=== PATIENT | male | born 1965 | race Hispanic/Latino ===

== ENCOUNTER 2018-03-25 13:28 | Inpatient (IN) | payer OTHER ==
--- NOTE | 2018-03-25 13:49 | ED PDOC ---
Arrival/HPI - General Chief Complaint: Lower Extremity Problem/Injury Time Seen by Provider: 03/25/18 13:32 Historian: Patient - History of Present Illness Narrative History of Present Illness (Text): 03/25/18 13:48 This 52 yo male with pmh diabetes, presents to this Emergency department complaining of left 5th toe injury x 4-5 days. Patient stated he accidentally twisted left ankle, causing to avulse his left 5th toenail. Last tetanus was UKN. Patient has been cleaning toe injury with peroxide. Patient denies other somatic complains. Patient was found to be febrile. He said he is claustrophobic. He stated PCN medication does not work for him. 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 Time/Duration: Other (see hpi) Context: Home Past Medical History - Provider Review Nursing Documentation Reviewed: Yes - Cardiac Hx Cardiac Disorders: No - Pulmonary Hx Respiratory Disorders: No - Neurological Hx Neurological Disorder: No - HEENT Hx HEENT Disorder: No - Renal Hx Renal Disorder: No - Endocrine/Metabolic Hx Diabetes Mellitus Type 2: Yes - Hematological/Oncological Hx Blood Disorders: No - Integumentary Hx Dermatological Disorder: No - Musculoskeletal/Rheumatological Hx Musculoskeletal Disorders: No - Gastrointestinal Hx Gastrointestinal Disorders: No - Genitourinary/Gynecological Hx Genitourinary Disorders: No - Psychiatric Hx Psychophysiologic Disorder: No Hx Substance Use: No Family/Social History - Physician Review Nursing Documentation Reviewed: Yes Family/Social History: Other (noncontributory) Smoking Status: Never Smoked Hx Alcohol Use: No Hx Substance Use: No Allergies/Home Meds Allergies/Adverse Reactions: Allergies Penicillins Allergy (Mild, Verified 03/25/18 14:26) PAIN Pt does not want to take it, claims it does not work for him. Home Medications: Home Meds Medication Instructions Recorded Confirmed metFORMIN [glucOPHAGE] 500 mg PO BID 03/25/18 03/25/18 Review of Systems - Review of Systems Constitutional: Fevers. absent: Weight Change, Night Sweats Eyes: Normal ENT: Normal. absent: Sore Throat, Rhinorrhea Respiratory: Normal. absent: SOB, Cough, Sputum, Wheezing Cardiovascular: Normal. absent: Palpitations, Syncope Gastrointestinal: Normal. absent: Abdominal Pain, Nausea, Vomiting Genitourinary Male: Normal. absent: Dysuria, Frequency, Hematuria Musculoskeletal: Other (see hpi) Skin: Abscess, Ulcer, Cellulitis, Other (see hpi) Neurological: Normal. absent: Headache, Dizziness, Focal Weakness, Gait Changes , Speech Changes, Facial Droop, Disequilibrium, Seizure Endocrine: Normal Hemo/Lymphatic: Normal Psychiatric: Normal Physical Exam Vital Signs Temp Pulse Resp BP Pulse Ox 03/25/18 15:43 99.1 F 100 H 20 98 03/25/18 15:20 178/81 H 03/25/18 13:37 100.1 F H 98 H 18 209/91 H 98 Temperature: Febrile Blood Pressure: Hypertensive Pulse: Regular Respiratory Rate: Normal Appearance: Positive for: Well-Appearing, Non-Toxic, Comfortable Pain Distress: None Mental Status: Positive for: Alert and Oriented X 3 - Systems Exam Head: Present: Atraumatic, Normocephalic Pupils: Present: PERRL Extroacular Muscles: Present: EOMI Conjunctiva: Present: Normal Mouth: Present: Moist Mucous Membranes Pharnyx: Present: Normal. No: ERYTHEMA, EXUDATE, TONSILS ENLARGED Neck: Present: Normal Range of Motion, Trachea Midline. No: Meningeal Signs, MIDLINE TENDERNESS, Paraspinal Tenderness, Lymphadenopathy Respiratory/Chest: Present: Clear to Auscultation, Good Air Exchange. No: Respiratory Distress, Accessory Muscle Use, Wheezes, Retracting, Rhonchi Cardiovascular: Present: Regular Rate and Rhythm, Normal S1, S2. No: Murmurs Abdomen: No: Tenderness, Distention, Peritoneal Signs, Rebound, Guarding Back: Present: Normal Inspection. No: CVA Tenderness, Midline Tenderness, Paraspinal Tenderness, Pain with Leg Raise Upper Extremity: Present: Normal Inspection, Normal ROM, NORMAL PULSES, Neurovascularly Intact, Capillary Refill < 2s. No: Cyanosis, Edema Lower Extremity: Present: NORMAL PULSES, Normal ROM, Erythema (left foot and ankle erythema), Temperature Abnormalties, Neurovascularly Intact, Capillary Refill < 2 s, Other ((+) left 5th toe is unrecognizable with severe infection, swelling erythema. Possibility of osteomyelitis is present). No: Edema, CALF TENDERNESS Neurological: Present: GCS=15, CN II-XII Intact, Speech Normal, Motor Func Grossly Intact, Normal Sensory Function, Normal Cerebellar Funct, Gait Normal Skin: Present: Warm, Dry, Normal Color. No: Rashes Psychiatric: Present: Alert, Oriented x 3, Normal Insight, Normal Concentration Medical Decision Making ED Course and Treatment: 03/25/18 15:49 Patient is requesting to have Dr. Morenita Sood to be called for his medical car. 03/25/18 16:[address] Morenita Sood regarding lab result, x-rays, febrile. I told him Podiatry Resident came to examine patient. He recommended ESCOBAR Coe for consult. He agreed with plan for admission. Patient agreed with plan for admission. Re-evaluation Time: 16:58 Reassessment Condition: Re-examined, Improving,but remains with symptoms - Lab Interpretations Lab Results: 03/25/18 15:10 03/25/18 15:10 Lab Results 03/25/18 16:45: Urine Color Yellow, Urine Appearance Clear, Urine pH 6.0, Ur Specific [place] 1.015, Urine Protein 100 H, Urine Glucose (UA) >=1000, Urine Ketones Negative, Urine Blood Moderate H, Urine Nitrate Negative, Urine Bilirubin Negative, Urine Urobilinogen 0.2, Ur Leukocyte Esterase Negative, Urine RBC Pending, Urine WBC Pending 03/25/18 15:10: Sodium 137, Chloride 104, Potassium 4.7, Carbon Dioxide 21, Anion Gap 17, BUN 34 H, Creatinine 1.8 H, Est GFR ( Amer) 48, Est GFR ( Non-Af Amer) 40, Random Glucose 411 H*, Calcium 8.9, Phosphorus 2.7, Magnesium 1.6 L, Total Bilirubin 0.4, AST 20, ALT 28, Alkaline Phosphatase 102, Total Protein 7.1, Albumin 3.5, Globulin 3.6, Albumin/Globulin Ratio 1.0 L 03/25/18 15:10: pO2 20 L, VBG pH 7.28 L, VBG pCO2 47.0, VBG HCO3 22.1, VBG Total CO2 23.5, VBG O2 Sat (Calc) 43.7, VBG Base Excess -4.8 L, VBG Potassium 4.4, Sodium 134.0, Chloride 105.0, Glucose 431 H*, Lactate 1.0, FiO2 21.0, Venous Blood Potassium 4.4 03/25/18 15:10: PT 13.1 H, INR 1.15 H, APTT 28.8 03/25/18 15:10: WBC 18.7 H, RBC 3.80, Hgb 10.5 L, Hct 30.1 L, MCV 79.2 L, MCH 27.6, MCHC 34.9, RDW 12.4, Plt Count 285, MPV 10.8, Gran % 87.7 H, Lymph % (Auto ) 5.7 L, [place] % (Auto) 6.4 H, Eos % (Auto) 0.1 L, Baso % (Auto) 0.1, Gran # 16.36 H, Lymph # (Auto) 1.1 L, [place] # (Auto) 1.2 H, Eos # (Auto) 0.0, Baso # ( Auto) 0.02, ESR Pending I have reviewed the lab results: Yes Interpretation: Abnormal lab values - RAD Interpretation Narrative RAD Interpretations (Text): 03/25/18 15:31 PROCEDURE: Left Foot Radiographs. HISTORY: attn. 5th toe infection COMPARISON: None. FINDINGS: BONES: Normal. No fracture. No evidence of osteomyelitis JOINTS: Normal. SOFT TISSUES: Normal. OTHER FINDINGS: None. IMPRESSION: Soft tissue ulcers are seen in the 5th digit. No evidence of bony destruction 03/25/18 15:49 Chest X-ray: NAD Radiology Orders: 03/25/18 14:10 CHEST ONE VIEW [RAD] Stat 03/25/18 14:16 FOOT LEFT 3 VIEWS ROUTINE [RAD] Stat 03/25/18 17:01 DUPLEX LOWER EXTRM ARTR BILAT [US] Routine - EKG Interpretation Interpreted by ED Physician: Yes (NSR @ [address] changes) Type: 12 lead EKG Comparison: No previous EKG avail. - Medication Orders Current Medication Orders: Acetaminophen (Tylenol 325mg Tab) 975 mg PO ONCE PRN PRN Reason: Fever >100.4 F Last Admin: 03/25/18 15:20 Dose: 975 mg Insulin Human Regular (Humulin R) 10 units IVP STAT STA Stop: 03/25/18 17:10 Discontinued Medications Clonidine HCl (Catapres) 0.2 mg PO STAT STA Stop: 03/25/18 14:18 Last Admin: 03/25/18 15:20 Dose: 0.2 mg MAR Pulse and Blood Pressure Document 03/25/18 15:20 HI (Rec: 03/25/18 15:20 [place] [id number]) Blood Pressure Blood Pressure (100/60-150/90) 178/81 Meropenem (Merrem Iv 1 Gm Premix) 100 mls @ 100 mls/hr IVPB STAT STA PRN Reason: Protocol Stop: 03/25/18 15:09 Last Admin: 03/25/18 15:20 Dose: 100 mls/hr eMAR Start Stop Document 03/25/18 15:20 HI (Rec: 03/25/18 15:20 [place] [id number]) Intravenous Solution Start Date 03/25/18 Start Time 15:20 Vancomycin HCl (Vancomycin 1gm) 1 gm in 250 mls @ 167 mls/hr IVPB STAT STA PRN Reason: Protocol Stop: 03/25/18 15:39 Last Admin: 03/25/18 16:43 Dose: 167 mls/hr eMAR Start Stop Document 03/25/18 16:43 HI (Rec: 03/25/18 16:44 [place] [id number]) Intravenous Solution Start Date 03/25/18 Start Time 16:43 Sodium Chloride (Sodium Chloride 0.9%) 1,000 mls @ 999 mls/hr IV .Q1H1M STA Stop: 03/25/18 15:15 Last Admin: 03/25/18 15:19 Dose: 999 mls/hr eMAR Start Stop Document 03/25/18 15:19 HI (Rec: 03/25/18 15:19 [id number] Intravenous Solution Start Date 03/25/18 Start Time 15:19 Tetanus/Reduced Diphtheria/Acell Pertussis (Boostrix Vaccine Inj) 0.5 ml IM .ONCE ONE Stop: 03/25/18 14:25 Last Admin: 03/25/18 15:19 Dose: 0.5 ml Immunization Registry Document 03/25/18 15:19 HI (Rec: 03/25/18 15:19 [id number] Immunization Registry Consent Date 03/25/18 Disposition/Present on Arrival - Present on Arrival Any Indicators Present on Arrival: No History of DVT/PE: No History of Uncontrolled Diabetes: Yes Urinary Catheter: No History of Decub. Ulcer: No History Surgical Site Infection Following: None - Disposition Have Diagnosis and Disposition been Completed?: Yes Diagnosis: Diabetic ulcer of toe, Cellulitis in diabetic foot, Uncontrolled diabetes mellitus Disposition: HOSPITALIZED Disposition Time: 16:58 Patient Plan: Admission Patient Problems: Current Active Problems Problem Status Onset Diabetic ulcer of toe Acute Cellulitis in diabetic foot Acute Condition: STABLE Discharge Instructions (ExitCare): Cellulitis (ED) Referrals: PCP,NO [Primary Care Provider] - Follow up with primary Forms: [employer] (Ukrainian)
[2018-03-25] MEDS ORDERED: Vancomycin 1gm in NS 250ml 1 GM/250 ML BAG IVPB STA (14:10)
[2018-03-25] MEDS ORDERED: Meropenem IV 1 gm in NS 100 ML IVPB STA (14:10)
[2018-03-25] MEDS ORDERED: Sodium Chloride 0.9% 1,000 ML IV STA (14:15)
[2018-03-25] MEDS ORDERED: TDAP Vaccine 0.5 mL Syr IM ONE (14:24)
--- NOTE | 2018-03-25 14:55 | RAD ---
PROCEDURE: CHEST RADIOGRAPH, 1 VIEW HISTORY: Sepsis Patient COMPARISON: None available. FINDINGS: LUNGS: Clear. PLEURA: No pneumothorax or pleural fluid seen. CARDIOVASCULAR: Normal. OSSEOUS STRUCTURES: No significant abnormalities. VISUALIZED UPPER ABDOMEN: Normal. OTHER FINDINGS: None. IMPRESSION: No active disease.
--- NOTE | 2018-03-25 14:59 | RAD ---
PROCEDURE: Left Foot Radiographs. HISTORY: attn. 5th toe infection COMPARISON: None. FINDINGS: BONES: Normal. No fracture. No evidence of osteomyelitis JOINTS: Normal. SOFT TISSUES: Normal. OTHER FINDINGS: None. IMPRESSION: Soft tissue ulcers are seen in the 5th digit. No evidence of bony destruction
[2018-03-25 15:29] LABS: BASO # 0.02 K/mm3 (0.0-2.0); BASO % 0.1 % (0.0-3.0); EOS % 0.1 % (1.5-5.0); GRAN # 16.36 (1.4-6.5); GRAN % 87.7 % (50.0-68.0); HEMOGLOBIN 10.5 g/dL (14.0-18.0); LYMPH # 1.1 (1.2-3.4); LYMPH % 5.7 % (22.0-35.0); MEAN CELL VOLUME 79.2 fl (80.0-105.0); MEAN CORPUSCULAR HEMOGLOBIN 27.6 pg (25.0-35.0); MEAN CORPUSCULAR HGB CONC 34.9 g/dl (31.0-37.0); MEAN PLATELET VOLUME 10.8 fl (7.0-11.0); MONO # 1.2 (0.1-0.6); MONO % 6.4 % (1.0-6.0); RBC 3.8 10^6/uL (3.5-6.1); RED CELL DISTRIBUTION WIDTH 12.4 % (11.5-14.5); WHITE BLOOD COUNT 18.7 10^3/ul (4.5-11.0)
[2018-03-25 15:32] LABS: VENOUS BLOOD GAS BASE EXCESS -4.8 mmol/L (0.0-2.0); VENOUS BLOOD GAS PO2 20 mm/Hg (30-55); VENOUS BLOOD PH 7.28 (7.32-7.43)
[2018-03-25 16:00] LABS: INR 1.15 (0.93-1.08); PARTIAL THROMBOPLASTIN TIME 28.8 Seconds (25.1-36.5); PROTHROMBIN TIME 13.1 SECONDS (9.4-12.5)
[2018-03-25 16:27] LABS: ALBUMIN 3.5 g/dL (3.0-4.8); CALCIUM 8.9 mg/dL (8.4-10.5)
[2018-03-25 16:59] LABS: URINE BILIRUBIN NEGATIVE (NEGATIVE); URINE BLOOD MODERATE (NEGATIVE); URINE GLUCOSE (UA) >=1000 mg/dL (NEGATIVE); URINE LEUKOCYTE ESTERASE NEGATIVE Leu/uL (NEGATIVE); URINE PROTEIN 100 mg/dL (<30 mg/dL); URINE UROBILINOGEN 0.2 E.U./dL (<1 E.U./dL)
[2018-03-25 17:02] LABS: URINE APPEARANCE CLEAR (CLEAR); URINE COLOR YELLOW (YELLOW)
--- NOTE | 2018-03-25 17:08 | CP.PCM.CON ---
<Bart Toth - Last Filed: 03/25/18 17:04> History of Present Illness - History of Present Illness History of Present Illness: Podiatry Consult Note for Dr. Colon 52M with PMHx DM seen in ED complaining of a wound to he left fifth digit. Patient states that four days ago he was wearing flip flops and twisted his ankle causing him to scrape his fifth digit and traumatically avulse the nail. Patient states that since that time the toe has become increasingly swollen and hot and his foot has become more and more red. He denies seeking any treatment up to this point. He denies being in any pain but does say that the wound is uncomfortable. He is AAO x 3 and NAD during examination. Denies any other pedal complaints at this time. Denies any recent N/V/F/C/CP/SOB/D. Meds: See MAR All: Penicillins PSH: Denies FHx: Non-contributory SHx: Denies EtOH, tobacco use or illicit drug use Review of Systems - Review of Systems All systems: reviewed and no additional remarkable complaints except Review of Systems: as per HPI Past Patient History - Past Social History Smoking Status: Never Smoked - CARDIAC Hx Cardiac Disorders: No - PULMONARY Hx Respiratory Disorders: No - NEUROLOGICAL Hx Neurological Disorder: No - HEENT Hx HEENT Problems: No - RENAL Hx Chronic Kidney Disease: No - ENDOCRINE/METABOLIC Hx Diabetes Mellitus Type 2: Yes - HEMATOLOGICAL/ONCOLOGICAL Hx Blood Disorders: No - INTEGUMENTARY Hx Dermatological Problems: No - MUSCULOSKELETAL/RHEUMATOLOGICAL Hx Musculoskeletal Disorders: No - GASTROINTESTINAL Hx Gastrointestinal Disorders: No - GENITOURINARY/GYNECOLOGICAL Hx Genitourinary Disorders: No - PSYCHIATRIC Hx Psychophysiologic Disorder: No Hx Substance Use: No - SURGICAL HISTORY Hx Surgeries: No Meds Allergies/Adverse Reactions: Allergies Allergy/AdvReac Type Severity Reaction Status Date / Time Penicillins Allergy Mild PAIN Verified 03/25/18 14:26 - Medications Medications: Current Medications Acetaminophen (Tylenol 325mg Tab) 975 mg PO ONCE PRN PRN Reason: Fever >100.4 F Last Admin: 03/25/18 15:20 Dose: 975 mg Physical Exam - Constitutional Appears: Well, Non-toxic, No Acute Distress - Head Exam Head Exam: ATRAUMATIC, NORMOCEPHALIC - Extremities Exam Additional comments: LLE focused exam: Vasc: DP/PT pulses fully palpable 2/4 b/l. Skin temperature warm to warm from proximal to distal, increased distally. CFT < 3 seconds to all digits except fifth. Moderate edema to fifth digit extending to level of midfoot. Neuro: Epicritic and protective sensation grossly intact Derm: Fifth digit noted to be necrotic plantarly and fibrous dorsally with moderate amounts of serous drainage and noted malodor. Positive probe to bone, no tracking/tunneling/undermining. Grossly infected on clinical examination MSK: Minimal POP to ulceration site. Otherwise, no gross deformities noted. MMT 5/5 in all major muscle groups - Neurological Exam Neurological exam: Alert, Oriented x3 - Psychiatric Exam Psychiatric exam: Normal Affect, Normal Mood Results - Vital Signs Recent Vital Signs: Last Vital Signs Temp 99.1 F 03/25/18 15:43 Pulse 100 H 03/25/18 15:43 Resp 20 03/25/18 15:43 BP 178/81 H 03/25/18 15:20 Pulse Ox 98 03/25/18 15:43 - Labs Result Diagrams: 03/25/18 15:10 03/25/18 15:10 Labs: Laboratory Results - last 24 hr 03/25/18 03/25/18 03/25/18 15:10 15:10 15:10 WBC 18.7 H RBC 3.80 Hgb 10.5 L Hct 30.1 L MCV 79.2 L MCH 27.6 MCHC 34.9 RDW 12.4 Plt Count 285 MPV 10.8 Gran % 87.7 H Lymph % (Auto) 5.7 L [place] % (Auto) 6.4 H Eos % (Auto) 0.1 L Baso % (Auto) 0.1 Gran # 16.36 H Lymph # (Auto) 1.1 L [place] # (Auto) 1.2 H Eos # (Auto) 0.0 Baso # (Auto) 0.02 PT 13.1 H INR 1.15 H APTT 28.8 pO2 20 L VBG pH 7.28 L VBG pCO2 47.0 VBG HCO3 22.1 VBG Total CO2 23.5 VBG O2 Sat (Calc) 43.7 VBG Base Excess -4.8 L VBG Potassium 4.4 Sodium 134.0 Chloride 105.0 Glucose 431 H* Lactate 1.0 FiO2 21.0 Potassium Carbon Dioxide Anion Gap BUN Creatinine Est GFR ( Amer) Est GFR (Non-Af Amer) Random Glucose Calcium Phosphorus Magnesium Total Bilirubin AST ALT Alkaline Phosphatase Total Protein Albumin Globulin Albumin/Globulin Ratio Venous Blood Potassium 4.4 Urine Color Urine Appearance Urine pH Ur Specific [place] Urine Protein Urine Glucose (UA) Urine Ketones Urine Blood Urine Nitrate Urine Bilirubin Urine Urobilinogen Ur Leukocyte Esterase 03/25/18 03/25/18 15:10 16:45 WBC RBC Hgb Hct MCV MCH MCHC RDW Plt Count MPV Gran % Lymph % (Auto) [place] % (Auto) Eos % (Auto) Baso % (Auto) Gran # Lymph # (Auto) [place] # (Auto) Eos # (Auto) Baso # (Auto) PT INR APTT pO2 VBG pH VBG pCO2 VBG HCO3 VBG Total CO2 VBG O2 Sat (Calc) VBG Base Excess VBG Potassium Sodium 137 Chloride 104 Glucose Lactate FiO2 Potassium 4.7 Carbon Dioxide 21 Anion Gap 17 BUN 34 H Creatinine 1.8 H Est GFR ( Amer) 48 Est GFR (Non-Af Amer) 40 Random Glucose 411 H* Calcium 8.9 Phosphorus 2.7 Magnesium 1.6 L Total Bilirubin 0.4 AST 20 ALT 28 Alkaline Phosphatase 102 Total Protein 7.1 Albumin 3.5 Globulin 3.6 Albumin/Globulin Ratio 1.0 L Venous Blood Potassium Urine Color Yellow Urine Appearance Clear Urine pH 6.0 Ur Specific [place] 1.015 Urine Protein 100 H Urine Glucose (UA) >=1000 Urine Ketones Negative Urine Blood Moderate H Urine Nitrate Negative Urine Bilirubin Negative Urine Urobilinogen 0.2 Ur Leukocyte Esterase Negative Assessment & Plan - Assessment and Plan (Free Text) Assessment: 52M seen at bedside for acutely infected, fibronecrotic left fifth digit Plan: Patient seen and evaluated Plan discussed with attending Dr. Colon Febrile, WBC 18.7 ESR pending IV abx per ID, recs appreciated 03/25: No evidence of OM F/u wound cx results F/u b/l LE arterial duplex results Patient most likely will need amputation of fifth digit. Patient has been made aware. Will discuss more with patient and Dr. Villeda tomorrow AM. Wound dressed with JULISA Perera. Patient to be admitted to floors. Podiatry will continue to follow while patient in house - Date & Time Date: 06/11/18 Time: 17:16 <DarleneLoreto K - Last Filed: 03/31/18 19:01> Meds - Medications Medications: Current Medications Acetaminophen (Tylenol 325mg Tab) 650 mg PO Q4 PRN PRN Reason: Fever >100.4 F Last Admin: 03/27/18 06:53 Dose: 650 mg Amlodipine Besylate (Norvasc) 10 mg PO DAILY [facility] Last Admin: 03/31/18 10:18 Dose: 10 mg Aspirin (Ecotrin) 81 mg PO DAILY [facility] Last Admin: 03/31/18 10:19 Dose: 81 mg Sodium Chloride (Sodium Chloride 0.9%) 1,000 mls @ 60 mls/hr IV .[id number] [facility] Last Admin: 03/31/18 05:52 Dose: Not Given Insulin Human Regular (Humulin R Med) 0 units SC [facility] PRN Reason: Protocol Last Admin: 03/31/18 17:55 Dose: 3 units Linezolid (Zyvox) 600 mg PO BID [facility] PRN Reason: Protocol Last Admin: 03/31/18 17:56 Dose: 600 mg Losartan Potassium (Cozaar) 50 mg PO DAILY [facility] Last Admin: 03/31/18 10:19 Dose: 50 mg Magnesium Oxide (Mag-Ox) 400 mg PO BID [facility] Last Admin: 03/31/18 17:55 Dose: 400 mg Metoprolol Tartrate (Lopressor) 25 mg PO BRKDIN [facility] Last Admin: 03/31/18 17:56 Dose: 25 mg Ondansetron HCl (Zofran Inj) 4 mg IVP ONCE PRN PRN Reason: Nausea/Vomiting Oxycodone/Acetaminophen (Percocet 5/325 Mg Tab) 1 tab PO Q4H PRN PRN Reason: Pain, severe (8-10) Stop: 03/31/18 19:37 Last Admin: 03/31/18 17:59 Dose: 1 tab Pioglitazone HCl (Actos) 30 mg PO DAILY [facility] Last Admin: 03/31/18 10:19 Dose: 30 mg Tramadol HCl (Ultram) 50 mg PO Q6H PRN PRN Reason: Pain, severe (8-10) Last Admin: 03/30/18 04:58 Dose: 50 mg Results - Vital Signs Recent Vital Signs: Last Vital Signs Temp 97.8 F 03/31/18 18:00 Pulse 68 06/17/18 18:00 Resp 18 03/31/18 18:00 BP 164/84 H 03/31/18 18:00 Pulse Ox 96 03/31/18 18:00 - Labs Result Diagrams: 03/30/18 06:00 03/30/18 06:00 Labs: Laboratory Results - last 24 hr 03/30/18 03/31/18 03/31/18 22:09 07:27 11:27 POC Glucose (mg/dL) 177 H 194 H 220 H 03/31/18 16:31 POC Glucose (mg/dL) 323 H Attending/Attestation - Attestation I have personally seen and examined this patient.: Yes I have fully participated in the care of the patient.: Yes I have reviewed all pertinent clinical information: Yes
[2018-03-25] MEDS ORDERED: Insulin Regular 1 UNITS/0.01 ML ML IVP STA (17:09)
[2018-03-25 17:18] LABS: URINE BACTERIA MANY (NEG); URINE COARSE GRANULAR CAST TRACE /hpf (0-2); URINE RBC 15 - 20 /hpf (0-2); URINE WBC 0 - 2 /hpf (0-6)
[2018-03-25] MEDS: Sodium Chloride 0.9% 1,000 ML IV SCH (20:00)
[2018-03-25] MEDS: Insulin Reg-MEDIUM-Coverage SC SCH (21:21)
[2018-03-25 22:26] VITALS: BMI 32.5
--- NOTE | 2018-03-26 00:26 | CARD ---
APPROVED REPORT EKG Measurement Heart [id number] <Conclusion> Normal sinus rhythm Nonspecific T wave abnormality Abnormal ECG
--- NOTE | 2018-03-26 05:53 | HP ---
HISTORY OF PRESENT ILLNESS: The patient is a 52-year-old white male. The patient was seen in the Emergency Room and evaluated by the Emergency Room physician. He presented with pain in the left foot, he had jammed his left foot on a hard object. He had a laceration of his little toe on the left foot and infection around the nail bed. The patient has an offensive infection involving the left little toe. The patient is admitted to the hospital for further evaluation and treatment. PAST MEDICAL HISTORY: He has history of bladder infection. The patient also says that he has history of fracture in the left forearm, which was treated non-operatively nonsurgically. He has history of diabetes. FAMILY HISTORY: The patient has a family history of diabetes. MEDICATIONS: The patient is on metformin and diabetic diet. The patient is evaluated and the patient is found to have a high creatinine level and metformin has to be discontinued. We will have to place the patient on insulin coverage and Actos. PHYSICAL EXAMINATION: GENERAL: The patient is comfortable. He has dressing on his left foot. VITAL SIGNS: The patient's pulse is 82, blood pressure 145/72, respirations are 16. The patient had a temperature of 99, O2 sat 97% on room air. HEAD: His head is normocephalic. NECK: The thyroid is not enlarged. There is no lymphadenopathy. JVP is flat. LUNGS: Trachea central. Breath sounds are vesicular. No adventitious sounds. HEART: S1, S2 present. No murmurs. ABDOMEN: Soft. Liver, spleen not palpable. MATERIALS TECHNICIAN: The patient is conscious, rationale, oriented. The cranial nerves are intact. Motor sensory functions are within normal range. The patient's cerebellar function is normal. The patient is hobbling when he walks, but he is able to walk. ADMITTING DIAGNOSIS: Diabetes mellitus with infection of left foot. LABORATORY FINDINGS: The hemoglobin is 10.5, white count is 18,000. His differential shows 87.7% neutrophils. The patient's chemistry, the patient's blood sugar is 411 and his creatinine is 1.8, BUN is 34 and the patient's magnesium is 1.6, which is low. The patient's albumin is 3.5. The patient's chest x-ray is clear. EKG normal sinus rhythm. ASSESSMENT AND PLAN: The patient's admitting diagnosis is diabetes with sepsis associated with wound infection of left foot. The patient will be seen by stone sawyer. We will have Infectious Disease consult on the patient and the patient also might need an MRI of the foot to evaluate whether the patient has osteomyelitis of the toe. His current condition seems to be stable. His overall prognosis is guarded. Georges Sood MD MTDD
[2018-03-26] MEDS: Aztreonam 1 Gm in NS 100mL 100 ML IVPB SCH ×3 (05:55→21:11)
[2018-03-26 06:52] LABS: BASO # 0.02 K/mm3 (0.0-2.0); BASO % 0.1 % (0.0-3.0); EOS # 0.1 (0.0-0.7); EOS % 0.8 % (1.5-5.0); GRAN # 11.2 (1.4-6.5); GRAN % 79.3 % (50.0-68.0); HEMOGLOBIN 10.1 g/dL (14.0-18.0); LYMPH # 1.2 (1.2-3.4); LYMPH % 8.3 % (22.0-35.0); MEAN CELL VOLUME 79.5 fl (80.0-105.0); MEAN CORPUSCULAR HEMOGLOBIN 27.6 pg (25.0-35.0); MEAN CORPUSCULAR HGB CONC 34.7 g/dl (31.0-37.0); MEAN PLATELET VOLUME 10.8 fl (7.0-11.0); MONO # 1.6 (0.1-0.6); MONO % 11.5 % (1.0-6.0); RBC 3.66 10^6/uL (3.5-6.1); RED CELL DISTRIBUTION WIDTH 12.6 % (11.5-14.5); WHITE BLOOD COUNT 14.1 10^3/ul (4.5-11.0)
[2018-03-26 07:54] LABS: ALBUMIN 3.3 g/dL (3.0-4.8); CALCIUM 8.6 mg/dL (8.4-10.5)
[2018-03-26 07:55] LABS: ALB/GLOB RATIO 0.9 (1.1-1.8)
[2018-03-26] MEDS: Insulin Reg-MEDIUM-Coverage SC SCH ×4 (08:07→21:49)
[2018-03-26] MEDS: Sodium Chloride 0.9% 1,000 ML IV SCH ×2 (08:08→17:14)
--- NOTE | 2018-03-26 09:12 | PN ---
DATE: 03/26/2018 SUBJECTIVE: The patient is 52-year-old white male. He is seen this morning, admitted last night. The patient has gangrene of his little toe on the left foot and also, partial gangrene on the second toe of the right foot. The patient has history of diabetes and hypertension. The patient denies much pain in the foot. The patient also had fever yesterday and the patient was admitted to the Emergency Room. PHYSICAL EXAMINATION: VITAL SIGNS: This morning, the pulse is 86, blood pressure 130/74. The patient's temperature is 98.5. HEENT: The patient's head is normocephalic. NECK: The neck does not show any lymphadenopathy. The patient has carotid pulses present. LUNGS: Trachea central. Breath sounds vesicular. No adventitious sounds. HEART: Normal sinus rhythm. S1, S2 present. ABDOMEN: Soft. Liver and spleen not palpable. DRYING AND WINDING SUPERVISOR: The patient has no focal deficits excepting evidence of peripheral neuropathy because of the manifestation of infection in the toe without much pain. The patient is a diabetic, of course. The patient was seen by the director decision support, he is going to have arterial Doppler done today. MEDICATIONS: Consists of Actos 15 mg daily, Azactam 1 g every 8 hours. The patient is on local treatment for the foot. Aspirin 81 mg daily, insulin coverage, metoprolol 25 mg p.o. daily. The patient is going to be on amlodipine 5 mg daily and enalapril 5 mg daily. The patient's sugar will be covered by insulin coverage 4 times a day. We will continue current management. We will investigate the patient's clinical condition and the patient is covered by antibiotics at this time. The patient also gets Zyvox 600 mg daily every 12 hours, lisinopril 5 mg. The patient seems to be relatively comfortable. We will continue current medications. Georges Sood MD MTDDai
[2018-03-26] MEDS: Linezolid 600 mg in D5W 300 ml 600 MG/300 ML BAG IVPB SCH ×2 (09:17→21:29)
[2018-03-26] MEDS: Magnesium Oxide 400 mg Tab UD PO SCH ×2 (09:17→17:01)
[2018-03-26] MEDS: Mupirocin 2% Ointment 15 GM TUBE TOP SCH ×2 (09:20→17:05)
[2018-03-26 11:31] LABS: IRON 16 ug/dL (45-180)
[2018-03-26 11:45] LABS: % IRON SATURATION 7 % (20-55); TOTAL IRON BINDING CAPACITY 228 ug/dL (261-462)
--- NOTE | 2018-03-26 13:02 | CP.PCM.PN ---
<Navneet,Mark - Last Filed: 03/26/18 12:59> Subjective - Date & Time of Evaluation Date of Evaluation: 03/26/18 Time of Evaluation: 12:59 - Subjective Subjective: Podiatry Progress Note for Attending Dr. Villeda 52M seen and evaluated at bedside with attending Dr. Villeda for infected, gangrenous left fifth digit and necrotic distal right second digit. Patient states that he was unaware of the necrotic changes to his right second digit until a nurse pointed it out to him this morning. Denies any pain in the area. Patient is AAO x 3 and NAD at time of visit. Denies any acute overnight events. Denies any new pedal complaints. Denies any recent N/V/F/C/CP/SOB/D/posterior calf pain when squeezed. Objective - Vital Signs/Intake and Output Vital Signs (last 24 hours): Temp Pulse Resp BP Pulse Ox 98.2 F 82 20 150/78 96 03/26/18 08:22 03/26/18 09:17 03/26/18 08:22 03/26/18 09:17 03/26/18 08:22 Intake and Output: 03/26/18 03/26/18 06:59 18:59 Intake Total 1520 Output Total 1200 Balance 320 - Medications Medications: Current Medications Acetaminophen (Tylenol 325mg Tab) 650 mg PO Q4 PRN PRN Reason: Fever >100.4 F Amlodipine Besylate (Norvasc) 5 mg PO DAILY [facility] Last Admin: 03/26/18 09:17 Dose: 5 mg Aspirin (Ecotrin) 81 mg PO DAILY [facility] Last Admin: 03/26/18 09:17 Dose: 81 mg Sodium Chloride (Sodium Chloride 0.9%) 1,000 mls @ 100 mls/hr IV .Q10H [facility] Last Admin: 03/26/18 08:08 Dose: 100 mls/hr Linezolid (Zyvox 600mg/300ml D5w) 600 mg in 300 mls @ 200 mls/hr IVPB Q12 [facility] PRN Reason: Protocol Stop: 04/02/18 10:01 Last Admin: 03/26/18 09:17 Dose: 200 mls/hr Aztreonam (Azactam 1 Gm) 100 mls @ 100 mls/hr IVPB Q8 [facility] PRN Reason: Protocol Stop: 04/02/18 06:01 Last Admin: 03/26/18 05:55 Dose: 100 mls/hr Insulin Human Regular (Humulin R Med) 0 units SC ACHS [facility] PRN Reason: Protocol Last Admin: 03/26/18 08:07 Dose: 7 units Lisinopril (Zestril) 5 mg PO DAILY [facility] Last Admin: 03/26/18 09:17 Dose: 5 mg Magnesium Oxide (Mag-Ox) 400 mg PO BID [facility] Last Admin: 03/26/18 09:17 Dose: 400 mg Metoprolol Tartrate (Lopressor) 25 mg PO BRKDIN [facility] Last Admin: 03/26/18 08:07 Dose: 25 mg Mupirocin (Bactroban Ointment) 0 gm TOP BID [facility] Last Admin: 03/26/18 09:20 Dose: 1 applic Pioglitazone HCl (Actos) 15 mg PO DAILY [facility] Last Admin: 03/26/18 09:20 Dose: 15 mg - Labs Labs: 03/26/18 06:15 03/26/18 06:15 PT 13.1 SECONDS (9.4-12.5) H 03/25/18 15:10 INR 1.15 (0.93-1.08) H 03/25/18 15:10 APTT 28.8 Seconds (25.1-36.5) 03/25/18 15:10 - Constitutional Appears: Well, Non-toxic, No Acute Distress - Head Exam Head Exam: ATRAUMATIC, NORMOCEPHALIC - Extremities Exam Additional comments: B/l LE focused exam Vasc: DP/PT pulses fully palpable 2/4 b/l. Skin temperature warm to warm from proximal to distal, increased distally. CFT < 3 seconds to all digits except left fifth and right second. Moderate edema to fifth digit extending to level of midfoot. No edema noted to right second digit Neuro: Epicritic and protective sensation grossly intact but diminished b/l Derm: Fifth digit noted to be necrotic plantarly and fibrous dorsally with moderate amounts of serous drainage and noted malodor. Positive probe to bone, no tracking/tunneling/undermining. Grossly infected on clinical examination. Right second digit noted to be black and necrotic with no noted drainage, malodor, probe to bone, tracking, tunneling or undermining. MSK: Minimal POP to ulceration site of left foot. No POP to second digit of right foot. Otherwise, no gross deformities noted. MMT 5/5 in all major muscle groups - Neurological Exam Neurological Exam: Alert, Awake, Oriented x3 - Psychiatric Exam Psychiatric exam: Normal Affect, Normal Mood Assessment and Plan - Assessment and Plan (Free Text) Assessment: 52M seen and evaluated at bedside with attending Dr. Villeda for infected, gangrenous left fifth digit and necrotic distal right second digit. Plan: Patient seen and evaluated with attending Dr. Villeda Afebrile, WBC 14.1 from 18.7 ESR 129 HgA1c 10.7 Continue IV abx per ID Wound cx left fifth digit pending 03/25 L foot xray: Soft tissue ulcers seen in the fifth digit. No evidence of bony destruction 03/25 Arterial duplex results pending 03/26 R foot XR ordered to r/o OM Left fifth digit and right second digit dressed with adaptic, DSD Patient most likely will need amputation of left digit pending vascular study results Vascular surgery consulted - recs appreciated Podiatry will continue to follow while patient in house <Rashaun Villeda - Last Filed: 03/26/18 16:16> Objective - Vital Signs/Intake and Output Vital Signs (last 24 hours): Temp Pulse Resp BP Pulse Ox 98.2 F 82 20 150/78 96 03/26/18 08:22 03/26/18 09:17 03/26/18 08:22 03/26/18 09:17 03/26/18 08:22 Intake and Output: 03/26/18 03/26/18 06:59 18:59 Intake Total 1520 Output Total 1200 Balance 320 - Medications Medications: Current Medications Acetaminophen (Tylenol 325mg Tab) 650 mg PO Q4 PRN PRN Reason: Fever >100.4 F Last Admin: 03/26/18 15:28 Dose: 650 mg Amlodipine Besylate (Norvasc) 5 mg PO DAILY [facility] Last Admin: 03/26/18 09:17 Dose: 5 mg Aspirin (Ecotrin) 81 mg PO DAILY [facility] Last Admin: 03/26/18 09:17 Dose: 81 mg Sodium Chloride (Sodium Chloride 0.9%) 1,000 mls @ 100 mls/hr IV .Q10H [facility] Last Admin: 03/26/18 08:08 Dose: 100 mls/hr Linezolid (Zyvox 600mg/300ml D5w) 600 mg in 300 mls @ 200 mls/hr IVPB Q12 [facility] PRN Reason: Protocol Stop: 04/02/18 10:01 Last Admin: 03/26/18 09:17 Dose: 200 mls/hr Aztreonam (Azactam 1 Gm) 100 mls @ 100 mls/hr IVPB Q8 [facility] PRN Reason: Protocol Stop: 04/02/18 06:01 Last Admin: 03/26/18 14:32 Dose: 100 mls/hr Insulin Human Regular (Humulin R Med) 0 units SC ACHS [facility] PRN Reason: Protocol Last Admin: 03/26/18 13:30 Dose: 8 units Lisinopril (Zestril) 5 mg PO DAILY [facility] Last Admin: 03/26/18 09:17 Dose: 5 mg Magnesium Oxide (Mag-Ox) 400 mg PO BID [facility] Last Admin: 03/26/18 09:17 Dose: 400 mg Metoprolol Tartrate (Lopressor) 25 mg PO BRKDIN [facility] Last Admin: 03/26/18 08:07 Dose: 25 mg Mupirocin (Bactroban Ointment) 0 gm TOP BID [facility] Last Admin: 03/26/18 09:20 Dose: 1 applic Pioglitazone HCl (Actos) 15 mg PO DAILY [facility] Last Admin: 03/26/18 09:20 Dose: 15 mg Tramadol HCl (Ultram) 50 mg PO Q6H PRN PRN Reason: Pain, severe (8-10) - Labs Labs: 03/26/18 06:15 03/26/18 06:15 PT 13.1 SECONDS (9.4-12.5) H 03/25/18 15:10 INR 1.15 (0.93-1.08) H 03/25/18 15:10 APTT 28.8 Seconds (25.1-36.5) 03/25/18 15:10 Attending/Attestation - Attestation I have personally seen and examined this patient.: Yes I have fully participated in the care of the patient.: Yes I have reviewed all pertinent clinical information, including history, physical exam and plan: Yes
--- NOTE | 2018-03-26 13:38 | RAD ---
PROCEDURE: Right Foot Radiographs. HISTORY: necrotic ulcer second digit, r/o OM COMPARISON: None. FINDINGS: BONES: There is bony destruction of the tip of the 2nd toe consistent with osteomyelitis. There is also soft tissue swelling JOINTS: Normal. SOFT TISSUES: Normal. OTHER FINDINGS: None. IMPRESSION: There is bony destruction of the tip of the 2nd toe consistent with osteomyelitis. There is also soft tissue swelling
--- NOTE | 2018-03-26 17:42 | CP.PCM.CON ---
History of Present Illness - History of Present Illness History of Present Illness: 52 year old male with PMH of DM, obesity with BMI 32 came in to [facility] complaining of wounds on his left foot 5th digit after he injured it 4-5 days ago when he twisted his left ankle and had his digit scrape on concrete. His toe and foot became swollen and has progressively gotten more painful. He denies animal contacts, no soaking of feet in water. He also denies fever or chills, no nausea or vomiting, no chest pain, no SOB, no headache or dizziness, no abdominal pain, no diarrhea, no dysuria. The patient also had low grade fevers. Infectious Diseases consult is requested to further evaluate and manage. Review of Systems - Review of Systems All systems: reviewed and no additional remarkable complaints except (as per HPI ) Past Patient History - Past Social History Smoking Status: Never Smoked - CARDIAC Hx Cardiac Disorders: No - PULMONARY Hx Respiratory Disorders: No - NEUROLOGICAL Hx Neurological Disorder: No - HEENT Hx HEENT Problems: No - RENAL Hx Chronic Kidney Disease: No - ENDOCRINE/METABOLIC Hx Endocrine Disorders: Yes Hx Diabetes Mellitus Type 2: Yes - HEMATOLOGICAL/ONCOLOGICAL Hx Blood Disorders: No - INTEGUMENTARY Hx Dermatological Problems: No - MUSCULOSKELETAL/RHEUMATOLOGICAL Hx Musculoskeletal Disorders: No Hx Falls: No - GASTROINTESTINAL Hx Gastrointestinal Disorders: No - GENITOURINARY/GYNECOLOGICAL Hx Genitourinary Disorders: No - PSYCHIATRIC Hx Psychophysiologic Disorder: No Hx Substance Use: No - SURGICAL HISTORY Hx Surgeries: No Meds Allergies/Adverse Reactions: Allergies Allergy/AdvReac Type Severity Reaction Status Date / Time Penicillins Allergy Mild PAIN Verified 03/25/18 14:26 - Medications Medications: Current Medications Acetaminophen (Tylenol 325mg Tab) 975 mg PO ONCE PRN PRN Reason: Fever >100.4 F Last Admin: 03/25/18 15:20 Dose: 975 mg Acetaminophen (Tylenol 325mg Tab) 650 mg PO Q4 PRN PRN Reason: Fever >100.4 F Aspirin (Ecotrin) 81 mg PO DAILY [facility] Sodium Chloride (Sodium Chloride 0.9%) 1,000 mls @ 100 mls/hr IV .Q10H [facility] Insulin Human Regular (Humulin R Med) 0 units SC ACHS [facility] PRN Reason: Protocol Last Admin: 03/25/18 21:21 Dose: Not Given Magnesium Oxide (Mag-Ox) 400 mg PO BID [facility] Metoprolol Tartrate (Lopressor) 25 mg PO BRKDIN [facility] Pioglitazone HCl (Actos) 15 mg PO DAILY [facility] Physical Exam - Constitutional Appears: Chronically Ill - Head Exam Head Exam: NORMAL INSPECTION - ENT Exam ENT Exam: Mucous Membranes Moist - Neck Exam Neck exam: Negative for: Meningismus - Respiratory Exam Respiratory Exam: Decreased Breath Sounds - Cardiovascular Exam Cardiovascular Exam: +S1, +S2 - GI/Abdominal Exam GI & Abdominal Exam: Soft. absent: Tenderness - Extremities Exam Additional comments: left foot with dressings in place Results - Vital Signs Recent Vital Signs: Last Vital Signs Temp 98.5 F 03/25/18 22:03 Pulse 86 03/25/18 22:03 Resp 20 03/25/18 22:03 BP 138/74 03/25/18 22:03 Pulse Ox 97 03/25/18 19:00 - Labs Result Diagrams: 03/26/18 06:15 03/26/18 06:15 Labs: Laboratory Results - last 24 hr 03/25/18 21:18 POC Glucose (mg/dL) 262 H Assessment & Plan - Assessment and Plan (Free Text) Plan: Assessment Systemic inflammatory response syndrome, Sepsis due to left 5th digit skin and skin structure infection, R/O osteomyelitis DM obesity with BMI 32 Plan Started the patient on Zyvox and Azactam pending blood and wound cx; may need further imaging such as MRI to rule out osteomyelitis follow up further plans of Podiatry will monitor clinically
[2018-03-26] MEDS ORDERED: Apap-Butalbital-Caffeine 325-50-40mg Tab PO ONE (20:56)
--- NOTE | 2018-03-26 22:18 | US ---
PROCEDURE: Lower extremity ROSS exam HISTORY: Peripheral vascular disease with pain and claudication. Diabetes PHYSICIAN(S): Elroy You MD. FINDINGS: The resting ROSS's are normal: right, 1.29and left, 1.11. The brachial systolic pressures are symmetric. The high thigh pressures and waveforms are relatively normal. The calf PVR waveforms augment normally. No significant gradients are noted across the thighs. The ankle and metatarsal waveforms are relatively normal and symmetric. No significant pressure gradients are noted across the lower legs. IMPRESSION: 1. Normal ROSS and PVR examination at rest.
[2018-03-27] MEDS: Aztreonam 1 Gm in NS 100mL 100 ML IVPB SCH ×3 (05:32→22:28)
[2018-03-27 07:25] LABS: CALCIUM 8.3 mg/dL (8.4-10.5)
[2018-03-27] MEDS: Insulin Reg-MEDIUM-Coverage SC SCH ×3 (08:30→18:33)
[2018-03-27] MEDS: Linezolid 600 mg in D5W 300 ml 600 MG/300 ML BAG IVPB SCH ×2 (09:27→22:28)
[2018-03-27] MEDS: Magnesium Oxide 400 mg Tab UD PO SCH ×2 (09:28→18:34)
[2018-03-27] MEDS: Mupirocin 2% Ointment 15 GM TUBE TOP SCH ×2 (09:29→17:18)
--- NOTE | 2018-03-27 09:31 | PN ---
DATE: 03/27/2018 LOCATION: The patient is in [facility], room 375, bed 2. SUBJECTIVE: The patient was admitted with infection of his foot. He has gangrenous infection of the little toe of the left foot and also the second toe of the right foot. The patient is seen this morning. He complains of pain, which is about 4/10. PHYSICAL EXAMINATION: VITAL SIGNS: His pulse is 96, blood pressure 188/92, his temperature 100.3. HEENT: His head is normocephalic. NECK: The thyroid is not enlarged. LUNGS: Trachea central. Breath sounds are vesicular. No adventitious sounds. HEART: Normal sinus rhythm. S1, S2 present. No murmurs. ABDOMEN: Soft. Liver and spleen not palpable. [employer]: The patient has no focal deficit. ALLERGIES: THE PATIENT IS ALLERGIC TO PENICILLIN. LABORATORY FINDINGS: The white count was 18,000, now it is 14,000. The patient has a differential, which shows a shift to the left. The chemistry finding: The patient's creatinine is 1.6 today and BUN is 26. The patient's blood sugar was 233. The patient's blood sugar at the time of admission was over 400. The patient's iron level is low. His total iron is 16. The patient has chronic anemia, iron deficiency. The patient's diet is 2 g sodium diabetic diet. MEDICATIONS: His medication list consists of Actos 15 mg daily. The patient is on Azactam 1 g every 8 hours. The patient is on aspirin, insulin coverage, metoprolol 25 mg b.i.d. magnesium oxide 400 mg b.i.d. The patient is on amlodipine 5 mg daily. The patient is also getting Tramadol for pain and the patient is on Zyvox 600 mg IV every 12 hours, lisinopril 5 mg daily. ASSESSMENT AND PLAN: The patient's condition is still acute. The patient is getting antibiotic treatment parenterally and medication to control blood pressure and the patient will probably be placed on medication to increase blood flow to the leg. Arterial Doppler done does not show any vascular occlusions or vascular impairment on either leg. We will continue current management and follow up. Georges Sood MD MTDDai
--- NOTE | 2018-03-27 11:16 | CP.PCM.PN ---
<Bart Toth - Last Filed: 03/27/18 10:58> Subjective - Date & Time of Evaluation Date of Evaluation: 03/27/18 Time of Evaluation: 10:58 - Subjective Subjective: Podiatry Progress Note for Dr. Colon 52M seen and evaluated at bedside with attending Dr. Colon for infected, gangrenous left fifth digit and necrotic distal right second digit ulceration. Patient is AAO x 3 and NAD at time of visit. States that pain is well controlled. Denies any acute overnight events. Denies any new pedal complaints. Denies any recent N/V/F/C/CP/SOB/D/posterior calf pain when squeezed. Patient is aware that he will be going to OR tomorrow for left partial fifth ray amputation and debridement of distal right second digit ulceration vs. partial amputation of right second digit. Objective - Vital Signs/Intake and Output Vital Signs (last 24 hours): Temp Pulse Resp BP Pulse Ox 100.3 F H 90 22 188/92 H 97 03/27/18 06:53 03/27/18 06:00 03/27/18 06:00 03/27/18 06:00 03/27/18 06:00 Intake and Output: 03/27/18 03/27/18 06:59 18:59 Intake Total 1140 Output Total 1750 Balance -610 - Medications Medications: Current Medications Acetaminophen (Tylenol 325mg Tab) 650 mg PO Q4 PRN PRN Reason: Fever >100.4 F Last Admin: 03/27/18 06:53 Dose: 650 mg Amlodipine Besylate (Norvasc) 5 mg PO DAILY [facility] Last Admin: 03/27/18 09:28 Dose: 5 mg Aspirin (Ecotrin) 81 mg PO DAILY [facility] Last Admin: 03/27/18 09:28 Dose: 81 mg Sodium Chloride (Sodium Chloride 0.9%) 1,000 mls @ 100 mls/hr IV .Q10H [facility] Last Admin: 03/26/18 17:14 Dose: Not Given Linezolid (Zyvox 600mg/300ml D5w) 600 mg in 300 mls @ 200 mls/hr IVPB Q12 [facility] PRN Reason: Protocol Stop: 04/02/18 10:01 Last Admin: 03/27/18 09:27 Dose: 200 mls/hr Aztreonam (Azactam 1 Gm) 100 mls @ 100 mls/hr IVPB Q8 [facility] PRN Reason: Protocol Stop: 04/02/18 06:01 Last Admin: 03/27/18 05:32 Dose: 100 mls/hr Insulin Human Regular (Humulin R Med) 0 units SC ACHS [facility] PRN Reason: Protocol Last Admin: 03/27/18 08:30 Dose: 3 units Lisinopril (Zestril) 5 mg PO DAILY [facility] Last Admin: 03/27/18 09:28 Dose: 5 mg Magnesium Oxide (Mag-Ox) 400 mg PO BID [facility] Last Admin: 03/27/18 09:28 Dose: 400 mg Metoprolol Tartrate (Lopressor) 25 mg PO BRKDIN [facility] Last Admin: 03/27/18 05:45 Dose: 25 mg Mupirocin (Bactroban Ointment) 0 gm TOP BID [facility] Last Admin: 03/27/18 09:29 Dose: Not Given Pioglitazone HCl (Actos) 15 mg PO DAILY [facility] Last Admin: 03/27/18 09:28 Dose: 15 mg Tramadol HCl (Ultram) 50 mg PO Q6H PRN PRN Reason: Pain, severe (8-10) Last Admin: 03/26/18 17:08 Dose: 50 mg - Labs Labs: 03/26/18 06:15 03/27/18 06:30 PT 13.1 SECONDS (9.4-12.5) H 03/25/18 15:10 INR 1.15 (0.93-1.08) H 03/25/18 15:10 APTT 28.8 Seconds (25.1-36.5) 03/25/18 15:10 - Constitutional Appears: Well, Non-toxic, No Acute Distress - Head Exam Head Exam: ATRAUMATIC, NORMOCEPHALIC - Extremities Exam Additional comments: B/l LE focused exam Vasc: DP/PT pulses fully palpable 2/4 b/l. Skin temperature warm to warm from proximal to distal, increased distally. CFT < 3 seconds to all digits except left fifth and right second digit. Moderate edema to fifth digit extending to level of midfoot. Mild edema noted to right second digit Neuro: Epicritic and protective sensation grossly intact but diminished b/l Derm: Fifth digit noted to be necrotic plantarly and fibrous dorsally with moderate amounts of serous drainage and noted malodor with maceration dorsally. Positive probe to bone, no tracking/tunneling/undermining. Grossly infected on clinical examination. Right second digit noted to be black and necrotic with no noted drainage, malodor, probe to bone, tracking, tunneling or undermining. MSK: Minimal POP to ulceration site of left foot. No POP to second digit of right foot. Otherwise, no gross deformities noted. MMT 5/5 in all major muscle groups - Neurological Exam Neurological Exam: Alert, Awake, Oriented x3 - Psychiatric Exam Psychiatric exam: Normal Affect, Normal Mood Assessment and Plan - Assessment and Plan (Free Text) Assessment: 52M seen and evaluated at bedside with attending Dr. Villeda for infected, gangrenous left fifth digit and necrotic distal right second digit. Plan: Patient seen and evaluated with attending Dr. Colon Temp 100.3, WBC 14.1 yesterday from 18.7 ESR 129 HgA1c 10.7 03/25 wound cx left fifth toe - results pending 03/25 L foot xray: Soft tissue ulcers seen in the fifth digit. No evidence of bony destruction 03/25 Arterial duplex - Normal ROSS and PVR examination at rest 03/26 R foot XRay - OM of distal phalanx of right second digit 03/27 b/l foot MRI - assess for level of OM in left fifth ray and right second digit Patient for partial left fifth ray resection and partial right second digit partial amputation tomorrow at 7:[address] Colon Patient to be NPO after midnight tonight Left foot fifth digit dressed with betadine, adaptic, DSD Right foot second digit dressed with betadine, adaptic, DSD Podiatry will continue to follow while patient in house postoperatively <Loreto Colon - Last Filed: 03/31/18 19:02> Objective - Vital Signs/Intake and Output Vital Signs (last 24 hours): Temp Pulse Resp BP Pulse Ox 97.8 F 68 18 164/84 H 96 03/31/18 18:00 03/31/18 18:00 03/31/18 18:00 03/31/18 18:00 03/31/18 18:00 Intake and Output: 03/31/18 04/01/18 18:59 06:59 Intake Total 1400 Balance 1400 - Medications Medications: Current Medications Acetaminophen (Tylenol 325mg Tab) 650 mg PO Q4 PRN PRN Reason: Fever >100.4 F Last Admin: 03/27/18 06:53 Dose: 650 mg Amlodipine Besylate (Norvasc) 10 mg PO DAILY [facility] Last Admin: 03/31/18 10:18 Dose: 10 mg Aspirin (Ecotrin) 81 mg PO DAILY [facility] Last Admin: 03/31/18 10:19 Dose: 81 mg Sodium Chloride (Sodium Chloride 0.9%) 1,000 mls @ 60 mls/hr IV .[id number] [facility] Last Admin: 03/31/18 05:52 Dose: Not Given Insulin Human Regular (Humulin R Med) 0 units SC ACHS [facility] PRN Reason: Protocol Last Admin: 03/31/18 17:55 Dose: 3 units Linezolid (Zyvox) 600 mg PO BID [facility] PRN Reason: Protocol Last Admin: 03/31/18 17:56 Dose: 600 mg Losartan Potassium (Cozaar) 50 mg PO DAILY [facility] Last Admin: 03/31/18 10:19 Dose: 50 mg Magnesium Oxide (Mag-Ox) 400 mg PO BID [facility] Last Admin: 03/31/18 17:55 Dose: 400 mg Metoprolol Tartrate (Lopressor) 25 mg PO BRKDIN [facility] Last Admin: 03/31/18 17:56 Dose: 25 mg Ondansetron HCl (Zofran Inj) 4 mg IVP ONCE PRN PRN Reason: Nausea/Vomiting Oxycodone/Acetaminophen (Percocet 5/325 Mg Tab) 1 tab PO Q4H PRN PRN Reason: Pain, severe (8-10) Stop: 03/31/18 19:37 Last Admin: 03/31/18 17:59 Dose: 1 tab Pioglitazone HCl (Actos) 30 mg PO DAILY [facility] Last Admin: 03/31/18 10:19 Dose: 30 mg Tramadol HCl (Ultram) 50 mg PO Q6H PRN PRN Reason: Pain, severe (8-10) Last Admin: 03/30/18 04:58 Dose: 50 mg - Labs Labs: 03/30/18 06:00 03/30/18 06:00 PT 13.1 SECONDS (9.4-12.5) H 03/25/18 15:10 INR 1.15 (0.93-1.08) H 03/25/18 15:10 APTT 28.8 Seconds (25.1-36.5) 03/25/18 15:10 Attending/Attestation - Attestation I have personally seen and examined this patient.: Yes I have fully participated in the care of the patient.: Yes I have reviewed all pertinent clinical information, including history, physical exam and plan: Yes
--- NOTE | 2018-03-27 16:30 | CP.PCM.PN ---
Subjective - Date & Time of Evaluation Date of Evaluation: 03/27/18 Time of Evaluation: 10:30 - Subjective Subjective: Had low grade fever but feels comfortable, not in distress. Objective - Vital Signs/Intake and Output Vital Signs (last 24 hours): Temp Pulse Resp BP Pulse Ox 100.3 F H 96 H 20 188/92 H 98 03/27/18 06:53 03/27/18 05:45 03/26/18 18:00 03/27/18 05:45 03/26/18 18:00 Intake and Output: 03/27/18 03/27/18 06:59 18:59 Intake Total 1140 Output Total 1750 Balance -610 - Medications Medications: Current Medications Acetaminophen (Tylenol 325mg Tab) 650 mg PO Q4 PRN PRN Reason: Fever >100.4 F Last Admin: 03/27/18 06:53 Dose: 650 mg Amlodipine Besylate (Norvasc) 5 mg PO DAILY [facility] Last Admin: 03/26/18 09:17 Dose: 5 mg Aspirin (Ecotrin) 81 mg PO DAILY [facility] Last Admin: 03/26/18 09:17 Dose: 81 mg Sodium Chloride (Sodium Chloride 0.9%) 1,000 mls @ 100 mls/hr IV .Q10H [facility] Last Admin: 03/26/18 17:14 Dose: Not Given Linezolid (Zyvox 600mg/300ml D5w) 600 mg in 300 mls @ 200 mls/hr IVPB Q12 SONIA PRN Reason: Protocol Stop: 04/02/18 10:01 Last Admin: 03/26/18 21:29 Dose: 200 mls/hr Aztreonam (Azactam 1 Gm) 100 mls @ 100 mls/hr IVPB Q8 SONIA PRN Reason: Protocol Stop: 04/02/18 06:01 Last Admin: 03/27/18 05:32 Dose: 100 mls/hr Insulin Human Regular (Humulin R Med) 0 units SC ACHS SONIA PRN Reason: Protocol Last Admin: 03/26/18 21:49 Dose: Not Given Lisinopril (Zestril) 5 mg PO DAILY [facility] Last Admin: 03/26/18 09:17 Dose: 5 mg Magnesium Oxide (Mag-Ox) 400 mg PO BID [facility] Last Admin: 03/26/18 17:01 Dose: 400 mg Metoprolol Tartrate (Lopressor) 25 mg PO BRKDIN [facility] Last Admin: 03/27/18 05:45 Dose: 25 mg Mupirocin (Bactroban Ointment) 0 gm TOP BID [facility] Last Admin: 03/26/18 17:05 Dose: 1 applic Pioglitazone HCl (Actos) 15 mg PO DAILY [facility] Last Admin: 03/26/18 09:20 Dose: 15 mg Tramadol HCl (Ultram) 50 mg PO Q6H PRN PRN Reason: Pain, severe (8-10) Last Admin: 03/26/18 17:08 Dose: 50 mg - Labs Labs: 03/26/18 06:15 03/27/18 06:30 PT 13.1 SECONDS (9.4-12.5) H 03/25/18 15:10 INR 1.15 (0.93-1.08) H 03/25/18 15:10 APTT 28.8 Seconds (25.1-36.5) 03/25/18 15:10 - Constitutional Appears: Chronically Ill - Head Exam Head Exam: NORMAL INSPECTION - ENT Exam ENT Exam: Mucous Membranes Moist - Neck Exam Neck Exam: absent: Meningismus - Respiratory Exam Respiratory Exam: Decreased Breath Sounds - Cardiovascular Exam Cardiovascular Exam: +S1, +S2 - GI/Abdominal Exam GI & Abdominal Exam: Soft. absent: Tenderness - Extremities Exam Additional comments: left foot with dressings in place Assessment and Plan - Assessment and Plan (Free Text) Plan: Assessment Systemic inflammatory response syndrome, Sepsis due to left 5th digit skin and skin structure infection, R/O osteomyelitis DM obesity with BMI 32 Plan continue Zyvox and Azactam day 2 pending blood and wound cx; may need further imaging such as MRI to rule out osteomyelitis follow up further plans of Podiatry - may need Vascular intervention first and may need amputation of the toe will continue to monitor clinically
[2018-03-27] MEDS: Sodium Chloride 0.9% 1,000 ML IV SCH (18:35)
--- NOTE | 2018-03-27 20:34 | MRI ---
EXAM: MR Right Lower Extremity Without Intravenous Contrast, Foot CLINICAL HISTORY: The patient age is 52 years old and is male; Signs and symptoms; Other: R/O om in both feet; Additional info: R/O om left fifth digit/met, R/O om r 3rd digit Facility exam id and description: Mri footwoconb foot w/o contrast bilateral TECHNIQUE: Multiplanar magnetic resonance images of the right foot without intravenous contrast. COMPARISON: DX - FOOT RIGHT 3 VIEWS ROUTINE 2018-03-26 13:00 FINDINGS: LIGAMENTS: The anterior talofibular ligament is poorly visualized, which may be out of the [id number] or to true ligamentous tear. Medial collateral: No visible acute tear. Lateral collateral: No visible acute tear. Lisfranc: No visualized acute tear. TENDONS: Flexor: No visualized acute tear. Extensor: No visualized acute tear. Peroneal: There is a partial split tear of the peroneus brevis tendon. Tendinosis or partial tear is identified of the peroneus longus tendon. Muscles: Muscle edema is identified, suggestive of muscle strain or myositis. Fluid: Small tibiotalar and subtalar joint effusions are visualized. Sinus tarsi: There is mild edema and fluid within the sinus tarsi. Plantar fascia: No visualized acute tear. Bones/joints: Edema is identified within the middle and distal second phalanges, concerning for osteomyelitis. There is mild edema within the proximal to mid second through fifth metatarsal bones, which may be secondary to arthropathy or due to osteomyelitis. Cystic and edematous changes are identified within the cuboid bone and medial cuneiform bone, suggestive of neuropathic changes/Charcot foot, although osteomyelitis is also within the differential. There is minimal edema within the lateral cuneiform bone. There is a bipartite lateral subhallux sesamoid bone versus fracture. Mild edema or contusion is visualized within this bone. Soft tissues: There soft tissue swelling of the foot, most significant dorsally. This is suggestive of cellulitis in the appropriate clinical setting. A few small calcaneal cysts are visualized. Other findings: The hindfoot extends out of the [id number] of this study. IMPRESSION: 1. There soft tissue swelling of the right foot, most significant dorsally. This is suggestive of cellulitis in the appropriate clinical setting. 2. Edema is identified within the middle and distal second phalanges, concerning for osteomyelitis. There is mild edema within the proximal to mid second through fifth metatarsal bones, which may be secondary to arthropathy or due to osteomyelitis. 3. Cystic and edematous changes are identified within the cuboid bone and medial cuneiform bone, suggestive of neuropathic changes/Charcot foot, although osteomyelitis is also within the differential. There is minimal edema within the lateral cuneiform bone. 4. Small tibiotalar and subtalar joint effusions are visualized. 5. There is a bipartite lateral subhallux sesamoid bone versus fracture. Mild edema or contusion is visualized within this bone. 6. There is a partial split tear of the peroneus brevis tendon. Tendinosis or partial tear is identified of the peroneus longus tendon. 7. Muscle edema is identified, suggestive of muscle strain or myositis. 8. Additional findings described above. EXAM: MR Left Lower Extremity Without Intravenous Contrast, Foot EXAM DATE/TIME: 03/27/2018 10:30 AM CLINICAL HISTORY: The patient age is 52 years old and is male; Signs and symptoms; Other: R/O om in both feet; Additional info: R/O om left fifth digit/met, R/O om r 3rd digit Facility exam id and description: Mri footwoconb foot w/o contrast bilateral TECHNIQUE: Multiplanar magnetic resonance images of the left foot without intravenous contrast. COMPARISON: DX - FOOT RIGHT 3 VIEWS ROUTINE 2018-03-26 13:00 FINDINGS: LIGAMENTS: Medial collateral: Evaluation of the collateral ligaments of the fifth digit are significantly limited by artifact and erosive changes. Lateral collateral: See above. Lisfranc: No visualized acute tear. TENDONS: Flexor: No visualized acute tear. Extensor: No visualized acute tear. Peroneal: There is a partial tear of the peroneus brevis tendon. Muscles: Muscle edema is identified, suggestive of muscle strain or myositis. Fluid: Small tibiotalar and minimal subtalar joint effusions are visualized. Sinus tarsi: Mild edema is seen within the sinus tarsi. Plantar fascia: No visualized acute tear. Bones/joints: Edema and erosive changes are identified of the fifth digit, consistent with osteomyelitis. There is a small amount of fluid or phlegmonous change surrounding the fifth digit, which is likely infectious. Abscess is within the differential. Edema is identified within the cuboid and lateral cuneiform bones. These findings are suggestive of neuropathic changes/Charcot foot, although osteomyelitis is also within the differential. Mild edema is visualized within the proximal fourth and fifth metatarsal bones. A cyst is visualized within the medial cuneiform bone. Small cysts are seen within the first metatarsal head. Soft tissues: There soft tissue swelling of the foot. This is suggestive of cellulitis in the appropriate clinical setting. There is a focus of magnetic susceptibility plantar to the fifth digit. A foreign body cannot be excluded. Edema is identified within the fourth metatarsal head and proximal fourth phalanx. This can be reactive to arthropathy, although osteomyelitis is also considered. There is a small effusion at this joint. Minimal edema is identified within the third metatarsal shaft. Other findings: The hindfoot extends out of the field of view of this study. IMPRESSION: 1. There soft tissue swelling of the left foot. This is suggestive of cellulitis in the appropriate clinical setting. 2. Edema and erosive changes are identified of the fifth digit, consistent with osteomyelitis. There is a small amount of fluid or phlegmonous change surrounding the fifth digit, which is likely infectious. Abscess is within the differential. 3. There is a focus of magnetic susceptibility plantar to the fifth digit. A foreign body cannot be excluded. 4. Edema is identified within the fourth metatarsal head and proximal fourth phalanx. This can be reactive to arthropathy, although osteomyelitis is also considered. There is a small effusion at this joint. Minimal edema is identified within the third metatarsal shaft. 5. Edema is identified within the cuboid and lateral cuneiform bones. These findings are suggestive of neuropathic changes/Charcot foot, although osteomyelitis is also within the differential. Mild edema is visualized within the proximal fourth and fifth metatarsal bones. 6. Small tibiotalar and minimal subtalar joint effusions are visualized. 7. There is a partial tear of the peroneus brevis tendon. 8. Muscle edema is identified, suggestive of muscle strain or myositis. 9. Additional findings described above.
[2018-03-28] MEDS: Insulin Reg-MEDIUM-Coverage SC SCH ×5 (01:35→22:04)
[2018-03-28] MEDS: Aztreonam 1 Gm in NS 100mL 100 ML IVPB SCH ×3 (05:18→21:59)
[2018-03-28] MEDS ORDERED: Lidocaine 2 GM/50 ML Vial (4%) IV ONE (07:25)
[2018-03-28] MEDS ORDERED: Propofol 10 mg/ml Inj (20 ML) ONE ×2 (07:45→07:46)
[2018-03-28] MEDS ORDERED: Midazolam 2 MG/2 ML VIAL ONE (07:45)
[2018-03-28] MEDS ORDERED: Lidocaine 2% Inj (20ml) IJ ONE (08:00)
[2018-03-28] MEDS ORDERED: Gentamicin 80 mg/2mL Inj. ONE (08:04)
[2018-03-28] MEDS ORDERED: HYDROmorphone 0.5 mg/0.5 ml ISec IVP PRN (09:41)
[2018-03-28] MEDS ORDERED: Lactated Ringer's 1,000 ML IV SCH (09:45)
--- NOTE | 2018-03-28 09:45 | PCM.SURG1 ---
Surgeon's Initial Post Op Note - Surgeon's Notes Surgeon: Dr. Loreto Colon, DPM Patient Support Assistant: Bart Toth, PGY1 Type of Anesthesia: IV Sedation, Local Anesthesia Administered By: Dr. Leija Pre-Operative Diagnosis: Osteomyelitis of left fifth digit. Osteomyelitis of right second digit distal and middle phalanx Operative Findings: See dictation report. M- 1/4 inch iodosorb packing, 3-0 vicryl, 3-0 nylon, 0 nylon. I - 10 cc 2% lidocaine plain to left fifth ray, 4 cc 2% lidocaine plain to right second digit Post-Operative Diagnosis: Same Operation Performed: Partial left fifth ray resection with removal of all nonviable tissue and bone. Partial right second digit amputation with removal of all nonviable tissue and bone Specimen/Specimens Removed: Left fifth digit and bone including left fifth metatarsal head. Right second digit and bone Estimated Blood Loss: EBL {In ML}: 5 Blood Products Given: N/A Drains Used: No Drains Post-Op Condition: Good Date of Surgery/Procedure: 03/28/18 Time of Surgery/Procedure: 09:46
--- NOTE | 2018-03-28 10:11 | PN ---
DATE: 03/28/2018 LOCATION: The patient is seen in room 375, bed 2 at [facility] in [place]. SUBJECTIVE: The patient was admitted with infection of the little toe on the left foot and second toe on the right foot. The patient is a diabetic. The patient has history of hypertension. Also, he has history of being claustrophobic. THE PATIENT IS ALLERGIC TO PENICILLIN. He is waiting in holding area for podiatric surgery today. PHYSICAL EXAMINATION: VITAL SIGNS: This morning, the patient's pulse is 79, blood pressure 180/84, respirations are 18, O2 sat is 95% on room air. The patient's temperature is 98.7. LUNGS: Clear. HEART: Normal sinus rhythm. ABDOMEN: Soft. Liver and spleen not palpable. ASSOCIATE PROFESSOR OF ART: No focal deficits. LABORATORY DATA: The patient's peripheral vascular studies does not show any arterial occlusions. The patient's blood count shows the elevation of white cells consistent with infection, sepsis associated with the foot infection. MEDICATIONS: The patient's medications have been held this morning. He is on Azactam and the patient is on Actos, aspirin, which is held this morning. The patient is also on metoprolol, magnesium oxide, amlodipine, tramadol for pain, lisinopril and Zyvox 600 mg every 12 hours. PLAN: The patient's condition is clinically stable. He is awaiting definitive treatment of the infected gangrenous left fifth toe. We will follow up postop. Continue current management and we will resume treatment with antibiotics and the medications for blood pressure and diabetes as we go. The patient is on insulin coverage for his diabetes at this time. Georges Sood MD [place]
[2018-03-28] MEDS: Mupirocin 2% Ointment 15 GM TUBE TOP SCH ×2 (10:42→17:52)
[2018-03-28] MEDS: Magnesium Oxide 400 mg Tab UD PO SCH ×2 (10:42→17:11)
--- NOTE | 2018-03-28 11:06 | RAD ---
PROCEDURE: Right Foot Radiographs. HISTORY: partial second digit amputation COMPARISON: 03/26/2018 FINDINGS: BONES: Amputation of the 2nd toe. JOINTS: Degenerative changes at the base of the 4th and 5th metatarsals and the cuboid SOFT TISSUES: Normal. OTHER FINDINGS: None. IMPRESSION: Amputation of the 2nd toe at the level of the distal aspect of the proximal phalanx
[2018-03-28] MEDS: Linezolid 600 mg in D5W 300 ml 600 MG/300 ML BAG IVPB SCH ×2 (11:07→22:00)
--- NOTE | 2018-03-28 11:07 | RAD ---
PROCEDURE: Left Foot Radiographs. HISTORY: s/p partial fifth ray resection COMPARISON: None. FINDINGS: BONES: Resection of the midportion of the left 5th metatarsal JOINTS: Normal. SOFT TISSUES: Normal. OTHER FINDINGS: None. IMPRESSION: Resection of the midportion of the left 5th metatarsal
[2018-03-28] MEDS: Sodium Chloride 0.9% 1,000 ML IV SCH ×2 (11:08→20:46)
[2018-03-28 11:15] LABS: BASO # 0.01 K/mm3 (0.0-2.0); BASO % 0.1 % (0.0-3.0); EOS # 0.2 (0.0-0.7); EOS % 1.8 % (1.5-5.0); GRAN # 10.68 (1.4-6.5); GRAN % 78.1 % (50.0-68.0); HEMOGLOBIN 10.3 g/dL (14.0-18.0); LYMPH # 1.7 (1.2-3.4); LYMPH % 12.2 % (22.0-35.0); MEAN CELL VOLUME 80.9 fl (80.0-105.0); MEAN CORPUSCULAR HEMOGLOBIN 27.8 pg (25.0-35.0); MEAN CORPUSCULAR HGB CONC 34.3 g/dl (31.0-37.0); MONO # 1.1 (0.1-0.6); MONO % 7.8 % (1.0-6.0); RBC 3.71 10^6/uL (3.5-6.1); RED CELL DISTRIBUTION WIDTH 12.5 % (11.5-14.5); WHITE BLOOD COUNT 13.7 10^3/ul (4.5-11.0)
[2018-03-28 11:23] LABS: CALCIUM 8.4 mg/dL (8.4-10.5)
[2018-03-28] MEDS: Oxycodone/Acetaminophen 5/325 mg Tab PO PRN (20:25)
[2018-03-29] MEDS: Oxycodone/Acetaminophen 5/325 mg Tab PO PRN ×4 (02:39→21:36)
[2018-03-29] MEDS: Aztreonam 1 Gm in NS 100mL 100 ML IVPB SCH (05:34)
[2018-03-29 07:10] LABS: BASO # 0.02 K/mm3 (0.0-2.0); BASO % 0.2 % (0.0-3.0); EOS # 0.3 (0.0-0.7); EOS % 2.5 % (1.5-5.0); GRAN # 9.47 (1.4-6.5); GRAN % 73.6 % (50.0-68.0); HEMOGLOBIN 9.1 g/dL (14.0-18.0); LYMPH # 1.9 (1.2-3.4); LYMPH % 14.4 % (22.0-35.0); MEAN CELL VOLUME 79.8 fl (80.0-105.0); MEAN CORPUSCULAR HEMOGLOBIN 27.5 pg (25.0-35.0); MEAN CORPUSCULAR HGB CONC 34.5 g/dl (31.0-37.0); MEAN PLATELET VOLUME 10.2 fl (7.0-11.0); MONO # 1.2 (0.1-0.6); MONO % 9.3 % (1.0-6.0); RBC 3.31 10^6/uL (3.5-6.1); RED CELL DISTRIBUTION WIDTH 12.3 % (11.5-14.5); WHITE BLOOD COUNT 12.9 10^3/ul (4.5-11.0)
[2018-03-29 07:27] LABS: CALCIUM 7.7 mg/dL (8.4-10.5)
[2018-03-29] MEDS: Insulin Reg-MEDIUM-Coverage SC SCH ×4 (08:33→22:05)
[2018-03-29] MEDS: Linezolid 600 mg in D5W 300 ml 600 MG/300 ML BAG IVPB SCH (10:14)
[2018-03-29] MEDS: Magnesium Oxide 400 mg Tab UD PO SCH ×2 (10:15→17:25)
[2018-03-29] MEDS: Mupirocin 2% Ointment 15 GM TUBE TOP SCH (10:18)
--- NOTE | 2018-03-29 12:18 | CP.PCM.PN ---
<Bart Toth - Last Filed: 03/29/18 12:11> Subjective - Date & Time of Evaluation Date of Evaluation: 03/29/18 Time of Evaluation: 12:11 - Subjective Subjective: Podiatry Progress Note for Dr. Villeda 52M seen at bedside one day s/p left partial fifth ray resection and right partial second digit amputation. Patient is AAO x 3 and NAD, resting comfortably in bed at time of visit. Denies any acute overnight events. States that pain in left foot was severe yesterday evening but has since greatly improved. Denies any further pedal complaints. Denies any recent N/V/F/C/CP/SOB/ D/posterior calf pain when squeezed. Objective - Vital Signs/Intake and Output Vital Signs (last 24 hours): Temp Pulse Resp BP Pulse Ox 97.5 F L 86 18 158/90 H 95 03/29/18 06:00 03/29/18 10:15 03/29/18 06:00 03/29/18 10:15 03/29/18 06:00 Intake and Output: 03/29/18 03/29/18 06:59 18:59 Intake Total 1580 Output Total 500 Balance 1080 - Medications Medications: Current Medications Acetaminophen (Tylenol 325mg Tab) 650 mg PO Q4 PRN PRN Reason: Fever >100.4 F Last Admin: 03/27/18 06:53 Dose: 650 mg Amlodipine Besylate (Norvasc) 10 mg PO DAILY [facility] Last Admin: 03/29/18 10:15 Dose: 10 mg Aspirin (Ecotrin) 81 mg PO DAILY [facility] Last Admin: 03/29/18 10:15 Dose: 81 mg Linezolid (Zyvox 600mg/300ml D5w) 600 mg in 300 mls @ 200 mls/hr IVPB Q12 SONIA PRN Reason: Protocol Stop: 04/02/18 10:01 Last Admin: 03/29/18 10:14 Dose: 200 mls/hr Sodium Chloride (Sodium Chloride 0.9%) 1,000 mls @ 60 mls/hr IV .[id number] [facility] Last Admin: 03/28/18 20:46 Dose: 60 mls/hr Insulin Human Regular (Humulin R Med) 0 units SC ACHS [facility]ONIA PRN Reason: Protocol Last Admin: 03/29/18 08:33 Dose: 3 units Losartan Potassium (Cozaar) 50 mg PO DAILY [facility] Last Admin: 03/29/18 10:15 Dose: 50 mg Magnesium Oxide (Mag-Ox) 400 mg PO BID [facility] Last Admin: 03/29/18 10:15 Dose: 400 mg Metoprolol Tartrate (Lopressor) 25 mg PO BRKDIN [facility] Last Admin: 03/29/18 08:33 Dose: 25 mg Mupirocin (Bactroban Ointment) 0 gm TOP BID [facility] Last Admin: 03/29/18 10:18 Dose: Not Given Ondansetron HCl (Zofran Inj) 4 mg IVP ONCE PRN PRN Reason: Nausea/Vomiting Oxycodone/Acetaminophen (Percocet 5/325 Mg Tab) 1 tab PO Q4H PRN PRN Reason: Pain, severe (8-10) Stop: 03/31/18 19:37 Last Admin: 03/29/18 08:34 Dose: 1 tab Pioglitazone HCl (Actos) 30 mg PO DAILY [facility] Last Admin: 03/29/18 10:16 Dose: 30 mg Tramadol HCl (Ultram) 50 mg PO Q6H PRN PRN Reason: Pain, severe (8-10) Last Admin: 03/28/18 17:12 Dose: 50 mg - Labs Labs: 03/29/18 06:45 03/29/18 06:45 PT 13.1 SECONDS (9.4-12.5) H 03/25/18 15:10 INR 1.15 (0.93-1.08) H 03/25/18 15:10 APTT 28.8 Seconds (25.1-36.5) 03/25/18 15:10 - Constitutional Appears: Well, Non-toxic, No Acute Distress - Head Exam Head Exam: ATRAUMATIC, NORMOCEPHALIC - Extremities Exam Additional comments: LE focused exam Vasc: DP/PT pulses fully palpable 2/4 b/l. Skin temperature warm to warm from proximal to distal WNL. CFT < 3 seconds to all digits. Mimimal edema noted surrounding surgical sites, appropriate for post operative status Neuro: Epicritic and protective sensation grossly intact but diminished b/l Derm: S/p left partial fifth ray amputation with proximal sutures noted to be intact with skin well coapted and no signs of dehiscence. Distal retention sutures noted to be intact. No clinical signs of infection appreciated at the surgical site. 1/4 inch iodosorb packing seen in surgical site. Sutures at amputation site of right second digit noted to be intact with no evidence of dehiscence and with skin edges well coapted. No clinical evidence of infection appreciated. MSK: Minimal POP noted to both surgical sites. Otherwise, no gross deformities noted. MMT 5/5 in all major muscle groups - Neurological Exam Neurological Exam: Alert, Awake, Oriented x3 - Psychiatric Exam Psychiatric exam: Normal Affect, Normal Mood Assessment and Plan - Assessment and Plan (Free Text) Assessment: 52M seen at bedside one day s/p left partial fifth ray resection and right partial second digit amputation Plan: Patient seen and evaluated with attending Dr. Villeda Afebrile, WBC 12.9 from 13.7 03/25 wound cx left fifth toe - Staph aureus and beta hemolytic group B strep Continue IV abx per ID F/u intra-operative pathology reports Continue PT - pt to remain NWB for time being Packing replaced in left foot surgical site Both surgical sites dressed with xeroform, DSD Wound vac ordered to be placed on left foot surgical site Podiatry will continue to follow while patient in house <Rashaun Villeda - Last Filed: 03/29/18 15:08> Objective - Vital Signs/Intake and Output Vital Signs (last 24 hours): Temp Pulse Resp BP Pulse Ox 97.5 F L 86 18 158/90 H 95 03/29/18 06:00 03/29/18 10:15 03/29/18 06:00 03/29/18 10:15 03/29/18 06:00 Intake and Output: 03/29/18 03/29/18 06:59 18:59 Intake Total 1580 1080 Output Total 500 Balance 1080 1080 - Medications Medications: Current Medications Acetaminophen (Tylenol 325mg Tab) 650 mg PO Q4 PRN PRN Reason: Fever >100.4 F Last Admin: 03/27/18 06:53 Dose: 650 mg Amlodipine Besylate (Norvasc) 10 mg PO DAILY [facility] Last Admin: 03/29/18 10:15 Dose: 10 mg Aspirin (Ecotrin) 81 mg PO DAILY [facility] Last Admin: 03/29/18 10:15 Dose: 81 mg Sodium Chloride (Sodium Chloride 0.9%) 1,000 mls @ 60 mls/hr IV .[id number] [facility] Last Admin: 03/28/18 20:46 Dose: 60 mls/hr Insulin Human Regular (Humulin R Med) 0 units SC ACHS [facility] PRN Reason: Protocol Last Admin: 03/29/18 12:41 Dose: 5 units Linezolid (Zyvox) 600 mg PO BID [facility] PRN Reason: Protocol Losartan Potassium (Cozaar) 50 mg PO DAILY [facility] Last Admin: 03/29/18 10:15 Dose: 50 mg Magnesium Oxide (Mag-Ox) 400 mg PO BID [facility] Last Admin: 03/29/18 10:15 Dose: 400 mg Metoprolol Tartrate (Lopressor) 25 mg PO BRKDIN [facility] Last Admin: 03/29/18 08:33 Dose: 25 mg Ondansetron HCl (Zofran Inj) 4 mg IVP ONCE PRN PRN Reason: Nausea/Vomiting Oxycodone/Acetaminophen (Percocet 5/325 Mg Tab) 1 tab PO Q4H PRN PRN Reason: Pain, severe (8-10) Stop: 03/31/18 19:37 Last Admin: 03/29/18 08:34 Dose: 1 tab Pioglitazone HCl (Actos) 30 mg PO DAILY [facility] Last Admin: 03/29/18 10:16 Dose: 30 mg Tramadol HCl (Ultram) 50 mg PO Q6H PRN PRN Reason: Pain, severe (8-10) Last Admin: 03/28/18 17:12 Dose: 50 mg - Labs Labs: 03/29/18 06:45 03/29/18 06:45 PT 13.1 SECONDS (9.4-12.5) H 03/25/18 15:10 INR 1.15 (0.93-1.08) H 03/25/18 15:10 APTT 28.8 Seconds (25.1-36.5) 03/25/18 15:10 Attending/Attestation - Attestation I have personally seen and examined this patient.: Yes I have fully participated in the care of the patient.: Yes I have reviewed all pertinent clinical information, including history, physical exam and plan: Yes
--- NOTE | 2018-03-29 12:34 | CP.PCM.PN ---
Subjective - Date & Time of Evaluation Date of Evaluation: 03/29/18 Time of Evaluation: 11:10 - Subjective Subjective: No fevers, no distress, right foot feels better, had surgery yesterday. Objective - Vital Signs/Intake and Output Vital Signs (last 24 hours): Temp Pulse Resp BP Pulse Ox 97.5 F L 70 18 160/90 H 95 03/29/18 06:00 03/29/18 08:33 03/29/18 06:00 03/29/18 08:33 03/29/18 06:00 Intake and Output: 03/29/18 03/29/18 06:59 18:59 Intake Total 1580 Output Total 500 Balance 1080 - Medications Medications: Current Medications Acetaminophen (Tylenol 325mg Tab) 650 mg PO Q4 PRN PRN Reason: Fever >100.4 F Last Admin: 03/27/18 06:53 Dose: 650 mg Amlodipine Besylate (Norvasc) 10 mg PO DAILY [facility] Aspirin (Ecotrin) 81 mg PO DAILY [facility] Last Admin: 03/28/18 10:42 Dose: Not Given Linezolid (Zyvox 600mg/300ml D5w) 600 mg in 300 mls @ 200 mls/hr IVPB Q12 [facility] PRN Reason: Protocol Stop: 04/02/18 10:01 Last Admin: 03/28/18 22:00 Dose: 200 mls/hr Aztreonam (Azactam 1 Gm) 100 mls @ 100 mls/hr IVPB Q8 [facility] PRN Reason: Protocol Stop: 04/02/18 06:01 Last Admin: 03/29/18 05:34 Dose: 100 mls/hr Sodium Chloride (Sodium Chloride 0.9%) 1,000 mls @ 60 mls/hr IV .[id number] [facility] Last Admin: 03/28/18 20:46 Dose: 60 mls/hr Insulin Human Regular (Humulin R Med) 0 units SC ACHS [facility] PRN Reason: Protocol Last Admin: 03/29/18 08:33 Dose: 3 units Losartan Potassium (Cozaar) 50 mg PO DAILY [facility] Magnesium Oxide (Mag-Ox) 400 mg PO BID [facility] Last Admin: 03/28/18 17:11 Dose: 400 mg Metoprolol Tartrate (Lopressor) 25 mg PO BRKDIN [facility] Last Admin: 03/29/18 08:33 Dose: 25 mg Mupirocin (Bactroban Ointment) 0 gm TOP BID [facility] Last Admin: 03/28/18 17:52 Dose: Not Given Ondansetron HCl (Zofran Inj) 4 mg IVP ONCE PRN PRN Reason: Nausea/Vomiting Oxycodone/Acetaminophen (Percocet 5/325 Mg Tab) 1 tab PO Q4H PRN PRN Reason: Pain, severe (8-10) Stop: 03/31/18 19:37 Last Admin: 03/29/18 08:34 Dose: 1 tab Pioglitazone HCl (Actos) 30 mg PO DAILY [facility] Tramadol HCl (Ultram) 50 mg PO Q6H PRN PRN Reason: Pain, severe (8-10) Last Admin: 03/28/18 17:12 Dose: 50 mg - Labs Labs: 03/29/18 06:45 03/29/18 06:45 PT 13.1 SECONDS (9.4-12.5) H 03/25/18 15:10 INR 1.15 (0.93-1.08) H 03/25/18 15:10 APTT 28.8 Seconds (25.1-36.5) 03/25/18 15:10 - Constitutional Appears: Chronically Ill - Head Exam Head Exam: NORMAL INSPECTION - Neck Exam Neck Exam: absent: Meningismus - Respiratory Exam Respiratory Exam: Decreased Breath Sounds - Cardiovascular Exam Cardiovascular Exam: +S1, +S2 - GI/Abdominal Exam GI & Abdominal Exam: Soft. absent: Tenderness - Extremities Exam Additional comments: right foot with dressings in place Assessment and Plan - Assessment and Plan (Free Text) Plan: Assessment Systemic inflammatory response syndrome, Sepsis due to left 5th digit skin and skin structure infection with osteomyelitis, as well as osteomyelitis of 2nd digit S/P amputation POD #1, growing MSSA and Group B Strep DM obesity with BMI 32 Plan continue Zyvox and will follow up OR cultures and pathology will monitor clinically
--- NOTE | 2018-03-29 13:43 | PN ---
DATE: 03/29/2018 LOCATION: Patient is seen in [facility], room 375, bed 2. SUBJECTIVE: Patient was admitted with infection of the foot, both legs. Patient has a gangrenous little toe, which was seen and treated by Dr. Colon yesterday surgically. Patient also had infection of the second toe of the right foot. Patient has a history of diabetes, history of hypertension and the patient has allergy to penicillin. PHYSICAL EXAMINATION: GENERAL: This morning, he is comfortable. He states that he has pain now, which he did not have before. VITAL SIGNS: Blood pressure 170/92, respirations are 20, pulse is 71, temperature 98.3, his O2 saturation is 94% on room air. LUNGS: Clear. HEART: Normal sinus rhythm. ABDOMEN: Soft. Liver and spleen not palpable. CENTRAL NERVOUS SYSTEM: There are no focal deficits. MEDICATIONS: Patient's medications consist of Azactam 1 g every 8 hours. Patient is on Actos 15 mg daily, aspirin. Patient is on insulin coverage, metoprolol 25 mg p.o. daily. Patient's amlodipine is increased to 10 mg daily and discontinued lisinopril and started the patient on losartan 50 mg daily. He is on 2 g sodium heart-healthy diet, diabetic. LABORATORY DATA: Patient's blood work, the hemoglobin dropped to 9.1, his white count is 12,900. We will have to check his serum iron and total iron binding capacity. Patient might need infusion of iron and anemia might be secondary to chronic iron deficiency. We will follow up on the case. Georges Sood MD [place]
[2018-03-30] MEDS: Oxycodone/Acetaminophen 5/325 mg Tab PO PRN ×4 (01:54→20:07)
[2018-03-30] MEDS: Sodium Chloride 0.9% 1,000 ML IV SCH ×2 (05:19→20:53)
[2018-03-30 06:55] LABS: BASO # 0.03 K/mm3 (0.0-2.0); BASO % 0.2 % (0.0-3.0); EOS # 0.5 (0.0-0.7); EOS % 3.1 % (1.5-5.0); GRAN # 10.27 (1.4-6.5); GRAN % 70.6 % (50.0-68.0); HEMOGLOBIN 10.5 g/dL (14.0-18.0); LYMPH # 2.3 (1.2-3.4); LYMPH % 15.7 % (22.0-35.0); MEAN CELL VOLUME 79.6 fl (80.0-105.0); MEAN CORPUSCULAR HEMOGLOBIN 27.9 pg (25.0-35.0); MEAN PLATELET VOLUME 9.8 fl (7.0-11.0); MONO # 1.5 (0.1-0.6); MONO % 10.4 % (1.0-6.0); RBC 3.77 10^6/uL (3.5-6.1); RED CELL DISTRIBUTION WIDTH 12.5 % (11.5-14.5); WHITE BLOOD COUNT 14.6 10^3/ul (4.5-11.0)
[2018-03-30 07:04] LABS: CALCIUM 8.3 mg/dL (8.4-10.5)
[2018-03-30] MEDS: Insulin Reg-MEDIUM-Coverage SC SCH ×4 (09:00→22:24)
--- NOTE | 2018-03-30 09:49 | CP.PCM.PN ---
<Marlin Magallon - Last Filed: 03/30/18 09:45> Subjective - Date & Time of Evaluation Date of Evaluation: 03/30/18 Time of Evaluation: 08:45 - Subjective Subjective: Podiatry Progress Note- Dr. Villeda 52M seen at bedside this AM with Dr. Villeda present 2 days s/p L partial fifth ray resection and R partial second digit amputation. Pt is seen resting in bed at time of visit. Denies f/n/v/c/sob/cp/weakness/dizziness at this time. Reports minimal pain to the b/l feet today. Denies any other pedal complaints. Objective - Vital Signs/Intake and Output Vital Signs (last 24 hours): Temp Pulse Resp BP Pulse Ox 97.9 F 63 18 165/87 H 96 03/30/18 08:47 03/30/18 08:47 03/30/18 08:47 03/30/18 08:47 03/30/18 08:47 Intake and Output: 03/30/18 03/30/18 06:59 18:59 Intake Total 1500 Output Total 1500 Balance 0 - Medications Medications: Current Medications Acetaminophen (Tylenol 325mg Tab) 650 mg PO Q4 PRN PRN Reason: Fever >100.4 F Last Admin: 03/27/18 06:53 Dose: 650 mg Amlodipine Besylate (Norvasc) 10 mg PO DAILY [facility] Last Admin: 03/29/18 10:15 Dose: 10 mg Aspirin (Ecotrin) 81 mg PO DAILY [facility] Last Admin: 03/29/18 10:15 Dose: 81 mg Sodium Chloride (Sodium Chloride 0.9%) 1,000 mls @ 60 mls/hr IV .[id number] [facility] Last Admin: 03/30/18 05:19 Dose: Not Given Insulin Human Regular (Humulin R Med) 0 units SC ACHS [facility] PRN Reason: Protocol Last Admin: 03/29/18 22:05 Dose: Not Given Linezolid (Zyvox) 600 mg PO BID [facility] PRN Reason: Protocol Last Admin: 03/29/18 17:25 Dose: 600 mg Losartan Potassium (Cozaar) 50 mg PO DAILY [facility] Last Admin: 03/29/18 10:15 Dose: 50 mg Magnesium Oxide (Mag-Ox) 400 mg PO BID [facility] Last Admin: 03/29/18 17:25 Dose: 400 mg Metoprolol Tartrate (Lopressor) 25 mg PO BRKDIN [facility] Last Admin: 03/29/18 17:25 Dose: 25 mg Ondansetron HCl (Zofran Inj) 4 mg IVP ONCE PRN PRN Reason: Nausea/Vomiting Oxycodone/Acetaminophen (Percocet 5/325 Mg Tab) 1 tab PO Q4H PRN PRN Reason: Pain, severe (8-10) Stop: 03/31/18 19:37 Last Admin: 03/30/18 01:54 Dose: 1 tab Pioglitazone HCl (Actos) 30 mg PO DAILY [facility] Last Admin: 03/29/18 10:16 Dose: 30 mg Tramadol HCl (Ultram) 50 mg PO Q6H PRN PRN Reason: Pain, severe (8-10) Last Admin: 03/30/18 04:58 Dose: 50 mg - Labs Labs: 03/30/18 06:00 03/30/18 06:00 PT 13.1 SECONDS (9.4-12.5) H 03/25/18 15:10 INR 1.15 (0.93-1.08) H 03/25/18 15:10 APTT 28.8 Seconds (25.1-36.5) 03/25/18 15:10 - Constitutional Appears: Non-toxic, No Acute Distress - Extremities Exam Extremities Exam: absent: Calf Tenderness Additional comments: b/l LE exam: Vasc: DP/PT pulses are fully palpable, skin temp runs warm to warm proximal to distal b/l, CFT < 3 seconds to all digits. Mimimal edema noted surrounding surgical sites, appropriate for post operative status Neuro: Epicritic and protective sensation grossly intact but diminished b/l Derm: s/p left partial fifth ray amputation with proximal sutures noted to be intact with skin well coapted and no signs of dehiscence. Distal retention sutures noted to be intact. No clinical signs of infection appreciated at the surgical site. 1/4 inch iodosorb packing seen in surgical site. Sutures at amputation site of right second digit noted to be intact with no evidence of dehiscence and with skin edges well coapted. No clinical evidence of infection appreciated. MSK: Minimal POP noted to both surgical sites. Otherwise, no gross deformities noted. MMT 5/5 in all major muscle groups - Neurological Exam Neurological Exam: Alert, Awake, Oriented x3 - Psychiatric Exam Psychiatric exam: Normal Affect, Normal Mood Assessment and Plan - Assessment and Plan (Free Text) Assessment: 52 yo male 2 days s/p left partial fifth ray resection and right partial second digit amputation Plan: Patient S/E w/ attending Dr. Villeda Afebrile, WBC is elevated 14.6 f/u intra-operative pathology reports Continue PT - pt may heel weight bear to the bathroom only but must remain NWB otherwise Sx sites flushed with saline, wound vac applied to L 5th amputation site, 125mmHg, continuous L foot dressed with DSD and EDMUNDO, R 2nd digit amp site dressed with betadine, adaptic, DSD Stable per podiatry, will follow <Rashaun Villeda - Last Filed: 04/02/18 11:18> Objective - Vital Signs/Intake and Output Vital Signs (last 24 hours): Temp Pulse Resp BP Pulse Ox 98.5 F 63 18 156/75 H 100 04/02/18 06:00 04/02/18 10:16 04/02/18 06:00 04/02/18 10:16 04/02/18 06:00 Intake and Output: 04/02/18 04/02/18 06:59 18:59 Intake Total 540 Output Total 300 Balance 240 - Medications Medications: Current Medications Acetaminophen (Tylenol 325mg Tab) 650 mg PO Q4 PRN PRN Reason: Fever >100.4 F Last Admin: 03/27/18 06:53 Dose: 650 mg Amlodipine Besylate (Norvasc) 10 mg PO DAILY [facility] Last Admin: 04/02/18 08:41 Dose: 10 mg Aspirin (Ecotrin) 81 mg PO DAILY [facility] Last Admin: 04/02/18 10:18 Dose: 81 mg Sodium Chloride (Sodium Chloride 0.9%) 1,000 mls @ 60 mls/hr IV .[id number] [facility] Last Admin: 03/31/18 22:56 Dose: Not Given Insulin Human Regular (Humulin R Med) 0 units SC ACHS [facility] PRN Reason: Protocol Last Admin: 04/02/18 08:36 Dose: 3 units Linezolid (Zyvox) 600 mg PO BID [facility] PRN Reason: Protocol Last Admin: 04/02/18 10:18 Dose: 600 mg Losartan Potassium (Cozaar) 50 mg PO DAILY [facility] Last Admin: 04/02/18 10:16 Dose: 50 mg Magnesium Oxide (Mag-Ox) 400 mg PO BID [facility] Last Admin: 04/02/18 10:19 Dose: 400 mg Metoprolol Tartrate (Lopressor) 25 mg PO BRKDIN [facility] Last Admin: 04/02/18 05:38 Dose: 25 mg Ondansetron HCl (Zofran Inj) 4 mg IVP ONCE PRN PRN Reason: Nausea/Vomiting Oxycodone/Acetaminophen (Percocet 5/325 Mg Tab) 1 tab PO Q4H PRN PRN Reason: Pain, moderate (4-7) Stop: 04/04/18 08:32 Last Admin: 04/02/18 06:02 Dose: 1 tab Pioglitazone HCl (Actos) 30 mg PO DAILY [facility] Last Admin: 04/02/18 10:16 Dose: 30 mg Tramadol HCl (Ultram) 50 mg PO Q6H PRN PRN Reason: Pain, severe (8-10) Last Admin: 03/30/18 04:58 Dose: 50 mg - Labs Labs: 03/30/18 06:00 03/30/18 06:00 PT 13.1 SECONDS (9.4-12.5) H 03/25/18 15:10 INR 1.15 (0.93-1.08) H 03/25/18 15:10 APTT 28.8 Seconds (25.1-36.5) 03/25/18 15:10 Attending/Attestation - Attestation I have personally seen and examined this patient.: Yes I have fully participated in the care of the patient.: Yes I have reviewed all pertinent clinical information, including history, physical exam and plan: Yes
[2018-03-30] MEDS: Magnesium Oxide 400 mg Tab UD PO SCH ×2 (10:11→18:23)
--- NOTE | 2018-03-30 12:59 | PN ---
DATE: 03/30/2018 LOCATION: The patient is seen in [facility], room 375, bed 2. SUBJECTIVE: The patient was admitted with an infection of his foot. He has history of diabetes, hypertension. The patient had surgery on the left foot and the patient is seen this morning. He seems to have some pain. PHYSICAL EXAMINATION: VITAL SIGNS: His pulse is 60, blood pressure 146/80, respirations are 18, O2 sat is 97% on room air. HEENT: His head is normocephalic. NECK: The thyroid is not enlarged. No lymph nodes in the neck palpable. LUNGS: Trachea central. Breath sounds are vesicular. No adventitious sounds. HEART: Normal sinus rhythm. S1 and S2 present. ABDOMEN: Soft. Liver and spleen not palpable. EXTREMITIES: There is wound on both legs. Left foot, the small toe has been cleaned out by the scale adjuster. The right foot, the patient has infection on the second toe. MEDICATIONS: Consist of Actos 15 mg daily, losartan, aspirin, insulin coverage for diabetes, metoprolol, amlodipine, and the patient is on Percocet 1 tablet every 4 hours p.r.n. for pain. LABORATORY DATA: The patient's blood work done in the hospital, recent blood work shows creatinine of 1.9 and BUN of 42. The patient's GFR is 37. ASSESSMENT AND PLAN: He has chronic renal insufficiency, stage 3. Blood sugar is 227. We will continue current management and antibiotic that the patient is on is Zyvox 600 mg b.i.d. His Azactam and IV antibiotics have been discontinued temporarily. We will provide with local care, antibiotic treatment, wound care, and followup. Georges Sood MD [place]
--- NOTE | 2018-03-30 13:51 | PN ---
DATE: 03/30/2018 SUBJECTIVE: The patient is in bed, in no acute distress. PHYSICAL EXAMINATION: VITAL SIGNS: Temperature is 98, blood pressure is 160/70, respiratory of 18, heart rate of 63. HEENT: Unremarkable. NECK: Supple. LUNGS: Have decreased breath sounds. HEART: Normal S1, S2. ABDOMEN: Soft, nontender. LABORATORY EXAMINATION: Reveals a white count of 14,600, hemoglobin of 10, platelets of 373. Coagulation is noted and chemistries reveals a BUN of 42, creatinine of 1.9. Urinalysis is noted and microbiology reveals the toe culture is staph aureus and group B strep, hemolytic strep. The staph aureus is sensitive to oxacillin with an JUVENTINO of 0.25. Review of orders reveals the patient to be on p.o. Zyvox. THE PATIENT IS ALLERGIC TO PENICILLIN. ASSESSMENT AND PLAN: This is a 52-year-old with sepsis with a left fifth digit skin and skin structure infection with osteomyelitis as well as osteomyelitis of second digit status post amputation, postprocedure day #2, growing methicillin-sensitive Staphylococcus aureus and group B streptococcus and a diabetic and obesity, on Zyvox. Awaiting for OR cultures and OR pathology to determine the duration of therapy. Artemio Tovar MD
[2018-03-31] MEDS: Oxycodone/Acetaminophen 5/325 mg Tab PO PRN ×4 (04:18→23:39)
[2018-03-31] MEDS: Sodium Chloride 0.9% 1,000 ML IV SCH ×2 (05:52→22:56)
[2018-03-31] MEDS: Insulin Reg-MEDIUM-Coverage SC SCH ×4 (08:42→22:33)
[2018-03-31] MEDS: Magnesium Oxide 400 mg Tab UD PO SCH ×2 (10:19→17:55)
--- NOTE | 2018-03-31 10:48 | PN ---
DATE: 03/31/2018 LOCATION: The patient is in [facility] in [place], room 375, bed 2. SUBJECTIVE: The patient is being admitted for wound in the left foot, gangrene of the little toe which was surgically treated. The patient also has wound on the second toe of the right foot. The patient has antibiotic treatment. The patient gets treatment for diabetes and hypertension. PHYSICAL EXAMINATION: VITAL SIGNS: This morning, the patient's pulse is 68, blood pressure 157/82, respirations are 20 per minute. GENERAL: The patient is comfortable, but he states he has intermittent shooting pain in his foot. HEENT: Head is normocephalic. NECK: JVP is flat. Carotid pulses are present. Thyroid is not enlarged clinically. HEART: Normal sinus rhythm. S1 and S2 present. LUNGS: Clear. ABDOMEN: Soft. Liver and spleen not palpable. TISSUE TECHNICIAN: No focal deficits. EXTREMITIES: The patient has very good circulation of both of his legs based on vascular studies. The patient has wound care provided for the wound in the leg. LABORATORY DATA: The patient's lab work shows that his hemoglobin is 10.5, white count is 14,000. His chemistry, the blood sugar is 177. His BUN was elevated, creatinine is elevated. ASSESSMENT AND PLAN: The patient is placed on medications right now. The patient is getting Actos 30 mg daily. The patient is getting losartan 50 mg daily, aspirin 81 mg daily, insulin coverage for diabetes, metoprolol 25 mg once a day, magnesium oxide, amlodipine 10 mg daily. The patient is on Percocet for pain. His diet is 2-g sodium diabetic diet. The patient is cooperative and we will continue current meds and follow up. Georges Sood MD [place]
--- NOTE | 2018-03-31 13:26 | CP.PCM.PN ---
Subjective - Date & Time of Evaluation Date of Evaluation: 03/31/18 Time of Evaluation: 12:45 - Subjective Subjective: Podiatry Progress Note- Dr. Colon 52 male seen at bedside today 2 days s/p L partial fifth ray resection and R partial second digit amputation. Pt is seen resting in bed at time of visit. He complains of minimal pain to both feet today, however he does say tylenol is helping. Says previous fevers and chills have resolved and appetite is improving. Offers no other complaints today. Is tolerating wound vac well. Objective - Vital Signs/Intake and Output Vital Signs (last 24 hours): Temp Pulse Resp BP Pulse Ox 98.5 F 79 20 157/82 H 98 03/31/18 08:32 03/31/18 10:19 03/31/18 08:32 03/31/18 10:19 03/31/18 08:32 Intake and Output: 03/31/18 03/31/18 06:59 18:59 Intake Total 1120 Output Total 100 Balance 1020 - Medications Medications: Current Medications Acetaminophen (Tylenol 325mg Tab) 650 mg PO Q4 PRN PRN Reason: Fever >100.4 F Last Admin: 03/27/18 06:53 Dose: 650 mg Amlodipine Besylate (Norvasc) 10 mg PO DAILY [facility] Last Admin: 03/31/18 10:18 Dose: 10 mg Aspirin (Ecotrin) 81 mg PO DAILY [facility] Last Admin: 03/31/18 10:19 Dose: 81 mg Sodium Chloride (Sodium Chloride 0.9%) 1,000 mls @ 60 mls/hr IV .[id number] [facility] Last Admin: 03/31/18 05:52 Dose: Not Given Insulin Human Regular (Humulin R Med) 0 units SC ACHS [facility] PRN Reason: Protocol Last Admin: 03/31/18 08:42 Dose: 1 units Linezolid (Zyvox) 600 mg PO BID [facility] PRN Reason: Protocol Last Admin: 03/31/18 10:19 Dose: 600 mg Losartan Potassium (Cozaar) 50 mg PO DAILY [facility] Last Admin: 03/31/18 10:19 Dose: 50 mg Magnesium Oxide (Mag-Ox) 400 mg PO BID [facility] Last Admin: 03/31/18 10:19 Dose: 400 mg Metoprolol Tartrate (Lopressor) 25 mg PO BRKDIN [facility] Last Admin: 03/31/18 06:32 Dose: 25 mg Ondansetron HCl (Zofran Inj) 4 mg IVP ONCE PRN PRN Reason: Nausea/Vomiting Oxycodone/Acetaminophen (Percocet 5/325 Mg Tab) 1 tab PO Q4H PRN PRN Reason: Pain, severe (8-10) Stop: 03/31/18 19:37 Last Admin: 03/31/18 08:42 Dose: 1 tab Pioglitazone HCl (Actos) 30 mg PO DAILY [facility] Last Admin: 03/31/18 10:19 Dose: 30 mg Tramadol HCl (Ultram) 50 mg PO Q6H PRN PRN Reason: Pain, severe (8-10) Last Admin: 03/30/18 04:58 Dose: 50 mg - Labs Labs: 03/30/18 06:00 03/30/18 06:00 PT 13.1 SECONDS (9.4-12.5) H 03/25/18 15:10 INR 1.15 (0.93-1.08) H 03/25/18 15:10 APTT 28.8 Seconds (25.1-36.5) 03/25/18 15:10 - Constitutional Appears: Non-toxic, No Acute Distress - Extremities Exam Extremities Exam: absent: Calf Tenderness Additional comments: b/l LE exam: Vasc: DP/PT pulses are fully palpable, skin temp runs warm to warm proximal to distal b/l, CFT < 3 seconds to all digits. Mimimal edema noted surrounding surgical sites, appropriate for post operative status Neuro: Epicritic and protective sensation grossly intact but diminished b/l Derm: wound vac is clean, dry and intact to the left foot, wound vac is functioning properly at 125mmHg continous pressure with good seal, minimal sanguinous drainage to cannister (5 cc), dressing to L foot is c/d/i. Sutures at amputation site of right second digit noted to be intact with no evidence of dehiscence and with skin edges well coapted, surgical site is erythematous and edematous MSK: Minimal POP noted to both surgical sites. Otherwise, no gross deformities noted. MMT 5/5 in all major muscle groups - Neurological Exam Neurological Exam: Alert, Awake, Oriented x3 - Psychiatric Exam Psychiatric exam: Normal Affect, Normal Mood Assessment and Plan - Assessment and Plan (Free Text) Assessment: 52 yo male 3 days s/p L partial fifth ray resection and R partial second digit amputation Plan: Patient S&E at bedside Plan discussed with Dr. Colon Afebrile, WBC is elevated 14.6 f/u intra-operative pathology reports/cultures Continue PT - pt may heel weight bear to the bathroom only but must remain NWB otherwise c/w abx as per ID pain meds per primary Sx site R foot cleansed with saline, dressed with betadine, adaptic, DSD. Dressing to L foot is to be left intact with wound vac today. stable per podiatry, will follow
--- NOTE | 2018-04-01 02:35 | CP.PCM.PN ---
Subjective - Date & Time of Evaluation Date of Evaluation: 03/31/18 Time of Evaluation: 23:45 (Seen earlier.) - Subjective Subjective: S:Patient was seen for feet pain. Has pain in both feet. As per nurse , Percocet has fallen off DEC. Medical record was reviewed. O: Last Vital Signs 3 Temp 97.8 F 03/31/18 18:00 Pulse 68 03/31/18 18:00 Resp 18 03/31/18 18:00 BP 164/84 H 03/31/18 18:00 Pulse Ox 96 03/31/18 18:00 Awake, alert, not in distress. LUNGS:Normal breathing pattern. EXT: Right foot dressing clean and dry.Left foot Mitch bandage dressing clean and dry. P:Both feet pain. A: Perocet as ordered. Objective - Vital Signs/Intake and Output Vital Signs (last 24 hours): Temp Pulse Resp BP Pulse Ox 97.8 F 68 18 164/84 H 96 03/31/18 18:00 03/31/18 18:00 03/31/18 18:00 03/31/18 18:00 03/31/18 18:00 Intake and Output: 03/31/18 04/01/18 18:59 06:59 Intake Total 1400 240 Output Total 700 Balance 1400 -460 - Medications Medications: Current Medications Acetaminophen (Tylenol 325mg Tab) 650 mg PO Q4 PRN PRN Reason: Fever >100.4 F Last Admin: 03/27/18 06:53 Dose: 650 mg Amlodipine Besylate (Norvasc) 10 mg PO DAILY [facility] Last Admin: 03/31/18 10:18 Dose: 10 mg Aspirin (Ecotrin) 81 mg PO DAILY [facility] Last Admin: 03/31/18 10:19 Dose: 81 mg Sodium Chloride (Sodium Chloride 0.9%) 1,000 mls @ 60 mls/hr IV .[id number] [facility] Last Admin: 03/31/18 22:56 Dose: Not Given Insulin Human Regular (Humulin R Med) 0 units SC ACHS [facility] PRN Reason: Protocol Last Admin: 03/31/18 22:33 Dose: Not Given Linezolid (Zyvox) 600 mg PO BID [facility] PRN Reason: Protocol Last Admin: 03/31/18 17:56 Dose: 600 mg Losartan Potassium (Cozaar) 50 mg PO DAILY [facility] Last Admin: 03/31/18 10:19 Dose: 50 mg Magnesium Oxide (Mag-Ox) 400 mg PO BID [facility] Last Admin: 03/31/18 17:55 Dose: 400 mg Metoprolol Tartrate (Lopressor) 25 mg PO BRKDIN [facility] Last Admin: 03/31/18 17:56 Dose: 25 mg Ondansetron HCl (Zofran Inj) 4 mg IVP ONCE PRN PRN Reason: Nausea/Vomiting Oxycodone/Acetaminophen (Percocet 5/325 Mg Tab) 1 tab PO Q4H PRN PRN Reason: Pain, severe (8-10) Stop: 04/03/18 23:30 Last Admin: 03/31/18 23:39 Dose: 1 tab Pioglitazone HCl (Actos) 30 mg PO DAILY [facility] Last Admin: 03/31/18 10:19 Dose: 30 mg Tramadol HCl (Ultram) 50 mg PO Q6H PRN PRN Reason: Pain, severe (8-10) Last Admin: 03/30/18 04:58 Dose: 50 mg - Labs Labs: 03/30/18 06:00 03/30/18 06:00 PT 13.1 SECONDS (9.4-12.5) H 03/25/18 15:10 INR 1.15 (0.93-1.08) H 03/25/18 15:10 APTT 28.8 Seconds (25.1-36.5) 03/25/18 15:10
[2018-04-01] MEDS: Oxycodone/Acetaminophen 5/325 mg Tab PO PRN ×4 (05:56→22:23)
[2018-04-01] MEDS: Insulin Reg-MEDIUM-Coverage SC SCH ×4 (08:46→21:48)
--- NOTE | 2018-04-01 08:47 | PN ---
DATE: 03/31/2018 SUBJECTIVE: The patient is in bed, in not acute any distress and seen earlier today in [facility], bed 2. PHYSICAL EXAMINATION: VITAL SIGNS: Temperature is 98, blood pressure is 150/60, respiratory rate of 16. HEENT: Examination of HEENT is unremarkable. NECK: Supple. LUNGS: Decreased breath sounds. HEART: Normal S1, S2. ABDOMEN: Soft, nontender. LABORATORY DATA: Laboratory examination reveals a white count of 14,600, hemoglobin of 10, platelets of 373 and the creatinine is 1.9. Microbiology noted the toe to have a Staph aureus and a group B Strep, beta hemolytic Strep. The Staph aureus is sensitive to oxacillin and less than 0.25 JUVENTNIO. Review of orders reveals the patient to be on linezolid. ASSESSMENT AND PLAN: A 52-year-old with sepsis with a left fifth digit skin and skin structure infection with osteomyelitis and osteomyelitis of the second digit, status post amputation, post procedure day #3 with sensitive Staphylococcus and group B Streptococcus, on Zyvox. Waiting for the OR cultures and pathology report. We will follow with you. Artemio Tovar MD
[2018-04-01] MEDS: Magnesium Oxide 400 mg Tab UD PO SCH ×2 (09:08→17:37)
--- NOTE | 2018-04-01 09:51 | PN ---
DATE: 04/01/2018 LOCATION: The patient is in [facility] in [place], room 375, bed 2. SUBJECTIVE: The patient was admitted with an infection of the little toe on the left foot and second toe on the right foot. The patient is a diabetic. He has hypertension. The patient is seen this morning. He had surgery on his foot and his progress is good. PHYSICAL EXAMINATION: VITAL SIGNS: Pulse is 67, blood pressure 184/88. The patient consistently seems to have elevated blood pressure in spite of increase in the medicine. EXTREMITIES: The color of the leg seems to be good. There is no cyanosis. There is good circulation accurately detected by the Doppler studies. LUNGS: Clear. HEART: Normal sinus rhythm. S1 and S2 present. ABDOMEN: Soft. Liver and spleen not palpable. SPORTS COORDINATOR: No focal deficits. MEDICATIONS: Consist of Actos, losartan, aspirin, insulin coverage, metoprolol, amlodipine and Zyvox p.o. The patient is being evaluated for rehab. His blood work shows elevation of white cell count up to 14,600. Differential shows 70% neutrophils, 10.2% toxic granulocytes. The patient is seen by Dr. Tovar, the Infectious Disease python consultant and Dr. Colon, the oncology patient navigator, is following up the case. We will continue current management. The patient's overall progress is guarded. Condition is improving and he is stable. Georges Sood MD MTDDai
--- NOTE | 2018-04-01 15:56 | CP.PCM.PN ---
<Carol Go - Last Filed: 04/01/18 15:52> Subjective - Date & Time of Evaluation Date of Evaluation: 04/01/18 Time of Evaluation: 15:52 - Subjective Subjective: Podiatry Progress Note- Dr. Colon 52 male seen at bedside today 4 days s/p L partial fifth ray resection and R partial second digit amputation. Patient is seen resting in bed at time of visit. Denies of having any pain today. Denies recent F/N/V/C/SOB/CP/headache. Offers no other complaints today. Wound vac is intact to the left LE. Objective - Vital Signs/Intake and Output Vital Signs (last 24 hours): Temp Pulse Resp BP Pulse Ox 98.1 F 67 19 167/78 H 97 04/01/18 06:00 04/01/18 06:43 04/01/18 06:00 04/01/18 09:08 04/01/18 06:00 Intake and Output: 04/01/18 04/01/18 06:59 18:59 Intake Total 240 120 Output Total 700 850 Balance -460 -730 - Medications Medications: Current Medications Acetaminophen (Tylenol 325mg Tab) 650 mg PO Q4 PRN PRN Reason: Fever >100.4 F Last Admin: 03/27/18 06:53 Dose: 650 mg Amlodipine Besylate (Norvasc) 10 mg PO DAILY [facility] Last Admin: 04/01/18 09:08 Dose: 10 mg Aspirin (Ecotrin) 81 mg PO DAILY [facility] Last Admin: 04/01/18 09:09 Dose: 81 mg Sodium Chloride (Sodium Chloride 0.9%) 1,000 mls @ 60 mls/hr IV .[id number] [facility] Last Admin: 03/31/18 22:56 Dose: Not Given Insulin Human Regular (Humulin R Med) 0 units SC ACHS [facility] PRN Reason: Protocol Last Admin: 04/01/18 08:46 Dose: 3 units Linezolid (Zyvox) 600 mg PO BID [facility] PRN Reason: Protocol Last Admin: 04/01/18 09:08 Dose: 600 mg Losartan Potassium (Cozaar) 50 mg PO DAILY [facility] Last Admin: 04/01/18 10:37 Dose: 50 mg Magnesium Oxide (Mag-Ox) 400 mg PO BID [facility] Last Admin: 04/01/18 09:08 Dose: 400 mg Metoprolol Tartrate (Lopressor) 25 mg PO BRKDIN [facility] Last Admin: 04/01/18 06:43 Dose: 25 mg Ondansetron HCl (Zofran Inj) 4 mg IVP ONCE PRN PRN Reason: Nausea/Vomiting Oxycodone/Acetaminophen (Percocet 5/325 Mg Tab) 1 tab PO Q4H PRN PRN Reason: Pain, moderate (4-7) Stop: 04/04/18 08:32 Last Admin: 04/01/18 10:35 Dose: 1 tab Pioglitazone HCl (Actos) 30 mg PO DAILY [facility] Last Admin: 04/01/18 09:08 Dose: 30 mg Tramadol HCl (Ultram) 50 mg PO Q6H PRN PRN Reason: Pain, severe (8-10) Last Admin: 03/30/18 04:58 Dose: 50 mg - Labs Labs: 03/30/18 06:00 03/30/18 06:00 PT 13.1 SECONDS (9.4-12.5) H 03/25/18 15:10 INR 1.15 (0.93-1.08) H 03/25/18 15:10 APTT 28.8 Seconds (25.1-36.5) 03/25/18 15:10 - Constitutional Appears: Well, Non-toxic, No Acute Distress - Extremities Exam Additional comments: b/l LE exam: Vasc: DP/PT pulses are fully palpable, skin temp runs warm to warm proximal to distal b/l, CFT < 3 seconds to all digits. Mimimal edema noted surrounding surgical sites, appropriate for post operative status Neuro: Epicritic and protective sensation grossly intact but diminished b/l Derm: Sutures at amputation site of right second digit noted to be intact with no evidence of dehiscence and with skin edges well coapted, surgical site is erythematous and edematous; Surgical sutures are intact on the left foot, koby- wound maceration noted, no active drainage, wound bed is grannular, no purulence , no malodor, no clinical suspicion of active infection at this time MSK: Minimal POP noted to both surgical sites. Otherwise, no gross deformities noted. MMT 5/5 in all major muscle groups - Neurological Exam Neurological Exam: Alert, Awake, Oriented x3 - Psychiatric Exam Psychiatric exam: Normal Affect, Normal Mood Assessment and Plan - Assessment and Plan (Free Text) Assessment: 52 yo male 4 days s/p L partial fifth ray resection and R partial second digit amputation Plan: Patient S&E at bedside with Dr. Colon Afebrile f/u intra-operative pathology reports/cultures - pending Continue PT - pt may heel weight bear to the bathroom only but must remain NWB otherwise c/w abx as per ID pain meds per primary Sx site R foot cleansed with saline, dressed with betadine, DSD bilaterally Wound vac discontinued stable per podiatry Will continue to follow <Loreto Colon - Last Filed: 04/03/18 07:53> Objective - Vital Signs/Intake and Output Vital Signs (last 24 hours): Temp Pulse Resp BP Pulse Ox 98.7 F 73 19 167/74 H 98 04/02/18 18:00 04/02/18 18:10 04/02/18 18:00 04/02/18 18:10 04/02/18 18:00 Intake and Output: 04/03/18 04/03/18 06:59 18:59 Intake Total 1160 Output Total 2100 Balance -940 - Medications Medications: Current Medications Acetaminophen (Tylenol 325mg Tab) 650 mg PO Q4 PRN PRN Reason: Fever >100.4 F Last Admin: 03/27/18 06:53 Dose: 650 mg Amlodipine Besylate (Norvasc) 10 mg PO DAILY [facility] Last Admin: 04/02/18 08:41 Dose: 10 mg Aspirin (Ecotrin) 81 mg PO DAILY [facility] Last Admin: 04/02/18 10:18 Dose: 81 mg Sodium Chloride (Sodium Chloride 0.9%) 1,000 mls @ 60 mls/hr IV .[id number] [facility] Last Admin: 04/03/18 06:05 Dose: Not Given Insulin Human Regular (Humulin R Med) 0 units SC ACHS [facility] PRN Reason: Protocol Last Admin: 04/02/18 21:55 Dose: Not Given Linezolid (Zyvox) 600 mg PO BID [facility] PRN Reason: Protocol Last Admin: 04/02/18 18:09 Dose: 600 mg Losartan Potassium (Cozaar) 50 mg PO DAILY [facility] Last Admin: 04/02/18 10:16 Dose: 50 mg Magnesium Oxide (Mag-Ox) 400 mg PO BID [facility] Last Admin: 04/02/18 18:10 Dose: 400 mg Metoprolol Tartrate (Lopressor) 25 mg PO BRKDIN [facility] Last Admin: 04/02/18 18:10 Dose: 25 mg Ondansetron HCl (Zofran Inj) 4 mg IVP ONCE PRN PRN Reason: Nausea/Vomiting Oxycodone/Acetaminophen (Percocet 5/325 Mg Tab) 1 tab PO Q4H PRN PRN Reason: Pain, moderate (4-7) Stop: 04/04/18 08:32 Last Admin: 04/03/18 02:01 Dose: 1 tab Pioglitazone HCl (Actos) 30 mg PO DAILY [facility] Last Admin: 04/02/18 10:16 Dose: 30 mg Tramadol HCl (Ultram) 50 mg PO Q6H PRN PRN Reason: Pain, severe (8-10) Last Admin: 03/30/18 04:58 Dose: 50 mg - Labs Labs: 04/02/18 13:25 04/02/18 13:25 PT 13.1 SECONDS (9.4-12.5) H 03/25/18 15:10 INR 1.15 (0.93-1.08) H 03/25/18 15:10 APTT 28.8 Seconds (25.1-36.5) 03/25/18 15:10 Attending/Attestation - Attestation I have personally seen and examined this patient.: Yes I have fully participated in the care of the patient.: Yes I have reviewed all pertinent clinical information, including history, physical exam and plan: Yes
--- NOTE | 2018-04-01 15:59 | CP.PCM.PN ---
Subjective - Date & Time of Evaluation Date of Evaluation: 04/01/18 Time of Evaluation: 11:50 - Subjective Subjective: No fevers, not in distress. Objective - Vital Signs/Intake and Output Vital Signs (last 24 hours): Temp Pulse Resp BP Pulse Ox 98.1 F 67 19 184/88 H 97 04/01/18 06:00 04/01/18 06:43 04/01/18 06:00 04/01/18 06:43 04/01/18 06:00 Intake and Output: 04/01/18 04/01/18 06:59 18:59 Intake Total 240 120 Output Total 700 850 Balance -460 -730 - Medications Medications: Current Medications Acetaminophen (Tylenol 325mg Tab) 650 mg PO Q4 PRN PRN Reason: Fever >100.4 F Last Admin: 03/27/18 06:53 Dose: 650 mg Amlodipine Besylate (Norvasc) 10 mg PO DAILY [facility] Last Admin: 03/31/18 10:18 Dose: 10 mg Aspirin (Ecotrin) 81 mg PO DAILY [facility] Last Admin: 03/31/18 10:19 Dose: 81 mg Sodium Chloride (Sodium Chloride 0.9%) 1,000 mls @ 60 mls/hr IV .[id number] [facility] Last Admin: 03/31/18 22:56 Dose: Not Given Insulin Human Regular (Humulin R Med) 0 units SC ACHS [facility] PRN Reason: Protocol Last Admin: 03/31/18 22:33 Dose: Not Given Linezolid (Zyvox) 600 mg PO BID [facility] PRN Reason: Protocol Last Admin: 03/31/18 17:56 Dose: 600 mg Losartan Potassium (Cozaar) 50 mg PO DAILY [facility] Last Admin: 03/31/18 10:19 Dose: 50 mg Magnesium Oxide (Mag-Ox) 400 mg PO BID [facility] Last Admin: 03/31/18 17:55 Dose: 400 mg Metoprolol Tartrate (Lopressor) 25 mg PO BRKDIN [facility] Last Admin: 04/01/18 06:43 Dose: 25 mg Ondansetron HCl (Zofran Inj) 4 mg IVP ONCE PRN PRN Reason: Nausea/Vomiting Oxycodone/Acetaminophen (Percocet 5/325 Mg Tab) 1 tab PO Q4H PRN PRN Reason: Pain, moderate (4-7) Stop: 04/04/18 08:32 Pioglitazone HCl (Actos) 30 mg PO DAILY [facility] Last Admin: 03/31/18 10:19 Dose: 30 mg Tramadol HCl (Ultram) 50 mg PO Q6H PRN PRN Reason: Pain, severe (8-10) Last Admin: 03/30/18 04:58 Dose: 50 mg - Labs Labs: 03/30/18 06:00 03/30/18 06:00 PT 13.1 SECONDS (9.4-12.5) H 03/25/18 15:10 INR 1.15 (0.93-1.08) H 03/25/18 15:10 APTT 28.8 Seconds (25.1-36.5) 03/25/18 15:10 - Constitutional Appears: Chronically Ill - Extremities Exam Additional comments: left foot with dressings in place Assessment and Plan - Assessment and Plan (Free Text) Plan: Assessment Systemic inflammatory response syndrome, Sepsis due to left 5th digit skin and skin structure infection with osteomyelitis, as well as osteomyelitis of 2nd digit S/P amputation POD #3, growing MSSA and Group B Strep DM obesity with BMI 32 Plan continue Zyvox and will follow up OR cultures and pathology to determine duration of antibiotics will continue to monitor clinically
[2018-04-02] MEDS: Oxycodone/Acetaminophen 5/325 mg Tab PO PRN ×3 (06:02→20:07)
[2018-04-02] MEDS: Insulin Reg-MEDIUM-Coverage SC SCH ×4 (08:36→21:55)
--- NOTE | 2018-04-02 09:14 | PN ---
DATE: 04/02/2018 LOCATION: The patient is in [facility] in room 375, bed 2. SUBJECTIVE: The patient was admitted with infection of his foot. He is a diabetic. He has hypertension. The patient has history of hypertension and hyperlipidemia. The patient also has renal insufficiency. He has seen this morning, seemed to be comfortable, but he has pain on and off. He is on Percocet for that. The patient is getting antibiotics orally at this time. Cultures are awaited to make a determination as to how long the patient might need antibiotic, but he has wounds that needs wound care and that is provided by the cosmetics machine operator, Dr. Colon and associates. PHYSICAL EXAMINATION: VITAL SIGNS: This morning, the pulse is 67, blood pressure 185/86, the patient's temperature is 98. LUNGS: Clear. HEART: Normal sinus rhythm. ABDOMEN: Soft. Liver and spleen not palpable. LASER CUTTER: No focal deficits are noted. MEDICATIONS: The patient's medications consist of Zyvox 600 mg b.i.d. The patient is on Actos, insulin coverage for diabetes, aspirin, losartan, metoprolol, amlodipine. The patient is on a heart-healthy diet, diabetic. LABORATORY DATA: His lab work, as mentioned, the last hemoglobin was 10.5. His white count is 14,600. The patient's chemistry: The blood sugar was 213. We will follow up. Georges Sood MD [place]
[2018-04-02] MEDS: Magnesium Oxide 400 mg Tab UD PO SCH ×2 (10:19→18:10)
[2018-04-02 13:33] LABS: BASO # 0.02 K/mm3 (0.0-2.0); BASO % 0.1 % (0.0-3.0); EOS # 0.2 (0.0-0.7); EOS % 1.6 % (1.5-5.0); GRAN # 11.95 (1.4-6.5); GRAN % 79.7 % (50.0-68.0); HEMOGLOBIN 10.3 g/dL (14.0-18.0); LYMPH # 1.7 (1.2-3.4); LYMPH % 11.3 % (22.0-35.0); MEAN CELL VOLUME 80.8 fl (80.0-105.0); MEAN CORPUSCULAR HEMOGLOBIN 27.9 pg (25.0-35.0); MEAN CORPUSCULAR HGB CONC 34.6 g/dl (31.0-37.0); MEAN PLATELET VOLUME 9.6 fl (7.0-11.0); MONO # 1.1 (0.1-0.6); MONO % 7.3 % (1.0-6.0); RBC 3.69 10^6/uL (3.5-6.1); RED CELL DISTRIBUTION WIDTH 12.4 % (11.5-14.5)
--- NOTE | 2018-04-02 13:36 | CP.PCM.PN ---
<Carol Go - Last Filed: 04/02/18 13:33> Subjective - Date & Time of Evaluation Date of Evaluation: 04/02/18 Time of Evaluation: 13:33 - Subjective Subjective: Podiatry Progress Note- Dr. Colon/Dr. Villeda 52 male seen at bedside today 5 days s/p L partial fifth ray resection and R partial second digit amputation. Patient is seen resting in bed at time of visit. Denies of having any pain today. Denies recent F/N/V/C/SOB/CP/headache. Offers no other complaints today. Wound vac is intact to the left LE. Objective - Vital Signs/Intake and Output Vital Signs (last 24 hours): Temp Pulse Resp BP Pulse Ox 98.5 F 63 18 156/75 H 100 04/02/18 06:00 04/02/18 10:16 04/02/18 06:00 04/02/18 10:16 04/02/18 06:00 Intake and Output: 04/02/18 04/02/18 06:59 18:59 Intake Total 540 Output Total 300 Balance 240 - Medications Medications: Current Medications Acetaminophen (Tylenol 325mg Tab) 650 mg PO Q4 PRN PRN Reason: Fever >100.4 F Last Admin: 03/27/18 06:53 Dose: 650 mg Amlodipine Besylate (Norvasc) 10 mg PO DAILY [facility] Last Admin: 04/02/18 08:41 Dose: 10 mg Aspirin (Ecotrin) 81 mg PO DAILY [facility] Last Admin: 04/02/18 10:18 Dose: 81 mg Sodium Chloride (Sodium Chloride 0.9%) 1,000 mls @ 60 mls/hr IV .[id number] [facility] Last Admin: 03/31/18 22:56 Dose: Not Given Insulin Human Regular (Humulin R Med) 0 units SC ACHS [facility] PRN Reason: Protocol Last Admin: 04/02/18 13:19 Dose: 5 units Linezolid (Zyvox) 600 mg PO BID [facility] PRN Reason: Protocol Last Admin: 04/02/18 10:18 Dose: 600 mg Losartan Potassium (Cozaar) 50 mg PO DAILY [facility] Last Admin: 04/02/18 10:16 Dose: 50 mg Magnesium Oxide (Mag-Ox) 400 mg PO BID [facility] Last Admin: 06/19/18 10:19 Dose: 400 mg Metoprolol Tartrate (Lopressor) 25 mg PO BRKDIN [facility] Last Admin: 04/02/18 05:38 Dose: 25 mg Ondansetron HCl (Zofran Inj) 4 mg IVP ONCE PRN PRN Reason: Nausea/Vomiting Oxycodone/Acetaminophen (Percocet 5/325 Mg Tab) 1 tab PO Q4H PRN PRN Reason: Pain, moderate (4-7) Stop: 04/04/18 08:32 Last Admin: 04/02/18 06:02 Dose: 1 tab Pioglitazone HCl (Actos) 30 mg PO DAILY [facility] Last Admin: 04/02/18 10:16 Dose: 30 mg Tramadol HCl (Ultram) 50 mg PO Q6H PRN PRN Reason: Pain, severe (8-10) Last Admin: 03/30/18 04:58 Dose: 50 mg - Labs Labs: 03/30/18 06:00 03/30/18 06:00 PT 13.1 SECONDS (9.4-12.5) H 03/25/18 15:10 INR 1.15 (0.93-1.08) H 03/25/18 15:10 APTT 28.8 Seconds (25.1-36.5) 03/25/18 15:10 - Constitutional Appears: Well, Non-toxic, No Acute Distress - Extremities Exam Additional comments: b/l LE exam: Vasc: DP/PT pulses are fully palpable, skin temp runs warm to warm proximal to distal b/l, CFT < 3 seconds to all digits. Mimimal edema noted surrounding surgical sites, appropriate for post operative status Neuro: Epicritic and protective sensation grossly intact but diminished b/l Derm: Sutures at amputation site of right second digit noted to be intact with no evidence of dehiscence and with skin edges well coapted, surgical site is erythematous and edematous; Surgical sutures are intact on the left foot, koby- wound maceration noted, no active drainage, wound bed is grannular, no purulence , no malodor, no clinical suspicion of active infection at this time MSK: Minimal POP noted to both surgical sites. Otherwise, no gross deformities noted. MMT 5/5 in all major muscle groups - Neurological Exam Neurological Exam: Alert, Awake, Oriented x3 - Psychiatric Exam Psychiatric exam: Normal Affect, Normal Mood Assessment and Plan - Assessment and Plan (Free Text) Assessment: 52 yo male 5 days s/p L partial fifth ray resection and R partial second digit amputation Plan: Patient S&E at bedside with Dr. Villeda Afebrile f/u intra-operative pathology reports/cultures - proximal margin demonstrates acute OM of the left side Continue PT - pt may heel weight bear to the bathroom only but must remain NWB otherwise c/w abx as per ID Patient will require usp IV abx pain meds per primary Sx site R foot cleansed with saline, dressed with betadine, DSD bilaterally stable per podiatry Will continue to follow <Rashaun Villeda - Last Filed: 04/03/18 07:34> Objective - Vital Signs/Intake and Output Vital Signs (last 24 hours): Temp Pulse Resp BP Pulse Ox 98.7 F 73 19 167/74 H 98 04/02/18 18:00 04/02/18 18:10 04/02/18 18:00 04/02/18 18:10 04/02/18 18:00 Intake and Output: 04/03/18 04/03/18 06:59 18:59 Intake Total 1160 Output Total 2100 Balance -940 - Medications Medications: Current Medications Acetaminophen (Tylenol 325mg Tab) 650 mg PO Q4 PRN PRN Reason: Fever >100.4 F Last Admin: 03/27/18 06:53 Dose: 650 mg Amlodipine Besylate (Norvasc) 10 mg PO DAILY [facility] Last Admin: 04/02/18 08:41 Dose: 10 mg Aspirin (Ecotrin) 81 mg PO DAILY [facility] Last Admin: 04/02/18 10:18 Dose: 81 mg Sodium Chloride (Sodium Chloride 0.9%) 1,000 mls @ 60 mls/hr IV .[id number] [facility] Last Admin: 04/03/18 06:05 Dose: Not Given Insulin Human Regular (Humulin R Med) 0 units SC ACHS [facility] PRN Reason: Protocol Last Admin: 04/02/18 21:55 Dose: Not Given Linezolid (Zyvox) 600 mg PO BID [facility] PRN Reason: Protocol Last Admin: 04/02/18 18:09 Dose: 600 mg Losartan Potassium (Cozaar) 50 mg PO DAILY [facility] Last Admin: 04/02/18 10:16 Dose: 50 mg Magnesium Oxide (Mag-Ox) 400 mg PO BID [facility] Last Admin: 04/02/18 18:10 Dose: 400 mg Metoprolol Tartrate (Lopressor) 25 mg PO BRKDIN [facility] Last Admin: 04/02/18 18:10 Dose: 25 mg Ondansetron HCl (Zofran Inj) 4 mg IVP ONCE PRN PRN Reason: Nausea/Vomiting Oxycodone/Acetaminophen (Percocet 5/325 Mg Tab) 1 tab PO Q4H PRN PRN Reason: Pain, moderate (4-7) Stop: 04/04/18 08:32 Last Admin: 04/03/18 02:01 Dose: 1 tab Pioglitazone HCl (Actos) 30 mg PO DAILY [facility] Last Admin: 04/02/18 10:16 Dose: 30 mg Tramadol HCl (Ultram) 50 mg PO Q6H PRN PRN Reason: Pain, severe (8-10) Last Admin: 03/30/18 04:58 Dose: 50 mg - Labs Labs: 04/02/18 13:25 04/02/18 13:25 PT 13.1 SECONDS (9.4-12.5) H 03/25/18 15:10 INR 1.15 (0.93-1.08) H 03/25/18 15:10 APTT 28.8 Seconds (25.1-36.5) 03/25/18 15:10 Attending/Attestation - Attestation I have personally seen and examined this patient.: Yes I have fully participated in the care of the patient.: Yes I have reviewed all pertinent clinical information, including history, physical exam and plan: Yes
[2018-04-02 13:38] LABS: CALCIUM 8.6 mg/dL (8.4-10.5)
[2018-04-03] MEDS: Oxycodone/Acetaminophen 5/325 mg Tab PO PRN ×4 (02:01→18:44)
--- NOTE | 2018-04-03 03:17 | PN ---
DATE: 04/02/2018 SUBJECTIVE: The patient is in bed, no acute distress, nontoxic. PHYSICAL EXAMINATION: VITAL SIGNS: Temperature is 98, blood pressure is 160/70, respiratory rate of 18, heart rate of 73. HEENT: Unremarkable. NECK: Supple. LUNGS: Have decreased breath sounds. HEART: Normal S1 and S2. ABDOMEN: Soft, nontender. LABORATORY DATA: Reveals a white count of 15,000. BUN of 34, creatinine of 1.8. Urinalysis is noted. Microbiology reveals the toe culture with Staphylococcus aureus and group B beta-hemolytic strep. The blood cultures have no growth. MEDICATIONS: Review of the medications revealed the patient to be on Zyvox p.o. ASSESSMENT AND PLAN: This is a 52-year-old male with systemic inflammatory response syndrome and sepsis due to a left fifth toe skin and skin structure infection with osteomyelitis, status post amputation, postprocedure growing methicillin-sensitive Staphylococcus aureus and group B Streptococcus. The pathology report reveals the patient to have right second toe amputation margins free of inflammation acute osteomyelitis. We will continue with p.o. Zyvox. Artemio Tovar MD
[2018-04-03] MEDS: Sodium Chloride 0.9% 1,000 ML IV SCH (06:05)
[2018-04-03] MEDS: Insulin Reg-MEDIUM-Coverage SC SCH ×3 (09:30→18:09)
[2018-04-03] MEDS: Magnesium Oxide 400 mg Tab UD PO SCH ×2 (09:30→18:07)
--- NOTE | 2018-04-03 13:14 | PN ---
DATE: 04/03/2018 LOCATION: The patient is in [facility] in [place], room 375, bed 2. SUBJECTIVE: The patient was admitted with infection of the little toe of the left foot and second toe of the right foot. The patient had diabetes, hypertension and the patient had surgery on the toes and he is continuing antibiotic treatment, and wound care in [facility]. PHYSICAL EXAMINATION: VITAL SIGNS: This morning, the pulse is 68, blood pressure 160/87, respirations are 16, O2 sat is 94% on room air. LUNGS: Clear. HEART: Normal sinus rhythm. ABDOMEN: Soft. Liver and spleen not palpable. CENTRAL NERVOUS SYSTEM: No focal deficit. The patient's legs appear to be normal in circulation. It is as expected within normal limits. The wound in the foot has been cared for by the warehouse team leader. The patient has been treated by the Infectious Disease residential solar consultant, Dr. Tovar. Condition is improving. The patient is awaiting culture report to finalize his treatment. He might need rehab in a subacute facility. Georges Sood MD [place]
--- NOTE | 2018-04-03 14:01 | PN ---
DATE: 04/03/2018 SUBJECTIVE: The patient is seen earlier this morning, in no acute distress, nontoxic. PHYSICAL EXAMINATION: VITAL SIGNS: Temperature is 98, blood pressure is 160/70, respiratory rate of 16. HEENT: Examination is unremarkable. NECK: Supple. LUNGS: Have decreased breath sounds. HEART: Normal S1, S2. ABDOMEN: Soft, nontender. LABORATORY DATA: Reveals the patient's white count of 15,000, hemoglobin of 10, platelets of 364. BUN of 34, creatinine of 1.8. Urinalysis is noted. Microbiology reveals Staph aureus and group B Strep. Sensitive Staph aureus, with oxacillin less than 0.25, it is sensitive to also Levaquin and group B Strep is also present from the culture. The pathology report is reviewed and the pathology shows the left foot with osteomyelitis involving the bone and soft tissue at the resection margin and the right second toe amputation, the resection margins are free of inflammation. ASSESSMENT AND PLAN: This is a 52-year-old male who is ALLERGIC TO PENICILLIN, who has sepsis with left fifth toe skin and skin structure infection with osteomyelitis and status post amputation with a sensitive Staphylococcus aureus and group B Strep in a patient who is ALLERGIC TO PENICILLIN and currently on p.o. Zyvox, with the osteomyelitis of the right foot osteomyelitis post surgery. At the left, the margins are free. May continue using p.o. Zyvox; if bone marrow side effects occur, the other option is Levaquin with patient's QTc at 444 allows us the use of Levaquin also in a patient who is PENICILLIN ALLERGIC; so, either Levaquin or Zyvox, currently on Zyvox, may be used for this patient, viability of both is good with a weekly CBC, SMA-18, sedimentation rate, C-reactive protein and close followup with Podiatry, Vascular and primary. Artemio Tovar MD
--- NOTE | 2018-04-03 14:03 | CP.PCM.PN ---
<Carol Go - Last Filed: 04/03/18 13:59> Subjective - Date & Time of Evaluation Date of Evaluation: 04/03/18 Time of Evaluation: 13:59 - Subjective Subjective: Podiatry Progress Note- Dr. Colon/Dr. Villeda 52 male seen at bedside today 6 days s/p L partial fifth ray resection and R partial second digit amputation. Patient is seen resting in bed at time of visit. Denies of having any pain today. Denies recent F/N/V/C/SOB/CP/headache. Offers no other complaints today. Objective - Vital Signs/Intake and Output Vital Signs (last 24 hours): Temp Pulse Resp BP Pulse Ox 97.9 F 68 16 161/87 H 94 L 04/03/18 08:59 04/03/18 09:30 04/03/18 08:59 04/03/18 09:30 04/03/18 08:59 Intake and Output: 04/03/18 04/03/18 06:59 18:59 Intake Total 1160 360 Output Total 2100 Balance -940 360 - Medications Medications: Current Medications Acetaminophen (Tylenol 325mg Tab) 650 mg PO Q4 PRN PRN Reason: Fever >100.4 F Last Admin: 03/27/18 06:53 Dose: 650 mg Amlodipine Besylate (Norvasc) 10 mg PO DAILY [facility] Last Admin: 04/03/18 09:29 Dose: 10 mg Aspirin (Ecotrin) 81 mg PO DAILY [facility] Last Admin: 04/03/18 09:30 Dose: 81 mg Sodium Chloride (Sodium Chloride 0.9%) 1,000 mls @ 60 mls/hr IV .[id number] [facility] Last Admin: 04/03/18 06:05 Dose: Not Given Insulin Human Regular (Humulin R Med) 0 units SC ACHS [facility] PRN Reason: Protocol Last Admin: 04/03/18 09:30 Dose: 3 units Linezolid (Zyvox) 600 mg PO BID [facility] PRN Reason: Protocol Last Admin: 04/03/18 09:28 Dose: 600 mg Losartan Potassium (Cozaar) 50 mg PO DAILY [facility] Last Admin: 04/03/18 09:30 Dose: 50 mg Magnesium Oxide (Mag-Ox) 400 mg PO BID [facility] Last Admin: 04/03/18 09:30 Dose: 400 mg Metoprolol Tartrate (Lopressor) 25 mg PO BRKDIN [facility] Last Admin: 04/02/18 18:10 Dose: 25 mg Ondansetron HCl (Zofran Inj) 4 mg IVP ONCE PRN PRN Reason: Nausea/Vomiting Oxycodone/Acetaminophen (Percocet 5/325 Mg Tab) 1 tab PO Q4H PRN PRN Reason: Pain, moderate (4-7) Stop: 04/04/18 08:32 Last Admin: 04/03/18 09:29 Dose: 1 tab Pioglitazone HCl (Actos) 30 mg PO DAILY [facility] Last Admin: 04/03/18 09:29 Dose: 30 mg Tramadol HCl (Ultram) 50 mg PO Q6H PRN PRN Reason: Pain, severe (8-10) Last Admin: 03/30/18 04:58 Dose: 50 mg - Labs Labs: 04/02/18 13:25 04/02/18 13:25 PT 13.1 SECONDS (9.4-12.5) H 03/25/18 15:10 INR 1.15 (0.93-1.08) H 03/25/18 15:10 APTT 28.8 Seconds (25.1-36.5) 03/25/18 15:10 - Constitutional Appears: Well, Non-toxic, No Acute Distress - Extremities Exam Additional comments: b/l LE exam: Vasc: DP/PT pulses are fully palpable, skin temp runs warm to warm proximal to distal b/l, CFT < 3 seconds to all digits. Mimimal edema noted surrounding surgical sites, appropriate for post operative status Neuro: Epicritic and protective sensation grossly intact but diminished b/l Derm: Sutures at amputation site of right second digit noted to be intact with no evidence of dehiscence and with skin edges well coapted, surgical site is erythematous and edematous; Surgical sutures are intact on the left foot, koby- wound maceration noted, no active drainage, wound bed is grannular, no purulence , no malodor, no clinical suspicion of active infection at this time MSK: Minimal POP noted to both surgical sites. Otherwise, no gross deformities noted. MMT 5/5 in all major muscle groups - Neurological Exam Neurological Exam: Alert, Awake, Oriented x3 - Psychiatric Exam Psychiatric exam: Normal Affect, Normal Mood Assessment and Plan - Assessment and Plan (Free Text) Assessment: 52 yo male 6 days s/p L partial fifth ray resection and R partial second digit amputation Plan: Patient S&E at bedside with Dr. Colon Afebrile f/u intra-operative pathology reports/cultures - proximal margin demonstrates acute OM of the left side Continue PT - pt may heel weight bear to the bathroom only but must remain NWB otherwise c/w abx as per ID Patient will require [facility] IV abx pain meds per primary Sx site R foot cleansed with saline, dressed with betadine, DSD bilaterally stable per podiatry Will continue to follow <Loreto Colon - Last Filed: 04/14/18 13:22> Objective - Vital Signs/Intake and Output Vital Signs (last 24 hours): Temp Pulse Resp BP Pulse Ox 98 F 76 18 176/100 H 95 04/03/18 18:00 04/03/18 18:07 04/03/18 18:00 04/03/18 18:07 04/03/18 18:00 - Labs Labs: 04/02/18 13:25 04/02/18 13:25 PT 13.1 SECONDS (9.4-12.5) H 03/25/18 15:10 INR 1.15 (0.93-1.08) H 03/25/18 15:10 APTT 28.8 Seconds (25.1-36.5) 03/25/18 15:10 Attending/Attestation - Attestation I have personally seen and examined this patient.: Yes I have fully participated in the care of the patient.: Yes I have reviewed all pertinent clinical information, including history, physical exam and plan: Yes
[2018-04-03 18:17] VITALS: BP 176/100; PULSE 76
[2018-04-03 19:11] VITALS: RESP 18; TEMP 98; O2SAT 95
--- NOTE | 2018-04-05 07:23 | DS ---
BRIEF HISTORY: This is a 52-year-old male with history of diabetes mellitus, who presented to the emergency room with pain in the left foot. Patient stated that he jammed his left foot on a hard object and had a laceration of his little toe on the left foot and infection around the nail bed. The patient's blood pressure was 145/72, pulse 82, respirations 16, temperature 99. White count 18,000, with a differential of 87.7% neutrophils. Blood sugar 411, creatinine 1.8, BUN 34, magnesium 1.6. HOSPITAL COURSE: The patient was admitted to the general medical floor for sepsis associated with wound infection of the left foot. Infectious Disease and Podiatry were consulted. X-rays of both feet were done, which showed bony destruction of the tip of the second toe consistent with osteomyelitis, soft tissue ulcers of the left fifth digit. An arterial Doppler was done which showed normal ROSS. MRI was also done which showed soft tissue swelling of the right foot consistent with cellulitis, partial tear of the peroneus brevis tendon and edema of the middle and distal second phalanges consistent with osteomyelitis. The patient was taken by Dr. Colon for amputation of the left fifth digit as well as partial amputation of the right second digit. Postop x-rays showed right foot degenerative changes of the base of the fourth and fifth metatarsals and cuboids as well as amputation of the toes. Wound culture grew Staph aureus and group B strep. Due to the patient's allergy to penicillin, he was given Zyvox and recommended for physical therapy. The patient was transferred to [facility] for rehab and completion of course of antibiotics. DISCHARGE DIAGNOSES: Sepsis, osteomyelitis of the right second toe, status post partial right second digit amputation, left fifth digit amputation, diabetes mellitus, obesity, partial tear of peroneus brevis tendon, cellulitis of the right foot, Staphylococcus aureus and group B streptococus wound infection. DISCHARGE MEDICATIONS: Actos 30 mg daily, Cozaar 50 mg daily, aspirin 81 mg daily, Lopressor 25 mg twice a day, magnesium oxide 400 mg twice a day, Norvasc 10 mg daily, Percocet 1 tab every 4 hours p.r.n. for pain, Ultram 50 mg every 6 hours as needed for pain, Zyvox 600 mg twice a day. FOLLOWUP: The patient will be followed up at [facility] for rehab. Tamra Sood MD [facility] # [id number] [place]
--- NOTE | 2018-04-10 16:12 | OP ---
PROCEDURE DATE: 03/28/2018 SURGEON: Loreto Colon DPM. SIDE PULLER: Bart Toth DPM, PGY1 ANESTHESIOLOGIST: Dr. Leija. ANESTHESIA: IV sedation with local. PREOPERATIVE DIAGNOSES: Osteomyelitis of left fifth digit and osteomyelitis of right second digit, distal and middle phalanx. POSTOPERATIVE DIAGNOSES: Osteomyelitis of left fifth digit and osteomyelitis of right second digit, distal and middle phalanx. NAME OF PROCEDURES: 1. Partial left fifth ray resection with removal of all nonviable tissue and bone. 2. Partial right second digit amputation with removal of all nonviable tissue and bone. INDICATIONS: The patient is a 52-year-old male with the above diagnoses. The patient has exhausted all conservative treatment at this time and now requires surgical intervention. The patient signed the consent after careful explanation of risks, benefits, complications, and alternatives of the surgical procedure. No guarantees were given nor implied. N.p.o. status was confirmed prior to taking the patient to the OR. PREPARATION: The patient was brought into the Operating Room and placed on the operating room table in a supine position. A time-out was performed for identification of the correct patient and procedure. After induction of IV sedation, the patient received a total of 10 mL of 2% lidocaine plain to the left fifth ray in a local block fashion and 4 mL of 2% lidocaine plain to the right second digit in a local block fashion. Both lower extremities were then prepped and draped in a normal sterile manner and the procedure began. No tourniquet was used during the procedure. DESCRIPTION OF PROCEDURE: Attention was then turned to the left foot where it was noted that the patient had a necrotic plantar ulceration and fibrous dorsal ulceration with moderate amounts of serous drainage noted and malodor and maceration noted to the dorsal ulcer with positive probe to bone and no tracking, no undermining. These ulcerations are too grossly infected on clinical examination. The right second digit was noted to have a dorsal ulceration measuring approximately 0.5 cm x 0.5 cm was noted to be black and necrotic with no noted drainage, malodor, probe to bone, tracking, tunneling, or undermining, but appeared erythematous and clinically infected. Using a fresh #15 blade, a circumferential incision was made down to the level of bone at the right second digit. The proximal interphalangeal joint was then identified and the digit was disarticulated using a pair of short towel clamps and collar and crown scissors. All remaining nonviable soft tissue was then sharply debrided using Iris scissors and a bone cutter was utilized to remove the head of the proximal phalanx of the second digit. The remaining bone was then rasped down until smooth surface was acquired using a hand rasp. A 3-0 Vicryl suture was then used to throw one suture deep and 3-0 Prolene suture was then used to suture the wound superficially. Before suturing, the wound was flushed with copious amounts of normal sterile saline. Attention was then turned to the left digit ulceration site, where a fresh #15 blade was utilized to make a racquet-type incision down to the level of bone at the metatarsophalangeal joint. The metatarsophalangeal joint was then identified and the toe was disarticulated at this joint using bone clamps and crown and collar scissors, all nonviable soft tissue was then excised and debrided using Iris scissors and using a pair of bone cutters. The fifth metatarsal was partially amputated about one third of the way down to the shaft of the bone. The surgical site was then copiously flushed with normal amounts of sterile saline. A deep suture was thrown using 3-0 Vicryl and 3-0 Prolene was used to close the wound superficially. All wounds were then dressed bilaterally with Xeroform, gauze, ABD pads, Kerlix, and and the procedure was concluded. All soft tissue and bone that was taken from the patient was sent to the Pathology and Microbiology for pathological and histological examination. POSTOPERATIVE CONDITION: The patient tolerated the anesthesia and procedure well and was escorted to the Recovery Room with vital signs stable and neurovascular status intact to bilateral lower extremities. The patient is to remain weightbearing as tolerated to both feet in a surgical shoe and is to keep the dressings clean, dry and intact at all times. The patient will follow up with Dr. Colon [facility] following discharge from the hospital. Bart Toth DPM Loreto Colon DPM
== END 2018-04-03 23:02 | DRG 854 ==
LOC: ED 13:28 → ERH 16:53 → 3RSO 19:09
PROVIDERS: ADMIT Internal Medicine; ATTEND Internal Medicine
PROC: 3E03328 Introduction of Oxazolidinones into Peripheral Vein, Percutaneous Approach (ICD-10-PCS; 2018-03-26)
PROC: 0Y6N0ZF Detachment at Left Foot, Partial 5th Ray, Open Approach (ICD-10-PCS; principal; 2018-03-28 07:30)
PROC: 0Y6R0Z1 Detachment at Right 2nd Toe, High, Open Approach (ICD-10-PCS; 2018-03-28 07:30)
DX: A40.1 Sepsis due to streptococcus, group B (principal); E11.52 Type 2 diabetes mellitus with diabetic peripheral angiopathy with gangrene; M86.172 Other acute osteomyelitis, left ankle and foot; M86.171 Other acute osteomyelitis, right ankle and foot; L03.115 Cellulitis of right lower limb; E11.621 Type 2 diabetes mellitus with foot ulcer; N18.3 Chronic kidney disease, stage 3 (moderate); E11.22 Type 2 diabetes mellitus with diabetic chronic kidney disease; I12.9 Hypertensive chronic kidney disease with stage 1 through stage 4 chronic kidney disease, or unspecified chronic kidney disease; E11.69 Type 2 diabetes mellitus with other specified complication; L97.519 Non-pressure chronic ulcer of other part of right foot with unspecified severity; L97.529 Non-pressure chronic ulcer of other part of left foot with unspecified severity; E78.5 Hyperlipidemia, unspecified; S91.115A Laceration without foreign body of left lesser toe(s) without damage to nail, initial encounter; W23.0XXA Caught, crushed, jammed, or pinched between moving objects, initial encounter; F40.240 Claustrophobia; E66.9 Obesity, unspecified; Z68.32 Body mass index [BMI] 32.0-32.9, adult; Z88.0 Allergy status to penicillin

== ENCOUNTER 2018-05-17 16:45 | Inpatient (IN) | payer OTHER ==
[2018-05-17 16:46] VITALS: BMI 36.1
--- NOTE | 2018-05-17 16:50 | ED PDOC ---
Arrival/HPI - General Historian: Patient - History of Present Illness Time/Duration: Other (see hpi) Context: Home - General Chief Complaint: Abnormal Labs Time Seen by Provider: 05/17/18 16:49 - History of Present Illness Narrative History of Present Illness (Text): 05/17/18 16:50 This 52 yo male with pmh diabetes, presents to this Emergency department for evaluation of anemia. Patient stated he had a phone call from his doctor and told him to come to ED due to his Hg was 7.8. Patient denies SOB, CP, cough, wheezing , fever, abdominal pain, dizziness, or other somatic complains. (Andrae Diamond) Past Medical History - Provider Review Nursing Documentation Reviewed: Yes - Infectious Disease Hx of Infectious Diseases: None - Cardiac Hx Hypertension: Yes - Pulmonary Hx Respiratory Disorders: No - Neurological Hx Neurological Disorder: No - HEENT Hx HEENT Disorder: No - Renal Hx Renal Disorder: No - Endocrine/Metabolic Hx Endocrine Disorders: Yes Hx Diabetes Mellitus Type 2: Yes - Hematological/Oncological Hx Blood Disorders: No - Integumentary Hx Dermatological Disorder: No - Musculoskeletal/Rheumatological Hx Musculoskeletal Disorders: Yes Hx Falls: No Other/Comment: amputation L&R toes - Gastrointestinal Hx Gastrointestinal Disorders: No - Genitourinary/Gynecological Hx Genitourinary Disorders: No - Psychiatric Hx Psychophysiologic Disorder: No Hx Substance Use: No - Surgical History Hx Orthopedic Surgery: Yes (toe amputation) - Anesthesia Hx Anesthesia: Yes Hx Anesthesia Reactions: No Hx Malignant Hyperthermia: No Family/Social History - Physician Review Nursing Documentation Reviewed: Yes Family/Social History: Other (noncontributory) Smoking Status: Never Smoked Hx Alcohol Use: No Hx Substance Use: No Allergies/Home Meds Allergies/Adverse Reactions: Allergies Penicillins Allergy (Mild, Verified 03/25/18 14:26) PAIN Pt does not want to take it, claims it does not work for him. Home Medications: Home Meds Medication Instructions Recorded Confirmed Ascorbic Acid [Vitamin C] 1 tab PO DAILY 05/17/18 05/17/18 Enoxaparin [Lovenox] 40 mg SC DAILY 05/17/18 05/17/18 Furosemide [Lasix] 1 tab PO DAILY 05/17/18 05/17/18 Multivitamin [Multivitamins] 1 tab PO DAILY 05/17/18 05/17/18 Pioglitazone [Actos] 15 mg PO DAILY 05/17/18 05/17/18 hydrALAZINE [Apresoline] 1 tab PO TID 05/17/18 05/17/18 Review of Systems - Review of Systems Constitutional: Normal. absent: Fatigue, Weight Change, Fevers Eyes: Normal ENT: Normal. absent: Sore Throat Respiratory: Normal. absent: SOB, Cough, Wheezing Cardiovascular: Normal. absent: Chest Pain Gastrointestinal: Normal. absent: Abdominal Pain, Nausea, Vomiting Genitourinary Male: Normal. absent: Dysuria Musculoskeletal: Other (healing wound on left foot). absent: Back Pain, Neck Pain Skin: Normal. absent: Rash Neurological: Normal. absent: Headache, Dizziness, Focal Weakness, Gait Changes , Speech Changes, Facial Droop, Disequilibrium, Seizure Endocrine: Normal Hemo/Lymphatic: Normal Psychiatric: Normal Physical Exam Temperature: Afebrile Blood Pressure: Hypertensive Pulse: Regular Respiratory Rate: Normal Appearance: Positive for: Well-Appearing, Non-Toxic, Comfortable Pain Distress: None Mental Status: Positive for: Alert and Oriented X 3 - Systems Exam Head: Present: Atraumatic, Normocephalic Pupils: Present: PERRL Extroacular Muscles: Present: EOMI Conjunctiva: Present: Normal Mouth: Present: Moist Mucous Membranes Pharnyx: Present: Normal. No: ERYTHEMA, EXUDATE, TONSILS ENLARGED Neck: Present: Normal Range of Motion, Trachea Midline. No: Meningeal Signs, MIDLINE TENDERNESS, Paraspinal Tenderness, Lymphadenopathy Respiratory/Chest: Present: Clear to Auscultation, Good Air Exchange. No: Respiratory Distress, Accessory Muscle Use, Wheezes, Decreased Breath Sounds, Rales, Retracting, Rhonchi Cardiovascular: Present: Regular Rate and Rhythm, Normal S1, S2. No: Murmurs Abdomen: No: Tenderness, Distention, Peritoneal Signs, Rebound, Guarding Back: Present: Normal Inspection. No: CVA Tenderness Upper Extremity: Present: Normal Inspection, Normal ROM, NORMAL PULSES. No: Cyanosis, Edema Lower Extremity: Present: NORMAL PULSES, Normal ROM, Neurovascularly Intact, Capillary Refill < 2 s, Other ((+) left foot with healing wound, no drainage or cellulitis). No: Edema, CALF TENDERNESS, Tenderness, Swelling, Erythema, Temperature Abnormalties Neurological: Present: GCS=15, CN II-XII Intact, Speech Normal, Motor Func Grossly Intact, Normal Sensory Function, Normal Cerebellar Funct, Gait Normal, Memory Normal Skin: Present: Warm, Dry, Normal Color. No: Rashes Psychiatric: Present: Alert, Oriented x 3, Normal Insight, Normal Concentration Vital Signs Temp Pulse Resp BP Pulse Ox 05/17/18 21:42 89 177/86 H 05/17/18 21:20 82 18 178/86 H 97 05/17/18 21:07 20 05/17/18 16:54 98.5 F 78 18 183/87 H 96 Medical Decision Making Re-evaluation Time: 20:19 Reassessment Condition: Re-examined, Improving,but remains with symptoms - Lab Interpretations I have reviewed the lab results: Yes Interpretation: Abnormal lab values - EKG Interpretation Interpreted by ED Physician: Yes (NSR @ [address] changes) Type: 12 lead EKG Comparison: Similar to previous EKG ED Course and Treatment: 05/17/18 20:[address] Sood regarding patient c/o Hg 7.8 early today. Patient came for further evaluation. I reviewed labs which shows Hg 7.9. She recommended [address] Bello for consult. She agreed with plan for admission. Patient is agreeable to be admitted for observation. 05/17/18 20:20 Patient came for anemia evaluation. Patient noted he was at a physical rehabilitation center. He stated he has been feeling well. Patient was scheduled to be discharged home tomorrow, however recent blood test today demonstrates a Hg 7.8, and he was sent to ED. During the ED visit, patient remained stable. He denies SOB, CP, wheezing, dizziness, fever, rectal bleeding, hematuria, or dizziness. Blood test demonstrates a Hg of 7.9, elevated Potassium, and CKD. Patient was treated with kayexalate. Dr. Whittaker had recommended 1U of blood transfusion, which patient understood benefits vs risk, including infection or allergic reaction. Dr. Whittaker recommended observation, and patient agreed with plan. Dr. Guy ED physician came to examine patient, and he agreed with plan. Zyvox, renal diet were ordered. EKG was NSR, and CXR shows mild pulm. edema. Patient continues denying SOB or CP. He noted occasional cough for several weeks. (Andrae Diamond) - Lab Interpretations Microbiology Results: Microbiology Results 05/17/18 18:15 Blood Blood Culture - Preliminary NO GROWTH AFTER 3 DAYS 05/17/18 17:45 Blood Blood Culture - Preliminary NO GROWTH AFTER 3 DAYS 05/17/18 18:58 Urine Urine Culture - Final No Growth (<1,000 CFU/ML) Lab Results: 05/17/18 19:00 05/17/18 18:15 Lab Results 05/17/18 19:00: WBC 5.4, RBC 2.91 L, Hgb 7.9 L, Hct 24.8 L, MCV 85.2, MCH 27.1, MCHC 31.9, RDW 18.7 H, Plt Count 167, MPV 11.0 05/17/18 18:15: Sodium 142, Chloride 110 H, Potassium 5.4 H, Carbon Dioxide 22, Anion Gap 16, BUN 47 H, Creatinine 2.0 H, Est GFR ( Amer) 43, Est GFR ( Non-Af Amer) 35, Random Glucose 175 H, Calcium 9.0, Phosphorus 3.9, Magnesium 2.4 H, Total Bilirubin 0.7, AST 24, ALT 30, Alkaline Phosphatase 78, Total Protein 7.1, Albumin 3.8, Globulin 3.3, Albumin/Globulin Ratio 1.2 05/17/18 18:15: pO2 34, VBG pH 7.27 L, VBG pCO2 50.0, VBG HCO3 23.0, VBG Total CO2 24.5, VBG O2 Sat (Calc) 64.2, VBG Base Excess -4.3 L, VBG Potassium 5.2, Sodium 140.0, Chloride 110.0 H, Glucose 189 H, Lactate 1.5, FiO2 21.0, Venous Blood Potassium 5.2 05/17/18 18:15: Urine Color Yellow, Urine Appearance Clear, Urine pH 6.0, Ur Specific Baird 1.020, Urine Protein 100 H, Urine Glucose (UA) 100 H, Urine Ketones Negative, Urine Blood Trace-intact H, Urine Nitrate Negative, Urine Bilirubin Negative, Urine Urobilinogen 0.2, Ur Leukocyte Esterase Negative, Urine RBC 1 - 3, Urine WBC 0 - 2, Ur Epithelial Cells None, Urine Bacteria Many 05/17/18 18:15: PT 12.3, INR 1.08, APTT 27.7 08/03/18 18:15: WBC 5.4 D, RBC 2.91 L, Hgb 8.0 L D, Hct 24.4 L, MCV 83.8 D, MCH 27.5, MCHC 32.8, RDW 18.7 H, Plt Count 158, MPV 10.6, Gran % 66.8, Lymph % ( Auto) 21.3 L, [place] % (Auto) 8.7 H, Eos % (Auto) 2.8, Baso % (Auto) 0.4, Gran # 3.62, Lymph # (Auto) 1.2, [place] # (Auto) 0.5, Eos # (Auto) 0.2, Baso # (Auto) 0.02 - RAD Interpretation Radiology Orders: 05/17/18 19:40 CHEST PORTABLE [RAD] Stat - Medication Orders Current Medication Orders: Albuterol Sulfate (Albuterol 0.083% Inhal Honey (2.5 Mg/3 Ml) Ud) 2.5 mg IH [id number] PRN PRN Reason: Wheezing Last Admin: 05/21/18 03:07 Dose: 2.5 mg Alprazolam (Xanax) 0.25 mg PO TID PRN; Protocol PRN Reason: Anxiety Stop: 05/25/18 10:01 Last Admin: 05/21/18 02:40 Dose: 0.25 mg Behavioural Document 05/21/18 02:40 LGA (Rec: 05/21/18 07:05 [id number] Maintenance Maintenance Dose Yes Nonmedicinal Nonmedicinal Interventions Redirect Behavior Behavior for Medication: Anxiety Amlodipine Besylate (Norvasc) 10 mg PO DAILY [facility] Last Admin: 05/20/18 12:32 Dose: 10 mg MAR Blood Pressure Document 05/20/18 12:32 (Rec: 05/20/18 12:32 [id number]) Blood Pressure Blood Pressure (100/60-150/90) 187/83 Aspirin (Ecotrin) 81 mg PO DAILY [facility] Last Admin: 05/20/18 12:33 Dose: 81 mg Cadexomer Iodine (Iodosorb) 0 gm TOP DAILY [facility] Cyanocobalamin (Vitamin B12 100 Mcg Tab) 100 mcg PO DAILY SONIA Last Admin: 05/20/18 12:33 Dose: 100 mcg Enoxaparin Sodium (Lovenox) 30 mg SC DAILY SONIA PRN Reason: Protocol Last Admin: 05/20/18 12:31 Dose: 30 mg Subcutaneous Administrations Document 05/20/18 12:31 VM (Rec: 05/20/18 12:32 [place] [id number]) Injection Site MAR Injection Site Right Abdomen Charges for Administration # of Subcutaneous Administrations 1 Famotidine (Pepcid) 20 mg PO HS [facility] Last Admin: 05/20/18 22:06 Dose: 20 mg Folic Acid (Folic Acid) 1 mg PO DAILY [facility] Last Admin: 05/20/18 12:33 Dose: 1 mg Furosemide (Lasix) 40 mg IVP DAILY [facility] Last Admin: 05/20/18 12:44 Dose: 40 mg MAR Blood Pressure Document 05/20/18 12:44 VM (Rec: 05/20/18 12:44 [place] [id number]) Blood Pressure Blood Pressure (100/60-150/90) 187/83 IVP Administration Document 05/20/18 12:44 VM (Rec: 05/20/18 12:44 [place] [id number]) Charges for Administration # of IVP Administrations 1 Hydralazine HCl (Apresoline) 50 mg PO TID [facility] Last Admin: 05/20/18 18:06 Dose: 50 mg MAR Pulse and Blood Pressure Document 05/20/18 18:06 VM (Rec: 05/20/18 18:06 [place] [id number]) Pulse Pulse Rate (60-90) 69 Blood Pressure Blood Pressure (100/60-150/90) 127/102 Insulin Human Regular (Humulin R Med) 0 units SC ACHS [facility] PRN Reason: Protocol Last Admin: 05/20/18 22:05 Dose: Not Given Non-Admin Reason: Blood Sugar Parameter MAR Blood Glucose Document 05/20/18 22:05 LGA (Rec: 05/20/18 22:05 LGA [place] [id number]) Blood Glucose Finger Stick Blood Glucose (70-120) 232 Labetalol HCl (Trandate) 50 mg PO Q6H PRN PRN Reason: hypertension Last Admin: 05/18/18 06:07 Dose: 50 mg Metoprolol Tartrate (Lopressor) 50 mg PO BRKDIN [facility] Last Admin: 05/20/18 18:07 Dose: 50 mg MAR Pulse and Blood Pressure Document 05/20/18 18:07 VM (Rec: 05/20/18 18:07 [place] [id number]) Pulse Pulse Rate (60-90) 69 Blood Pressure Blood Pressure (100/60-150/90) 127/102 Pioglitazone HCl (Actos) 30 mg PO DAILY [facility] Last Admin: 05/20/18 12:32 Dose: 30 mg Discontinued Medications Albuterol Sulfate (Albuterol 0.083% Inhal Honey (2.5 Mg/3 Ml) Ud) 2.5 mg IH [id number] PRN PRN Reason: Wheezing Alprazolam (Xanax) 0.25 mg PO STAT STA PRN Reason: Protocol Stop: 05/17/18 23:19 Last Admin: 05/17/18 23:33 Dose: 0.25 mg Re-Assess: Reassess Psych Meds Document 05/18/18 07:33 RDS (Rec: 05/18/18 10:55 RDS [id number]) Reassess Psych Med Effective Hydralazine HCl (Apresoline) 25 mg PO QID [facility] Last Admin: 05/20/18 12:32 Dose: 25 mg MAR Pulse and Blood Pressure Document 05/20/18 12:32 (Rec: 05/20/18 12:32 [id number] Pulse Pulse Rate (60-90) 86 Blood Pressure Blood Pressure (100/60-150/90) 187/83 Labetalol HCl (Trandate) 20 mg IV ONCE ONE Stop: 05/17/18 23:01 Last Admin: 05/17/18 23:27 Dose: 20 mg eMAR Start Stop Document 05/17/18 23:27 SSE (Rec: 05/17/18 23:27 [facility] [id number]) Intravenous Solution Start Date 05/17/18 Start Time 23:27 MAR Pulse and Blood Pressure Document 05/17/18 23:27 SSE (Rec: 05/17/18 23:27 SSE [id number]) Blood Pressure Blood Pressure (100/60-150/90) 180/83 Linezolid (Zyvox) 600 mg PO STAT STA PRN Reason: Protocol Stop: 05/17/18 20:15 Last Admin: 05/17/18 20:43 Dose: 600 mg Metoprolol Tartrate (Lopressor) 25 mg PO BRKDIN [facility] Last Admin: 05/20/18 12:33 Dose: 25 mg MAR Pulse and Blood Pressure Document 05/20/18 12:33 (Rec: 05/20/18 12:33 [id number]) Pulse Pulse Rate (60-90) 86 Blood Pressure Blood Pressure (100/60-150/90) 187/83 Metoprolol Tartrate (Lopressor) 50 mg PO BRKDIN SONIA Sodium Polystyrene Sulfonate (Kayexalate Susp) 30 gm PO STAT STA Stop: 05/17/18 19:47 Last Admin: 05/17/18 20:30 Dose: 30 gm Disposition/Present on Arrival - Present on Arrival Any Indicators Present on Arrival: No History of DVT/PE: No History of Uncontrolled Diabetes: Yes Urinary Catheter: No History of Decub. Ulcer: No History Surgical Site Infection Following: None - Disposition Have Diagnosis and Disposition been Completed?: Yes Disposition Time: 20:20 Patient Plan: Admission - Disposition Diagnosis: CKD (chronic kidney disease), Anemia, Hyperkalemia Disposition: HOSPITALIZED Patient Problems: Current Active Problems Problem Status Onset Anemia Acute CKD (chronic kidney disease) Acute Hyperkalemia Acute Condition: STABLE
[2018-05-17 18:40] LABS: VENOUS BLOOD GAS BASE EXCESS -4.3 mmol/L (0.0-2.0); VENOUS BLOOD GAS PO2 34 mm/Hg (30-55); VENOUS BLOOD PH 7.27 (7.32-7.43)
[2018-05-17 18:41] LABS: BASO # 0.02 K/mm3 (0.0-2.0); BASO % 0.4 % (0.0-3.0); EOS # 0.2 (0.0-0.7); EOS % 2.8 % (1.5-5.0); GRAN # 3.62 (1.4-6.5); GRAN % 66.8 % (50.0-68.0); LYMPH # 1.2 (1.2-3.4); LYMPH % 21.3 % (22.0-35.0); MEAN CELL VOLUME 83.8 fl (80.0-105.0); MEAN CORPUSCULAR HEMOGLOBIN 27.5 pg (25.0-35.0); MEAN CORPUSCULAR HGB CONC 32.8 g/dl (31.0-37.0); MEAN PLATELET VOLUME 10.6 fl (7.0-11.0); MONO # 0.5 (0.1-0.6); MONO % 8.7 % (1.0-6.0); RBC 2.91 10^6/uL (3.5-6.1); RED CELL DISTRIBUTION WIDTH 18.7 % (11.5-14.5); WHITE BLOOD COUNT 5.4 10^3/ul (4.5-11.0)
[2018-05-17 18:42] LABS: URINE BILIRUBIN NEGATIVE (NEGATIVE); URINE BLOOD TRACE-INTACT (NEGATIVE); URINE GLUCOSE (UA) 100 mg/dL (NEGATIVE); URINE LEUKOCYTE ESTERASE NEGATIVE Leu/uL (NEGATIVE); URINE PROTEIN 100 mg/dL (<30 mg/dL); URINE UROBILINOGEN 0.2 E.U./dL (<1 E.U./dL)
[2018-05-17 18:44] LABS: URINE APPEARANCE CLEAR (CLEAR); URINE COLOR YELLOW (YELLOW)
[2018-05-17 18:50] LABS: ALB/GLOB RATIO 1.2 (1.1-1.8); ALBUMIN 3.8 g/dL (3.0-4.8)
[2018-05-17 18:53] LABS: INR 1.08; PROTHROMBIN TIME 12.3 SECONDS (9.4-12.5)
[2018-05-17 18:55] LABS: PARTIAL THROMBOPLASTIN TIME 27.7 Seconds (25.1-36.5)
[2018-05-17 18:58] LABS: URINE WBC 0 - 2 /hpf (0-6)
[2018-05-17 19:03] LABS: URINE BACTERIA MANY (NEG)
[2018-05-17 19:19] LABS: HEMOGLOBIN 7.9 g/dL (14.0-18.0); MEAN CELL VOLUME 85.2 fl (80.0-105.0); MEAN CORPUSCULAR HEMOGLOBIN 27.1 pg (25.0-35.0); MEAN CORPUSCULAR HGB CONC 31.9 g/dl (31.0-37.0); RBC 2.91 10^6/uL (3.5-6.1); RED CELL DISTRIBUTION WIDTH 18.7 % (11.5-14.5); WHITE BLOOD COUNT 5.4 10^3/ul (4.5-11.0)
[2018-05-17] MEDS ORDERED: Sod Polystyrene Sulf 15 gm/60 ml Susp PO STA (19:46)
[2018-05-17] MEDS: Insulin Reg-MEDIUM-Coverage SC SCH (22:20)
[2018-05-17] MEDS ORDERED: Labetalol 5 mg/ml Inj 20ML IV ONE (23:00)
[2018-05-18 07:26] LABS: ALB/GLOB RATIO 1.1 (1.1-1.8); ALBUMIN 3.3 g/dL (3.0-4.8); CALCIUM 8.5 mg/dL (8.4-10.5)
[2018-05-18 07:30] LABS: IRON 126 ug/dL (45-180)
[2018-05-18 07:39] LABS: % IRON SATURATION 41 % (20-55); TOTAL IRON BINDING CAPACITY 309 ug/dL (261-462)
--- NOTE | 2018-05-18 08:04 | RAD ---
Date of service: 05/17/2018 HISTORY: admission COMPARISON: 03/25/2018 FINDINGS: LUNGS: Pulmonary edema PLEURA: No significant pleural effusion identified, no pneumothorax apparent. CARDIOVASCULAR: Moderate cardiomegaly and pulmonary edema OSSEOUS STRUCTURES: No significant abnormalities. VISUALIZED UPPER ABDOMEN: Normal. OTHER FINDINGS: None. IMPRESSION: Moderate cardiomegaly and pulmonary edema
[2018-05-18 08:20] LABS: BASO # 0.02 K/mm3 (0.0-2.0); BASO % 0.4 % (0.0-3.0); EOS # 0.1 (0.0-0.7); GRAN # 3.77 (1.4-6.5); GRAN % 69.2 % (50.0-68.0); HEMOGLOBIN 7.7 g/dL (14.0-18.0); LYMPH # 0.8 (1.2-3.4); LYMPH % 15.4 % (22.0-35.0); MEAN CELL VOLUME 83.9 fl (80.0-105.0); MEAN CORPUSCULAR HGB CONC 32.2 g/dl (31.0-37.0); MEAN PLATELET VOLUME 10.6 fl (7.0-11.0); MONO # 0.7 (0.1-0.6); RBC 2.85 10^6/uL (3.5-6.1); RED CELL DISTRIBUTION WIDTH 18.4 % (11.5-14.5); WHITE BLOOD COUNT 5.5 10^3/ul (4.5-11.0)
[2018-05-18] MEDS: Insulin Reg-MEDIUM-Coverage SC SCH ×4 (08:38→21:57)
--- NOTE | 2018-05-18 09:07 | CARD ---
APPROVED REPORT Date of service: 05/17/2018 EKG Measurement Heart [id number] <Conclusion> Normal sinus rhythm Normal ECG
--- NOTE | 2018-05-18 09:31 | HP ---
Copied To: Georges Sood MD Attending MD: Georges Sood MD HISTORY OF PRESENT ILLNESS: The patient is a 52-year white male. The patient was in [facility], getting treatment from Wound Care in both feet. He is a diabetic. The patient has history of hypertension and anemia. The patient was transferred to [facility] in [place] for further evaluation when his hemoglobin dropped yesterday to 7.9. The patient has got exacerbation of edema involving the lower extremities and also retention of water in the entire body. The patient's weight went up about 20 pounds in the last couple of weeks. The patient has been advised not to ambulate too much because of his leg, but apparently at this time, the patient is allowed to ambulate. PAST MEDICAL HISTORY: On past history, we found that the patient has diabetes mellitus. 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 He has history of hypertension. PHYSICAL EXAMINATION: VITAL SIGNS: The patient's pulse is 68, the patient's blood pressure is 164/82, respirations are 20, O2 sat is 97%, the patient's temperature 98.6. GENERAL: The patient is comfortable, lying in bed. He seemed to be calmed down. He was very excited, but yesterday the patient's anxiety caused his blood pressure to go over 200 systolic. HEENT: The patient's head is normocephalic. NECK: The thyroid is not enlarged. Carotid pulses are present. No lymphadenopathy. LUNGS: Trachea central. Breath sounds are vesicular. No adventitious sounds. HEART: Normal sinus rhythm. S1, S2 present. No murmurs. ABDOMEN: Soft. Liver and spleen not palpable. The patient has some distention of the abdomen. ALLERGY PHYSICIAN: He is conscious. He is rationale, oriented. No focal neurological deficit. EXTREMITIES: The patient has peripheral leg pain. LABORATORY DATA: The patient's blood work done in the emergency room showed the hemoglobin was 7.9. The patient's white count is within normal range. The patient's chemistry, the sugar was 189, his BUN was 40, creatinine is 1.9, potassium of 5.2. The patient was given Kayexalate and his hypokalemia is secondary to renal insufficiency. The patient's chest x-ray was clear. The patient's EKG has nonspecific ST-T wave changes. IMPRESSION: He is admitted to telemetry floor in the [facility]. He will be seen by plasma processor, graphic design specialist and Dr. Colon, the manager of community relations. The patient will also be seen by small battery plate assembler for evaluation of anemia. His overall prognosis is guarded, but condition is clinically stable at this time. His blood pressure is controlled with extra medication for control of blood pressure. Georges Sood MD MTDDai
[2018-05-18] MEDS: Enoxaparin 30 mg Syringe SC SCH (10:30)
--- NOTE | 2018-05-18 11:39 | US ---
Date of service: 05/18/2018 PROCEDURE: Ultrasound of the Kidneys HISTORY: acute on chronic kidney disease COMPARISON: None available. TECHNIQUE: Sonogram of the kidneys. FINDINGS: RIGHT KIDNEY: Measures: 13.01 x 6.47 x 5.53 cm. Normal in size, contour and echogenicity. No stone, solid mass lesion or hydronephrosis visualized. LEFT KIDNEY: Measures: 12.06 x 6.90 x 5.98 cm. Normal in size, contour and echogenicity. No stone, solid mass lesion or hydronephrosis visualized. OTHER FINDINGS: None. IMPRESSION: Unremarkable renal sonogram.
--- NOTE | 2018-05-18 12:32 | CP.PCM.CON ---
<Altaf Mccarthy - Last Filed: 05/18/18 12:34> History of Present Illness - History of Present Illness History of Present Illness: PGY6 GI Fellow Consult Note Patient is a 52yo male with PMHx significant for poorly controlled DM2 with recent right 2nd and left 5th toe amputations who presented to the hospital from outpatient rehab center for anemia. The patient has been in a rehabilitation center since his amputations in March and was noted to have HGB of 7.8 on routine testing. He was referred to [facility] for evaluation and treatment. Patient vehemently denies any overt blood loss such as hematemesis, hemoptysis, hematochezia, melena or bleeding from surgical wound sites. Admits to EGD/ Colonoscopy 2 years ago in [place] at [facility] which were both unremarkable per his account, though no records are available for review. Denies a history of anemia or transfusions. Patient currently on Lovenox as an outpatient for DVT ppx. Overall, he has poor insight in to his current and ongoing medical issues. 12 system ROS performed and negative except where stated PMHx: See HPI PSHx: Left 5th and right 2nd toe amputations FHx: Discussed with patient and he denies any significant family history Social: Denies tobacco, EtOH or illicit drug use Endo: EGD/Colon 2 years ago at [facility] Past Patient History - Infectious Disease Hx of Infectious Diseases: None - Past Social History Smoking Status: Never Smoked - CARDIAC Hx Hypertension: Yes - PULMONARY Hx Respiratory Disorders: No - NEUROLOGICAL Hx Neurological Disorder: No - HEENT Hx HEENT Problems: No - RENAL Hx Chronic Kidney Disease: No - ENDOCRINE/METABOLIC Hx Endocrine Disorders: Yes Hx Diabetes Mellitus Type 2: Yes - HEMATOLOGICAL/ONCOLOGICAL Hx Blood Disorders: No - INTEGUMENTARY Hx Dermatological Problems: No - MUSCULOSKELETAL/RHEUMATOLOGICAL Hx Musculoskeletal Disorders: Yes Hx Falls: No Other/Comment: amputation L&R toes - GASTROINTESTINAL Hx Gastrointestinal Disorders: No - GENITOURINARY/GYNECOLOGICAL Hx Genitourinary Disorders: No - PSYCHIATRIC Hx Psychophysiologic Disorder: No - SURGICAL HISTORY Hx Orthopedic Surgery: Yes (toe amputation) - ANESTHESIA Hx Anesthesia: Yes Hx Anesthesia Reactions: No Hx Malignant Hyperthermia: No Meds Allergies/Adverse Reactions: Allergies Allergy/AdvReac Type Severity Reaction Status Date / Time Penicillins Allergy Mild PAIN Verified 03/25/18 14:26 - Medications Medications: Current Medications Alprazolam (Xanax) 0.25 mg PO TID PRN; Protocol PRN Reason: Anxiety Stop: 05/25/18 10:01 Amlodipine Besylate (Norvasc) 10 mg PO DAILY [facility] Last Admin: 05/18/18 10:30 Dose: 10 mg Aspirin (Ecotrin) 81 mg PO DAILY [facility] Last Admin: 05/18/18 10:29 Dose: 81 mg Enoxaparin Sodium (Lovenox) 30 mg SC DAILY [facility] PRN Reason: Protocol Last Admin: 05/18/18 10:30 Dose: 30 mg Famotidine (Pepcid) 20 mg PO HS [facility] Furosemide (Lasix) 40 mg IVP DAILY [facility] Last Admin: 05/18/18 10:30 Dose: 40 mg Hydralazine HCl (Apresoline) 25 mg PO QID [facility] Last Admin: 05/18/18 10:29 Dose: 25 mg Insulin Human Regular (Humulin R Med) 0 units SC ACHS [facility] PRN Reason: Protocol Last Admin: 05/18/18 11:40 Dose: 3 units Labetalol HCl (Trandate) 50 mg PO Q6H PRN PRN Reason: hypertension Last Admin: 05/18/18 06:07 Dose: 50 mg Metoprolol Tartrate (Lopressor) 25 mg PO BRKDIN [facility] Last Admin: 05/18/18 08:38 Dose: 25 mg Pioglitazone HCl (Actos) 30 mg PO DAILY [facility] Last Admin: 05/18/18 10:29 Dose: 30 mg Physical Exam - Constitutional Appears: Non-toxic, No Acute Distress - Eye Exam Eye Exam: EOMI, PERRL - ENT Exam ENT Exam: Mucous Membranes Moist - Respiratory Exam Respiratory Exam: Clear to Auscultation Bilateral. absent: Rales, Rhonchi, Wheezes - Cardiovascular Exam Cardiovascular Exam: RRR, +S1, +S2 - GI/Abdominal Exam GI & Abdominal Exam: Normal Bowel Sounds, Soft. absent: Distended, Firm, Guarding, Organomegaly, Rigid, Tenderness - Extremities Exam Extremities exam: Positive for: normal inspection. Negative for: pedal edema Additional comments: left 5th and right 2nd toe amputations - Neurological Exam Neurological exam: Alert, Oriented x3 - Psychiatric Exam Psychiatric exam: Normal Affect, Normal Mood - Skin Skin Exam: Dry, Warm Results - Vital Signs Recent Vital Signs: Last Vital Signs Temp 98.6 F 05/18/18 06:00 Pulse 68 05/18/18 10:29 Resp 20 05/18/18 06:00 BP 141/72 05/18/18 10:30 Pulse Ox 97 05/18/18 06:00 - Labs Result Diagrams: 05/18/18 06:30 05/18/18 06:30 Labs: Laboratory Results - last 24 hr 05/17/18 05/17/18 05/17/18 20:00 20:30 22:30 WBC RBC Hgb Hct MCV MCH MCHC RDW Plt Count MPV Gran % Lymph % (Auto) [place] % (Auto) Eos % (Auto) Baso % (Auto) Gran # Lymph # (Auto) [place] # (Auto) Eos # (Auto) Baso # (Auto) Retic Count Sodium Potassium Chloride Carbon Dioxide Anion Gap BUN Creatinine Est GFR ( Amer) Est GFR (Non-Af Amer) POC Glucose (mg/dL) 189 H Random Glucose Calcium Phosphorus Magnesium Iron TIBC % Saturation Total Bilirubin AST ALT Alkaline Phosphatase Total Protein Albumin Globulin Albumin/Globulin Ratio Blood Type AB POSITIVE Blood Type Confirm AB POSITIVE Antibody Screen Negative Crossmatch See Detail BBK History Checked No verified bt 05/18/18 05/18/18 05/18/18 06:30 06:30 06:30 WBC 5.5 RBC 2.85 L Hgb 7.7 L Hct 23.9 L MCV 83.9 MCH 27.0 MCHC 32.2 RDW 18.4 H Plt Count 144 MPV 10.6 Gran % 69.2 H Lymph % (Auto) 15.4 L [place] % (Auto) 13.0 H Eos % (Auto) 2.0 Baso % (Auto) 0.4 Gran # 3.77 Lymph # (Auto) 0.8 L [place] # (Auto) 0.7 H Eos # (Auto) 0.1 Baso # (Auto) 0.02 Retic Count Sodium 139 Potassium 5.2 H Chloride 108 H Carbon Dioxide 21 Anion Gap 16 BUN 40 H Creatinine 1.9 H Est GFR ( Amer) 45 Est GFR (Non-Af Amer) 37 POC Glucose (mg/dL) Random Glucose 228 H Calcium 8.5 Phosphorus 3.9 Magnesium 2.2 Iron 126 TIBC 309 % Saturation 41 Total Bilirubin 0.7 AST 20 ALT 23 Alkaline Phosphatase 66 Total Protein 6.3 Albumin 3.3 Globulin 3.0 Albumin/Globulin Ratio 1.1 Blood Type Blood Type Confirm Antibody Screen Crossmatch BBK History Checked 05/18/18 05/18/18 05/18/18 06:30 07:17 11:13 WBC RBC Hgb Hct MCV MCH MCHC RDW Plt Count MPV Gran % Lymph % (Auto) [place] % (Auto) Eos % (Auto) Baso % (Auto) Gran # Lymph # (Auto) [place] # (Auto) Eos # (Auto) Baso # (Auto) Retic Count 1.32 Sodium Potassium Chloride Carbon Dioxide Anion Gap BUN Creatinine Est GFR ( Amer) Est GFR (Non-Af Amer) POC Glucose (mg/dL) 219 H 242 H Random Glucose Calcium Phosphorus Magnesium Iron TIBC % Saturation Total Bilirubin AST ALT Alkaline Phosphatase Total Protein Albumin Globulin Albumin/Globulin Ratio Blood Type Blood Type Confirm Antibody Screen Crossmatch BBK History Checked Assessment & Plan - Assessment and Plan (Free Text) Assessment: Patient is a 52yo male with PMHx significant for poorly controlled DM2 with recent right 2nd and left 5th toe amputations who presented to the hospital from outpatient rehab center for anemia -Normocytic anemia -Diabetes mellitus with complications -Diabetic nephropathy -Hyperkalemia Plan: -Supportive care with blood transfusion as indicated -Iron panel and retic count WNL -Given recent EGD/Colonoscopy and no overt signs of GI bleeding, remainder of work up can be managed outpatient upon follow up, once acute issues resolve -Given diabetic complications, nephropathy and peripheral vascular disease, recommend strict adherence to diabetic diet/lifestyle and strict glycemic control so as to avoid further complications such as gastroparesis - Date & Time Date: 05/18/18 Time: 07:50 <Amauri King V - Last Filed: 05/18/18 23:25> Meds - Medications Medications: Current Medications Alprazolam (Xanax) 0.25 mg PO TID PRN; Protocol PRN Reason: Anxiety Stop: 05/25/18 10:01 Amlodipine Besylate (Norvasc) 10 mg PO DAILY [facility] Last Admin: 05/18/18 10:30 Dose: 10 mg Aspirin (Ecotrin) 81 mg PO DAILY [facility] Last Admin: 05/18/18 10:29 Dose: 81 mg Cyanocobalamin (Vitamin B12 100 Mcg Tab) 100 mcg PO DAILY [facility] Last Admin: 05/18/18 14:10 Dose: 100 mcg Enoxaparin Sodium (Lovenox) 30 mg SC DAILY [facility] PRN Reason: Protocol Last Admin: 05/18/18 10:30 Dose: 30 mg Famotidine (Pepcid) 20 mg PO HS [facility] Last Admin: 05/18/18 21:50 Dose: 20 mg Folic Acid (Folic Acid) 1 mg PO DAILY [facility] Last Admin: 05/18/18 14:10 Dose: 1 mg Furosemide (Lasix) 40 mg IVP DAILY [facility] Last Admin: 05/18/18 10:30 Dose: 40 mg Hydralazine HCl (Apresoline) 25 mg PO QID [facility] Last Admin: 05/18/18 21:50 Dose: 25 mg Insulin Human Regular (Humulin R Med) 0 units SC ACHS [facility] PRN Reason: Protocol Last Admin: 05/18/18 21:57 Dose: Not Given Labetalol HCl (Trandate) 50 mg PO Q6H PRN PRN Reason: hypertension Last Admin: 05/18/18 06:07 Dose: 50 mg Metoprolol Tartrate (Lopressor) 25 mg PO BRKDIN [facility] Last Admin: 05/18/18 17:26 Dose: 25 mg Pioglitazone HCl (Actos) 30 mg PO DAILY [facility] Last Admin: 05/18/18 10:29 Dose: 30 mg Results - Vital Signs Recent Vital Signs: Last Vital Signs Temp 98.3 F 05/18/18 17:44 Pulse 68 05/18/18 22:00 Resp 18 05/18/18 17:44 BP 141/71 05/18/18 21:50 Pulse Ox 96 05/18/18 17:44 - Labs Result Diagrams: 05/18/18 06:30 05/18/18 06:30 Labs: Laboratory Results - last 24 hr 05/17/18 05/17/18 05/18/18 20:00 22:30 06:30 WBC RBC Hgb Hct MCV MCH MCHC RDW Plt Count MPV Gran % Lymph % (Auto) [place] % (Auto) Eos % (Auto) Baso % (Auto) Gran # Lymph # (Auto) [place] # (Auto) Eos # (Auto) Baso # (Auto) Retic Count Sodium Potassium Chloride Carbon Dioxide Anion Gap BUN Creatinine Est GFR ( Amer) Est GFR (Non-Af Amer) POC Glucose (mg/dL) 189 H Random Glucose Calcium Phosphorus Magnesium Iron TIBC % Saturation Total Bilirubin AST ALT Alkaline Phosphatase Total Protein Albumin Globulin Albumin/Globulin Ratio Procalcitonin 0.07 L Blood Type AB POSITIVE Antibody Screen Negative Crossmatch See Detail BBK History Checked No verified bt 05/18/18 05/18/18 05/18/18 06:30 06:30 06:30 WBC 5.5 RBC 2.85 L Hgb 7.7 L Hct 23.9 L MCV 83.9 MCH 27.0 MCHC 32.2 RDW 18.4 H Plt Count 144 MPV 10.6 Gran % 69.2 H Lymph % (Auto) 15.4 L [place] % (Auto) 13.0 H Eos % (Auto) 2.0 Baso % (Auto) 0.4 Gran # 3.77 Lymph # (Auto) 0.8 L [place] # (Auto) 0.7 H Eos # (Auto) 0.1 Baso # (Auto) 0.02 Retic Count Sodium 139 Potassium 5.2 H Chloride 108 H Carbon Dioxide 21 Anion Gap 16 BUN 40 H Creatinine 1.9 H Est GFR ( Amer) 45 Est GFR (Non-Af Amer) 37 POC Glucose (mg/dL) Random Glucose 228 H Calcium 8.5 Phosphorus 3.9 Magnesium 2.2 Iron 126 TIBC 309 % Saturation 41 Total Bilirubin 0.7 AST 20 ALT 23 Alkaline Phosphatase 66 Total Protein 6.3 Albumin 3.3 Globulin 3.0 Albumin/Globulin Ratio 1.1 Procalcitonin Blood Type Antibody Screen Crossmatch BBK History Checked 05/18/18 05/18/18 05/18/18 06:30 07:17 11:13 WBC RBC Hgb Hct MCV MCH MCHC RDW Plt Count MPV Gran % Lymph % (Auto) [place] % (Auto) Eos % (Auto) Baso % (Auto) Gran # Lymph # (Auto) [place] # (Auto) Eos # (Auto) Baso # (Auto) Retic Count 1.32 Sodium Potassium Chloride Carbon Dioxide Anion Gap BUN Creatinine Est GFR ( Amer) Est GFR (Non-Af Amer) POC Glucose (mg/dL) 219 H 242 H Random Glucose Calcium Phosphorus Magnesium Iron TIBC % Saturation Total Bilirubin AST ALT Alkaline Phosphatase Total Protein Albumin Globulin Albumin/Globulin Ratio Procalcitonin Blood Type Antibody Screen Crossmatch BBK History Checked 05/18/18 16:18 WBC RBC Hgb Hct MCV MCH MCHC RDW Plt Count MPV Gran % Lymph % (Auto) [place] % (Auto) Eos % (Auto) Baso % (Auto) Gran # Lymph # (Auto) [place] # (Auto) Eos # (Auto) Baso # (Auto) Retic Count Sodium Potassium Chloride Carbon Dioxide Anion Gap BUN Creatinine Est GFR ( Amer) Est GFR (Non-Af Amer) POC Glucose (mg/dL) 209 H Random Glucose Calcium Phosphorus Magnesium Iron TIBC % Saturation Total Bilirubin AST ALT Alkaline Phosphatase Total Protein Albumin Globulin Albumin/Globulin Ratio Procalcitonin Blood Type Antibody Screen Crossmatch BBK History Checked Attending/Attestation - Attestation I have personally seen and examined this patient.: Yes I have fully participated in the care of the patient.: Yes I have reviewed all pertinent clinical information: Yes Notes (Text): Associated This is an addendum to GI consult report dictated by the GI Fellow.The patient was seen and examined earlier. Medical records, lab studies , imagings were reviewed. Last 24 hours events reviewed. Agreed with the above treatment plan as outlined in GI Fellow 's notes with the addition of the following patient denies any bleeding per rectum or melena History of chronic anemia Slow drop in blood count Probably multifactorial Would recommend checking B12 and folate levels in addition Previous workup EGD/Colon were as per patient negative in view of significant anemia and drop in hemoglobin we would consider EGD as an initial evaluation Patient is reluctant to haveendoscopic evaluation stool for occult blood Will discuss with 05/18/18 23:11 05/18/18 23:23
--- NOTE | 2018-05-18 14:31 | CON ---
Copied To: Guero Martínez MD Attending MD: Guero Martínez MD DATE: 05/18/2018 CARDIOLOGY CONSULT Covering for Dr. Hudson. REASON FOR CONSULTATION: Lower extremity swelling and to rule out congestive heart failure. HISTORY OF PRESENT ILLNESS: The patient is a 52-year-old white male, who is a nonsmoker, nondrinker, has a history of longstanding diabetes mellitus. According to him, he sustained an accident in his job, which required him to have left fifth toe amputation and right second toe amputation and was transferred to [facility] and was readmitted back to [facility] because of anemia with a hemoglobin of 7.9. The patient denies any chest pain or shortness of breath and does not recall experiencing any melena. The patient is unaware of any prior cardiac history. SOCIAL HISTORY: The patient nonsmoker, nondrinker. 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 MEDICATIONS: Actos 3 mg once a day, hydralazine 25 mg four times a day, aspirin 81 mg once a day, Lasix 40 mg intravenously daily, Lopressor 25 mg twice a day, Lovenox 30 mg subcutaneously once a day, Norvasc 10 mg once a day, labetalol 50 mg every 6 hours p.r.n., Xanax 0.25 mg t.i.d. REVIEW OF SYSTEMS: The patient denies any fever or chills, hematemesis or melena. The patient denies any dizziness or syncope. PHYSICAL EXAMINATION: GENERAL: The patient is a middle-aged male, who does not appear to be in any acute distress. VITAL SIGNS: Blood pressure 164/82, heart rate 68, temperature 98.6, respirations 20. HEENT: Pale conjunctivae. CHEST: Clear. HEART: S1 and S2 regular. ABDOMEN: Soft. EXTREMITIES: 1+ pitting edema. Dressing is applied to left foot and the patient has right second toe amputation. LABORATORY DATA: Hemoglobin and hematocrit 7.7 and 23.9. White count and platelet count are within normal limits. SMA-7: Sodium 139, potassium 5.2, chloride 108, CO2 of 21, glucose 128, BUN 40, creatinine 1.9. PT, PTT and INR are within normal limits. Renal ultrasound, unremarkable renal sonogram. EKG revealed normal sinus rhythm at rate of 85. ASSESSMENT: 1. Status post recent left first toe amputation. 2. Anemia requiring packed RBC transfusion. 3. Uncontrolled diabetes mellitus. 4. Chronic renal insufficiency. 5. Rule out diastolic left ventricular dysfunction. 6. Hypertension. RECOMMENDATIONS: Continue Actos 30 mg once a day, hydralazine 25 mg four times a day, aspirin 81 mg once a day, Lasix 40 mg intravenously once a day, Lopressor 25 mg twice a day, Lovenox at 30 mg subcutaneously once a day, Norvasc at 10 mg once a day, labetalol 50 mg every 6 hours p.r.n. Start Pepcid at 20 mg orally once a day. Obtain an echocardiogram. Guero Martínez MD
--- NOTE | 2018-05-18 17:54 | CARD ---
APPROVED REPORT Date of service: 05/18/2018 EXAM: Two-dimensional and M-mode echocardiogram with Doppler and color Doppler. INDICATION 2D DIMENSIONS IVSd1.6 (0.7-1.1cm)LVDd5.0 (3.9-5.9cm) PWd1.5 (0.7-1.1cm)LVDs3.4 (2.5-4.0cm) FS (%) 32.4 %LVEF (%)60.3 (>50%) M-Mode DIMENSIONS Left Atrium (MM)5.10 (2.5-4.0cm)Aortic Root3.10 (2.2-3.7cm) Aortic Cusp Exc.2.20 (1.5-2.0cm) Aortic Valve AoV Peak Cfcrzhvg113.0cm/Lara Peak GR.9mmHg Mitral Valve MV E Vsmirufm864.0cm/sMV A Vxqeotek95.8cm/sE/A ratio2.2 TDI Lateral E' Peak V9.65cm/sMedial E' Peak V9.65cm/sE/Lateral E'13.0 E/Medial E'13.0 Tricuspid Valve TR Peak [id number]/sRAP [id number] Peak Gr.34mmHg [id number] LEFT VENTRICLE The left ventricle is normal size. There is moderate concentric left ventricular hypertrophy. The left ventricular function is normal. The left ventricular ejection fraction is within the normal range. There is normal LV segmental wall motion. The left ventricular diastolic function is normal. RIGHT VENTRICLE The right ventricle is normal size. There is normal right ventricular wall thickness. Systolic function is borderline reduced. ATRIA The left atrium is moderately dilated. The right atrium is mildly dilated. AORTIC VALVE The aortic valve is mildly thickened. No aortic regurgitation is present. There is no aortic valvular stenosis. MITRAL VALVE The mitral valve is mildly thickened. Mitral regurgitation is trace. There is no mitral valve stenosis. TRICUSPID VALVE The tricuspid valve is normal in structure. There is mild tricuspid regurgitation. There is mild pulmonary hypertension. GREAT VESSELS The aortic root is normal in size. The IVC is dilated. PERICARDIAL EFFUSION There is no pericardial effusion. <Conclusion> The left ventricle is normal size. There is moderate concentric left ventricular hypertrophy. The left ventricular function is normal. The left ventricular ejection fraction is within the normal range. There is normal LV segmental wall motion. There is mild tricuspid regurgitation. There is mild pulmonary hypertension.
--- NOTE | 2018-05-18 18:02 | CON ---
Copied To: Rashaun Villeda DPM Attending MD: Rashaun Villeda DPM DATE: 05/18/2018 HISTORY OF PRESENT ILLNESS: A 52-year-old diabetic male, well known to the [facility]ound [facility] team, seen at bedside for continued evaluation and management of a resolving diabetic ulceration on his left foot secondary to gangrene of the fifth digit. He had undergone a partial fifth ray amputation approximately 1 month ago and has been undergoing 4-6 weeks of antibiotics at [facility]. The patient's hemoglobin dropped to 7.9 yesterday and was brought to the emergency room. PAST MEDICAL HISTORY: The patient's medical history is significant for insulin-dependent diabetes with peripheral neuropathy, morbid obesity, essential hypertension and dyslipidemia. CURRENT MEDICATIONS: Include Lasix, insulin, Lopressor, Norvasc, labetalol and Xanax as well as Actos. ALLERGIES: THE PATIENT IS ALLERGIC TO PENICILLIN. VITAL SIGNS: Reveal a temperature of 98.6, pulse rate of 68, blood pressure of 164/82, respiratory rate of 20. LABORATORY DATA: There is no microbiology report noted. Laboratory findings reveal white count of 5.5, hemoglobin of 7.7, hematocrit 23.9, platelet count of 144. His BUN is 40 and his creatinine is noted to be 1.9. OBJECTIVE: Palpable pedal pulses noted bilaterally. Absent pedal hair growth noted bilaterally, +2 nonpitting lower extremity edema noted bilaterally. The patient is unable to detect 5.07 g monofilament wire testing bilaterally. Capillary filling time is slightly delayed x9. There is noted to be a full-thickness ulceration on the dorsal aspect of the left amputated fifth metatarsophalangeal joint area. Base of the ulcer is primarily granular with minimal serous drainage. There is no purulence noted. There is no malodor. No signs of underlying abscess formation. The wound does not probe to tendon or bone and measures approximately 1.2 cm x 1 cm x 0.2 cm. ASSESSMENT: Full-thickness diabetic ulceration on the left foot secondary to partial fifth ray resection done approximately 1 month ago. PLAN: The patient was evaluated. The wound was cleansed with normal sterile saline and application of sterile Adaptic, calcium alginate, dry sterile dressing and a light compressive dressing consisting of an Mitch wrap was applied. The patient was told to elevate both feet while in bed. The patient will be seen and followed daily while in-house. aRshaun Villeda DPM
--- NOTE | 2018-05-18 18:41 | CON ---
Copied To: Gume Sneed MD Attending MD: Gume Sneed MD DATE: 05/18/2018 The patient admitted for Dr. Sood. Referring MD is Dr. Sood. REASON FOR CONSULTATION: Evaluation of a patient unknown to me who presents with a mild elevation of BUN and creatinine and mild hyperkalemia in the setting of mild CHF, peripheral vascular disease, diabetes. HISTORY OF PRESENT ILLNESS: The patient is a pleasant 52-year-old white male with a 12-year history of NIDDM. History according to the patient of transient hypertension. History of chronic kidney disease stage 3 with a baseline BUN in the 30-40 range and the creatinine baseline in the 1.6-2 range. The patient has no known history of chronic kidney disease according to the patient. History of CHF, history of edema. History of peripheral vascular disease. He is status post two toe amputations for gangrenous changes, followed by Podiatry. The patient was brought into the hospital because of progressive anemia. His hemoglobin was down to 7.7. Baseline hemoglobins have been in the 9-10 range. We are asked to evaluate the patient for his chronic kidney disease and hyperkalemia. Potassium level was 5.4, it is currently 5.2. The patient had been on angiotensin receptor talia therapy and that medication was placed on hold. PAST MEDICAL HISTORY: Significant for NIDDM with intermittent use of insulin. Twelve years' duration. History of possible hypertension. The patient denies this, states he only has transient hypertension. History of chronic kidney disease stage 3 with proteinuria. History of edema and hypervolemia. History of peripheral vascular disease with infected toes and two toe amputations for gangrenous changes. MEDICATIONS AT HOME: Include that of Zyvox, Tylenol, Ultram, Percocet, Actos, MultiVites, Lopressor, mag oxide, losartan, sliding scale insulin, Apresoline, Lasix, Lovenox, Norvasc, Ecotrin and vitamin C. ALLERGIES: THE PATIENT IS ALLERGIC TO PENICILLIN. PRESENT MEDICATIONS IN THE HOSPITAL: Include that of Actos, Apresoline, Ecotrin, sliding scale insulin, IV Lasix, Lopressor, Lovenox, Norvasc, Trandate and Xanax. SOCIAL HISTORY: No history of cigarette smoking. No history of alcohol use. No history of substance abuse. FAMILY HISTORY: Father of complications of heart disease. According to the patient, mother is alive and well. REVIEW OF SYSTEMS: GENERAL: The patient states the appetite and weight have been stable. ENT: Denies any diabetic retinopathy. No hearing problems. PULMONARY: No history of COPD. No history of asthma or bronchitis. Positive history of CHF. CARDIAC: Positive CHF, history of cardiomegaly. No known history of coronary artery disease. GI: No nausea, no vomiting, no diarrhea, no constipation, no abdominal pain. : Likely history of chronic kidney disease stage III. No history of urinary tract infections. No history of prostate disease. ENDOCRINE: History of diabetes of 12 years' duration with complications. MUSCULOSKELETAL: No complaints. NEURO: No past history of CVA, TIA, seizures or syncope. HEME/ONC: History of significant anemia. PSYCHIATRIC: History is negative. PHYSICAL EXAMINATION: GENERAL: The patient is currently seen on 2R. He is lying supine in bed and comfortable. He is in no acute distress. VITAL SIGNS: Blood pressure presently is 141/72. Previous blood pressures of 174/78. Temperature 98.6, pulse of 68 with a respiratory rate of 20. HEENT: Shows him to be normocephalic, atraumatic. Conjunctivae are pale. Sclerae nonicteric. Pupils equal, round, reactive to light and recommendations. Extraocular muscles are intact. Posterior pharynx is normal. NECK: Supple. No neck vein distention. No thyromegaly. No lymphadenopathy. No bruits. Chest: Clear to auscultation and percussion with slight decreased breath sounds at the bases. No rales, rhonchi or wheezing. Cardiovascular: Shows a regular rate and rhythm without audible murmurs, rubs or gallops. ABDOMEN: Obese. Bowel sounds normal. No rebound, guarding or masses. EXTREMITIES: Show trace to 1+ edema of his lower extremity bilaterally. He has a dressing over his left foot. He is status post a recent left fifth digit toe amputation. He has an amputation of the distal part of the right second toe. He has diminished lower extremity pulses bilaterally. NEURO: Shows him to be alert, oriented x3 with no gross focal motor or sensory deficits noted. LABORATORY DATA AND IMAGING: Renal ultrasound done, results are pending. Admitting chest x-ray showed cardiomegaly with CHF. Admitting EKG showed a normal sinus rhythm. Labs, CBC: White blood cell count 5.5, hemoglobin is low at 7.7, the patient received 1 unit of packed red blood cells. Platelet count is 144,000. Coags are normal. Chemistries show a potassium level, which is 5.4, currently 5.2. Chloride 108. CO2 of 21. BUN is 40 with a creatinine of 1.9. This is down from 47 and 2. Baseline creatinine dating back to earlier this year shows a BUN in the 30-40 range with a baseline creatinine in the 1.6-2 range. Glucose is 228. Calcium, phosphorus, magnesium levels were normal. Iron saturation was 41%. Liver enzymes are normal. Urine showed 2+ protein. Positive glucose in the urine. Microscopic exam showed bacteria, but no white cells or red blood cells. Microbiology: No cultures available for comment. Blood bank: The patient received 1 unit of packed red blood cells for his hemoglobin of 7.7. ASSESSMENT: 1. Chronic kidney disease stage 3 with mild hyperkalemia. Agree with discontinuation of the angiotensin receptor talia. The patient will be placed on a renal diet, 2 g potassium diet. Renal ultrasound was done. I will obtain 24-year urine for creatinine clearance and protein to establish a baseline. In all likelihood, the patient has chronic kidney disease secondary to diabetes and perhaps hypertension. 2. Anemia. The patient is requesting that we check a B12, folate level. Iron saturations were okay. The patient had received 1 unit of packed red blood cells. He might require further transfusions. 3. history of congestive heart failure and edema. Agree with continuation of Lasix therapy. The patient has lower extremity edema. He also had congestive heart failure on his admitting chest x-ray. Perhaps cardiac evaluation. Perhaps echocardiograms if not done recently. 4. History of peripheral vascular disease with two toe amputations. The patient had gangrenous changes. He likely has underlying peripheral vascular disease. PLAN: 1. Discuss the patient's situation with him in detail. 2. Check results of kidney ultrasound. 3. Continue renal diet with low-potassium diet. 4. Check 24-hour urine for creatinine clearance and protein. 5. Follow accurate I's and O's, daily weights and daily labs. Thank you for letting me partake and share in the care of your patient. Gume Sneed MD [facility] # [id number]
[2018-05-19 07:33] LABS: BASO # 0.03 K/mm3 (0.0-2.0); BASO % 0.6 % (0.0-3.0); EOS # 0.2 (0.0-0.7); EOS % 4.3 % (1.5-5.0); GRAN # 3.01 (1.4-6.5); GRAN % 56.8 % (50.0-68.0); HEMOGLOBIN 7.8 g/dL (14.0-18.0); LYMPH # 1.2 (1.2-3.4); LYMPH % 22.8 % (22.0-35.0); MEAN CORPUSCULAR HGB CONC 32.5 g/dl (31.0-37.0); MEAN PLATELET VOLUME 9.8 fl (7.0-11.0); MONO # 0.8 (0.1-0.6); MONO % 15.5 % (1.0-6.0); RBC 2.89 10^6/uL (3.5-6.1); RED CELL DISTRIBUTION WIDTH 18.5 % (11.5-14.5); WHITE BLOOD COUNT 5.3 10^3/ul (4.5-11.0)
[2018-05-19 07:49] LABS: ALB/GLOB RATIO 1.2 (1.1-1.8); ALBUMIN 3.6 g/dL (3.0-4.8); CALCIUM 8.8 mg/dL (8.4-10.5)
[2018-05-19] MEDS: Insulin Reg-MEDIUM-Coverage SC SCH ×4 (07:54→21:33)
[2018-05-19] MEDS: Enoxaparin 30 mg Syringe SC SCH (09:32)
--- NOTE | 2018-05-19 10:45 | PN ---
Copied To: Georges Sood MD Attending MD: Georges Sood MD DATE: 05/19/2018 LOCATION: The patient is in [facility] in [place] room 263, bed 2. SUBJECTIVE: The patient was admitted with uncontrolled hypertension; anemia; renal insufficiency and weakness. The patient is seen this morning. PAST SURGICAL HISTORY: Amputation of 5th toe on the left foot and the second toe on the right foot. PHYSICAL EXAMINATION: VITAL SIGNS: Pulse is 87, blood pressure 142/95, respirations 20, O2 sat is 97%, the patient's temperature is 98.4. The patient is lying in bed. He is afebrile. GENERAL APPEARANCE: The patient has edema of his body involving the entire lower half of the body and also, the patient has evidence of retention of fluid in his upper body too. The patient was treated for infection at [facility] for prolonged period of time with Zyvox. The patient had wound care provided by Dr. Colon and associates, their loan interviewer mortgage. HEAD: Normocephalic. NECK: The thyroid is not enlarged. JVP is flat. LUNGS: Trachea central. Breath sounds are vesicular, diminished bilaterally. HEART: Normal sinus rhythm. No murmurs. S1 and S2 present. ABDOMEN: Soft. Mild obesity present. [employer] DIRECT[employer]: He is conscious, rational and oriented. LABORATORY DATA: The patient's lab work shows hemoglobin is 7.8. The patient's platelet count is 136,000. Chemistry: The patient's BUN is 37, creatinine 1.9. The patient's blood sugar is 170. The patient is covered by insulin for diabetes and the patient's blood sugar range is between 170 to 228. The patient's urinalysis done in the hospital shows evidence of small quantity of blood, trace. The patient's white cells are within normal range. Chest x-ray shows evidence of mild congestive heart failure. The patient's EKG shows normal sinus rhythm and ST-T wave changes. ASSESSMENT AND PLAN: The patient is having evaluation by Nephrology, Pulmonology, Cardiology, Infectious Disease, Podiatry and Renal Services. The patient's overall condition is clinically stable at this time, but the patient needs evaluation for ongoing complications of diabetes mellitus. The patient has multiorgan disorder. He will follow up with consultations and medical treatment. The patient is edematous and he is also on diuretics at this time to treat his congestive heart failure as well as the edema of the body, retention of fluids. He is on a diabetic diet, modified renal. Georges Sood MD MTDDai
--- NOTE | 2018-05-19 12:42 | CP.PCM.PN ---
<Yemi Page - Last Filed: 05/19/18 12:39> Subjective - Date & Time of Evaluation Date of Evaluation: 05/19/18 Time of Evaluation: 11:00 - Subjective Subjective: Podiatry Progress Note- Dr. Colon 52M seen and evaluated at bedside regarding left foot ulceration secondary to 5th partial ray resection. Patient reports that he is doing well. Denies acute overnight events. Appears to be in NAD and is AA0x3. Patient is seen resting comfortably out of bed, in a chair. Reports that the EDMUNDO that was placed on his left leg was too tight and he had to removed it. Reports the same shortness of breath. Denies nausea, fever, shortness of breath, chest pains or chills. Denies any other pedal complaints. Objective - Vital Signs/Intake and Output Vital Signs (last 24 hours): Temp Pulse Resp BP Pulse Ox 98.4 F 65 20 148/71 97 05/19/18 06:00 05/19/18 10:00 05/19/18 06:00 05/19/18 09:32 05/19/18 06:00 Intake and Output: 05/19/18 05/19/18 06:59 18:59 Intake Total 1560 Output Total 2000 Balance -440 - Medications Medications: Current Medications Alprazolam (Xanax) 0.25 mg PO TID PRN; Protocol PRN Reason: Anxiety Stop: 05/25/18 10:01 Amlodipine Besylate (Norvasc) 10 mg PO DAILY [facility] Last Admin: 05/19/18 09:32 Dose: 10 mg Aspirin (Ecotrin) 81 mg PO DAILY [facility] Last Admin: 05/19/18 09:32 Dose: 81 mg Cyanocobalamin (Vitamin B12 100 Mcg Tab) 100 mcg PO DAILY [facility] Last Admin: 05/19/18 09:33 Dose: 100 mcg Enoxaparin Sodium (Lovenox) 30 mg SC DAILY [facility] PRN Reason: Protocol Last Admin: 05/19/18 09:32 Dose: 30 mg Famotidine (Pepcid) 20 mg PO HS [facility] Last Admin: 05/18/18 21:50 Dose: 20 mg Folic Acid (Folic Acid) 1 mg PO DAILY [facility] Last Admin: 05/19/18 09:32 Dose: 1 mg Furosemide (Lasix) 40 mg IVP DAILY [facility] Last Admin: 05/19/18 09:32 Dose: 40 mg Hydralazine HCl (Apresoline) 25 mg PO QID [facility] Last Admin: 05/19/18 09:32 Dose: 25 mg Insulin Human Regular (Humulin R Med) 0 units SC ACHS [facility] PRN Reason: Protocol Last Admin: 05/19/18 12:22 Dose: 3 units Labetalol HCl (Trandate) 50 mg PO Q6H PRN PRN Reason: hypertension Last Admin: 05/18/18 06:07 Dose: 50 mg Metoprolol Tartrate (Lopressor) 25 mg PO BRKDIN [facility] Last Admin: 05/19/18 07:57 Dose: 25 mg Pioglitazone HCl (Actos) 30 mg PO DAILY [facility] Last Admin: 05/19/18 09:33 Dose: 30 mg - Labs Labs: 05/19/18 06:45 05/19/18 06:45 PT 12.3 SECONDS (9.4-12.5) 05/17/18 18:15 INR 1.08 05/17/18 18:15 APTT 27.7 Seconds (25.1-36.5) 05/17/18 18:15 - Constitutional Appears: Well, Non-toxic, No Acute Distress - Extremities Exam Extremities Exam: absent: Calf Tenderness Additional comments: VASC: DP and PT 2/4 bilaterally, CFT delayed x8 digits, temperature gradient warm to cool proximal knees to distal toes bilaterally, +2 pitting edema to the LE ORTHO: mild tenderness to palpation to left foot surrounding ulceration, completely healed partial amputated right 2nd digit, MM is 4/5 in all four compartments: dorsiflexion, plantarflexion, eversion, and inverion NEURO: gross sensation intact, protective sensation diminished to LE DERM: full thickness ulceration on dorsal aspect of left amputated 5th MPJ area. Wound base is mainly granular with minimal serous draiange. No purulence, no malodor, no tunneling, no tracking, no erythema, no streaking, no probe to bone or tendon. Wound base measures approximately 1.2 cm x 1cm x .2cm - Neurological Exam Neurological Exam: Alert, Awake, Oriented x3 - Psychiatric Exam Psychiatric exam: Normal Affect, Normal Mood Assessment and Plan - Assessment and Plan (Free Text) Assessment: 52M with full thickness diabetic ulceration left foot secondary to partial 5th ray resection Plan: Patient seen and evaluated Discussed plan with attending Dr. Colon Afebrile, absent leukocytosis (WBC=5.3 on 05/19/18) Cleansed ulceration was saline solution, applied adaptic, maxosorb, 4x4, ABD and kerlix Applied EDMUNDO compression Dispense surgical shoe b/l Patient may WBAT to the heels in surgical shoe PT- please evaluate and treat Will continue to follow while in house Upon discharge, patient to follow up with Dr. Colon in [place] [facility] <Loreto Colon - Last Filed: 05/22/18 12:32> Objective - Vital Signs/Intake and Output Vital Signs (last 24 hours): Temp Pulse Resp BP Pulse Ox 98.0 F 56 L 19 159/84 H 96 05/22/18 12:00 05/22/18 12:00 05/22/18 12:00 05/22/18 12:00 05/22/18 11:55 Intake and Output: 05/22/18 05/22/18 06:59 18:59 Intake Total 3760 0 Output Total 1600 Balance 2160 0 - Medications Medications: Current Medications Albuterol Sulfate (Albuterol 0.083% Inhal Honey (2.5 Mg/3 Ml) Ud) 2.5 mg IH [id number] PRN PRN Reason: Wheezing Last Admin: 05/21/18 03:07 Dose: 2.5 mg Alprazolam (Xanax) 0.25 mg PO TID PRN; Protocol PRN Reason: Anxiety Stop: 05/25/18 10:01 Last Admin: 05/21/18 22:54 Dose: 0.25 mg Amlodipine Besylate (Norvasc) 10 mg PO DAILY [facility] Last Admin: 05/22/18 09:59 Dose: 10 mg Aspirin (Ecotrin) 81 mg PO DAILY [facility] Last Admin: 05/22/18 09:59 Dose: 81 mg Cadexomer Iodine (Iodosorb) 0 gm TOP DAILY [facility] Last Admin: 05/22/18 10:36 Dose: 10 gm Cyanocobalamin (Vitamin B12 100 Mcg Tab) 100 mcg PO DAILY [facility] Last Admin: 05/22/18 10:06 Dose: 100 mcg Enoxaparin Sodium (Lovenox) 30 mg SC DAILY [facility] PRN Reason: Protocol Last Admin: 05/22/18 10:06 Dose: 30 mg Famotidine (Pepcid) 20 mg PO HS [facility] Last Admin: 05/21/18 21:47 Dose: 20 mg Folic Acid (Folic Acid) 1 mg PO DAILY [facility] Last Admin: 05/22/18 10:00 Dose: 1 mg Furosemide (Lasix) 40 mg IVP DAILY [facility] Last Admin: 05/22/18 10:36 Dose: Not Given Hydralazine HCl (Apresoline) 50 mg PO TID [facility] Last Admin: 05/22/18 09:57 Dose: 50 mg Insulin Human Regular (Humulin R Med) 0 units SC ACHS [facility] PRN Reason: Protocol Last Admin: 05/22/18 12:01 Dose: Not Given Labetalol HCl (Trandate) 50 mg PO Q6H PRN PRN Reason: hypertension Last Admin: 05/18/18 06:07 Dose: 50 mg Metoprolol Tartrate (Lopressor) 50 mg PO BRKDIN [facility] Last Admin: 05/22/18 08:23 Dose: 50 mg Pioglitazone HCl (Actos) 30 mg PO DAILY [facility] Last Admin: 05/22/18 09:57 Dose: 30 mg - Labs Labs: 05/22/18 07:30 05/22/18 07:30 PT 12.3 SECONDS (9.4-12.5) 05/17/18 18:15 INR 1.08 05/17/18 18:15 APTT 27.7 Seconds (25.1-36.5) 05/17/18 18:15 Attending/Attestation - Attestation I have personally seen and examined this patient.: Yes I have fully participated in the care of the patient.: Yes I have reviewed all pertinent clinical information, including history, physical exam and plan: Yes
[2018-05-19 13:15] LABS: FOLATE 9.7 ng/mL
[2018-05-19 16:22] LABS: URINE CREATININE 87.4 mg/dL
--- NOTE | 2018-05-19 17:36 | PN ---
Copied To: Guero Martínez MD Attending MD: Guero Martínez MD DATE: 05/19/2018 SUBJECTIVE: The patient denies any chest pain or shortness of breath. PHYSICAL EXAMINATION: VITAL SIGNS: Blood pressure 148/71, heart rate 64, temperature 98.4, respiration 20. HEENT: Normocephalic. CHEST: Clear. HEART: S1 and S2 regular. EXTREMITIES: 1+ pitting edema. Dressings applied to the left foot. LABORATORY DATA: Hemoglobin and hematocrit 7.8 and 24, white count 5.3, platelet count 136,000. SMA-7: Sodium 142, potassium 5, chloride 109, CO2 of 24, glucose 170, BUN 37, creatinine 1.9. Echocardiographic study revealed moderate concentric LVH with normal ejection fraction and normal segmental wall motion, mild pulmonary hypertension. ASSESSMENT: 1. Status post left little toe amputation. 2. Anemia, requiring packed red blood cell transfusion. 3. Uncontrolled diabetes mellitus. 4. Chronic renal insufficiency. 5. Systemic hypertension. 6. Mild pulmonary hypertension. CONDITIONS: Continue Actos 30 mg once a day, hydralazine 25 mg q.i.d., aspirin 81 mg once a day, Lasix 40 mg intravenously once a day, Lopressor 25 mg twice a day, Lovenox 30 mg subcutaneously twice a day, Norvasc 10 mg once a day, labetalol 50 mg p.o. every 6 hours. Guero Martínez MD
[2018-05-19] MEDS ORDERED: Albuterol 0.083% Inhal Sol (2.5 mg/3 mL) UD IH PRN (21:44)
[2018-05-19] MEDS: Albuterol 0.083% Inhal Sol (2.5 mg/3 mL) UD IH PRN (22:10)
--- NOTE | 2018-05-19 23:54 | CON ---
Copied To: Artemio Tovar MD Attending MD: Artemio Tovar MD DATE: 05/19/2018 LOCATION: The patient is seen in room 263, bed 2. CHIEF COMPLAINT: Foot ulcer x several weeks. HISTORY OF PRESENT ILLNESS: This is a 52-year-old male with diabetes mellitus and obesity, BMI of 32, who was recently in the hospital and had amputation of the left fifth toe, had sensitive Staph aureus and group B strep and HE WAS ALLERGIC TO PENICILLIN, was discharged on Zyvox. The pathology at that time had showed margins of the resected bones were positive for osteomyelitis and he was treated for osteomyelitis. He is still on Zyvox, now admitted on this admission with a diagnosis of anemia and hyperkalemia. Infectious Disease consultation requested. He has no fevers, no chills. No nausea, no vomiting or chest pain. No abdominal pain or diarrhea. REVIEW OF SYSTEMS: A 12-point review of systems is performed. PAST MEDICAL HISTORY: Significant for diabetes mellitus and obesity and with a BMI of 32. Also the patient has hypertension. PAST SURGICAL HISTORY: Significant for left fifth toe amputation. ALLERGIES: THE PATIENT IS ALLERGIC TO PENICILLIN. MEDICATIONS AT HOME: Include the patient was on Zyvox, tramadol, oxycodone, Actos, losartan, insulin, Lovenox and Norvasc. PHYSICAL EXAMINATION: GENERAL: The patient is in bed, in no acute distress. VITAL SIGNS: Temperature of 98 and blood pressure is 148/70, respiratory rate of 20, heart rate of 64. HEENT: Unremarkable. NECK: Supple. LUNGS: Have decreased breath sounds. HEART: Normal S1, S2. ABDOMEN: Soft, nontender. EXTREMITIES: Examination of the foot reveals the wound have an open clean ulcer. No discharge, no erythema, no evidence of infection on the superficial evaluation. LABORATORY DATA: Laboratory examination reveals the patient's white count is 5.3, hemoglobin of 7.8 and platelets of 136. Coagulation is noted. Chemistries, BUN of 37, creatinine of 1.9, procalcitonin 0.07 and urinalysis is noted. Microbiology reveals the blood cultures, there are no growth. ASSESSMENT AND PLAN: A 52-year-old male with diabetes, hypertension, obesity, body mass index of 32, status post amputation of the left fifth toe with sensitive Staphylococcus aureus and a group B streptococcus osteomyelitis, has been on Zyvox, now almost 2 months, and we will check on the sed rate and C-reactive protein and we will make further recommendations. Most likely, we will discontinue the Zyvox based on laboratory findings. We will speak to Podiatry and we will make further recommendations. Artemio Tovar MD
--- NOTE | 2018-05-20 08:11 | CON ---
Copied To: Franklyn Vega MD Attending MD: Franklyn Vega MD DATE: 05/19/2018 PULMONARY CONSULTATION HISTORY OF PRESENT ILLNESS: Cal Coulter is a 52-year-old male who was transferred from [facility] after having anemia and hypoxemia. He has diabetes mellitus and hypertension and anemia. He was hospitalized in the past and had amputation of the foot. He has been in rehab. He states that he was in progressive shortness of breath over the last several weeks. He had 20-30 pounds weight gain with edema of both lower extremities. When lying flat in bed at night he was short of breath. Pulmonary evaluation was requested. PAST MEDICAL HISTORY: As described above, diabetes mellitus, gangrene of foot. SOCIAL HISTORY: No smoking. Occupation; works in [employer] at [employer]. No travel history. FAMILY HISTORY: COPD. He is the son of Fabian Wilkins. REVIEW OF SYSTEMS: Otherwise negative. Progressive shortness of breath. No known cardiac issues. The entire review of systems is otherwise normal and described above in HPI. All other systems negative. PHYSICAL EXAMINATION: GENERAL: Cal appears comfortable, sitting in bed, in no acute distress. VITAL SIGNS: Stable. Heart rate is 70, blood pressure 160/80, respiratory rate is 16, O2 sat 97% on room air. HEENT: Normocephalic, atraumatic. NECK: Supple. No thyromegaly. No mass. No JVD. No bruit. LUNGS: Good breath sounds. Minimal rales noted throughout both bases. No rhonchi or wheezes. HEART: Regular rhythm. S1, S2 without murmur, gallop or rub. ABDOMEN: Soft. Bowels sounds normoactive without mass, guarding, rebound, organomegaly. EXTREMITIES: Reveal no clubbing or cyanosis. There is some edema noted. There is the presence of wrapped foot from the previous amputation. SKIN: Dry; intact. LABORATORY DATA: Chest x-ray shows pulmonary vascular congestion read by Radiology as pulmonary edema. Additional laboratory studies show white count of 5.38, hemoglobin of 7.8, platelet count of 136,000. Coags are normal. Initial blood gas on 05/17/2018; pH 7.27, pCO2 50, pO2 34, this is likely a venous gas. Chemistries; chloride 109, BUN 37, creatinine 1.9, sugar 170. Otherwise, SMA-23 is normal. The EKG; sinus rhythm, nonspecific ST-T wave changes. CLINICAL IMPRESSION: 1. Pulmonary edema. 2. Renal insufficiency. 3. Diabetes mellitus. 4. Anemia. 5. Peripheral edema. 6. Status post amputation. PLAN: Suggest continuing diuretics must follow chest x-ray to complete resolution of pulmonary edema. Followup x-ray has been ordered. We will discuss with Dr. Sood. Continue vigorous support. Monitor oxygen saturation. Once the patient is stable and the fluid has been removed a pulmonary function study is suggested to rule out underlying pulmonary disease. The case has been discussed at length with the patient Cal Coulter and he is free to call me at anytime necessary. We will be here to follow him as required. Follow up x-ray will be reviewed by Dr. Harvey in the morning and we will see if that pulmonary vascular congestion has resolved. Thank you for the opportunity to see this bc gentleman. Franklyn Vega MD MTDDai
--- NOTE | 2018-05-20 09:01 | PN ---
Copied To: David Harvey MD Attending MD: David Harvey MD DATE: 05/20/2018 PULMONARY NOTE SUBJECTIVE: The patient appears comfortable this morning. He is not short of breath at rest. PHYSICAL EXAMINATION: VITAL SIGNS: Temperature is 97.7, pulse 65, respirations 18, blood pressure 151/83. Oxygen saturation on nasal cannula is 98%. HEENT: Normocephalic, atraumatic. No JVD. CARDIOVASCULAR: Positive S1, S2. No S3 gallop. LUNGS: Minimal crackles at the bases. Otherwise clear. EXTREMITIES: There is mild edema in both lower extremities. The left foot is wrapped. No cyanosis or clubbing. Calves are nontender to palpation. GI: Abdomen is soft, nontender and nondistended. Bowel sounds are positive. SKIN: No acute rash. NEUROLOGIC: Limited at the present time. IMPRESSION: 1. Fluid retention with pulmonary edema. 2. Renal insufficiency. 3. Anemia. 4. Diabetes mellitus. 5. History of osteomyelitis. PLAN: The patient appears comfortable this morning. He is not short of breath at rest. He does state to feeling much better overall. On physical exam, there is no significant bronchospasm noted. In addition, there is no significant alveolar-arterial gradient. Inputs by Cardiology and Renal are also noted. The patient remains on intravenous Lasix. There is a repeat chest x-ray ordered for today. I will check that when feasible. The patient is also being seen by Podiatry. Input is noted. Clinical status of the patient does appear improved - compared to his initial presentation. I will discuss the above with the attending physician. David Harvey MD MTDDai
--- NOTE | 2018-05-20 09:38 | CP.PCM.PN ---
<Emma Aquino - Last Filed: 05/20/18 10:53> Subjective - Date & Time of Evaluation Date of Evaluation: 05/20/18 Time of Evaluation: 07:25 - Subjective Subjective: Emma Aquino DO, PGY-2: GI Progress Note for Dr. King Patient was seen and examined at bedside. Patient denies any abdominal pain, melena, hematochezia, or hematemesis. He reports having a colonoscopy in [facility] when he was 50. No adverse events noted overnight. Objective - Vital Signs/Intake and Output Vital Signs (last 24 hours): Temp Pulse Resp BP Pulse Ox 97.7 F 65 18 151/83 H 98 05/20/18 06:00 05/20/18 06:00 05/20/18 06:00 05/20/18 06:00 05/20/18 06:00 Intake and Output: 05/20/18 05/20/18 06:59 18:59 Intake Total 600 Balance 600 - Medications Medications: Current Medications Albuterol Sulfate (Albuterol 0.083% Inhal Honey (2.5 Mg/3 Ml) Ud) 2.5 mg IH [id number] PRN PRN Reason: Wheezing Last Admin: 05/19/18 22:10 Dose: 2.5 mg Alprazolam (Xanax) 0.25 mg PO TID PRN; Protocol PRN Reason: Anxiety Stop: 05/25/18 10:01 Last Admin: 05/19/18 21:48 Dose: 0.25 mg Amlodipine Besylate (Norvasc) [address] [facility] Last Admin: 05/19/18 09:32 Dose: 10 mg Aspirin (Ecotrin) [address] [facility] Last Admin: 05/19/18 09:32 Dose: 81 mg Cyanocobalamin (Vitamin B12 100 Mcg Tab) [address] [facility] Last Admin: 05/19/18 09:33 Dose: 100 mcg Enoxaparin Sodium (Lovenox) [address] [facility] PRN Reason: Protocol Last Admin: 05/19/18 09:32 Dose: 30 mg Famotidine (Pepcid) [address] [facility] Last Admin: 05/19/18 21:14 Dose: 20 mg Folic Acid (Folic Acid) [address] [facility] Last Admin: 08/05/18 09:32 Dose: 1 mg Furosemide (Lasix) [address] [facility] Last Admin: 05/19/18 09:32 Dose: 40 mg Hydralazine HCl (Apresoline) [address] [facility] Last Admin: 05/19/18 21:14 Dose: 25 mg Insulin Human Regular (Humulin R Med) [address] [facility] PRN Reason: Protocol Last Admin: 05/19/18 21:33 Dose: Not Given Labetalol HCl (Trandate) 50 mg PO Q6H PRN PRN Reason: hypertension Last Admin: 05/18/18 06:07 Dose: 50 mg Metoprolol Tartrate (Lopressor) [address] [facility] Last Admin: 05/19/18 17:13 Dose: 25 mg Pioglitazone HCl (Actos) [address] [facility] Last Admin: 05/19/18 09:33 Dose: 30 mg - Labs Labs: 05/19/18 06:45 05/19/18 15:53 PT 12.3 SECONDS (9.4-12.5) 05/17/18 18:15 INR 1.08 05/17/18 18:15 APTT 27.7 Seconds (25.1-36.5) 05/17/18 18:15 - Constitutional Appears: Well, Non-toxic - Head Exam Head Exam: ATRAUMATIC, NORMOCEPHALIC - Eye Exam Eye Exam: EOMI, Normal appearance - ENT Exam ENT Exam: Mucous Membranes Moist - Neck Exam Neck Exam: Normal Inspection - Respiratory Exam Respiratory Exam: NORMAL BREATHING PATTERN. absent: Accessory Muscle Use - Cardiovascular Exam Cardiovascular Exam: RRR, +S1, +S2 - GI/Abdominal Exam GI & Abdominal Exam: Soft, Normal Bowel Sounds - Extremities Exam Extremities Exam: Normal Inspection. absent: Calf Tenderness - Neurological Exam Neurological Exam: Alert, Awake, CN II-XII Intact, Oriented x3 - Psychiatric Exam Psychiatric exam: Normal Affect, Normal Mood - Skin Skin Exam: Dry, Intact, Normal Color, Warm Assessment and Plan - Assessment and Plan (Free Text) Assessment: Patient is a 52yo male with PMHx significant for poorly controlled DM2 with recent right 2nd and left 5th toe amputations who presented to the hospital from outpatient rehab center for anemia -Normocytic anemia -Diabetes mellitus with complications -Diabetic nephropathy -Hyperkalemia Plan: - In view of significant anemia and drop in hemoglobin, we will order a CT of the abdomen and pelvis with PO contrast and make the patient NPO after midnight for an upper endoscopy. We will discuss the procedure with the patient in detail and obtain consent. - Supportive care with blood transfusion as indicated - Iron panel and retic count WNL - Folate and B12 within normal limits -Given diabetic complications, nephropathy and peripheral vascular disease, recommend strict adherence to diabetic diet/lifestyle and strict glycemic control so as to avoid further complications such as gastroparesis Case reviewed and discussed with attending physician, Dr. King <Amauri King V - Last Filed: 05/20/18 18:52> Objective - Vital Signs/Intake and Output Vital Signs (last 24 hours): Temp Pulse Resp BP Pulse Ox 98.1 F 69 20 127/102 H 97 05/20/18 17:51 05/20/18 18:07 05/20/18 17:51 05/20/18 18:07 05/20/18 17:51 Intake and Output: 05/20/18 05/20/18 06:59 18:59 Intake Total 600 Balance 600 - Medications Medications: Current Medications Albuterol Sulfate (Albuterol 0.083% Inhal Honey (2.5 Mg/3 Ml) Ud) 2.5 mg IH [id number] PRN PRN Reason: Wheezing Last Admin: 05/19/18 22:10 Dose: 2.5 mg Alprazolam (Xanax) 0.25 mg PO TID PRN; Protocol PRN Reason: Anxiety Stop: 05/25/18 10:01 Last Admin: 05/19/18 21:48 Dose: 0.25 mg Amlodipine Besylate (Norvasc) [address] [facility] Last Admin: 05/20/18 12:32 Dose: 10 mg Aspirin (Ecotrin) [address] [facility] Last Admin: 05/20/18 12:33 Dose: 81 mg Cadexomer Iodine (Iodosorb) [address] [facility] Cyanocobalamin (Vitamin B12 100 Mcg Tab) [address] [facility] Last Admin: 05/20/18 12:33 Dose: 100 mcg Enoxaparin Sodium (Lovenox) 30 mg SC DAILY [facility] PRN Reason: Protocol Last Admin: 05/20/18 12:31 Dose: 30 mg Famotidine (Pepcid) [address] [facility] Last Admin: 05/19/18 21:14 Dose: 20 mg Folic Acid (Folic Acid) [address] [facility] Last Admin: 05/20/18 12:33 Dose: 1 mg Furosemide (Lasix) [address] [facility] Last Admin: 05/20/18 12:44 Dose: 40 mg Hydralazine HCl (Apresoline) [address] [facility] Last Admin: 05/20/18 18:06 Dose: 50 mg Insulin Human Regular (Humulin R Med) 0 units SC ACHS [facility] PRN Reason: Protocol Last Admin: 05/20/18 18:05 Dose: 1 units Labetalol HCl (Trandate) 50 mg PO Q6H PRN PRN Reason: hypertension Last Admin: 05/18/18 06:07 Dose: 50 mg Metoprolol Tartrate (Lopressor) [address] [facility] Last Admin: 05/20/18 18:07 Dose: 50 mg Pioglitazone HCl (Actos) [address] [facility] Last Admin: 05/20/18 12:32 Dose: 30 mg - Labs Labs: 05/20/18 09:50 05/20/18 11:26 PT 12.3 SECONDS (9.4-12.5) 05/17/18 18:15 INR 1.08 05/17/18 18:15 APTT 27.7 Seconds (25.1-36.5) 05/17/18 18:15 Attending/Attestation - Attestation I have personally seen and examined this patient.: Yes I have fully participated in the care of the patient.: Yes I have reviewed all pertinent clinical information, including history, physical exam and plan: Yes Notes (Text): This is an addendum to GI followup report dictated by the Operating Systems Programmer. The patient was seen and evaluated earlier. Medical records, lab studies, imagings were reviewed. Last 24 hours events reviewed. Agreed with the above treatment plan as outlined in Operating Systems Programmer 's notes with the addition of the following Discussed at length with the patient, explained about his condition and anemia, on aspirin and Lovenox to prevent DVT Patient fully understood and refused EGD and CT scan. He does not want any endoscopy procedures. Discussed with Dr. Whittaker and nursing staff 05/20/18 18:51
[2018-05-20 10:02] LABS: HEMOGLOBIN 7.6 g/dL (14.0-18.0); MEAN CELL VOLUME 81.9 fl (80.0-105.0); MEAN CORPUSCULAR HEMOGLOBIN 27.5 pg (25.0-35.0); MEAN CORPUSCULAR HGB CONC 33.6 g/dl (31.0-37.0); RBC 2.76 10^6/uL (3.5-6.1); RED CELL DISTRIBUTION WIDTH 18.1 % (11.5-14.5); WHITE BLOOD COUNT 5.3 10^3/ul (4.5-11.0)
[2018-05-20] MEDS ORDERED: Barium Sulfate Susp 2.1% w/v, 2.0% w/w 450 mL Bottle PO ONE (10:23)
--- NOTE | 2018-05-20 11:27 | RAD ---
Date of service: 05/20/2018 HISTORY: pneumonia COMPARISON: 05/17/2018 TECHNIQUE: Chest PA and lateral FINDINGS: LUNGS: No active pulmonary disease. PLEURA: No significant pleural effusion identified. No pneumothorax apparent. CARDIOVASCULAR: There is decreased vascular congestion. Mild cardiomegaly OSSEOUS STRUCTURES: No significant abnormalities. VISUALIZED UPPER ABDOMEN: Normal. OTHER FINDINGS: None. IMPRESSION: Decreased vascular congestion
--- NOTE | 2018-05-20 12:18 | PN ---
Copied To: Georges Sood MD Attending MD: Georges Sood MD DATE: 05/20/2018 LOCATION: The patient is in the telemetry unit. SUBJECTIVE: The patient was admitted with renal failure, accelerated hypertension. The patient also had infection of both feet, toes. The wound in the right toe is healing. The left toe, the patient still has active wound and needs wound care. The patient also has history of hypertension, and diabetes. He was seen this morning, seemed to be lying down comfortable, does not have any specific complaints. PHYSICAL EXAMINATION: VITAL SIGNS: Pulse is 65, blood pressure 151/83, respirations are 18, O2 sat is 98% on 2 liters of oxygen. HEENT: The patient's head is normocephalic. NECK: There is no clinical abnormality noted. HEART: Normal sinus rhythm. S1, S2 present. LUNGS: The patient's lungs are clear clinically. ABDOMEN: Soft, obesity present. ELECTRIC METER INSPECTOR: No focal deficits. LABORATORY DATA: The patient's blood work done recently shows a hemoglobin of 7.8, the patient had 1 unit of blood and the patient's sed rate is 65 and white count is 5000. The patient's chemistry, the patient's creatinine is 1.9, BUN is 37 and the patient is being followed up by Infectious Disease, renal department floral artist, crusher, associate professor of surgery. The patient is seen by emergency management system director. The patient has also been seen by formation testing operator, Dr. King. He is evaluating the patient in his anemic state. The patient's chest x-ray shows cardiac type congestion, chronic congestive heart failure pattern. MEDICATIONS: The patient's list of medications; the patient is on Actos 30 mg daily, hydralazine 25 mg 4 times a day. The patient is on albuterol every 6 hours nebulizer treatment, folic acid 1 mg daily. The patient is on Lasix 40 mg IV daily, insulin coverage also for diabetes. The patient is on metoprolol 25 mg daily and Lovenox 30 mg subcutaneous daily, prophylaxis for DVT. The patient is on amlodipine 10 mg daily and Pepcid 30 mg daily, labetalol 50 mg every 6 hours p.r.n. for elevated blood pressure systolic over 160, cyanocobalamin, vitamin B12 100 mcg tablets daily. The patient is on Xanax 0.25 mg t.i.d. p.r.n. for anxiety. The patient's diet is heart-healthy diet, diabetic. ASSESSMENT AND PLAN: His overall prognosis seems to be improving. His condition now is also improving. We are waiting for the consultants to stabilize the condition prior to further management. Georges Sood MD MTDD
[2018-05-20] MEDS: Insulin Reg-MEDIUM-Coverage SC SCH ×4 (12:24→22:05)
[2018-05-20] MEDS: Enoxaparin 30 mg Syringe SC SCH (12:31)
--- NOTE | 2018-05-20 13:51 | CP.PCM.PN ---
<Bart Toth - Last Filed: 05/20/18 13:47> Subjective - Date & Time of Evaluation Date of Evaluation: 05/20/18 Time of Evaluation: 13:47 - Subjective Subjective: Podiatry Progress Note- Dr. Colon 52M seen and evaluated at bedside regarding left foot ulceration secondary to 5th partial ray resection. Patient is AAO x 3 and NAD, resting comfortably in bed at time of visit. Denies any pain to the wound site at this time. Denies any acute overnight events or any further pedal complaints at this time. Denies any recent N/V/F/C/CP/SOB/D/posterior calf pain when squeezed. Objective - Vital Signs/Intake and Output Vital Signs (last 24 hours): Temp Pulse Resp BP Pulse Ox 97.7 F 86 18 187/83 H 98 05/20/18 06:00 05/20/18 12:33 05/20/18 06:00 05/20/18 12:44 05/20/18 06:00 Intake and Output: 05/20/18 05/20/18 06:59 18:59 Intake Total 600 Balance 600 - Medications Medications: Current Medications Albuterol Sulfate (Albuterol 0.083% Inhal Honey (2.5 Mg/3 Ml) Ud) 2.5 mg IH [id number] PRN PRN Reason: Wheezing Last Admin: 05/19/18 22:10 Dose: 2.5 mg Alprazolam (Xanax) 0.25 mg PO TID PRN; Protocol PRN Reason: Anxiety Stop: 05/25/18 10:01 Last Admin: 05/19/18 21:48 Dose: 0.25 mg Amlodipine Besylate (Norvasc) 10 mg PO DAILY [facility] Last Admin: 05/20/18 12:32 Dose: 10 mg Aspirin (Ecotrin) 81 mg PO DAILY [facility] Last Admin: 05/20/18 12:33 Dose: 81 mg Cyanocobalamin (Vitamin B12 100 Mcg Tab) 100 mcg PO DAILY [facility] Last Admin: 05/20/18 12:33 Dose: 100 mcg Enoxaparin Sodium (Lovenox) 30 mg SC DAILY [facility] PRN Reason: Protocol Last Admin: 05/20/18 12:31 Dose: 30 mg Famotidine (Pepcid) 20 mg PO HS [facility] Last Admin: 05/19/18 21:14 Dose: 20 mg Folic Acid (Folic Acid) 1 mg PO DAILY [facility] Last Admin: 05/20/18 12:33 Dose: 1 mg Furosemide (Lasix) 40 mg IVP DAILY [facility] Last Admin: 05/20/18 12:44 Dose: 40 mg Hydralazine HCl (Apresoline) 25 mg PO QID [facility] Last Admin: 05/20/18 12:32 Dose: 25 mg Insulin Human Regular (Humulin R Med) 0 units SC ACHS [facility] PRN Reason: Protocol Last Admin: 05/20/18 12:43 Dose: 3 units Labetalol HCl (Trandate) 50 mg PO Q6H PRN PRN Reason: hypertension Last Admin: 05/18/18 06:07 Dose: 50 mg Metoprolol Tartrate (Lopressor) 25 mg PO BRKDIN [facility] Last Admin: 05/20/18 12:33 Dose: 25 mg Pioglitazone HCl (Actos) 30 mg PO DAILY [facility] Last Admin: 05/20/18 12:32 Dose: 30 mg - Labs Labs: 05/20/18 09:50 05/20/18 11:26 PT 12.3 SECONDS (9.4-12.5) 05/17/18 18:15 INR 1.08 05/17/18 18:15 APTT 27.7 Seconds (25.1-36.5) 05/17/18 18:15 - Constitutional Appears: Well, Non-toxic, No Acute Distress - Extremities Exam Additional comments: VASC: DP and PT 2/4 bilaterally, CFT delayed x8 digits, temperature gradient warm to cool proximal knees to distal toes bilaterally, +1 pitting edema to b/l LE, improving ORTHO: No tenderness with palpation to left foot surrounding ulceration, completely healed partial amputated right 2nd digit, MM is 4/5 in all four compartments: dorsiflexion, plantarflexion, eversion, and inverion NEURO: gross sensation intact, protective sensation diminished to LE b/l DERM: full thickness ulceration on dorsal aspect of left amputated 5th MPJ area. Wound base is mainly granular with no serous drainage. No purulence, no malodor, no tunneling, no tracking, no erythema, no streaking, no probe to bone or tendon, no other clinical signs of infection. Wound base measures approximately 1.2 cm x 1cm x .2cm - Neurological Exam Neurological Exam: Alert, Awake, Oriented x3 - Psychiatric Exam Psychiatric exam: Normal Affect, Normal Mood Assessment and Plan - Assessment and Plan (Free Text) Assessment: 52M with full thickness diabetic ulceration left foot secondary to partial 5th ray resection Plan: Patient seen and evaluated with attending, Dr. Colon Afebrile, absent leukocytosis Wound dressed with optifoam Iodosorb ordered for all future dressing changes Patient to wear surgical shoe at all time and may weight bear as tolerated to both feet No plan for further surgical intervention from podiatric standpoint Patient is stable from podiatric standpoint Upon discharge from hospital he will follow up weekly [facility] with Dr. Colon Podiatry will continue to follow while patient in house <Loreto Colon - Last Filed: 06/16/18 18:16> Objective - Vital Signs/Intake and Output Vital Signs (last 24 hours): Temp Pulse Resp BP Pulse Ox 97.1 F L 59 L 19 136/62 94 L 05/26/18 12:00 05/26/18 12:00 05/26/18 12:00 05/26/18 12:00 05/26/18 06:00 - Labs Labs: 05/25/18 06:00 05/25/18 06:00 PT 12.5 SECONDS (9.4-12.5) 05/23/18 05:30 INR 1.09 05/23/18 05:30 APTT 27.7 Seconds (25.1-36.5) 05/17/18 18:15 Attending/Attestation - Attestation I have personally seen and examined this patient.: Yes I have fully participated in the care of the patient.: Yes I have reviewed all pertinent clinical information, including history, physical exam and plan: Yes
--- NOTE | 2018-05-20 13:58 | CP.PCM.PN ---
Subjective - Date & Time of Evaluation Date of Evaluation: 05/20/18 Time of Evaluation: 10:15 - Subjective Subjective: No fevers, not in distress. Objective - Vital Signs/Intake and Output Vital Signs (last 24 hours): Temp Pulse Resp BP Pulse Ox 97.7 F 65 18 151/83 H 98 05/20/18 06:00 05/20/18 06:00 05/20/18 06:00 05/20/18 06:00 05/20/18 06:00 Intake and Output: 05/20/18 05/20/18 06:59 18:59 Intake Total 600 Balance 600 - Medications Medications: Current Medications Albuterol Sulfate (Albuterol 0.083% Inhal Honey (2.5 Mg/3 Ml) Ud) 2.5 mg IH [id number] PRN PRN Reason: Wheezing Last Admin: 05/19/18 22:10 Dose: 2.5 mg Alprazolam (Xanax) 0.25 mg PO TID PRN; Protocol PRN Reason: Anxiety Stop: 05/25/18 10:01 Last Admin: 05/19/18 21:48 Dose: 0.25 mg Amlodipine Besylate (Norvasc) 10 mg PO DAILY [facility] Last Admin: 05/19/18 09:32 Dose: 10 mg Aspirin (Ecotrin) 81 mg PO DAILY [facility] Last Admin: 05/19/18 09:32 Dose: 81 mg Cyanocobalamin (Vitamin B12 100 Mcg Tab) 100 mcg PO DAILY [facility] Last Admin: 05/19/18 09:33 Dose: 100 mcg Enoxaparin Sodium (Lovenox) 30 mg SC DAILY [facility] PRN Reason: Protocol Last Admin: 05/19/18 09:32 Dose: 30 mg Famotidine (Pepcid) 20 mg PO HS [facility] Last Admin: 05/19/18 21:14 Dose: 20 mg Folic Acid (Folic Acid) 1 mg PO DAILY [facility] Last Admin: 05/19/18 09:32 Dose: 1 mg Furosemide (Lasix) 40 mg IVP DAILY [facility] Last Admin: 05/19/18 09:32 Dose: 40 mg Hydralazine HCl (Apresoline) 25 mg PO QID [facility] Last Admin: 05/19/18 21:14 Dose: 25 mg Insulin Human Regular (Humulin R Med) 0 units SC [facility] PRN Reason: Protocol Last Admin: 05/19/18 21:33 Dose: Not Given Labetalol HCl (Trandate) 50 mg PO Q6H PRN PRN Reason: hypertension Last Admin: 05/18/18 06:07 Dose: 50 mg Metoprolol Tartrate (Lopressor) 25 mg PO BRKDIN [facility] Last Admin: 05/19/18 17:13 Dose: 25 mg Pioglitazone HCl (Actos) 30 mg PO DAILY [facility] Last Admin: 05/19/18 09:33 Dose: 30 mg - Labs Labs: 05/19/18 06:45 05/19/18 15:53 PT 12.3 SECONDS (9.4-12.5) 05/17/18 18:15 INR 1.08 05/17/18 18:15 APTT 27.7 Seconds (25.1-36.5) 05/17/18 18:15 - Constitutional Appears: Non-toxic, Chronically Ill - Head Exam Head Exam: NORMAL INSPECTION - Respiratory Exam Respiratory Exam: Decreased Breath Sounds - Cardiovascular Exam Cardiovascular Exam: +S1, +S2 - GI/Abdominal Exam GI & Abdominal Exam: Soft. 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 Colon
--- NOTE | 2018-05-20 15:04 | PN ---
Copied To: Greer Bello MD Attending MD: Greer Bello MD DATE: 05/20/2018 SUBJECTIVE: The patient is seen en route to x-ray. He is awake. He is alert. He denies any abdominal pain or melena. He denies any hematochezia or hematemesis. PHYSICAL EXAMINATION: GENERAL: Young male, sitting in bed. VITAL SIGNS: Blood pressure 151/83, heart rate 65, respiratory rate 18, temperature 97.7. HEENT: Normocephalic, atraumatic, positive pallor. NECK: Supple, no JVD. LUNGS: Bilateral equal air entry, bilateral equal expansion. CARDIAC: S1 and S2, regular rate and rhythm, no murmur, no rub. ABDOMEN: Soft, nondistended, nontender. EXTREMITIES: Mild edema of lower extremities. Left foot dressing. INTAKE AND OUTPUT: 1800/1000. LABORATORY DATA: WBC 5.3, hemoglobin 7.6, hematocrit 22.6, platelets 127, MCV 81.9. Only chemistry today is the creatinine, which is 1.9, which is unchanged. Potassium was 5 yesterday. Renal ultrasound done on 05/17/2018: Right kidney 13, left kidney 12. Normal renal ultrasound. CURRENT MEDICATIONS: Pioglitazone 30 mg daily, Apresoline 25 four times a day, Ecotrin, folic acid, insulin, Lasix 40 IV daily, Lopressor 25 b.i.d., Lovenox, amlodipine 10, Pepcid 20, Trandate, Xanax. ASSESSMENT AND PLAN: 1. Chronic kidney disease stage 3, renal function is stable. Angiotensin receptor talia was discontinued because of hyperkalemia. 2. Hyperkalemia, resolved. 3. Severe anemia. As per GI note, the patient had an endoscopy recently as long as hemoglobin is stable. No further workup at this time. 4. History of congestive heart failure and edema. 5. Noninsulin-dependent diabetes mellitus. 6. Hypertension. 7. Peripheral vascular disease. PLAN: 1. Ideally, I would like to restart ARB on this patient with chronic kidney disease stage 3 with nephrotic range proteinuria secondary to diabetic nephropathy. Therefore, I recommend checking potassium again today. 2. Pump Servicer Helper the patient in a low-potassium diet. 3. Close followup with Nephrology as outpatient. Greer Bello MD
--- NOTE | 2018-05-20 19:29 | PN ---
Copied To: Donna Hudson MD Attending MD: Donna Hudson MD DATE: 05/20/2018 REASON FOR THE CONSULTATION: Followup cardiac evaluation, admitted with anemia, uncontrolled hypertension, status post left toe amputation. SUBJECTIVE: The patient denies any chest pain, shortness of breath, or any palpitation. OBJECTIVE: GENERAL: Not in any apparent distress. VITAL SIGNS: Temperature afebrile, heart rate 86, blood pressure 187/83. HEENT: PERRLA. Extraocular muscles intact. NECK: Supple. No carotid bruits or thyromegaly. CHEST: Clear to auscultation. HEART: S1 and S2 regular. ABDOMEN: Soft. EXTREMITIES: Clubbing and cyanosis negative. LABORATORY DATA: Blood workup: WBC 5.3, hemoglobin 7.6, hematocrit 22.6, platelet count 127. Chemistry shows sodium 140, potassium 5, chloride 109, carbon dioxide 24, anion gap of 14, BUN 37, creatinine 1.9, blood sugar 260. IMPRESSION: A 52-year-old male with past medical history significant for hypertension, diabetes, anemia, peripheral arterial disease, status post fifth toe and right second toe amputation. Admitted with severe anemia, hemoglobin 7.9 and uncontrolled hypertension. Status post packed red blood cell transfusion. The patient had echocardiography done on admission that revealed concentric left ventricular hypertrophy, normal left ventricular function, ejection fraction within normal limit. Mild tricuspid regurgitation, mild pulmonary hypertension, right ventricular systolic pressure 44, trace mitral regurgitation. RECOMMENDATION: Aggressive control of blood pressure. Monitor renal function. The patient has renal insufficiency. Avoid nephrotoxic medication. Once the hemoglobin is around 10, consider status post risk stratification. We will follow with you. Continue metoprolol, we will increase to 50 b.i.d. and we will increase hydralazine to 50 three times a day. We will follow with you. We will get lipid profile, TSH, hemoglobin A1c. Further recommendation depending on the hospital course. Once hemoglobin is around 10, we will do the stress test for risk stratification. Thank you, Dr. Sood, for providing us the opportunity in taking care of the patient, Cal Coulter. Donna Hudson MD [facility] # [id number]
[2018-05-21] MEDS: Albuterol 0.083% Inhal Sol (2.5 mg/3 mL) UD IH PRN (03:07)
[2018-05-21 06:19] LABS: BASO # 0.02 K/mm3 (0.0-2.0); BASO % 0.3 % (0.0-3.0); EOS # 0.2 (0.0-0.7); EOS % 3.6 % (1.5-5.0); GRAN # 4.15 (1.4-6.5); GRAN % 61.9 % (50.0-68.0); HEMOGLOBIN 7.2 g/dL (14.0-18.0); LYMPH # 1.1 (1.2-3.4); LYMPH % 15.7 % (22.0-35.0); MEAN CELL VOLUME 82.7 fl (80.0-105.0); MEAN CORPUSCULAR HEMOGLOBIN 27.7 pg (25.0-35.0); MEAN CORPUSCULAR HGB CONC 33.5 g/dl (31.0-37.0); MEAN PLATELET VOLUME 9.8 fl (7.0-11.0); MONO # 1.2 (0.1-0.6); MONO % 18.5 % (1.0-6.0); RBC 2.6 10^6/uL (3.5-6.1); RED CELL DISTRIBUTION WIDTH 18.1 % (11.5-14.5); WHITE BLOOD COUNT 6.7 10^3/ul (4.5-11.0)
[2018-05-21 07:43] LABS: CALCIUM 8.4 mg/dL (8.4-10.5)
[2018-05-21 07:44] LABS: ALB/GLOB RATIO 1.1 (1.1-1.8); ALBUMIN 3.3 g/dL (3.0-4.8)
[2018-05-21] MEDS: Insulin Reg-MEDIUM-Coverage SC SCH ×4 (08:25→21:58)
[2018-05-21] MEDS: Enoxaparin 30 mg Syringe SC SCH (09:17)
--- NOTE | 2018-05-21 10:06 | PN ---
Copied To: David Harvey MD Attending MD: David Harvey MD DATE: 05/21/2018 PULMONARY NOTE SUBJECTIVE: The patient appears very comfortable this morning. He is not short of breath at rest. PHYSICAL EXAMINATION: VITAL SIGNS: Temperature 98.5, pulse 63, respirations 16, blood pressure 150/85. Oxygen saturation on nasal cannula is 99%. HEENT: Normocephalic, atraumatic. No JVD. CARDIOVASCULAR: Positive S1, S2. No S3 gallop. LUNGS: Very minimal/less crackles at the bases. Otherwise clear. EXTREMITIES: Less edema is noted in both lower extremities. There is no cyanosis or clubbing. The calves are nontender to palpation. GI: Abdomen is soft, nontender and nondistended. Bowel sounds are positive. SKIN: No acute rash. NEUROLOGIC: limited at the present time. PERTINENT LABORATORY DATA: Chest x-ray was done yesterday and reviewed. The chest x-ray is much improved with a significant decrease in the pulmonary vascular congestion. Mild cardiomegaly remains. IMPRESSION: 1. Fluid retention with pulmonary edema - resolving. 2. Renal insufficiency. 3. Anemia. 4. Diabetes mellitus. 5. History of osteomyelitis. PLAN: The patient appears very comfortable this morning. He is not short of breath at rest. He does state to feeling much, much better overall. On physical exam, there is no significant bronchospasm. In addition, there is no significant alveolar-arterial gradient. I did review the repeat chest x-ray - above. The chest x-ray is much improved with a significant decrease in the pulmonary vascular congestion. The patient remains on intravenous Lasix. Inputs by Cardiology and Renal are noted. Clinical status of the patient is significantly improved overall. I will discuss the above with the attending physician. David Harvey MD MTDD
--- NOTE | 2018-05-21 10:19 | PN ---
DATE: 05/21/2018 LOCATION: The patient is in [facility], room 265, bed 2. SUBJECTIVE: The patient is admitted with infection of the foot, renal insufficiency, hypertension. The patient has severe anemia. He is getting evaluation for the patient's anemia, renal insufficiency. The patient is also being treated for his accelerated hypertension. He has a history of diabetes, hypertension, anxiety, claustrophobia. PHYSICAL EXAMINATION: VITAL SIGNS: This morning, the pulse is 61, blood pressure 142/74, respirations are 16. The patient's O2 saturation is 95% on 2 liters of oxygen nasal cannula. HEENT: The patient's head is normocephalic. NECK: The thyroid is not enlarged. Carotid pulses are present. LUNGS: Trachea central. Breath sounds vesicular. No adventitious sounds. HEART: Normal sinus rhythm. S1, S2 present. ABDOMEN: Soft, obesity present. Liver and spleen not palpable. CENTRAL NERVOUS SYSTEM: He is conscious, rational, oriented. LABORATORY DATA: The patient's blood work shows the hemoglobin of 7.2, which is a decrease. The patient's white count is normal. Chemistry: The patient's BUN is 42, creatinine is 2.1. The patient is treated for congestive heart failure. MEDICATIONS: Medication list consists of Actos 30 mg daily for diabetes. The patient is on insulin coverage. The patient is on hydralazine 50 mg 3 times a day. The patient is on Lasix 40 mg IV daily. The patient gets metoprolol 50 mg daily, Lovenox 30 mg every 24 hours for prophylaxis. The patient is on amlodipine 10 mg daily. ASSESSMENT AND PLAN: The patient is on heart-healthy diet, diabetic. The patient has been treated for recent onset of anemia, uncontrolled diabetes, hypertension, infection. We will continue current management and followup. Georges Sood MD MTDDai
[2018-05-21] MEDS: CADEXOMER IODINE 0.9% GEL 10G TOP SCH (11:37)
--- NOTE | 2018-05-21 13:25 | CP.PCM.PN ---
<Bart Toth - Last Filed: 05/21/18 13:22> Subjective - Date & Time of Evaluation Date of Evaluation: 05/21/18 Time of Evaluation: 13:22 - Subjective Subjective: Podiatry Progress Note for Dr. Christiana HannaM seen at bedside for eft foot ulceration secondary to 5th partial ray resection. Patient is AAO x 3 and NAD, resting comfortably n bed. Denies any pain to the amputation site at this time. Denies any acute overnight events or any new pedal complaints at this time. Denies any recent N/V/F/C/CP/SOB/D/ posterior calf pain when squeezed. Per nursing, patient's wound was dressed with iodosorb and new optifoam. No clinical signs of infection were present at time of dressing change. Objective - Vital Signs/Intake and Output Vital Signs (last 24 hours): Temp Pulse Resp BP Pulse Ox 98.0 F 56 L 19 132/57 L 95 05/21/18 12:00 05/21/18 12:00 05/21/18 12:00 05/21/18 12:00 05/21/18 06:00 Intake and Output: 05/21/18 05/21/18 06:59 18:59 Intake Total 1280 Output Total 4 Balance 1276 - Medications Medications: Current Medications Albuterol Sulfate (Albuterol 0.083% Inhal Honey (2.5 Mg/3 Ml) Ud) 2.5 mg IH [id number] PRN PRN Reason: Wheezing Last Admin: 05/21/18 03:07 Dose: 2.5 mg Alprazolam (Xanax) 0.25 mg PO TID PRN; Protocol PRN Reason: Anxiety Stop: 05/25/18 10:01 Last Admin: 05/21/18 02:40 Dose: 0.25 mg Amlodipine Besylate (Norvasc) 10 mg PO DAILY [facility] Last Admin: 05/21/18 09:19 Dose: 10 mg Aspirin (Ecotrin) 81 mg PO DAILY [facility] Last Admin: 05/21/18 09:19 Dose: 81 mg Cadexomer Iodine (Iodosorb) 0 gm TOP DAILY [facility] Last Admin: 05/21/18 11:37 Dose: 10 gm Cyanocobalamin (Vitamin B12 100 Mcg Tab) 100 mcg PO DAILY [facility] Last Admin: 05/21/18 09:19 Dose: 100 mcg Enoxaparin Sodium (Lovenox) 30 mg SC DAILY [facility] PRN Reason: Protocol Last Admin: 05/21/18 09:17 Dose: 30 mg Famotidine (Pepcid) 20 mg PO HS [facility] Last Admin: 05/20/18 22:06 Dose: 20 mg Folic Acid (Folic Acid) 1 mg PO DAILY [facility] Last Admin: 05/21/18 09:19 Dose: 1 mg Furosemide (Lasix) 40 mg IVP DAILY [facility] Last Admin: 05/21/18 09:17 Dose: 40 mg Hydralazine HCl (Apresoline) 50 mg PO TID [facility] Last Admin: 05/21/18 09:19 Dose: 50 mg Insulin Human Regular (Humulin R Med) 0 units SC ACHS [facility] PRN Reason: Protocol Last Admin: 05/21/18 11:37 Dose: 3 units Labetalol HCl (Trandate) 50 mg PO Q6H PRN PRN Reason: hypertension Last Admin: 05/18/18 06:07 Dose: 50 mg Metoprolol Tartrate (Lopressor) 50 mg PO BRKDIN [facility] Last Admin: 05/21/18 08:24 Dose: 50 mg Pioglitazone HCl (Actos) 30 mg PO DAILY [facility] Last Admin: 05/21/18 09:18 Dose: 30 mg - Labs Labs: 05/21/18 05:25 05/21/18 05:25 PT 12.3 SECONDS (9.4-12.5) 05/17/18 18:15 INR 1.08 05/17/18 18:15 APTT 27.7 Seconds (25.1-36.5) 05/17/18 18:15 - Constitutional Appears: Well, Non-toxic, No Acute Distress - Extremities Exam Additional comments: LLE focused exam: Dressings to left foot amputation site noted to be C/D/I. No streaking or malodor noted. Per nursing, no other clinical signs of infection noted - Neurological Exam Neurological Exam: Alert, Awake, Oriented x3 - Psychiatric Exam Psychiatric exam: Normal Affect, Normal Mood Assessment and Plan - Assessment and Plan (Free Text) Assessment: 52M with full thickness diabetic ulceration left foot secondary to partial 5th ray resection Plan: Patient seen and evaluated Plan discussed with attending Dr. Villeda Afebrile, absent leukocytosis Wound dressing changed with iodosorb, optifoam by nursing No plan for surgical procedure at this time Patient stable from podiatric standpoint Upon discharge, patient will f/u with Dr. Colon/Dr. Villeda in the wound care center Podiatry will continue to follow while patient in house <Rashaun Villeda - Last Filed: 05/21/18 16:44> Objective - Vital Signs/Intake and Output Vital Signs (last 24 hours): Temp Pulse Resp BP Pulse Ox 97.8 F 66 18 134/80 96 05/21/18 16:32 05/21/18 16:32 05/21/18 16:32 05/21/18 16:38 05/21/18 08:00 Intake and Output: 05/21/18 05/21/18 06:59 18:59 Intake Total 1280 0 Output Total 4 Balance 1276 0 - Medications Medications: Current Medications Albuterol Sulfate (Albuterol 0.083% Inhal Honey (2.5 Mg/3 Ml) Ud) 2.5 mg IH [id number] PRN PRN Reason: Wheezing Last Admin: 05/21/18 03:07 Dose: 2.5 mg Alprazolam (Xanax) 0.25 mg PO TID PRN; Protocol PRN Reason: Anxiety Stop: 05/25/18 10:01 Last Admin: 05/21/18 02:40 Dose: 0.25 mg Alprazolam (Xanax) 0.25 mg PO ONCE ONE PRN Reason: Protocol Stop: 05/21/18 16:41 Amlodipine Besylate (Norvasc) 10 mg PO DAILY [facility] Last Admin: 05/21/18 09:19 Dose: 10 mg Aspirin (Ecotrin) 81 mg PO DAILY [facility] Last Admin: 05/21/18 09:19 Dose: 81 mg Cadexomer Iodine (Iodosorb) 0 gm TOP DAILY [facility] Last Admin: 05/21/18 11:37 Dose: 10 gm Cyanocobalamin (Vitamin B12 100 Mcg Tab) 100 mcg PO DAILY [facility] Last Admin: 05/21/18 09:19 Dose: 100 mcg Enoxaparin Sodium (Lovenox) 30 mg SC DAILY [facility] PRN Reason: Protocol Last Admin: 05/21/18 09:17 Dose: 30 mg Famotidine (Pepcid) 20 mg PO [facility] Last Admin: 05/20/18 22:06 Dose: 20 mg Folic Acid (Folic Acid) 1 mg PO DAILY [facility] Last Admin: 05/21/18 09:19 Dose: 1 mg Furosemide (Lasix) 40 mg IVP DAILY [facility] Last Admin: 05/21/18 09:17 Dose: 40 mg Furosemide (Lasix) 40 mg IVP ONCE ONE Stop: 05/22/18 08:01 Hydralazine HCl (Apresoline) 50 mg PO TID [facility] Last Admin: 05/21/18 13:55 Dose: 50 mg Insulin Human Regular (Humulin R Med) 0 units SC ACHS [facility] PRN Reason: Protocol Last Admin: 05/21/18 11:37 Dose: 3 units Labetalol HCl (Trandate) 50 mg PO Q6H PRN PRN Reason: hypertension Last Admin: 05/18/18 06:07 Dose: 50 mg Metoprolol Tartrate (Lopressor) 50 mg PO BRKDIN [facility] Last Admin: 05/21/18 08:24 Dose: 50 mg Pioglitazone HCl (Actos) 30 mg PO DAILY [facility] Last Admin: 05/21/18 09:18 Dose: 30 mg - Labs Labs: 05/21/18 05:25 05/21/18 05:25 PT 12.3 SECONDS (9.4-12.5) 05/17/18 18:15 INR 1.08 05/17/18 18:15 APTT 27.7 Seconds (25.1-36.5) 05/17/18 18:15 Attending/Attestation - Attestation I have personally seen and examined this patient.: Yes I have fully participated in the care of the patient.: Yes I have reviewed all pertinent clinical information, including history, physical exam and plan: Yes
--- NOTE | 2018-05-21 13:41 | CP.PCM.PN ---
<Emma Aquino - Last Filed: 05/21/18 17:12> Subjective - Date & Time of Evaluation Date of Evaluation: 05/21/18 Time of Evaluation: 13:36 - Subjective Subjective: Emma Aquino DO, PGY-2: GI Progress Note for Dr. King Patient was seen and examined at bedside. Patient's appears lethargic. We informed the patient that his blood count continues to drop and he would benefit from an upper endoscopy. At the time of my examination, the patient is about to receive a blood transfusion. He mentions that he is claustraphobic and request a photo of the CT scanner. I proposed that we would not even need to get a CT scan if we did perform an upper endoscopy. Otherwise, he denies any blood per rectum or melena. Objective - Vital Signs/Intake and Output Vital Signs (last 24 hours): Temp Pulse Resp BP Pulse Ox 98.0 F 56 L 19 132/57 L 95 05/21/18 12:00 05/21/18 12:00 05/21/18 12:00 05/21/18 12:00 05/21/18 06:00 Intake and Output: 05/21/18 05/21/18 06:59 18:59 Intake Total 1280 Output Total 4 Balance 1276 - Medications Medications: Current Medications Albuterol Sulfate (Albuterol 0.083% Inhal Honey (2.5 Mg/3 Ml) Ud) 2.5 mg IH [id number] PRN PRN Reason: Wheezing Last Admin: 05/21/18 03:07 Dose: 2.5 mg Alprazolam (Xanax) 0.25 mg PO TID PRN; Protocol PRN Reason: Anxiety Stop: 05/25/18 10:01 Last Admin: 05/21/18 02:40 Dose: 0.25 mg Amlodipine Besylate (Norvasc) 10 mg PO DAILY [facility] Last Admin: 05/21/18 09:19 Dose: 10 mg Aspirin (Ecotrin) 81 mg PO DAILY [facility] Last Admin: 05/21/18 09:19 Dose: 81 mg Cadexomer Iodine (Iodosorb) 0 gm TOP DAILY [facility] Last Admin: 05/21/18 11:37 Dose: 10 gm Cyanocobalamin (Vitamin B12 100 Mcg Tab) 100 mcg PO DAILY [facility] Last Admin: 05/21/18 09:19 Dose: 100 mcg Enoxaparin Sodium (Lovenox) 30 mg SC DAILY [facility] PRN Reason: Protocol Last Admin: 05/21/18 09:17 Dose: 30 mg Famotidine (Pepcid) 20 mg PO HS [facility] Last Admin: 05/20/18 22:06 Dose: 20 mg Folic Acid (Folic Acid) 1 mg PO DAILY [facility] Last Admin: 05/21/18 09:19 Dose: 1 mg Furosemide (Lasix) 40 mg IVP DAILY [facility] Last Admin: 05/21/18 09:17 Dose: 40 mg Furosemide (Lasix) 40 mg IVP ONCE ONE Stop: 05/21/18 16:01 Furosemide (Lasix) 40 mg IVP ONCE ONE Stop: 05/22/18 08:01 Hydralazine HCl (Apresoline) 50 mg PO TID [facility] Last Admin: 05/21/18 09:19 Dose: 50 mg Insulin Human Regular (Humulin R Med) 0 units SC ACHS [facility] PRN Reason: Protocol Last Admin: 05/21/18 11:37 Dose: 3 units Labetalol HCl (Trandate) 50 mg PO Q6H PRN PRN Reason: hypertension Last Admin: 05/18/18 06:07 Dose: 50 mg Metoprolol Tartrate (Lopressor) 50 mg PO BRKDIN [facility] Last Admin: 05/21/18 08:24 Dose: 50 mg Pioglitazone HCl (Actos) 30 mg PO DAILY [facility] Last Admin: 05/21/18 09:18 Dose: 30 mg - Labs Labs: 05/21/18 05:25 05/21/18 05:25 PT 12.3 SECONDS (9.4-12.5) 05/17/18 18:15 INR 1.08 05/17/18 18:15 APTT 27.7 Seconds (25.1-36.5) 05/17/18 18:15 - Constitutional Appears: Confused - Head Exam Head Exam: ATRAUMATIC, NORMOCEPHALIC - Eye Exam Additional comments: conjuctival pallor - ENT Exam ENT Exam: Mucous Membranes Moist - Neck Exam Neck Exam: Normal Inspection - Respiratory Exam Respiratory Exam: absent: Accessory Muscle Use - Cardiovascular Exam Cardiovascular Exam: RRR, +S1, +S2 - GI/Abdominal Exam GI & Abdominal Exam: Soft, Normal Bowel Sounds. absent: Tenderness, Rebound - Neurological Exam Neurological Exam: Awake, Oriented x3 - Psychiatric Exam Psychiatric exam: Normal Affect, Normal Mood - Skin Skin Exam: Pallor Assessment and Plan - Assessment and Plan (Free Text) Assessment: 52 year old male with a past medical history of poorly controlled DMII with recent right 2nd and left 5th toe amputations who presented to the hospital from outpatient rehab center for anemia. Patient's hemoglobin has trended down and his kidney function is worsening. Yesterday, he refused CT of the abdomen and pelvis with PO contrast (only), but today he agreed to it. We will follow up with the CT but invariably will perform an upper endoscopy tomorrow in the afternoon. The patient is to have a clear liquid diet for breakfast tomorrow and then to remain NPO for the upper endoscopy. <Amauri Kign V - Last Filed: 05/21/18 21:57> Objective - Vital Signs/Intake and Output Vital Signs (last 24 hours): Temp Pulse Resp BP Pulse Ox 98.5 F 72 20 148/79 96 05/21/18 17:36 05/21/18 18:01 05/21/18 17:36 05/21/18 17:36 05/21/18 08:00 Intake and Output: 05/21/18 05/22/18 18:59 06:59 Intake Total 0 3580 Output Total 1600 Balance 0 1980 - Medications Medications: Current Medications Albuterol Sulfate (Albuterol 0.083% Inhal Honey (2.5 Mg/3 Ml) Ud) 2.5 mg IH [id number] PRN PRN Reason: Wheezing Last Admin: 05/21/18 03:07 Dose: 2.5 mg Alprazolam (Xanax) 0.25 mg PO TID PRN; Protocol PRN Reason: Anxiety Stop: 05/25/18 10:01 Last Admin: 05/21/18 02:40 Dose: 0.25 mg Amlodipine Besylate (Norvasc) 10 mg PO DAILY [facility] Last Admin: 05/21/18 09:19 Dose: 10 mg Aspirin (Ecotrin) 81 mg PO DAILY [facility] Last Admin: 05/21/18 09:19 Dose: 81 mg Cadexomer Iodine (Iodosorb) 0 gm TOP DAILY [facility] Last Admin: 05/21/18 11:37 Dose: 10 gm Cyanocobalamin (Vitamin B12 100 Mcg Tab) 100 mcg PO DAILY [facility] Last Admin: 05/21/18 09:19 Dose: 100 mcg Enoxaparin Sodium (Lovenox) 30 mg SC DAILY [facility] PRN Reason: Protocol Last Admin: 05/21/18 09:17 Dose: 30 mg Famotidine (Pepcid) 20 mg PO HS [facility] Last Admin: 05/21/18 21:47 Dose: 20 mg Folic Acid (Folic Acid) 1 mg PO DAILY [facility] Last Admin: 05/21/18 09:19 Dose: 1 mg Furosemide (Lasix) 40 mg IVP DAILY [facility] Last Admin: 05/21/18 09:17 Dose: 40 mg Furosemide (Lasix) 40 mg IVP ONCE ONE Stop: 05/22/18 08:01 Hydralazine HCl (Apresoline) 50 mg PO TID [facility] Last Admin: 05/21/18 17:20 Dose: 50 mg Insulin Human Regular (Humulin R Med) 0 units SC ACHS [facility] PRN Reason: Protocol Last Admin: 05/21/18 17:19 Dose: 1 units Labetalol HCl (Trandate) 50 mg PO Q6H PRN PRN Reason: hypertension Last Admin: 05/18/18 06:07 Dose: 50 mg Metoprolol Tartrate (Lopressor) 50 mg PO BRKDIN [facility] Last Admin: 05/21/18 17:20 Dose: 50 mg Pioglitazone HCl (Actos) 30 mg PO DAILY [facility] Last Admin: 05/21/18 09:18 Dose: 30 mg - Labs Labs: 05/21/18 05:25 05/21/18 05:25 PT 12.3 SECONDS (9.4-12.5) 05/17/18 18:15 INR 1.08 05/17/18 18:15 APTT 27.7 Seconds (25.1-36.5) 05/17/18 18:15 Attending/Attestation - Attestation I have personally seen and examined this patient.: Yes I have fully participated in the care of the patient.: Yes I have reviewed all pertinent clinical information, including history, physical exam and plan: Yes Notes (Text): This is an addendum to GI followup report dictated by the Process Maintenance Technician. The patient was seen and evaluated earlier. Medical records, lab studies, imagings were reviewed. Last 24 hours events reviewed. Agreed with the above treatment plan as outlined in Process Maintenance Technician 's notes with the addition of the following I did discuss with the patient again at length Patient is now agreeable for CT scan and also for endoscopy We will order CT of the abdomen and pelvis with only po contrast and schedule him for an EGD tomorrow Follow-up hemoglobin hematocrit Discussed with the nursing staff 05/21/18 21:55
--- NOTE | 2018-05-21 14:19 | PN ---
Copied To: Donna Hudson MD Attending MD: Donna Hudson MD DATE: 05/21/2018 REASON FOR THE CONSULTATION: Follow up cardiac evaluation, diabetes, anemia, uncontrolled hypertension, status post left toe amputation. Patient denies any chest pain, denies any shortness of breath, denies any palpitations. OBJECTIVE: GENERAL: Not in apparent distress. Sitting at the bedside. VITAL SIGNS: Temperature afebrile, heart rate 60, blood pressure 124/64. HEENT: Eyes: PERRLA. Extraocular muscles intact. NECK: Supple. No carotid bruits or thyromegaly. CHEST: Clear to auscultation. HEART: S1, S2 regular. ABDOMEN: Soft. EXTREMITIES: Clubbing, cyanosis negative. LABORATORY DATA: Blood workup: WBC 6.7, hemoglobin 7.2, hematocrit 21.5, platelet count 128. Chemistry shows sodium 140, potassium 4.7, chloride 107, carbon dioxide 23, anion gap 15, BUN 42, creatinine 2.1. TSH 2.22. Total cholesterol 116, triglycerides 78, LDL 16, HDL 49. IMPRESSION: A 52-year-old male obese with past medical history significant for diabetes, hypertension, hyperlipidemia, status post toe amputation of fifth toe and right second toe amputation, admitted with severe anemia, hemoglobin . Patient's hemoglobin is now 7. Blood pressure is also uncontrolled on admission, now significantly improved. Patient had echocardiography done on admission that revealed concentric left ventricular hypertrophy and normal left ventricular function. Ejection fraction within normal limits. Mild tricuspid regurgitation, right ventricular systolic pressure 44, trace mitral regurgitation. RECOMMENDATIONS: Aggressive control of blood pressure, monitor H and H, continue GI workup. Once the hemoglobin made remained stable around 10, suggested stress test as outpatient for risk stratification because the patient has diabetes and hypertension. We will discontinue Telemetry. Donna Hudson MD
[2018-05-21] MEDS ORDERED: Iohexol 240 (50 ml) ONE (16:46)
--- NOTE | 2018-05-21 18:21 | PN ---
Copied To: Gume Sneed MD Attending MD: Gume Sneed MD. DATE: 05/21/2018 SUBJECTIVE: The patient is currently comfortable, lying in bed. He is more anemic and will be receiving 1 unit of packed red blood cells and a second unit tomorrow. The patient has a slight bump up in his creatinine with BUNs remaining stable in the 40 range. He continues on diuretic therapy for his lower extremity edema and for his history of CHF. 24-hour urines were done and the patient has a creatinine clearance of 40 ml per minute with 4.745 g of protein in the urine. The patient states he is going down for an abdominal CT scan. MEDICATIONS: Medication list reviewed. The patient is currently on Actos, albuterol, hydralazine, Ecotrin, folic acid, insulin, Lasix, Lopressor, Lovenox, Norvasc, Pepcid, Trandate, vitamin B12 and Xanax. OBJECTIVE: INTAKE/OUTPUT: Intake is 1280, output is not charted. Weights have remained stable during the hospitalization, 266 - 267. VITAL SIGNS: Blood pressure 124/68, pulse 65, temperature 98, respiratory rate 19. HEENT: Shows him to be normocephalic, atraumatic. Conjunctivae remain pale. Sclerae are nonicteric. NECK: Supple. No neck vein distention. CHEST: Clear to auscultation and percussion with no rales, rhonchi or wheezing. CARDIOVASCULAR: Shows a regular rate and rhythm. No audible murmurs. The patient does have MR and TR and echocardiogram. No S3, no S4, no rub. ABDOMEN: Soft. Obese. Bowel sounds normal. No rebound, guarding or masses. EXTREMITIES: Show trace to 1+ pitting edema of his ankles bilaterally. He has toe amputations on both the left and right foot. LABORATORY DATA AND IMAGING: CBC: White blood cell count today 6.7, hemoglobin 7.2 with a platelet count of 128,000. The patient is agreeable to receive transfusions today to try and bring the hemoglobin up into the 9-10 range. Chemistry showed normal electrolytes. BUN 42, stable. Creatinine is higher at 2.1. This is up from 1.9 with a baseline creatinine in the 1.6-1.8 range. 24-hour urines done showed a creatinine clearance of 40 mL per minute consistent with chronic kidney disease stage 3 and urine protein of 4.745 g. Microbiology: All cultures were negative. Blood cultures negative at 72 hours. Urine cultures are negative. Blood bank: The patient will receive 1 unit of packed red blood cells today. A second unit will be given tomorrow. ASSESSMENT: 1. Chronic kidney disease stage 3. Hyperkalemia has resolved. The patient must remain off an angiotensin receptor talia at this time. Renal ultrasound was unremarkable. 24-hour urines show significant proteinuria at 4.745 g consistent with nephrotic range proteinuria. All likelihood, this is secondary to diabetes. A screening workup for proteinuria can be done in the outpatient setting when we see the patient in the office, I will not order it at this point in time in the hospital. 2. History of anemia. The patient had requested that we order a B12, folate level. These values were normal. Iron saturations were normal. He had received 1 unit of packed red blood cells and will receive an additional 2 units of packed red blood cells. 3. History of edema and history of congestive heart failure. The patient will continue on diuretic therapy. This is likely elevating his BUN and creatinine further. 4. History of CKD with the need for renal followup in the outpatient setting. He may have a followup with either myself or my partner, Dr. Bello. 5. Communicated with the patient the results of his 24-hour urines and his renal ultrasound. 6. The patient should have a screening workup in the outpatient setting. This will include complement values, serum protein electrophoresis, hepatitis screening, TSERING, ANCA screening, rheumatoid factor and cryoglobulins. I will not order these at this point in time as in all likelihood the patient will be discharged prior to these results coming back. 7. Follow accurate inputs and outputs and daily weights. The patient has not lost any weight according to the weights charted on the chart. Gume Sneed MD [place]
--- NOTE | 2018-05-21 18:52 | CP.PCM.PN ---
Subjective - Date & Time of Evaluation Date of Evaluation: 05/21/18 Time of Evaluation: 09:50 - Subjective Subjective: Afebrile, not in distress. Objective - Vital Signs/Intake and Output Vital Signs (last 24 hours): Temp Pulse Resp BP Pulse Ox 98.2 F 60 16 155/78 H 95 05/21/18 06:00 05/21/18 08:24 05/21/18 06:00 05/21/18 08:24 05/21/18 06:00 Intake and Output: 05/21/18 05/21/18 06:59 18:59 Intake Total 1280 Output Total 4 Balance 1276 - Medications Medications: Current Medications Albuterol Sulfate (Albuterol 0.083% Inhal Honey (2.5 Mg/3 Ml) Ud) 2.5 mg IH [id number] PRN PRN Reason: Wheezing Last Admin: 05/21/18 03:07 Dose: 2.5 mg Alprazolam (Xanax) 0.25 mg PO TID PRN; Protocol PRN Reason: Anxiety Stop: 05/25/18 10:01 Last Admin: 05/21/18 02:40 Dose: 0.25 mg Amlodipine Besylate (Norvasc) 10 mg PO DAILY [facility] Last Admin: 05/20/18 12:32 Dose: 10 mg Aspirin (Ecotrin) 81 mg PO DAILY [facility] Last Admin: 05/20/18 12:33 Dose: 81 mg Cadexomer Iodine (Iodosorb) 0 gm TOP DAILY [facility] Cyanocobalamin (Vitamin B12 100 Mcg Tab) 100 mcg PO DAILY [facility] Last Admin: 05/20/18 12:33 Dose: 100 mcg Enoxaparin Sodium (Lovenox) 30 mg SC DAILY [facility] PRN Reason: Protocol Last Admin: 05/20/18 12:31 Dose: 30 mg Famotidine (Pepcid) 20 mg PO HS [facility] Last Admin: 05/20/18 22:06 Dose: 20 mg Folic Acid (Folic Acid) 1 mg PO DAILY [facility] Last Admin: 05/20/18 12:33 Dose: 1 mg Furosemide (Lasix) 40 mg IVP DAILY [facility] Last Admin: 05/20/18 12:44 Dose: 40 mg Hydralazine HCl (Apresoline) 50 mg PO TID [facility] Last Admin: 05/20/18 18:06 Dose: 50 mg Insulin Human Regular (Humulin R Med) 0 units SC ACHS [facility] PRN Reason: Protocol Last Admin: 05/21/18 08:25 Dose: 1 units Labetalol HCl (Trandate) 50 mg PO Q6H PRN PRN Reason: hypertension Last Admin: 05/18/18 06:07 Dose: 50 mg Metoprolol Tartrate (Lopressor) 50 mg PO BRKDIN [facility] Last Admin: 05/21/18 08:24 Dose: 50 mg Pioglitazone HCl (Actos) 30 mg PO DAILY [facility] Last Admin: 05/20/18 12:32 Dose: 30 mg - Labs Labs: 05/21/18 05:25 05/21/18 05:25 PT 12.3 SECONDS (9.4-12.5) 05/17/18 18:15 INR 1.08 05/17/18 18:15 APTT 27.7 Seconds (25.1-36.5) 05/17/18 18:15 - Constitutional Appears: Chronically Ill - Head Exam Head Exam: NORMAL INSPECTION - Respiratory Exam Respiratory Exam: Decreased Breath Sounds - Cardiovascular Exam Cardiovascular Exam: +S1, +S2 - GI/Abdominal Exam GI & Abdominal Exam: Soft. 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 Colon to catch if he develops another infection
--- NOTE | 2018-05-22 07:45 | PN ---
Copied To: David Harvey MD Attending MD: David Harvey MD DATE: 05/22/2018 PULMONARY NOTE SUBJECTIVE: The patient appears very comfortable this morning. He is not short of breath at rest. PHYSICAL EXAMINATION: VITAL SIGNS: Temperature is 97.9, pulse 66, respirations 19, blood pressure 152/74. Oxygen saturation on nasal cannula is 98%. HEENT: Normocephalic, atraumatic. No JVD. CARDIOVASCULAR: Positive S1, S2. No S3 gallop. LUNGS: Minimal crackles at the bases. No rhonchi. No wheezing. EXTREMITIES: Less edema in the lower extremities. There is no cyanosis or clubbing. Calves are nontender to palpation. GI: Abdomen is soft, nontender and nondistended. Bowel sounds are positive. SKIN: No acute rash. NEUROLOGIC: Limited at the present time. IMPRESSION: 1. Fluid retention with pulmonary edema - resolving. 2. Renal insufficiency. 3. Anemia. 4. Diabetes mellitus. 5. History of osteomyelitis. PLAN: The patient appears very comfortable this morning. He is not short of breath at rest. He does state to feeling much better overall. On physical exam, there is no significant bronchospasm noted. In addition, there is no significant alveolar-arterial gradient. I will continue with the current nebulizer treatments on a p.r.n. basis. I did note the last chest x-ray in yesterday's assessment. It was definitely improved. Inputs by Renal and GI are also noted. Clinical status of the patient is significantly improved - compared to his initial presentation. I will discuss the above with Dr. Sood. David Harvey MD MTDDai
[2018-05-22 07:58] LABS: MEAN CELL VOLUME 82.8 fl (80.0-105.0); MEAN CORPUSCULAR HEMOGLOBIN 27.5 pg (25.0-35.0); MEAN CORPUSCULAR HGB CONC 33.2 g/dl (31.0-37.0); MEAN PLATELET VOLUME 10.5 fl (7.0-11.0); RBC 2.91 10^6/uL (3.5-6.1); RED CELL DISTRIBUTION WIDTH 17.7 % (11.5-14.5); WHITE BLOOD COUNT 8.1 10^3/ul (4.5-11.0)
[2018-05-22 08:15] LABS: ALB/GLOB RATIO 1.2 (1.1-1.8); ALBUMIN 3.3 g/dL (3.0-4.8); CALCIUM 8.4 mg/dL (8.4-10.5)
[2018-05-22] MEDS: Insulin Reg-MEDIUM-Coverage SC SCH ×4 (08:23→22:27)
--- NOTE | 2018-05-22 08:45 | CT ---
Date of service: 05/21/2018 PROCEDURE: CT Abdomen and Pelvis with contrast HISTORY: r/o GI bleed COMPARISON: None. TECHNIQUE: Contrast dose: Oral contrast only. Radiation dose: Total exam DLP = 1654.13 mGy-cm. This CT exam was performed using one or more of the following dose reduction techniques: Automated exposure control, adjustment of the mA and/or kV according to patient size, and/or use of iterative reconstruction technique. FINDINGS: LOWER THORAX: Bilateral pleural effusions right larger than left. Associated compressive atelectasis. LIVER: Unremarkable. No gross lesion or ductal dilatation. GALLBLADDER AND BILE DUCTS: Unremarkable. PANCREAS: Unremarkable. No gross lesion or ductal dilatation. SPLEEN: Unremarkable. ADRENALS: Unremarkable. No mass. KIDNEYS AND URETERS: Unremarkable. No hydronephrosis. No solid mass. VASCULATURE: Unremarkable. No aortic aneurysm. BOWEL: Unremarkable. No obstruction. No gross mural thickening. APPENDIX: Normal appendix. PERITONEUM: Trace perihepatic fluid identified. . No free air. LYMPH NODES: Unremarkable. No enlarged lymph nodes. BLADDER: Unremarkable. REPRODUCTIVE: Unremarkable. BONES: No acute fracture. OTHER FINDINGS: Cutaneous and subcutaneous edema/ anasarca. IMPRESSION: No acute findings related to/accounting for the clinical presentation. Additional benign and/or incidental findings described above. Concordant results (preliminary interpretation) provided by [facility]. Procedure Completed: 23:46. Preliminary ([facility]) Report: Dictated and Authenticated: 00:28. Final Interpretation: 08:43. May 22, 2018.
[2018-05-22] MEDS: Enoxaparin 30 mg Syringe SC SCH (10:06)
--- NOTE | 2018-05-22 10:08 | CP.PCM.PN ---
<Bart Toth - Last Filed: 05/22/18 10:05> Subjective - Date & Time of Evaluation Date of Evaluation: 05/22/18 Time of Evaluation: 10:05 - Subjective Subjective: Podiatry Progress Note for Dr. Colon 52M seen at bedside for left foot ulceration secondary to 5th partial ray resection (DOS 03/28/18). Patient is AAO x 3 and NAD, resting comfortably in bed. Patient is seen receiving one unit of PRBC. Patient states that he has minimal pain to his amputation site when walking. He states that he has been walking in a surgical shoe at all times. Denies any acute overnight events. Denies any other pedal complaints at this time. Denies any recent N/V/F/C/CP/SOB /D/posterior calf pain when squeezed. Objective - Vital Signs/Intake and Output Vital Signs (last 24 hours): Temp Pulse Resp BP Pulse Ox 98.1 F 67 18 148/67 98 05/22/18 09:35 05/22/18 09:57 05/22/18 09:35 05/22/18 09:59 05/22/18 06:00 Intake and Output: 05/22/18 05/22/18 06:59 18:59 Intake Total 3760 0 Output Total 1600 Balance 2160 0 - Medications Medications: Current Medications Albuterol Sulfate (Albuterol 0.083% Inhal Honey (2.5 Mg/3 Ml) Ud) 2.5 mg IH [id number] PRN PRN Reason: Wheezing Last Admin: 05/21/18 03:07 Dose: 2.5 mg Alprazolam (Xanax) 0.25 mg PO TID PRN; Protocol PRN Reason: Anxiety Stop: 05/25/18 10:01 Last Admin: 05/21/18 22:54 Dose: 0.25 mg Amlodipine Besylate (Norvasc) 10 mg PO DAILY [facility] Last Admin: 05/22/18 09:59 Dose: 10 mg Aspirin (Ecotrin) 81 mg PO DAILY [facility] Last Admin: 05/22/18 09:59 Dose: 81 mg Cadexomer Iodine (Iodosorb) 0 gm TOP DAILY [facility] Last Admin: 05/21/18 11:37 Dose: 10 gm Cyanocobalamin (Vitamin B12 100 Mcg Tab) 100 mcg PO DAILY [facility] Last Admin: 05/21/18 09:19 Dose: 100 mcg Enoxaparin Sodium (Lovenox) 30 mg SC DAILY [facility] PRN Reason: Protocol Last Admin: 05/21/18 09:17 Dose: 30 mg Famotidine (Pepcid) 20 mg PO HS [facility] Last Admin: 05/21/18 21:47 Dose: 20 mg Folic Acid (Folic Acid) 1 mg PO DAILY [facility] Last Admin: 05/22/18 10:00 Dose: 1 mg Furosemide (Lasix) 40 mg IVP DAILY [facility] Last Admin: 05/21/18 09:17 Dose: 40 mg Hydralazine HCl (Apresoline) 50 mg PO TID [facility] Last Admin: 05/22/18 09:57 Dose: 50 mg Insulin Human Regular (Humulin R Med) 0 units SC ACHS [facility] PRN Reason: Protocol Last Admin: 05/22/18 08:23 Dose: 3 units Labetalol HCl (Trandate) 50 mg PO Q6H PRN PRN Reason: hypertension Last Admin: 05/18/18 06:07 Dose: 50 mg Metoprolol Tartrate (Lopressor) 50 mg PO BRKDIN [facility] Last Admin: 05/22/18 08:23 Dose: 50 mg Pioglitazone HCl (Actos) 30 mg PO DAILY [facility] Last Admin: 05/22/18 09:57 Dose: 30 mg - Labs Labs: 05/22/18 07:30 05/22/18 07:30 PT 12.3 SECONDS (9.4-12.5) 05/17/18 18:15 INR 1.08 05/17/18 18:15 APTT 27.7 Seconds (25.1-36.5) 05/17/18 18:15 - Constitutional Appears: Well, Non-toxic, No Acute Distress - Extremities Exam Additional comments: LLE focused exam: VASC: DP and PT 2/4 bilaterally, CFT delayed x8 digits, temperature gradient warm to cool from proximal to distal b/l, +1 pitting edema to b/l LE ORTHO: No tenderness with palpation to left foot surrounding ulceration, completely healed partial amputated right 2nd digit, MM is 4/5 in all four compartments: dorsiflexion, plantarflexion, eversion, and inverion NEURO: gross sensation intact, protective sensation diminished to LE b/l DERM: full thickness ulceration on dorsal aspect of left amputated 5th MPJ area. Wound base is mainly granular. Minimal serous drainage No purulence, no malodor, no tunneling, no tracking, no erythema, no streaking, no probe to bone or tendon, no other clinical signs of infection. Wound base measures approximately 1.0 cm x 1cm x .2cm - Neurological Exam Neurological Exam: Alert, Awake, Oriented x3 - Psychiatric Exam Psychiatric exam: Normal Affect, Normal Mood Assessment and Plan - Assessment and Plan (Free Text) Assessment: 52M seen at bedside for left foot ulceration secondary to 5th partial ray resection (DOS 03/28/18) Plan: Patient seen and evaluated Plan discussed with attending Dr. Colon Afebrile, absent leukocytosis Wound dressed with iodosorb, optifoam No plan for further surgical intervention at this time Patient stable from podiatric standpoint Podiatry will continue to follow while patient in house <Loreto Colon - Last Filed: 06/16/18 18:18> Objective - Vital Signs/Intake and Output Vital Signs (last 24 hours): Temp Pulse Resp BP Pulse Ox 97.1 F L 59 L 19 136/62 94 L 05/26/18 12:00 05/26/18 12:00 05/26/18 12:00 05/26/18 12:00 05/26/18 06:00 - Labs Labs: 05/25/18 06:00 05/25/18 06:00 PT 12.5 SECONDS (9.4-12.5) 05/23/18 05:30 INR 1.09 05/23/18 05:30 APTT 27.7 Seconds (25.1-36.5) 05/17/18 18:15 Attending/Attestation - Attestation I have personally seen and examined this patient.: Yes I have fully participated in the care of the patient.: Yes I have reviewed all pertinent clinical information, including history, physical exam and plan: Yes
[2018-05-22] MEDS: CADEXOMER IODINE 0.9% GEL 10G TOP SCH (10:36)
--- NOTE | 2018-05-22 12:01 | CP.PCM.PN ---
<Emma Aquino - Last Filed: 05/22/18 17:48> Subjective - Date & Time of Evaluation Date of Evaluation: 05/22/18 Time of Evaluation: 07:30 - Subjective Subjective: Emma Aquino DO, PGY-2: Progress Note for Dr. King Patient was seen and examined at bedside. Patient was scheduled for upper endoscopy in the afternoon for concerns of a GI bleed; however, given that he was administered Lovenox 30 mg SC and Aspirin 81 mg PO at 10:00 this morning, it was decided to perform the Upper Endoscopy for tomorrow. This was discussed with the patient. The patient's aspirin and Lovenox will be given after the procedure, unless otherwise indicated. He is also NPO after midnight. Patient does not endorse any abdominal pain, nausea, vomiting, or diarrhea. Objective - Vital Signs/Intake and Output Vital Signs (last 24 hours): Temp Pulse Resp BP Pulse Ox 98.1 F 67 18 148/67 98 05/22/18 09:35 05/22/18 09:57 05/22/18 09:35 05/22/18 09:59 05/22/18 06:00 Intake and Output: 05/22/18 05/22/18 06:59 18:59 Intake Total 3760 0 Output Total 1600 Balance 2160 0 - Medications Medications: Current Medications Albuterol Sulfate (Albuterol 0.083% Inhal Honey (2.5 Mg/3 Ml) Ud) 2.5 mg IH [id number] PRN PRN Reason: Wheezing Last Admin: 05/21/18 03:07 Dose: 2.5 mg Alprazolam (Xanax) 0.25 mg PO TID PRN; Protocol PRN Reason: Anxiety Stop: 05/25/18 10:01 Last Admin: 05/21/18 22:54 Dose: 0.25 mg Amlodipine Besylate (Norvasc) 10 mg PO DAILY [facility] Last Admin: 05/22/18 09:59 Dose: 10 mg Aspirin (Ecotrin) 81 mg PO DAILY [facility] Last Admin: 05/22/18 09:59 Dose: 81 mg Cadexomer Iodine (Iodosorb) 0 gm TOP DAILY [facility] Last Admin: 05/22/18 10:36 Dose: 10 gm Cyanocobalamin (Vitamin B12 100 Mcg Tab) 100 mcg PO DAILY [facility] Last Admin: 05/22/18 10:06 Dose: 100 mcg Enoxaparin Sodium (Lovenox) 30 mg SC DAILY [facility] PRN Reason: Protocol Last Admin: 05/22/18 10:06 Dose: 30 mg Famotidine (Pepcid) 20 mg PO HS [facility] Last Admin: 05/21/18 21:47 Dose: 20 mg Folic Acid (Folic Acid) 1 mg PO DAILY [facility] Last Admin: 05/22/18 10:00 Dose: 1 mg Furosemide (Lasix) 40 mg IVP DAILY [facility] Last Admin: 05/22/18 10:36 Dose: Not Given Hydralazine HCl (Apresoline) 50 mg PO TID [facility] Last Admin: 05/22/18 09:57 Dose: 50 mg Insulin Human Regular (Humulin R Med) 0 units SC ACHS [facility] PRN Reason: Protocol Last Admin: 05/22/18 08:23 Dose: 3 units Labetalol HCl (Trandate) 50 mg PO Q6H PRN PRN Reason: hypertension Last Admin: 05/18/18 06:07 Dose: 50 mg Metoprolol Tartrate (Lopressor) 50 mg PO BRKDIN [facility] Last Admin: 05/22/18 08:23 Dose: 50 mg Pioglitazone HCl (Actos) 30 mg PO DAILY [facility] Last Admin: 05/22/18 09:57 Dose: 30 mg - Labs Labs: 05/22/18 07:30 05/22/18 07:30 PT 12.3 SECONDS (9.4-12.5) 05/17/18 18:15 INR 1.08 05/17/18 18:15 APTT 27.7 Seconds (25.1-36.5) 05/17/18 18:15 - Constitutional Appears: Non-toxic, No Acute Distress - Head Exam Head Exam: ATRAUMATIC, NORMOCEPHALIC - Eye Exam Eye Exam: EOMI, Normal appearance - ENT Exam ENT Exam: Mucous Membranes Moist - Neck Exam Neck Exam: Normal Inspection - Respiratory Exam Respiratory Exam: NORMAL BREATHING PATTERN. absent: Accessory Muscle Use - Cardiovascular Exam Cardiovascular Exam: RRR, +S1, +S2. absent: Tachycardia - GI/Abdominal Exam GI & Abdominal Exam: Soft. absent: Guarding, Tenderness, Rebound - Extremities Exam Extremities Exam: Normal Inspection - Neurological Exam Neurological Exam: Alert, Awake, Oriented x3 - Psychiatric Exam Psychiatric exam: Normal Affect, Normal Mood - Skin Skin Exam: Dry, Intact, Normal Color, Warm Assessment and Plan - Assessment and Plan (Free Text) Assessment: 52 year old male with a past medical history of poorly controlled DMII with recent right 2nd and left 5th toe amputations who presented to the hospital from outpatient rehab center for anemia. Patient's hemoglobin has been steady around 8. Yesterday, he underwent CT of the abdomen and pelvis with PO contrast that showed bilateral pleural effusions- right larger than left- with associated compressive atelectasis, trace perihepatic fluid identified, no free air, cutaneous and subcutaneous edema/anasarca. His Lovenox and aspirin will be held in the AM and he will be kept NPO after midnight for upper endoscopy in the morning. We will also get an INR to evaluate his hepatic function. Case was reviewed and discussed with attending physician, Dr. King <Amauri King V - Last Filed: 05/22/18 18:13> Objective - Vital Signs/Intake and Output Vital Signs (last 24 hours): Temp Pulse Resp BP Pulse Ox 98 F 61 19 142/68 96 05/22/18 17:46 05/22/18 17:46 05/22/18 17:46 05/22/18 17:46 05/22/18 11:55 Intake and Output: 05/22/18 05/22/18 06:59 18:59 Intake Total 3760 375 Output Total 1600 Balance 2160 375 - Medications Medications: Current Medications Albuterol Sulfate (Albuterol 0.083% Inhal Honey (2.5 Mg/3 Ml) Ud) 2.5 mg IH [id number] PRN PRN Reason: Wheezing Last Admin: 05/21/18 03:07 Dose: 2.5 mg Alprazolam (Xanax) 0.25 mg PO TID PRN; Protocol PRN Reason: Anxiety Stop: 05/25/18 10:01 Last Admin: 05/21/18 22:54 Dose: 0.25 mg Aspirin (Ecotrin) 81 mg PO DAILY [facility] Last Admin: 05/22/18 09:59 Dose: 81 mg Cadexomer Iodine (Iodosorb) 0 gm TOP DAILY [facility] Last Admin: 05/22/18 10:36 Dose: 10 gm Cyanocobalamin (Vitamin B12 100 Mcg Tab) 100 mcg PO DAILY [facility] Last Admin: 05/22/18 10:06 Dose: 100 mcg Enoxaparin Sodium (Lovenox) 30 mg SC DAILY [facility] PRN Reason: Protocol Last Admin: 05/22/18 10:06 Dose: 30 mg Famotidine (Pepcid) 20 mg PO HS [facility] Last Admin: 05/21/18 21:47 Dose: 20 mg Folic Acid (Folic Acid) 1 mg PO DAILY [facility] Last Admin: 05/22/18 10:00 Dose: 1 mg Furosemide (Lasix) 40 mg IVP DAILY [facility] Last Admin: 05/22/18 10:36 Dose: Not Given Hydralazine HCl (Apresoline) 50 mg PO TID [facility] Last Admin: 05/22/18 17:28 Dose: 50 mg Insulin Human Regular (Humulin R Med) 0 units SC ACHS [facility] PRN Reason: Protocol Last Admin: 05/22/18 17:27 Dose: 3 units Labetalol HCl (Trandate) 50 mg PO Q6H PRN PRN Reason: hypertension Last Admin: 05/18/18 06:07 Dose: 50 mg Losartan Potassium (Cozaar) 100 mg PO DAILY [facility] Metoprolol Tartrate (Lopressor) 50 mg PO BRKDIN [facility] Last Admin: 05/22/18 17:27 Dose: 50 mg Pioglitazone HCl (Actos) 30 mg PO DAILY [facility] Last Admin: 05/22/18 09:57 Dose: 30 mg - Labs Labs: 05/22/18 07:30 05/22/18 07:30 PT 12.3 SECONDS (9.4-12.5) 05/17/18 18:15 INR 1.08 05/17/18 18:15 APTT 27.7 Seconds (25.1-36.5) 05/17/18 18:15 Attending/Attestation - Attestation I have personally seen and examined this patient.: Yes I have fully participated in the care of the patient.: Yes I have reviewed all pertinent clinical information, including history, physical exam and plan: Yes Notes (Text): This is an addendum to GI progress report dictated by the Mathematical Sciences Professor.The patient was seen and evaluated earlier. Medical records, lab studies, imagings were reviewed. Last 24 hours events reviewed. Agreed with the above treatment plan as outlined in Mathematical Sciences Professor 's notes with the addition of the following EGD has been rescheduled tomorrow. Patient did receive Lovenox. Patient has been on asp We will hold her Lovenox, can continue baby aspirin Follow-up hemoglobin and hematocrit 06/01 18:12
--- NOTE | 2018-05-22 16:18 | PN ---
Copied To: Donna Kate MD Attending MD: Donna Kate MD DATE: 05/22/2018 LOCATION: The patient is in room 265, bed 2. REASON FOR CONSULTATION AND FOLLOWUP: Anemia, uncontrolled hypertension, status post left toe amputation, diabetes, cardiac evaluation and followup. SUBJECTIVE: The patient is sitting comfortably in bed, getting blood transfusion. Denied any chest pain, shortness of breath or palpitation. PHYSICAL EXAMINATION VITAL SIGNS: Blood pressure 148/67, respirations 18, pulse 63, temperature 98.1. HEENT: Head is normocephalic. Eyes: Pupils normal. Conjunctivae pale. NECK: JVP low. Carotids equal. THORAX: AP diameter normal. LUNGS: Clear. CARDIOVASCULAR: S1 and S2. ABDOMEN: Soft. No tenderness, no organomegaly. Bowel sounds normal. EXTREMITIES: No clubbing, no cyanosis. LABORATORY DATA: WBC 8.1, hemoglobin 8, hematocrit 24.1, platelets 140. Sodium 140, potassium 4.7, BUN 44, creatinine 2, random sugar 144. Calcium, phosphorous, magnesium are normal. AST, ALT, protein, albumin are normal. IMPRESSION: Severe anemia, diabetes, hypertension, hyperlipidemia, status post toe amputation of fifth toe and right second toe amputation. Echo showed normal left ventricle, concentric left ventricular hypertrophy present, normal left ventricular ejection fraction, normal left ventricle size, mild tricuspid regurgitation, right ventricular systolic pressure 44 suggestive of very mild pulmonary hypertension, trace mitral regurgitation. PLAN: The patient is getting blood transfusion. Clinically, cardiac status is stable. Once the hemoglobin becomes stable at 10,then as outpatient, we can do a stress test. In the meantime, the patient from cardiac point of view, can go for any GI procedure or workup needed. We will continue to monitor the blood pressure and if it stays high, we will adjust the medication. We will follow with you. Donna Kate MD
[2018-05-22] MEDS ORDERED: Darbepoetin Alfa 60 mcg/ml Inj SC ONE (16:35)
--- NOTE | 2018-05-22 17:11 | CP.PCM.PN ---
Subjective - Date & Time of Evaluation Date of Evaluation: 05/22/18 Time of Evaluation: 08:55 - Subjective Subjective: Afebrile, not in distress. Objective - Vital Signs/Intake and Output Vital Signs (last 24 hours): Temp Pulse Resp BP Pulse Ox 98.9 F 72 18 138/74 96 05/21/18 17:36 05/21/18 18:01 05/21/18 17:36 05/21/18 17:36 05/21/18 08:00 Intake and Output: 05/21/18 05/21/18 06:59 18:59 Intake Total 1280 0 Output Total 4 Balance 1276 0 - Medications Medications: Current Medications Albuterol Sulfate (Albuterol 0.083% Inhal Honey (2.5 Mg/3 Ml) Ud) 2.5 mg IH [id number] PRN PRN Reason: Wheezing Last Admin: 05/21/18 03:07 Dose: 2.5 mg Alprazolam (Xanax) 0.25 mg PO TID PRN; Protocol PRN Reason: Anxiety Stop: 05/25/18 10:01 Last Admin: 05/21/18 02:40 Dose: 0.25 mg Amlodipine Besylate (Norvasc) 10 mg PO DAILY [facility] Last Admin: 05/21/18 09:19 Dose: 10 mg Aspirin (Ecotrin) 81 mg PO DAILY [facility] Last Admin: 05/21/18 09:19 Dose: 81 mg Cadexomer Iodine (Iodosorb) 0 gm TOP DAILY [facility] Last Admin: 05/21/18 11:37 Dose: 10 gm Cyanocobalamin (Vitamin B12 100 Mcg Tab) 100 mcg PO DAILY [facility] Last Admin: 05/21/18 09:19 Dose: 100 mcg Enoxaparin Sodium (Lovenox) 30 mg SC DAILY [facility] PRN Reason: Protocol Last Admin: 05/21/18 09:17 Dose: 30 mg Famotidine (Pepcid) 20 mg PO HS [facility] Last Admin: 05/20/18 22:06 Dose: 20 mg Folic Acid (Folic Acid) 1 mg PO DAILY [facility] Last Admin: 05/21/18 09:19 Dose: 1 mg Furosemide (Lasix) 40 mg IVP DAILY [facility] Last Admin: 05/21/18 09:17 Dose: 40 mg Furosemide (Lasix) 40 mg IVP ONCE ONE Stop: 05/22/18 08:01 Hydralazine HCl (Apresoline) 50 mg PO TID [facility] Last Admin: 05/21/18 17:20 Dose: 50 mg Insulin Human Regular (Humulin R Med) 0 units SC ACHS [facility] PRN Reason: Protocol Last Admin: 05/21/18 17:19 Dose: 1 units Labetalol HCl (Trandate) 50 mg PO Q6H PRN PRN Reason: hypertension Last Admin: 05/18/18 06:07 Dose: 50 mg Metoprolol Tartrate (Lopressor) 50 mg PO BRKDIN [facility] Last Admin: 05/21/18 17:20 Dose: 50 mg Pioglitazone HCl (Actos) 30 mg PO DAILY [facility] Last Admin: 05/21/18 09:18 Dose: 30 mg - Labs Labs: 05/21/18 05:25 05/21/18 05:25 PT 12.3 SECONDS (9.4-12.5) 05/17/18 18:15 INR 1.08 05/17/18 18:15 APTT 27.7 Seconds (25.1-36.5) 05/17/18 18:15 - Constitutional Appears: Chronically Ill - Head Exam Head Exam: NORMAL INSPECTION - ENT Exam ENT Exam: Mucous Membranes Moist - Respiratory Exam Respiratory Exam: Decreased Breath Sounds - Cardiovascular Exam Cardiovascular Exam: +S1, +S2 - GI/Abdominal Exam GI & Abdominal Exam: Soft. 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 Colon to catch if he develops another infection as early as possible
--- NOTE | 2018-05-22 20:32 | CP.PCM.PN ---
Subjective - Date & Time of Evaluation Date of Evaluation: 05/22/18 Time of Evaluation: 08:00 - Subjective Subjective: Patient seen this morning in 265 bed 2. He received 1 unit packed red blood cells yesterday for decreasing hemoglobin. Objective - Vital Signs/Intake and Output Vital Signs (last 24 hours): Temp Pulse Resp BP Pulse Ox 98 F 67 19 142/68 96 05/22/18 17:46 05/22/18 18:00 05/22/18 17:46 05/22/18 17:46 05/22/18 11:55 Intake and Output: 05/22/18 05/23/18 18:59 06:59 Intake Total 1350 Output Total 300 Balance 1050 - Medications Medications: Current Medications Albuterol Sulfate (Albuterol 0.083% Inhal Honey (2.5 Mg/3 Ml) Ud) 2.5 mg IH [id number] PRN PRN Reason: Wheezing Last Admin: 05/21/18 03:07 Dose: 2.5 mg Alprazolam (Xanax) 0.25 mg PO TID PRN; Protocol PRN Reason: Anxiety Stop: 05/25/18 10:01 Last Admin: 05/21/18 22:54 Dose: 0.25 mg Aspirin (Ecotrin) 81 mg PO DAILY [facility] Last Admin: 05/22/18 09:59 Dose: 81 mg Cadexomer Iodine (Iodosorb) 0 gm TOP DAILY [facility] Last Admin: 05/22/18 10:36 Dose: 10 gm Cyanocobalamin (Vitamin B12 100 Mcg Tab) 100 mcg PO DAILY [facility] Last Admin: 05/22/18 10:06 Dose: 100 mcg Enoxaparin Sodium (Lovenox) 30 mg SC DAILY [facility] PRN Reason: Protocol Last Admin: 05/22/18 10:06 Dose: 30 mg Famotidine (Pepcid) 20 mg PO HS [facility] Last Admin: 05/21/18 21:47 Dose: 20 mg Folic Acid (Folic Acid) 1 mg PO DAILY [facility] Last Admin: 05/22/18 10:00 Dose: 1 mg Furosemide (Lasix) 40 mg IVP DAILY [facility] Last Admin: 05/22/18 10:36 Dose: Not Given Hydralazine HCl (Apresoline) 50 mg PO TID [facility] Last Admin: 05/22/18 17:28 Dose: 50 mg Insulin Human Regular (Humulin R Med) 0 units SC ACHS [facility] PRN Reason: Protocol Last Admin: 05/22/18 17:27 Dose: 3 units Labetalol HCl (Trandate) 50 mg PO Q6H PRN PRN Reason: hypertension Last Admin: 05/18/18 06:07 Dose: 50 mg Losartan Potassium (Cozaar) 100 mg PO DAILY [facility] Last Admin: 05/22/18 18:16 Dose: 100 mg Metoprolol Tartrate (Lopressor) 50 mg PO BRKDIN [facility] Last Admin: 05/22/18 17:27 Dose: 50 mg Pioglitazone HCl (Actos) 30 mg PO DAILY [facility] Last Admin: 05/22/18 09:57 Dose: 30 mg - Labs Labs: 05/22/18 07:30 05/22/18 07:30 PT 12.3 SECONDS (9.4-12.5) 05/17/18 18:15 INR 1.08 05/17/18 18:15 APTT 27.7 Seconds (25.1-36.5) 05/17/18 18:15 - Constitutional Appears: No Acute Distress - Head Exam Head Exam: ATRAUMATIC, NORMOCEPHALIC - Respiratory Exam Respiratory Exam: Decreased Breath Sounds, Rhonchi, NORMAL BREATHING PATTERN - Cardiovascular Exam Cardiovascular Exam: REGULAR RHYTHM, +S1, +S2 - GI/Abdominal Exam GI & Abdominal Exam: Soft, Normal Bowel Sounds. absent: Tenderness - Extremities Exam Additional comments: s/p left 5th toe amputation and 2nd right toe partial amputation - Neurological Exam Neurological Exam: Alert, Awake, CN II-XII Intact, Oriented x3 Assessment and Plan - Assessment and Plan (Free Text) Assessment: Acute on chronic anemia Chronic kidney disease HTN Diabetes Plan: Patient received 1 unit PRBC yesterday and will receive one today. continue IV Lasix. CT abd/pelvis shows bilateral pleural effusions, continue IV Lasix. He is to have EGD tomorrow. continue accuchecks with sliding scale coverage and Actos for diabetes. Blood pressure reasonably controlled with Losartan, Metoprolol and Hydralazine.
--- NOTE | 2018-05-22 21:07 | PN ---
Copied To: Greer Bello MD Attending MD: Greer Bello MD DATE: 05/22/2018 SUBJECTIVE: The patient is seen sitting in chair. He is awake. He is alert. He is comfortable. He denies any pain. He denies any shortness of breath. He complains of some discomfort in his left foot. PHYSICAL EXAMINATION GENERAL: Young male, sitting in chair. VITAL SIGNS: Blood pressure 137/82, heart rate 65, respiratory rate 18, temperature 98.3. HEENT: Normocephalic, atraumatic, positive pallor. NECK: Supple, no JVD. LUNGS: Bilateral equal air entry, bilateral equal expansion. CARDIAC: S1 and S2, regular rate and rhythm, no murmur, no rub. ABDOMEN: Obese, distended, soft, nontender, bowel sounds present. EXTREMITIES: Dressing of the right foot. INTAKE AND OUTPUT: 3760/1600. LABORATORY DATA: WBC 8, hemoglobin 8, hematocrit 24, platelets 140. Sodium 140, potassium 4.7, chloride 108, CO2 of 23, BUN 44, creatinine 2, glucose 205, calcium 8.4, phosphorus 3.8, magnesium 2.1, albumin 3.3. Creatinine clearance 40. Urine protein 4.7 g. Blood cultures, no growth. Urine culture, no growth. CT of the abdomen and pelvis, bilateral pleural effusions, right greater than left. Kidneys unremarkable. No hydronephrosis. CURRENT MEDICATIONS: Actos, Apresoline 50 t.i.d., Ecotrin, folic acid, insulin, Lasix 40 IV daily, Lopressor 50 b.i.d., Lovenox, amlodipine 10, Pepcid, Xanax. ASSESSMENT: 1. Chronic kidney disease stage III, creatinine has remained stable in the hospital. His creatinine clearance was 40 mL per minute. 2. Diabetic nephropathy with nephrotic range proteinuria. 3. Severe anemia, status post 2 units of PRBCs. 4. Edema, bilateral pleural effusions, congestive heart failure. 5. Non-insulin dependant diabetes mellitus. 6. Hypertension. PLAN: 1. Restart ARB, I will fact put him on losartan 100 mg daily. 2. Discontinue amlodipine since that might be responsible for his edema. 3. Long discussion with the patient regarding importance of normoglycemia and blood pressure control and slowing down progression of kidney disease. 4. Check phosphorus and intact PTH. 5. We will need ESAS as an outpatient. Past medical and surgical history, family history, social history, systems review all reviewed and unchanged unless mentioned as above. Greer Bello MD
[2018-05-23 06:37] LABS: INR 1.09; PROTHROMBIN TIME 12.5 SECONDS (9.4-12.5)
[2018-05-23] MEDS: Insulin Reg-MEDIUM-Coverage SC SCH ×4 (08:09→23:22)
--- NOTE | 2018-05-23 08:09 | PN ---
Copied To: Georges Sood MD Attending MD: Georges Sood MD DATE: 05/23/2018 SUBJECTIVE: The patient is a 52-year-old white male. He is in [facility] in [place], room 265, bed 2. The patient was admitted with uncontrolled hypertension, anemia. The patient had renal insufficiency. He has infection of both of his feet. He had amputation of the left 5th toe and on the right foot partial amputation of the second toe. The right foot wound has healed more or less, but on the left foot, the wound seems to still be open. His antibiotic has been discontinued. PHYSICAL EXAMINATION: VITAL SIGNS: This morning, his pulse is 82, blood pressure 152/74, respirations are 20, O2 sat is 94% on room air, the patient's temperature 98.4. HEENT: On examination, the head is normocephalic. NECK: The thyroid is not enlarged. No masses in the neck. LUNGS: Trachea central. Breath sounds are diminished bilaterally. HEART: Normal sinus rhythm. S1, S2 present. ABDOMEN: Soft. No organ enlargement noted. 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 LABORATORY DATA: The patient's blood work done yesterday showed a hemoglobin of 8. The patient has had total of 3 units of blood since his admission to the [facility]. The patient's platelet count 840,000. His chemistry: His BUN is 44 and creatinine is 2. He is in stage 3 chronic renal insufficiency secondary to hypertension and diabetes mellitus. The patient's blood sugar is elevated to 246. The patient's other chemical parameters are within normal range. MEDICATIONS: The patient's medications list consist of Actos 30 mg daily. The patient is on hydralazine, which is 50 mg daily. The patient is on albuterol inhalation therapy; losartan 100 mg daily, which has been a recently admitted medication. The patient is on aspirin 81 mg daily, folic acid 1 mg daily and insulin coverage. The patient is also getting Lasix 40 mg IV push daily, metoprolol 50 mg daily, Lovenox 30 mg subcutaneously daily for prevention of deep vein thrombosis. The patient is on labetalol 50 mg every 6 hours p.r.n. for elevation of systolic pressure over 160. The patient gets Xanax for anxiety, vitamin B12. The patient is on a heart-healthy, diabetic diet. The patient's CAT scan of the abdomen does not reveal any significant pathology. The patient's chest x-ray showed mild congestive changes. Also, mild pleural effusion. ASSESSMENT AND PLAN: The patient has been evaluated by the Cardiac Service, the Gastroenterological Service, psychiatry teacher, desk pen set assembler, veneer stock layer for the infection on the foot. The patient's clinical condition is showing improvement, but his anemia is sustained. We will continue treatment. We will follow up and make evaluation regarding the low hemoglobin level. We will probably consult a loft rigger to see the patient also. Georges Sood MD MTDD
--- NOTE | 2018-05-23 09:19 | PN ---
Copied To: David Harvey MD Attending MD: David Harvey MD DATE: 05/23/2018 PULMONARY NOTE SUBJECTIVE: The patient appears comfortable this morning. He is not short of breath at rest. PHYSICAL EXAMINATION: VITAL SIGNS: Temperature is 98.4, pulse 82, respirations 18/20, blood pressure 152/74. Oxygen saturation on room air is 94%. HEENT: Normocephalic, atraumatic. No JVD. CARDIOVASCULAR: Positive S1, S2. No S3 gallop. LUNGS: Minimal crackles at the bases. No rhonchi. No wheezing. EXTREMITIES: Mild edema in the lower extremities. No cyanosis or clubbing. Calves are nontender to palpation. GI: Abdomen is soft, nontender and nondistended. Bowel sounds are positive. SKIN: No acute rash. NEUROLOGIC: Limited at the present time. IMPRESSION: 1. Fluid retention with pulmonary edema - resolving. 2. Renal insufficiency. R/O Nephrotic syndrome. 3. Anemia. 4. Diabetes mellitus. 5. History of osteomyelitis. 6. Small bilateral pleural effusions. PLAN: The patient appears very comfortable this morning. He is not short of breath at rest. He does state to feeling much, much better overall. On physical exam, there is no significant bronchospasm noted. In addition, there is no significant alveolar-arterial gradient. I will continue the nebulizer treatments on a p.r.n. basis. The patient did have an abdominal/pelvic CAT scan done on 05/21/2018. On that CAT scan, small bilateral pleural effusions are noted. Inputs by Renal and Cardiology are also noted. The patient remains on intravenous Lasix. GI evaluation is also ongoing. Clinical status of the patient is certainly improved - compared to the initial presentation. I will discuss the above with the attending physician. David Harvey MD MTDD
--- NOTE | 2018-05-23 09:31 | CP.PCM.PN ---
Subjective - Date & Time of Evaluation Date of Evaluation: 05/23/18 Time of Evaluation: 06:30 - Subjective Subjective: Awake, alert, feels better, denies shortness of breath Reason for consultation and follow up: Cardiac evaluation of hypertension and anemia. Seen and examined by me and Dr. Hudson Objective - Vital Signs/Intake and Output Vital Signs (last 24 hours): Temp Pulse Resp BP Pulse Ox 98.4 F 66 20 147/69 94 L 05/23/18 06:00 05/23/18 08:09 05/23/18 06:00 05/23/18 08:09 05/23/18 06:00 Intake and Output: 05/23/18 05/23/18 06:59 18:59 Intake Total 360 Output Total 250 Balance 110 - Medications Medications: Current Medications Albuterol Sulfate (Albuterol 0.083% Inhal Honey (2.5 Mg/3 Ml) Ud) 2.5 mg IH [id number] PRN PRN Reason: Wheezing Last Admin: 05/21/18 03:07 Dose: 2.5 mg Alprazolam (Xanax) 0.25 mg PO TID PRN; Protocol PRN Reason: Anxiety Stop: 05/25/18 10:01 Last Admin: 05/21/18 22:54 Dose: 0.25 mg Aspirin (Ecotrin) 81 mg PO DAILY [facility] Last Admin: 05/22/18 09:59 Dose: 81 mg Cadexomer Iodine (Iodosorb) 0 gm TOP DAILY [facility] Last Admin: 05/22/18 10:36 Dose: 10 gm Cyanocobalamin (Vitamin B12 100 Mcg Tab) 100 mcg PO DAILY [facility] Last Admin: 05/22/18 10:06 Dose: 100 mcg Enoxaparin Sodium (Lovenox) 30 mg SC DAILY [facility] PRN Reason: Protocol Last Admin: 05/22/18 10:06 Dose: 30 mg Famotidine (Pepcid) 20 mg PO HS [facility] Last Admin: 05/22/18 22:26 Dose: 20 mg Folic Acid (Folic Acid) 1 mg PO DAILY [facility] Last Admin: 05/22/18 10:00 Dose: 1 mg Furosemide (Lasix) 40 mg IVP DAILY [facility] Last Admin: 05/22/18 10:36 Dose: Not Given Hydralazine HCl (Apresoline) 50 mg PO TID [facility] Last Admin: 05/22/18 17:28 Dose: 50 mg Insulin Human Regular (Humulin R Med) 0 units SC ACHS [facility] PRN Reason: Protocol Last Admin: 05/23/18 08:09 Dose: Not Given Labetalol HCl (Trandate) 50 mg PO Q6H PRN PRN Reason: hypertension Last Admin: 05/18/18 06:07 Dose: 50 mg Losartan Potassium (Cozaar) 100 mg PO DAILY [facility] Last Admin: 05/22/18 18:16 Dose: 100 mg Metoprolol Tartrate (Lopressor) 50 mg PO BRKDIN [facility] Last Admin: 05/23/18 08:09 Dose: Not Given Pioglitazone HCl (Actos) 30 mg PO DAILY [facility] Last Admin: 05/22/18 09:57 Dose: 30 mg - Labs Labs: 05/22/18 07:30 05/22/18 07:30 PT 12.5 SECONDS (9.4-12.5) 05/23/18 05:30 INR 1.09 05/23/18 05:30 APTT 27.7 Seconds (25.1-36.5) 05/17/18 18:15 - Constitutional Appears: No Acute Distress - Eye Exam Eye Exam: Normal appearance - ENT Exam ENT Exam: Mucous Membranes Moist - Respiratory Exam Respiratory Exam: Decreased Breath Sounds, NORMAL BREATHING PATTERN Additional comments: crackles at bases - Cardiovascular Exam Cardiovascular Exam: REGULAR RHYTHM, +S1, +S2 - GI/Abdominal Exam GI & Abdominal Exam: Soft, Normal Bowel Sounds - Extremities Exam Extremities Exam: Full ROM Additional comments: 1-2+ edema - Neurological Exam Neurological Exam: Alert, Awake, Oriented x3 - Psychiatric Exam Psychiatric exam: Normal Affect - Skin Skin Exam: Dry, Warm Assessment and Plan - Assessment and Plan (Free Text) Assessment: A 52 year old male who was sent to the ER by PMD due to low hemoglobin (7.8). History of hypertension and diabetes mellitus. Recently had toe amputation and was in [facility] for rehab and IV antibiotics. He had 1 unit PRBC blood transfusion. GI on consult for evaluation of anemia. Plan: For EGD today Stable cardiac status Controlled heart rate and blood pressure Hemoglobin 8.0 /24.1 hematocrit post transfusion On ASA 81 mg daily,Lasix 40 mg daily, Apresoline 50 mg TID, Cozaar 100 mg daily,Lopressor 50 mg BID ASA and Lovenox on hold for the procedure Continue current medications Continue current treatment Will follow up Plan and treatment discussed with Dr. Hudson
[2018-05-23 10:02] LABS: BASO # 0.02 K/mm3 (0.0-2.0); BASO % 0.3 % (0.0-3.0); EOS # 0.3 (0.0-0.7); EOS % 3.5 % (1.5-5.0); GRAN # 5.03 (1.4-6.5); GRAN % 64.2 % (50.0-68.0); HEMOGLOBIN 8.7 g/dL (14.0-18.0); LYMPH # 1.2 (1.2-3.4); LYMPH % 15.1 % (22.0-35.0); MEAN CELL VOLUME 84.2 fl (80.0-105.0); MEAN CORPUSCULAR HGB CONC 33.2 g/dl (31.0-37.0); MEAN PLATELET VOLUME 11.3 fl (7.0-11.0); MONO # 1.3 (0.1-0.6); MONO % 16.9 % (1.0-6.0); RBC 3.11 10^6/uL (3.5-6.1); RED CELL DISTRIBUTION WIDTH 18.4 % (11.5-14.5); WHITE BLOOD COUNT 7.8 10^3/ul (4.5-11.0)
[2018-05-23 10:06] LABS: ALB/GLOB RATIO 1.1 (1.1-1.8); ALBUMIN 3.1 g/dL (3.0-4.8); CALCIUM 8.4 mg/dL (8.4-10.5)
[2018-05-23] MEDS ORDERED: Propofol 10 mg/ml Inj (20 ML) ONE (11:02)
[2018-05-23] MEDS ORDERED: Sodium Chloride 0.9% 1,000 ML IV SCH (11:30)
--- NOTE | 2018-05-23 11:52 | CP.PCM.PCO ---
Physician Communication Note - Physician Communication Note Physician Communication Note: patient to resume lovenox and aspirin starting Sunday 10:00 and also to maury Additional Comments - Additional Comments Additional Comments: start low, dose PPI, i.e. 20 mg Protonix PO, for Martinez's Esophagus. Further details to come in endoscopy report.
--- NOTE | 2018-05-23 12:05 | CP.PCM.PN ---
Subjective - Date & Time of Evaluation Date of Evaluation: 05/23/18 Time of Evaluation: 09:15 - Subjective Subjective: No fevers, not in distress. Objective - Vital Signs/Intake and Output Vital Signs (last 24 hours): Temp Pulse Resp BP Pulse Ox 98.3 F 66 18 137/82 96 05/22/18 12:00 05/22/18 14:02 05/22/18 12:00 05/22/18 14:02 05/22/18 11:55 Intake and Output: 05/22/18 05/22/18 06:59 18:59 Intake Total 3760 375 Output Total 1600 Balance 2160 375 - Medications Medications: Current Medications Albuterol Sulfate (Albuterol 0.083% Inhal Honey (2.5 Mg/3 Ml) Ud) 2.5 mg IH [id number] PRN PRN Reason: Wheezing Last Admin: 05/21/18 03:07 Dose: 2.5 mg Alprazolam (Xanax) 0.25 mg PO TID PRN; Protocol PRN Reason: Anxiety Stop: 05/25/18 10:01 Last Admin: 05/21/18 22:54 Dose: 0.25 mg Aspirin (Ecotrin) 81 mg PO DAILY [facility] Last Admin: 05/22/18 09:59 Dose: 81 mg Cadexomer Iodine (Iodosorb) 0 gm TOP DAILY [facility] Last Admin: 05/22/18 10:36 Dose: 10 gm Cyanocobalamin (Vitamin B12 100 Mcg Tab) 100 mcg PO DAILY [facility] Last Admin: 05/22/18 10:06 Dose: 100 mcg Enoxaparin Sodium (Lovenox) 30 mg SC DAILY [facility] PRN Reason: Protocol Last Admin: 05/22/18 10:06 Dose: 30 mg Famotidine (Pepcid) 20 mg PO HS [facility] Last Admin: 05/21/18 21:47 Dose: 20 mg Folic Acid (Folic Acid) 1 mg PO DAILY [facility] Last Admin: 05/22/18 10:00 Dose: 1 mg Furosemide (Lasix) 40 mg IVP DAILY [facility] Last Admin: 05/22/18 10:36 Dose: Not Given Hydralazine HCl (Apresoline) 50 mg PO TID [facility] Last Admin: 05/22/18 14:02 Dose: 50 mg Insulin Human Regular (Humulin R Med) 0 units SC ACHS [facility] PRN Reason: Protocol Last Admin: 05/22/18 12:01 Dose: Not Given Labetalol HCl (Trandate) 50 mg PO Q6H PRN PRN Reason: hypertension Last Admin: 05/18/18 06:07 Dose: 50 mg Losartan Potassium (Cozaar) 100 mg PO DAILY [facility] Metoprolol Tartrate (Lopressor) 50 mg PO BRKDIN [facility] Last Admin: 05/22/18 08:23 Dose: 50 mg Pioglitazone HCl (Actos) 30 mg PO DAILY [facility] Last Admin: 05/22/18 09:57 Dose: 30 mg - Labs Labs: 05/22/18 07:30 05/22/18 07:30 PT 12.3 SECONDS (9.4-12.5) 05/17/18 18:15 INR 1.08 05/17/18 18:15 APTT 27.7 Seconds (25.1-36.5) 05/17/18 18:15 - Constitutional Appears: Non-toxic, Chronically Ill - Head Exam Head Exam: NORMAL INSPECTION - Respiratory Exam Respiratory Exam: Decreased Breath Sounds - Cardiovascular Exam Cardiovascular Exam: +S1, +S2 - GI/Abdominal Exam GI & Abdominal Exam: Soft. absent: Tenderness Assessment and Plan - Assessment and Plan (Free Text) Plan: Assessment S/P 5th ray amputation for left 5th digit skin and skin structure infection with osteomyelitis, and also had osteomyelitis of 2nd digit S/P amputation grew MSSA and Group B Strep and was on Zyvox for about 2 months DM obesity with BMI 32 Plan continue to monitor off antibiotics - he has had enough antibiotics for the osteomyelitis patient should continue following up at the wound care center with Dr. Colon to catch if he develops another infection as early as possible
[2018-05-23] MEDS: CADEXOMER IODINE 0.9% GEL 10G TOP SCH (14:00)
--- NOTE | 2018-05-23 15:25 | PN ---
Copied To: Greer Bello MD Attending MD: Greer Bello MD DATE: 05/23/2018 SUBJECTIVE: The patient is seen in the PACU. He just underwent upper endoscopy. There was no active bleeding found. He feels okay. He denies any chest pain. Denies any shortness of breath. PHYSICAL EXAMINATION: GENERAL: Middle-aged male lying in bed in the PACU. VITAL SIGNS: Blood pressure 153/57, heart rate 70, respiratory rate 24, temperature 98.4. HEENT: Normocephalic, atraumatic, positive pallor. NECK: Supple, no JVD. LUNGS: Bilateral equal air entry, bilateral equal expansion. CARDIAC: S1 and S2, regular rate and rhythm, no murmur, no rub. ABDOMEN: Obese, distended, soft, nontender, bowel sounds present. EXTREMITIES: 2+ pitting edema of the lower extremities. INTAKE AND OUTPUT: 1710/550. LABORATORY DATA: WBC 7.8, hemoglobin 8.7, hematocrit 26, platelets 165. Sodium 140, potassium 4.9, chloride 109, CO2 of 21, BUN 51, creatinine 2.2, glucose 263, calcium 8.4, phosphorus 4, magnesium 2, albumin 3.1. Blood culture and urine culture, no growth. CURRENT MEDICATIONS: Pioglitazone 30 mg daily, Proventil, Apresoline 50 t.i.d., Cozaar 100, Ecotrin 81, Lasix 40 IV daily, Lopressor 50 b.i.d., Lovenox, Pepcid, Protonix, normal saline at 100, Trandate, Xanax. ASSESSMENT: 1. Stable chronic kidney disease stage 3. 2. Diabetic nephropathy with nephrotic proteinuria. 3. Anemia of chronic kidney disease. 4. Severe uncontrolled diabetes. 5. Hypertension. 6. Congestive heart failure/cardiomyopathy/volume overload/bilateral pleural effusions/edema. PLAN: 1. Continue IV Lasix. 2. Continue losartan 100 mg daily. 3. Monitor urine output, keep O's greater than I's. 4. Will require LAW as outpatient. Greer Bello MD [facility] # [id number]
[2018-05-24] MEDS ORDERED: Benzocaine/Menthol (Cepacol) Lozenge MT ONE (01:14)
[2018-05-24] MEDS: Pantoprazole 20 mg EC Tab PO SCH (05:59)
[2018-05-24] MEDS: Insulin Reg-MEDIUM-Coverage SC SCH ×4 (07:53→21:57)
--- NOTE | 2018-05-24 07:56 | CP.PCM.PN ---
Subjective - Date & Time of Evaluation Date of Evaluation: 05/24/18 Time of Evaluation: 06:40 - Subjective Subjective: leg swelling,awake, alert, feels better, denies shortness of breath Reason for consultation and follow up: Cardiac evaluation of hypertension and anemia. Seen and examined by me and Dr. Hudson Objective - Vital Signs/Intake and Output Vital Signs (last 24 hours): Temp Pulse Resp BP Pulse Ox 98.4 F 74 20 160/79 H 96 05/24/18 06:00 05/24/18 07:53 05/24/18 06:00 05/24/18 07:53 05/24/18 06:00 Intake and Output: 05/24/18 05/24/18 06:59 18:59 Intake Total 900 Output Total 1400 Balance -500 - Medications Medications: Current Medications Albuterol Sulfate (Albuterol 0.083% Inhal Honey (2.5 Mg/3 Ml) Ud) 2.5 mg IH [id number] PRN PRN Reason: Wheezing Last Admin: 05/21/18 03:07 Dose: 2.5 mg Alprazolam (Xanax) 0.25 mg PO TID PRN; Protocol PRN Reason: Anxiety Stop: 05/25/18 10:01 Last Admin: 05/21/18 22:54 Dose: 0.25 mg Aspirin (Ecotrin) 81 mg PO DAILY [facility] Last Admin: 05/22/18 09:59 Dose: 81 mg Cadexomer Iodine (Iodosorb) 0 gm TOP DAILY [facility] Last Admin: 05/23/18 14:00 Dose: 10 gm Cyanocobalamin (Vitamin B12 100 Mcg Tab) 100 mcg PO DAILY [facility] Last Admin: 05/23/18 09:32 Dose: Not Given Enoxaparin Sodium (Lovenox) 30 mg SC DAILY [facility] PRN Reason: Protocol Last Admin: 05/22/18 10:06 Dose: 30 mg Famotidine (Pepcid) 20 mg PO HS [facility] Last Admin: 05/23/18 22:07 Dose: 20 mg Folic Acid (Folic Acid) 1 mg PO DAILY [facility] Last Admin: 05/23/18 09:32 Dose: Not Given Furosemide (Lasix) 40 mg IVP BID [facility] Last Admin: 05/23/18 18:16 Dose: 40 mg Furosemide (Lasix) 40 mg IVP ONCE ONE Stop: 05/24/18 07:54 Hydralazine HCl (Apresoline) 50 mg PO TID [facility] Last Admin: 05/23/18 18:16 Dose: 50 mg Insulin Human Regular (Humulin R Med) 0 units SC ACHS [facility] PRN Reason: Protocol Last Admin: 05/24/18 07:53 Dose: 7 units Labetalol HCl (Trandate) 50 mg PO Q6H PRN PRN Reason: hypertension Last Admin: 05/24/18 00:30 Dose: 50 mg Losartan Potassium (Cozaar) 100 mg PO DAILY [facility] Last Admin: 05/23/18 09:32 Dose: Not Given Metolazone (Zaroxolyn) 5 mg PO DAILY [facility] Metoprolol Tartrate (Lopressor) 50 mg PO BRKDIN [facility] Last Admin: 05/24/18 07:53 Dose: 50 mg Pantoprazole Sodium (Protonix Ec Tab) 20 mg PO 0600 [facility] Last Admin: 05/24/18 05:59 Dose: 20 mg Pioglitazone HCl (Actos) 30 mg PO DAILY [facility] Last Admin: 05/23/18 09:31 Dose: Not Given - Labs Labs: 05/23/18 06:30 05/23/18 06:30 PT 12.5 SECONDS (9.4-12.5) 05/23/18 05:30 INR 1.09 05/23/18 05:30 APTT 27.7 Seconds (25.1-36.5) 05/17/18 18:15 - Constitutional Appears: No Acute Distress - Eye Exam Eye Exam: Normal appearance - ENT Exam ENT Exam: Mucous Membranes Moist - Respiratory Exam Respiratory Exam: Decreased Breath Sounds, NORMAL BREATHING PATTERN - Cardiovascular Exam Cardiovascular Exam: REGULAR RHYTHM, +S1, +S2 - GI/Abdominal Exam GI & Abdominal Exam: Soft, Normal Bowel Sounds - Extremities Exam Additional comments: 3-4+ leg edema left foot dressing - Neurological Exam Neurological Exam: Alert, Awake, Oriented x3 - Psychiatric Exam Psychiatric exam: Normal Affect - Skin Skin Exam: Dry, Warm Assessment and Plan - Assessment and Plan (Free Text) Assessment: A 52 year old male who was sent to the ER by PMD due to low hemoglobin (7.8). History of hypertension and diabetes mellitus. Recently had toe amputation and was in [facility] for rehab and IV antibiotics. He had 1 unit PRBC blood transfusion. GI on consult for evaluation of anemia.Post EGD yesterday- gastritis,duodenitis. Plan: Post EGD yesterday Stable cardiac status Controlled heart rate and blood pressure Hemoglobin 8.0 /24.1 hematocrit post transfusion On ASA 81 mg daily,Lasix 40 mg daily, Apresoline 50 mg TID, Cozaar 100 mg daily,Lopressor 50 mg BID ASA and Lovenox on hold for the procedure 3-4+ leg edema, will give extra dose of Lasix 40 mg IVP today Will start on Zaroxolyn 5 mg daily Restart ASA and Lovenox Continue current medications Continue current treatment Will follow up Plan and treatment discussed with Dr. Hudson
[2018-05-24 08:23] LABS: BASO # 0.01 K/mm3 (0.0-2.0); BASO % 0.1 % (0.0-3.0); EOS # 0.2 (0.0-0.7); EOS % 3.2 % (1.5-5.0); GRAN # 4.9 (1.4-6.5); GRAN % 67.1 % (50.0-68.0); HEMOGLOBIN 8.8 g/dL (14.0-18.0); LYMPH # 1.3 (1.2-3.4); LYMPH % 18.1 % (22.0-35.0); MEAN CELL VOLUME 85.5 fl (80.0-105.0); MEAN CORPUSCULAR HEMOGLOBIN 27.7 pg (25.0-35.0); MEAN CORPUSCULAR HGB CONC 32.4 g/dl (31.0-37.0); MEAN PLATELET VOLUME 11.2 fl (7.0-11.0); MONO # 0.8 (0.1-0.6); MONO % 11.5 % (1.0-6.0); RBC 3.18 10^6/uL (3.5-6.1); RED CELL DISTRIBUTION WIDTH 18.7 % (11.5-14.5); WHITE BLOOD COUNT 7.3 10^3/ul (4.5-11.0)
--- NOTE | 2018-05-24 08:24 | PN ---
Copied To: David Harvey MD Attending MD: David Harvey MD DATE: 05/24/2018 PULMONARY NOTE SUBJECTIVE: The patient appears comfortable this morning. He is not short of breath at rest. OBJECTIVE: VITAL SIGNS: Temperature is 98.4, pulse 74, respirations 18, blood pressure 160/79. Oxygen saturation on nasal cannula is 96%. HEENT: Normocephalic, atraumatic. No JVD. CARDIOVASCULAR: Positive S1, S2. No S3 gallop. LUNGS: Minimal crackles at the bases; otherwise, clear. EXTREMITIES: Less edema is noted in the lower extremities. No cyanosis or clubbing. Calves are nontender to palpation. GI: Abdomen is soft, nontender and nondistended. Bowel sounds are positive. SKIN: No acute rash. NEUROLOGIC: Exam limited at the present time. IMPRESSION: 1. Fluid retention with pulmonary edema - resolving. 2. Renal insufficiency. Rule out nephrotic syndrome. 3. Anemia. 4. Diabetes mellitus. 5. History of osteomyelitis. 6. Small bilateral pleural effusions. PLAN: The patient appears very comfortable this morning. He is not short of breath at rest. He does state to feeling much better overall. On physical exam, there is no significant bronchospasm noted. In addition, there is no significant alveolar-arterial gradient. I will continue with the current nebulizer treatments on a p.r.n. basis.. Inputs by Cardiology and Renal are noted. The patient is now on intravenous Lasix twice daily. Clinical status of the patient is certainly improved - compared to the initial presentation. The small bilateral pleural effusions are probably secondary to nephrotic syndrome, and/or cardiac dysfunction. As stated in the prior assessments, the repeat chest x-ray was much improved. The overall status/prognosis for this patient does remain somewhat guarded. I will discuss the above with the attending physician. David Harvey MD MTDDai
[2018-05-24 08:52] LABS: ALB/GLOB RATIO 1.2 (1.1-1.8); ALBUMIN 3.4 g/dL (3.0-4.8); CALCIUM 8.4 mg/dL (8.4-10.5)
--- NOTE | 2018-05-24 10:06 | PN ---
Copied To: Greer Bello MD Attending MD: Greer Bello MD DATE: 05/24/2018 SUBJECTIVE: The patient is seen lying in bed. He is awake. He is alert. He does not appear to be in any kind of acute distress. PHYSICAL EXAMINATION: VITAL SIGNS: Blood pressure 160/79, heart rate 74, respiratory rate 20, temperature 98.4. HEENT: Normocephalic, atraumatic, positive pallor. NECK: Supple, no JVD. LUNGS: Bilateral equal air entry, decreased breath sounds at the bases. CARDIAC: S1 and S2, regular rate and rhythm, no murmur, no rub. ABDOMEN: Obese, distended, soft, nontender, bowel sounds present. EXTREMITIES: 3+ pitting edema of the lower extremities. INTAKE AND OUTPUT: 900/1700. LABORATORY DATA: WBC 7, hemoglobin 8.8, hematocrit 27, platelets 166. Sodium 142, potassium 4.5, chloride 110, CO2 of 23, BUN 45, creatinine 2.1, glucose 263, calcium 8.4, albumin 3.4. CURRENT MEDICATIONS: Actos, Apresoline, Cozaar 100, Ecotrin 81, folic acid, Lasix 40 IV b.i.d., Lopressor 50 b.i.d., Lovenox, Pepcid, Protonix, Trandate 50 every 6 p.r.n., Xanax, Zaroxolyn. ASSESSMENT AND PLAN: 1. Chronic kidney disease stage 3, creatinine clearance 40 mL/minute. 2. Nephrotic range proteinuria, diabetic nephropathy. 3. Poorly-controlled diabetes. 4. Severe hypertension. 5. Severe anemia, upper endoscopy negative, largely anemia of chronic kidney disease. 6. ? secondary hyperparathyroidism. PLAN: 1. Stay off amlodipine, perhaps contributing to edema. 2. Continue losartan 100 mg daily for renal protection and proteinuria. 3. Add Coreg 3.125 b.i.d. 4. Continue to diurese. 5. Agree with Zaroxolyn for the next 24-48 hours to help diurese. 6. Intensified glycemic control to achieve euglycemia. 7. High risk for micro and macrovascular complications of diabetes. Greer Bello MD
--- NOTE | 2018-05-24 10:42 | CP.PCM.PN ---
<Emma Aquino - Last Filed: 05/24/18 16:49> Subjective - Date & Time of Evaluation Date of Evaluation: 05/24/18 Time of Evaluation: 07:20 - Subjective Subjective: Emma Aquino DO, PGY-2: GI Progress Note for Dr. King Patient was seen and examined at bedside. He denies any abdominal pain, nausea, vomiting, or diarrhea. He is tolerating his diet fine. We requested for a AMARIS to review his colonoscopy that was performed at [facility]. Objective - Vital Signs/Intake and Output Vital Signs (last 24 hours): Temp Pulse Resp BP Pulse Ox 98.4 F 74 20 160/79 H 96 05/24/18 06:00 05/24/18 07:53 05/24/18 06:00 05/24/18 08:02 05/24/18 06:00 Intake and Output: 05/24/18 05/24/18 06:59 18:59 Intake Total 900 Output Total 1400 Balance -500 - Medications Medications: Current Medications Albuterol Sulfate (Albuterol 0.083% Inhal Honey (2.5 Mg/3 Ml) Ud) 2.5 mg IH [id number] PRN PRN Reason: Wheezing Last Admin: 05/21/18 03:07 Dose: 2.5 mg Alprazolam (Xanax) 0.25 mg PO TID PRN; Protocol PRN Reason: Anxiety Stop: 05/25/18 10:01 Last Admin: 05/21/18 22:54 Dose: 0.25 mg Aspirin (Ecotrin) 81 mg PO DAILY [facility] Last Admin: 05/22/18 09:59 Dose: 81 mg Cadexomer Iodine (Iodosorb) 0 gm TOP DAILY [facility] Last Admin: 05/23/18 14:00 Dose: 10 gm Carvedilol (Coreg) 3.125 mg PO BID [facility] Cyanocobalamin (Vitamin B12 100 Mcg Tab) 100 mcg PO DAILY [facility] Last Admin: 05/23/18 09:32 Dose: Not Given Enoxaparin Sodium (Lovenox) 30 mg SC DAILY [facility] PRN Reason: Protocol Last Admin: 05/22/18 10:06 Dose: 30 mg Famotidine (Pepcid) 20 mg PO HS [facility] Last Admin: 05/23/18 22:07 Dose: 20 mg Folic Acid (Folic Acid) 1 mg PO DAILY [facility] Last Admin: 05/23/18 09:32 Dose: Not Given Furosemide (Lasix) 40 mg IVP BID [facility] Last Admin: 05/23/18 18:16 Dose: 40 mg Hydralazine HCl (Apresoline) 50 mg PO TID [facility] Last Admin: 05/23/18 18:16 Dose: 50 mg Insulin Human Regular (Humulin R Med) 0 units SC ACHS [facility] PRN Reason: Protocol Last Admin: 05/24/18 07:53 Dose: 7 units Labetalol HCl (Trandate) 50 mg PO Q6H PRN PRN Reason: hypertension Last Admin: 05/24/18 00:30 Dose: 50 mg Losartan Potassium (Cozaar) 100 mg PO DAILY [facility] Last Admin: 05/23/18 09:32 Dose: Not Given Metolazone (Zaroxolyn) 5 mg PO DAILY [facility] Stop: 05/25/18 23:59 Metoprolol Tartrate (Lopressor) 50 mg PO BRKDIN [facility] Last Admin: 05/24/18 07:53 Dose: 50 mg Pantoprazole Sodium (Protonix Ec Tab) 20 mg PO 0600 [facility] Last Admin: 05/24/18 05:59 Dose: 20 mg Pioglitazone HCl (Actos) 30 mg PO DAILY [facility] Last Admin: 05/23/18 09:31 Dose: Not Given - Labs Labs: 05/24/18 07:30 05/24/18 07:50 PT 12.5 SECONDS (9.4-12.5) 05/23/18 05:30 INR 1.09 05/23/18 05:30 APTT 27.7 Seconds (25.1-36.5) 05/17/18 18:15 - Constitutional Appears: Non-toxic, No Acute Distress - Head Exam Head Exam: ATRAUMATIC, NORMOCEPHALIC - Eye Exam Eye Exam: EOMI, Normal appearance - ENT Exam ENT Exam: Mucous Membranes Moist - Neck Exam Neck Exam: Normal Inspection - Respiratory Exam Respiratory Exam: Clear to Ausculation Bilateral, NORMAL BREATHING PATTERN. absent: Accessory Muscle Use - Cardiovascular Exam Cardiovascular Exam: absent: Tachycardia - GI/Abdominal Exam GI & Abdominal Exam: Soft, Normal Bowel Sounds. absent: Tenderness, Rebound - Extremities Exam Extremities Exam: absent: Calf Tenderness - Neurological Exam Neurological Exam: Alert, Awake, Oriented x3 - Psychiatric Exam Psychiatric exam: Normal Affect, Normal Mood - Skin Skin Exam: Dry, Intact, Normal Color, Warm Assessment and Plan - Assessment and Plan (Free Text) Assessment: 52 year old male with a past medical history of poorly controlled DMII with recent right 2nd and left 5th toe amputations who presented to the hospital from outpatient rehab center for anemia. Stool was positive for occult blood though the patient was on oral iron. 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 We have requested for the patient to fill out a AMARIS to obtain his colonoscopy that was performed at [facility]. He is stable from a GI perspective and should remain on am 20 mg dose of Protonix for three months for his Martinez's esophagus. Endoscopy report with final impression and recommendations is to follow. Case was reviewed and discussed with attending physician, Dr. King <Amauri King V - Last Filed: 05/24/18 22:01> Objective - Vital Signs/Intake and Output Vital Signs (last 24 hours): Temp Pulse Resp BP Pulse Ox 97.8 F 60 18 158/73 H 96 05/24/18 17:29 05/24/18 18:16 05/24/18 17:29 05/24/18 18:15 05/24/18 06:00 Intake and Output: 05/24/18 05/25/18 18:59 06:59 Intake Total 1080 Output Total 1200 Balance -120 - Medications Medications: Current Medications Albuterol Sulfate (Albuterol 0.083% Inhal Honey (2.5 Mg/3 Ml) Ud) 2.5 mg IH [id number] PRN PRN Reason: Wheezing Last Admin: 05/21/18 03:07 Dose: 2.5 mg Alprazolam (Xanax) 0.25 mg PO TID PRN; Protocol PRN Reason: Anxiety Stop: 05/25/18 10:01 Last Admin: 05/21/18 22:54 Dose: 0.25 mg Aspirin (Ecotrin) 81 mg PO DAILY [facility] Last Admin: 05/24/18 15:32 Dose: 81 mg Benzocaine/Menthol (Cepacol Sore Throat) 1 nathen MT Q2H PRN PRN Reason: Sore Throat Last Admin: 05/24/18 16:01 Dose: 1 nathen Cadexomer Iodine (Iodosorb) 0 gm TOP DAILY [facility] Last Admin: 05/24/18 15:33 Dose: 10 gm Carvedilol (Coreg) 3.125 mg PO BID [facility] Last Admin: 05/24/18 18:15 Dose: 3.125 mg Cyanocobalamin (Vitamin B12 100 Mcg Tab) 100 mcg PO DAILY [facility] Last Admin: 05/24/18 15:32 Dose: 100 mcg Enoxaparin Sodium (Lovenox) 30 mg SC DAILY [facility] PRN Reason: Protocol Last Admin: 05/24/18 15:33 Dose: 30 mg Famotidine (Pepcid) 20 mg PO HS [facility] Last Admin: 05/23/18 22:07 Dose: 20 mg Folic Acid (Folic Acid) 1 mg PO DAILY [facility] Last Admin: 05/24/18 15:32 Dose: 1 mg Furosemide (Lasix) 40 mg IVP BID [facility] Last Admin: 05/24/18 18:14 Dose: 40 mg Hydralazine HCl (Apresoline) 50 mg PO TID [facility] Last Admin: 05/24/18 18:14 Dose: 50 mg Insulin Human Regular (Humulin R Med) 0 units SC [facility] PRN Reason: Protocol Last Admin: 05/24/18 21:57 Dose: Not Given Labetalol HCl (Trandate) 50 mg PO Q6H PRN PRN Reason: hypertension Last Admin: 05/24/18 00:30 Dose: 50 mg Lactulose (Enulose) 10 gm PO TID [facility] Last Admin: 05/24/18 18:15 Dose: 10 gm Losartan Potassium (Cozaar) 100 mg PO DAILY [facility] Last Admin: 05/24/18 15:32 Dose: 100 mg Metolazone (Zaroxolyn) 5 mg PO DAILY [facility] Stop: 05/25/18 23:59 Last Admin: 05/24/18 15:32 Dose: 5 mg Metoprolol Tartrate (Lopressor) 50 mg PO BRKDIN [facility] Last Admin: 05/24/18 18:16 Dose: Not Given Pantoprazole Sodium (Protonix Ec Tab) 20 mg PO 0600 [facility] Last Admin: 05/24/18 05:59 Dose: 20 mg Pioglitazone HCl (Actos) 30 mg PO DAILY [facility] Last Admin: 05/24/18 15:32 Dose: 30 mg - Labs Labs: 05/24/18 07:30 05/24/18 07:50 PT 12.5 SECONDS (9.4-12.5) 05/23/18 05:30 INR 1.09 05/23/18 05:30 APTT 27.7 Seconds (25.1-36.5) 05/17/18 18:15 Attending/Attestation - Attestation I have personally seen and examined this patient.: Yes I have fully participated in the care of the patient.: Yes I have reviewed all pertinent clinical information, including history, physical exam and plan: Yes Notes (Text): This is an addendum to GI followup report dictated by the Ore Puncher. The patient was seen and evaluated earlier. Medical records, lab studies, imagings were reviewed. Last 24 hours events reviewed. Agreed with the above treatment plan as outlined in Ore Puncher 's notes with the addition of the following dw PCP earlier awaing for coloscopy report from [facility] 05/24/18 21:57
--- NOTE | 2018-05-24 12:18 | CP.PCM.PN ---
Subjective - Date & Time of Evaluation Date of Evaluation: 05/24/18 Time of Evaluation: 09:40 - Subjective Subjective: Comfortable, afebrile. Objective - Vital Signs/Intake and Output Vital Signs (last 24 hours): Temp Pulse Resp BP Pulse Ox 98.4 F 77 20 175/76 H 97 05/23/18 11:43 05/23/18 11:43 05/23/18 11:43 05/23/18 11:43 05/23/18 11:43 Intake and Output: 05/23/18 05/23/18 06:59 18:59 Intake Total 360 Output Total 250 Balance 110 - Medications Medications: Current Medications Albuterol Sulfate (Albuterol 0.083% Inhal Honey (2.5 Mg/3 Ml) Ud) 2.5 mg IH [id number] PRN PRN Reason: Wheezing Last Admin: 05/21/18 03:07 Dose: 2.5 mg Alprazolam (Xanax) 0.25 mg PO TID PRN; Protocol PRN Reason: Anxiety Stop: 05/25/18 10:01 Last Admin: 05/21/18 22:54 Dose: 0.25 mg Aspirin (Ecotrin) 81 mg PO DAILY [facility] Last Admin: 05/22/18 09:59 Dose: 81 mg Cadexomer Iodine (Iodosorb) 0 gm TOP DAILY [facility] Last Admin: 05/22/18 10:36 Dose: 10 gm Cyanocobalamin (Vitamin B12 100 Mcg Tab) 100 mcg PO DAILY [facility] Last Admin: 05/23/18 09:32 Dose: Not Given Enoxaparin Sodium (Lovenox) 30 mg SC DAILY [facility] PRN Reason: Protocol Last Admin: 05/22/18 10:06 Dose: 30 mg Famotidine (Pepcid) 20 mg PO HS [facility] Last Admin: 05/22/18 22:26 Dose: 20 mg Folic Acid (Folic Acid) 1 mg PO DAILY [facility] Last Admin: 05/23/18 09:32 Dose: Not Given Furosemide (Lasix) 40 mg IVP DAILY [facility] Last Admin: 05/22/18 10:36 Dose: Not Given Hydralazine HCl (Apresoline) 50 mg PO TID [facility] Last Admin: 05/23/18 09:31 Dose: Not Given Sodium Chloride (Sodium Chloride 0.9%) 1,000 mls @ 100 mls/hr IV .Q10H [facility] Insulin Human Regular (Humulin R Med) 0 units SC ACHS [facility] PRN Reason: Protocol Last Admin: 05/23/18 08:09 Dose: Not Given Labetalol HCl (Trandate) 50 mg PO Q6H PRN PRN Reason: hypertension Last Admin: 05/18/18 06:07 Dose: 50 mg Losartan Potassium (Cozaar) 100 mg PO DAILY [facility] Last Admin: 05/23/18 09:32 Dose: Not Given Metoprolol Tartrate (Lopressor) 50 mg PO BRKDIN [facility] Last Admin: 05/23/18 08:09 Dose: Not Given Pantoprazole Sodium (Protonix Ec Tab) 20 mg PO 0600 [facility] Pioglitazone HCl (Actos) 30 mg PO DAILY [facility] Last Admin: 05/23/18 09:31 Dose: Not Given - Labs Labs: 05/23/18 06:30 05/23/18 06:30 PT 12.5 SECONDS (9.4-12.5) 05/23/18 05:30 INR 1.09 05/23/18 05:30 APTT 27.7 Seconds (25.1-36.5) 05/17/18 18:15 - Constitutional Appears: Chronically Ill - Head Exam Head Exam: NORMAL INSPECTION - ENT Exam ENT Exam: Mucous Membranes Moist - Neck Exam Neck Exam: absent: Meningismus - Respiratory Exam Respiratory Exam: Decreased Breath Sounds - Cardiovascular Exam Cardiovascular Exam: +S1, +S2 - GI/Abdominal Exam GI & Abdominal Exam: Soft. absent: Tenderness Assessment and Plan - Assessment and Plan (Free Text) Plan: Assessment S/P 5th ray amputation for left 5th digit skin and skin structure infection with osteomyelitis, and also had osteomyelitis of 2nd digit S/P amputation grew MSSA and Group B Strep and was on Zyvox for about 8 weeks DM obesity with BMI 32 Plan continue to monitor off antibiotics - he has had enough antibiotics for the osteomyelitis patient should continue following up at the wound care center with Dr. Colon to catch if he develops another infection as early as possible
--- NOTE | 2018-05-24 12:22 | CON ---
Copied To: Jadyn Casas MD Attending MD: Jadyn Casas MD DATE: 05/24/2018 CONSULT REQUESTED BY: Deysi Sood MD. REASON FOR CONSULTATION: Anemia. HISTORY OF PRESENT ILLNESS: Mr. Coulter is a 52-year-old male, admitted to the hospital with severe anemia. Hemoglobin was 7.6. He has received 3 units of blood transfusion since admission. The last blood transfusion was on 05/22/2018. He has history of recent toe amputation and was admitted to [facility] for rehab after amputation. Denies any shortness of breath. No cough. No fever. No bleeding from any site. CT chest, abdomen and pelvis done during hospitalization was unremarkable. He underwent EGD, which showed duodenitis and gastritis. He has diabetes mellitus type 2, not controlled with current medications. He also has chronic kidney disease. Creatinine elevated to 2.2. Medical record on [facility] was reviewed. He had severe iron deficiency in 03/2018 with blood iron of 16. Iron level was high during this admission at 126. Might be related to blood transfusions. Ferritin is pending as of yesterday. Also, renal functions have deteriorated in the past 2 months. Previous creatinine was 1.8. He is complaining of a lot of fluid retention, swelling of both lower extremities. shortness of breath walking short distance. PAST MEDICAL HISTORY: Hypertension, diabetes mellitus type 2, chronic anemia. PAST SURGICAL HISTORY: Amputation of the toes. FAMILY HISTORY: Noncontributory. PERSONAL HISTORY: Never smoked. No history of alcohol abuse. ALLERGIES: TO PENICILLIN. HOME MEDICATIONS: Ascorbic acid, Lovenox, Lasix, Actos, hydralazine. REVIEW OF SYSTEMS: As per HPI. Rest of 12-point review of systems reviewed negative. PHYSICAL EXAMINATION: GENERAL: Comfortable in bed, in no acute distress. VITAL SIGNS: Temperature 98.5, heart rate 80 per minute, respiratory rate 18 per minute, blood pressure 170/80, pulse ox is 97% on room air. HEENT: Pallor positive. NECK: No lymphadenopathy. CHEST: Air entry present and equal bilateral. No added sound. CARDIOVASCULAR: S1, S2 normal. No murmur. No gallop. ABDOMEN: Soft, nontender. Slightly distended. EXTREMITIES: Bilateral 1+ edema. SKIN: No petechiae. No rash. LABORATORY DATA: Hemoglobin 8.8, on admission 7.6; hematocrit 27, previously 22; platelet count of 166; white count 7.3. Sodium 142, potassium 4.5, creatinine 2.1, iron 126, iron saturation 44%, ferritin pending. LFTs within normal limits. B12, folate levels are normal 345. Creatinine 2.1. ASSESSMENT: 1. Anemia. 2. Chronic kidney disease. 3. Peripheral vascular disease. 4. Diabetes mellitus type 2. 5. Hypertension. PLAN: 1. Anemia; Multifactorial - iron defificency, CKD, anemia of chronic disease. Lowest hemoglobin was 7.2. He received 3 units of blood transfusion since hospitalization . Creatinine elevated to 2.2. Renal functions deteriorated in past 2 months. Ferritin is pending. Iron levels were high at 126. Might be erroneously high due to blood transfusion. We will repeat the iron studies. In March 2018, the iron was low at 16. He received a dose of Aranesp 60 mcg on 05/22/2018. He will need continuation of erythropoietin support. Also might need correction of blood iron if repeat iron study shows iron deficiency. 2. No evidence of GI bleed. He has gastritis and duodenitis. Might have occult GI bleed leading to iron deficiency. He also might have iron absorption defect due to chronic disease, diabetes mellitus type 2, uncontrolled. 3. Hypertension. Management as per primary team. 4. Recent amputation of the toes. No issues. 5. Pulmonary: He has shortness of breath walking short distances. Chest x-ray done on 05/20/2018 showed vascular congestion. Thank you, Dr. Sood for allowing us to participate in Mr. Coulter's care. Jadyn Casas MD [place]
--- NOTE | 2018-05-24 14:58 | US ---
Date of service: 05/24/2018 HISTORY: elevated alk phos, anasarca COMPARISON: None. TECHNIQUE: Sonographic evaluation of the abdomen. FINDINGS: LIVER: Measures 21.5 cm. Normal echogenicity of the liver parenchyma. No mass. No intrahepatic bile duct dilatation. GALLBLADDER: There is mural thickening and edema of the gallbladder wall measuring 9 mm in thickness. There are no gallstones visualized. This could represent a calculus cholecystitis. COMMON BILE DUCT: Measures 5 mm. No stones. No dilatation. PANCREAS: Unremarkable as visualized. No mass. No ductal dilatation. RIGHT KIDNEY: Measures 11.8 x 6.2 x 7.2cm. Normal echogenicity. No calculus, mass, or hydronephrosis. LEFT KIDNEY: Measures 12.7 x 6.7 x 7.8cm. Normal echogenicity. No calculus, mass, or hydronephrosis. SPLEEN: Normal in size and contour. No mass. 13.9 x 6.7 x 6.2 AORTA: No aneurysmal dilatation. IVC: Unremarkable. OTHER FINDINGS: None. IMPRESSION: Mural thickening and edema of the gallbladder wall without evidence of gallstones.
[2018-05-24] MEDS: metOLazone 5 MG TAB PO SCH (15:32)
[2018-05-24] MEDS: Enoxaparin 30 mg Syringe SC SCH (15:33)
[2018-05-24] MEDS: CADEXOMER IODINE 0.9% GEL 10G TOP SCH (15:33)
[2018-05-24] MEDS: Benzocaine/Menthol (Cepacol) Lozenge MT PRN ×2 (16:01→22:12)
--- NOTE | 2018-05-24 17:53 | CP.PCM.PN ---
<Bart Toth - Last Filed: 05/24/18 17:49> Subjective - Date & Time of Evaluation Date of Evaluation: 05/24/18 Time of Evaluation: 17:50 - Subjective Subjective: Podiatry Progress Note for Dr. Villeda 52M seen at bedside for left foot ulceration secondary to 5th partial ray resection (DOS 03/28/18). Patient is AAO x 3 and NAD, resting comfortably in bed. Patient states that he has minimal pain to his amputation site when walking and that his dressing fell off but was reinforced by nursing. He states that he has been walking in a surgical shoe at all times. Denies any acute overnight events. Denies any other pedal complaints at this time. Denies any recent N/V/F/C/CP/SOB/D/posterior calf pain when squeezed. Objective - Vital Signs/Intake and Output Vital Signs (last 24 hours): Temp Pulse Resp BP Pulse Ox 97.8 F 60 18 135/70 96 05/24/18 17:29 05/24/18 17:29 05/24/18 17:29 05/24/18 17:29 05/24/18 06:00 Intake and Output: 05/24/18 05/24/18 06:59 18:59 Intake Total 900 Output Total 1400 Balance -500 - Medications Medications: Current Medications Albuterol Sulfate (Albuterol 0.083% Inhal Honey (2.5 Mg/3 Ml) Ud) 2.5 mg IH [id number] PRN PRN Reason: Wheezing Last Admin: 05/21/18 03:07 Dose: 2.5 mg Alprazolam (Xanax) 0.25 mg PO TID PRN; Protocol PRN Reason: Anxiety Stop: 05/25/18 10:01 Last Admin: 05/21/18 22:54 Dose: 0.25 mg Aspirin (Ecotrin) 81 mg PO DAILY [facility] Last Admin: 05/24/18 15:32 Dose: 81 mg Benzocaine/Menthol (Cepacol Sore Throat) 1 nathen MT Q2H PRN PRN Reason: Sore Throat Last Admin: 05/24/18 16:01 Dose: 1 nathen Cadexomer Iodine (Iodosorb) 0 gm TOP DAILY [facility] Last Admin: 05/24/18 15:33 Dose: 10 gm Carvedilol (Coreg) 3.125 mg PO BID [facility] Last Admin: 05/24/18 15:17 Dose: Not Given Cyanocobalamin (Vitamin B12 100 Mcg Tab) 100 mcg PO DAILY [facility] Last Admin: 05/24/18 15:32 Dose: 100 mcg Enoxaparin Sodium (Lovenox) 30 mg SC DAILY [facility] PRN Reason: Protocol Last Admin: 05/24/18 15:33 Dose: 30 mg Famotidine (Pepcid) 20 mg PO HS [facility] Last Admin: 05/23/18 22:07 Dose: 20 mg Folic Acid (Folic Acid) 1 mg PO DAILY [facility] Last Admin: 05/24/18 15:32 Dose: 1 mg Furosemide (Lasix) 40 mg IVP BID [facility] Last Admin: 05/24/18 11:00 Dose: 40 mg Hydralazine HCl (Apresoline) 50 mg PO TID [facility] Last Admin: 05/24/18 15:37 Dose: 50 mg Insulin Human Regular (Humulin R Med) 0 units SC ACHS [facility] PRN Reason: Protocol Last Admin: 05/24/18 12:21 Dose: Not Given Labetalol HCl (Trandate) 50 mg PO Q6H PRN PRN Reason: hypertension Last Admin: 05/24/18 00:30 Dose: 50 mg Lactulose (Enulose) 10 gm PO TID [facility] Last Admin: 05/24/18 16:01 Dose: 10 gm Losartan Potassium (Cozaar) 100 mg PO DAILY [facility] Last Admin: 05/24/18 15:32 Dose: 100 mg Metolazone (Zaroxolyn) 5 mg PO DAILY [facility] Stop: 05/25/18 23:59 Last Admin: 05/24/18 15:32 Dose: 5 mg Metoprolol Tartrate (Lopressor) 50 mg PO BRKDIN [facility] Last Admin: 05/24/18 07:53 Dose: 50 mg Pantoprazole Sodium (Protonix Ec Tab) 20 mg PO 0600 [facility] Last Admin: 05/24/18 05:59 Dose: 20 mg Pioglitazone HCl (Actos) 30 mg PO DAILY [facility] Last Admin: 05/24/18 15:32 Dose: 30 mg - Labs Labs: 05/24/18 07:30 05/24/18 07:50 PT 12.5 SECONDS (9.4-12.5) 05/23/18 05:30 INR 1.09 05/23/18 05:30 APTT 27.7 Seconds (25.1-36.5) 05/17/18 18:15 - Constitutional Appears: Well, Non-toxic, No Acute Distress - Extremities Exam Additional comments: LLE focused exam: VASC: DP and PT 2/4 bilaterally, CFT delayed x8 digits, temperature gradient warm to cool from proximal to distal b/l, +1 pitting edema to b/l LE ORTHO: No tenderness with palpation to left foot surrounding ulceration, completely healed partial amputated right 2nd digit, MM is 4/5 in all four compartments: dorsiflexion, plantarflexion, eversion, and inverion NEURO: gross sensation intact, protective sensation diminished to LE b/l DERM: full thickness ulceration on dorsal aspect of left amputated 5th MPJ area. Wound base is mainly granular. Minimal serous drainage. No purulence, no malodor, no tunneling, no tracking, no erythema, no streaking, no probe to bone or tendon, no other clinical signs of infection. Wound base measures approximately 1.0 cm x 1cm x .2cm - Neurological Exam Neurological Exam: Alert, Awake, Oriented x3 - Psychiatric Exam Psychiatric exam: Normal Affect, Normal Mood Assessment and Plan - Assessment and Plan (Free Text) Assessment: 52M seen at bedside for left foot ulceration secondary to 5th partial ray resection (DOS 03/28/18) Plan: Patient seen and evaluated Plan discussed with Dr. Villeda Afebrile Absent leukocytosis Wound dressed with iodosorb, optifoam No plan for further surgical intervention at this time Patient stable from podiatric standpoint Will f/u with Dr. Colon/Dr. Villeda after discharge for continued wound care Podiatry will continue to follow while patient in house <Rashaun Villeda - Last Filed: 05/24/18 19:29> Objective - Vital Signs/Intake and Output Vital Signs (last 24 hours): Temp Pulse Resp BP Pulse Ox 97.8 F 60 18 158/73 H 96 05/24/18 17:29 05/24/18 18:16 05/24/18 17:29 05/24/18 18:15 05/24/18 06:00 Intake and Output: 05/24/18 05/25/18 18:59 06:59 Intake Total 1080 Output Total 1200 Balance -120 - Medications Medications: Current Medications Albuterol Sulfate (Albuterol 0.083% Inhal Honey (2.5 Mg/3 Ml) Ud) 2.5 mg IH [id number] PRN PRN Reason: Wheezing Last Admin: 05/21/18 03:07 Dose: 2.5 mg Alprazolam (Xanax) 0.25 mg PO TID PRN; Protocol PRN Reason: Anxiety Stop: 05/25/18 10:01 Last Admin: 05/21/18 22:54 Dose: 0.25 mg Aspirin (Ecotrin) 81 mg PO DAILY [facility] Last Admin: 05/24/18 15:32 Dose: 81 mg Benzocaine/Menthol (Cepacol Sore Throat) 1 nathen MT Q2H PRN PRN Reason: Sore Throat Last Admin: 05/24/18 16:01 Dose: 1 nathen Cadexomer Iodine (Iodosorb) 0 gm TOP DAILY [facility] Last Admin: 05/24/18 15:33 Dose: 10 gm Carvedilol (Coreg) 3.125 mg PO BID [facility] Last Admin: 05/24/18 18:15 Dose: 3.125 mg Cyanocobalamin (Vitamin B12 100 Mcg Tab) 100 mcg PO DAILY [facility] Last Admin: 05/24/18 15:32 Dose: 100 mcg Enoxaparin Sodium (Lovenox) 30 mg SC DAILY [facility] PRN Reason: Protocol Last Admin: 05/24/18 15:33 Dose: 30 mg Famotidine (Pepcid) 20 mg PO HS [facility] Last Admin: 05/23/18 22:07 Dose: 20 mg Folic Acid (Folic Acid) 1 mg PO DAILY [facility] Last Admin: 05/24/18 15:32 Dose: 1 mg Furosemide (Lasix) 40 mg IVP BID [facility] Last Admin: 05/24/18 18:14 Dose: 40 mg Hydralazine HCl (Apresoline) 50 mg PO TID [facility] Last Admin: 05/24/18 18:14 Dose: 50 mg Insulin Human Regular (Humulin R Med) 0 units SC ACHS [facility] PRN Reason: Protocol Last Admin: 05/24/18 18:15 Dose: 3 units Labetalol HCl (Trandate) 50 mg PO Q6H PRN PRN Reason: hypertension Last Admin: 05/24/18 00:30 Dose: 50 mg Lactulose (Enulose) 10 gm PO TID [facility] Last Admin: 05/24/18 18:15 Dose: 10 gm Losartan Potassium (Cozaar) 100 mg PO DAILY [facility] Last Admin: 05/24/18 15:32 Dose: 100 mg Metolazone (Zaroxolyn) 5 mg PO DAILY [facility] Stop: 05/25/18 23:59 Last Admin: 05/24/18 15:32 Dose: 5 mg Metoprolol Tartrate (Lopressor) 50 mg PO BRKDIN [facility] Last Admin: 05/24/18 18:16 Dose: Not Given Pantoprazole Sodium (Protonix Ec Tab) 20 mg PO 0600 [facility] Last Admin: 05/24/18 05:59 Dose: 20 mg Pioglitazone HCl (Actos) 30 mg PO DAILY [facility] Last Admin: 05/24/18 15:32 Dose: 30 mg - Labs Labs: 05/24/18 07:30 05/24/18 07:50 PT 12.5 SECONDS (9.4-12.5) 05/23/18 05:30 INR 1.09 05/23/18 05:30 APTT 27.7 Seconds (25.1-36.5) 05/17/18 18:15 Attending/Attestation - Attestation I have personally seen and examined this patient.: Yes I have fully participated in the care of the patient.: Yes I have reviewed all pertinent clinical information, including history, physical exam and plan: Yes
--- NOTE | 2018-05-24 20:30 | CP.PCM.PN ---
Subjective - Date & Time of Evaluation Date of Evaluation: 05/24/18 Time of Evaluation: 12:30 - Subjective Subjective: Patient seen today. He complains of constipation. Objective - Vital Signs/Intake and Output Vital Signs (last 24 hours): Temp Pulse Resp BP Pulse Ox 97.8 F 60 18 158/73 H 96 05/24/18 17:29 05/24/18 18:16 05/24/18 17:29 05/24/18 18:15 05/24/18 06:00 Intake and Output: 05/24/18 05/25/18 18:59 06:59 Intake Total 1080 Output Total 1200 Balance -120 - Medications Medications: Current Medications Albuterol Sulfate (Albuterol 0.083% Inhal Honey (2.5 Mg/3 Ml) Ud) 2.5 mg IH [id number] PRN PRN Reason: Wheezing Last Admin: 05/21/18 03:07 Dose: 2.5 mg Alprazolam (Xanax) 0.25 mg PO TID PRN; Protocol PRN Reason: Anxiety Stop: 05/25/18 10:01 Last Admin: 05/21/18 22:54 Dose: 0.25 mg Aspirin (Ecotrin) 81 mg PO DAILY [facility] Last Admin: 05/24/18 15:32 Dose: 81 mg Benzocaine/Menthol (Cepacol Sore Throat) 1 nathen MT Q2H PRN PRN Reason: Sore Throat Last Admin: 05/24/18 16:01 Dose: 1 nathen Cadexomer Iodine (Iodosorb) 0 gm TOP DAILY [facility] Last Admin: 05/24/18 15:33 Dose: 10 gm Carvedilol (Coreg) 3.125 mg PO BID [facility] Last Admin: 05/24/18 18:15 Dose: 3.125 mg Cyanocobalamin (Vitamin B12 100 Mcg Tab) 100 mcg PO DAILY [facility] Last Admin: 05/24/18 15:32 Dose: 100 mcg Enoxaparin Sodium (Lovenox) 30 mg SC DAILY [facility] PRN Reason: Protocol Last Admin: 05/24/18 15:33 Dose: 30 mg Famotidine (Pepcid) 20 mg PO HS [facility] Last Admin: 05/23/18 22:07 Dose: 20 mg Folic Acid (Folic Acid) 1 mg PO DAILY [facility] Last Admin: 05/24/18 15:32 Dose: 1 mg Furosemide (Lasix) 40 mg IVP BID [facility] Last Admin: 05/24/18 18:14 Dose: 40 mg Hydralazine HCl (Apresoline) 50 mg PO TID [facility] Last Admin: 05/24/18 18:14 Dose: 50 mg Insulin Human Regular (Humulin R Med) 0 units SC ACHS [facility] PRN Reason: Protocol Last Admin: 05/24/18 18:15 Dose: 3 units Labetalol HCl (Trandate) 50 mg PO Q6H PRN PRN Reason: hypertension Last Admin: 05/24/18 00:30 Dose: 50 mg Lactulose (Enulose) 10 gm PO TID [facility] Last Admin: 05/24/18 18:15 Dose: 10 gm Losartan Potassium (Cozaar) 100 mg PO DAILY [facility] Last Admin: 05/24/18 15:32 Dose: 100 mg Metolazone (Zaroxolyn) 5 mg PO DAILY [facility] Stop: 05/25/18 23:59 Last Admin: 05/24/18 15:32 Dose: 5 mg Metoprolol Tartrate (Lopressor) 50 mg PO BRKDIN [facility] Last Admin: 05/24/18 18:16 Dose: Not Given Pantoprazole Sodium (Protonix Ec Tab) 20 mg PO 0600 [facility] Last Admin: 05/24/18 05:59 Dose: 20 mg Pioglitazone HCl (Actos) 30 mg PO DAILY [facility] Last Admin: 05/24/18 15:32 Dose: 30 mg - Labs Labs: 05/24/18 07:30 05/24/18 07:50 PT 12.5 SECONDS (9.4-12.5) 05/23/18 05:30 INR 1.09 05/23/18 05:30 APTT 27.7 Seconds (25.1-36.5) 05/17/18 18:15 - Constitutional Appears: No Acute Distress - Head Exam Head Exam: ATRAUMATIC, NORMOCEPHALIC - Respiratory Exam Respiratory Exam: Decreased Breath Sounds, Rhonchi - Cardiovascular Exam Cardiovascular Exam: +S1, +S2 - GI/Abdominal Exam GI & Abdominal Exam: Soft, Normal Bowel Sounds. absent: Tenderness - Extremities Exam Extremities Exam: Pedal Edema - Neurological Exam Neurological Exam: Alert, Awake, CN II-XII Intact, Oriented x3 Assessment and Plan - Assessment and Plan (Free Text) Assessment: Anemia r/o GI Bleed vs. 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 Lasix increased to twice a day and Zaroxolyn added. Patient says he is urinating more with increased diuretics. continue to monitor I's and O's. Keep negative balance. Weight has increased since admission. Hemoglobin is 8.8 today after a total of 3 units PRBCs. EGD showed no acute sites of bleeding. Iron levels within normal limits. Hematology and GI on case. Alkaline phosphatase increasing - will order ultrasound abdomen. will order Lactulose for constipation
[2018-05-25] MEDS: Benzocaine/Menthol (Cepacol) Lozenge MT PRN ×2 (00:30→17:53)
[2018-05-25] MEDS: Pantoprazole 20 mg EC Tab PO SCH (06:05)
[2018-05-25 07:00] LABS: BASO # 0.01 K/mm3 (0.0-2.0); BASO % 0.1 % (0.0-3.0); EOS # 0.3 (0.0-0.7); EOS % 3.7 % (1.5-5.0); GRAN # 4.27 (1.4-6.5); GRAN % 62.8 % (50.0-68.0); HEMOGLOBIN 8.7 g/dL (14.0-18.0); LYMPH # 1.3 (1.2-3.4); LYMPH % 19.2 % (22.0-35.0); MEAN CELL VOLUME 84.3 fl (80.0-105.0); MEAN CORPUSCULAR HEMOGLOBIN 27.8 pg (25.0-35.0); MEAN PLATELET VOLUME 10.9 fl (7.0-11.0); MONO % 14.2 % (1.0-6.0); RBC 3.13 10^6/uL (3.5-6.1); RED CELL DISTRIBUTION WIDTH 18.9 % (11.5-14.5); WHITE BLOOD COUNT 6.8 10^3/ul (4.5-11.0)
[2018-05-25 07:19] LABS: IRON 39 ug/dL (45-180)
[2018-05-25 07:29] LABS: % IRON SATURATION 13 % (20-55); TOTAL IRON BINDING CAPACITY 301 ug/dL (261-462)
[2018-05-25 07:39] LABS: ALB/GLOB RATIO 1.1 (1.1-1.8)
[2018-05-25 07:41] LABS: ALBUMIN 3.2 g/dL (3.0-4.8); CALCIUM 8.6 mg/dL (8.4-10.5)
--- NOTE | 2018-05-25 07:56 | PN ---
Copied To: David Harvey MD Attending MD: David Harvey MD DATE: 05/25/2018 PULMONARY NOTE SUBJECTIVE: The patient appears comfortable this morning. He is not short of breath at rest. OBJECTIVE: VITAL SIGNS: Temperature is 98, pulse 76, respirations 18, blood pressure 141/51. Oxygen saturation on nasal cannula is 96-99%. HEENT: Normocephalic, atraumatic. No JVD. CARDIOVASCULAR: Positive S1, S2. No S3 gallop. LUNGS: Minimal crackles at the bases; otherwise, clear. EXTREMITIES: Decreased edema in the legs is noted. No cyanosis or clubbing. Calves are nontender to palpation. The left foot is bandaged. GI: Abdomen is soft, nontender and nondistended. Bowel sounds are positive. SKIN: No acute rash. NEUROLOGIC: Exam limited at the present time. IMPRESSION: 1. Fluid retention with pulmonary edema - resolving. 2. Renal insufficiency. Rule out nephrotic syndrome. 3. Anemia. 4. Diabetes mellitus. 5. History of osteomyelitis. 6. Small bilateral pleural effusions. PLAN: The patient appears comfortable this morning. He is not short of breath at rest. He does state to feeling much better overall. On physical exam, there is no significant bronchospasm noted. In addition, there is no significant alveolar-arterial gradient. I will continue with the current nebulizer treatments on a p.r.n. basis. Inputs by Renal and Cardiology are noted. The patient remains on intravenous Lasix twice daily. Input by Podiatry is also noted. Clinical status of the patient is significantly improved overall. However, it does appear that the future status/prognosis for this young patient is somewhat guarded. I will discuss the above with Dr. Sood. David Harvey MD [place]
[2018-05-25] MEDS: Insulin Reg-MEDIUM-Coverage SC SCH ×4 (08:20→23:29)
--- NOTE | 2018-05-25 08:23 | CP.PCM.PN ---
<Franco Villegaschelsea - Last Filed: 05/25/18 10:17> Subjective - Date & Time of Evaluation Date of Evaluation: 05/25/18 Time of Evaluation: 08:20 - Subjective Subjective: Podiatry Progress Note for Dr. Villeda 52 y/o male seen and evaluated at bedside for left foot ulceration secondary to 5th partial ray resection (DOS 03/28/18). Patient is AAO x 3 and NAD, resting comfortably in bed. Patient states that he has been walking in a surgical shoe at all times. Patient states he will be discharged tomorrow. Denies any acute overnight events. Denies any other pedal complaints at this time. Denies any recent N/V/F/C/CP/SOB/D/posterior calf pain when squeezed. Objective - Vital Signs/Intake and Output Vital Signs (last 24 hours): Temp Pulse Resp BP Pulse Ox 98.0 F 76 18 141/51 L 96 05/25/18 05:58 05/25/18 05:58 05/25/18 05:58 05/25/18 05:58 05/25/18 05:58 Intake and Output: 05/25/18 05/25/18 06:59 18:59 Intake Total 480 Balance 480 - Medications Medications: Current Medications Albuterol Sulfate (Albuterol 0.083% Inhal Honey (2.5 Mg/3 Ml) Ud) 2.5 mg IH [id number] PRN PRN Reason: Wheezing Last Admin: 05/21/18 03:07 Dose: 2.5 mg Alprazolam (Xanax) 0.25 mg PO TID PRN; Protocol PRN Reason: Anxiety Stop: 05/25/18 10:01 Last Admin: 05/21/18 22:54 Dose: 0.25 mg Aspirin (Ecotrin) 81 mg PO DAILY [facility] Last Admin: 05/24/18 15:32 Dose: 81 mg Benzocaine/Menthol (Cepacol Sore Throat) 1 nathen MT Q2H PRN PRN Reason: Sore Throat Last Admin: 05/25/18 00:30 Dose: 1 nathen Cadexomer Iodine (Iodosorb) 0 gm TOP DAILY [facility] Last Admin: 05/24/18 15:33 Dose: 10 gm Carvedilol (Coreg) 3.125 mg PO BID [facility] Last Admin: 05/24/18 18:15 Dose: 3.125 mg Cyanocobalamin (Vitamin B12 100 Mcg Tab) 100 mcg PO DAILY [facility] Last Admin: 05/24/18 15:32 Dose: 100 mcg Enoxaparin Sodium (Lovenox) 30 mg SC DAILY [facility] PRN Reason: Protocol Last Admin: 05/24/18 15:33 Dose: 30 mg Famotidine (Pepcid) 20 mg PO HS [facility] Last Admin: 05/24/18 22:06 Dose: 20 mg Folic Acid (Folic Acid) 1 mg PO DAILY [facility] Last Admin: 05/24/18 15:32 Dose: 1 mg Furosemide (Lasix) 40 mg IVP BID [facility] Last Admin: 05/24/18 18:14 Dose: 40 mg Hydralazine HCl (Apresoline) 50 mg PO TID [facility] Last Admin: 05/24/18 18:14 Dose: 50 mg Insulin Human Regular (Humulin R Med) 0 units SC ACHS [facility] PRN Reason: Protocol Last Admin: 05/24/18 21:57 Dose: Not Given Labetalol HCl (Trandate) 50 mg PO Q6H PRN PRN Reason: hypertension Last Admin: 05/24/18 00:30 Dose: 50 mg Lactulose (Enulose) 10 gm PO TID [facility] Last Admin: 05/24/18 18:15 Dose: 10 gm Losartan Potassium (Cozaar) 100 mg PO DAILY [facility] Last Admin: 05/24/18 15:32 Dose: 100 mg Metolazone (Zaroxolyn) 5 mg PO DAILY [facility] Stop: 05/25/18 23:59 Last Admin: 05/24/18 15:32 Dose: 5 mg Metoprolol Tartrate (Lopressor) 50 mg PO BRKDIN [facility] Last Admin: 05/24/18 18:16 Dose: Not Given Pantoprazole Sodium (Protonix Ec Tab) 20 mg PO 0600 [facility] Last Admin: 05/25/18 06:05 Dose: 20 mg Pioglitazone HCl (Actos) 30 mg PO DAILY [facility] Last Admin: 05/24/18 15:32 Dose: 30 mg - Labs Labs: 05/25/18 06:00 05/25/18 06:00 PT 12.5 SECONDS (9.4-12.5) 05/23/18 05:30 INR 1.09 05/23/18 05:30 APTT 27.7 Seconds (25.1-36.5) 05/17/18 18:15 - Constitutional Appears: Well, Non-toxic, No Acute Distress - Head Exam Head Exam: ATRAUMATIC, NORMOCEPHALIC - Extremities Exam Additional comments: LE focused exam: VASC: DP and PT 2/4 bilaterally, CFT delayed x 8 digits, temperature gradient warm to cool from proximal to distal b/l, +1 pitting edema to b/l LE ORTHO: No tenderness with palpation to left foot surrounding ulceration, completely healed partial amputated right 2nd digit, MM is 4/5 in all four compartments: dorsiflexion, plantarflexion, eversion, and inverion NEURO: gross sensation intact, protective sensation diminished to LE b/l DERM: full thickness ulceration on dorsal aspect of left amputated 5th MPJ area. Wound base is fibrotic and granular. no serous drainage. No purulence, no malodor, no tunneling, no tracking, no erythema, no streaking, no probe to bone or tendon, no other clinical signs of infection. Wound base measures approximately 1.0 cm x 1cm x 0.2cm - Neurological Exam Neurological Exam: Alert, Awake, Oriented x3 - Psychiatric Exam Psychiatric exam: Normal Affect, Normal Mood Assessment and Plan - Assessment and Plan (Free Text) Assessment: 52 y/o male seen at bedside for left foot ulceration secondary to 5th partial ray resection (DOS 03/28/18) Plan: Patient seen and evaluated with Dr. Villeda Chart and labs were reviewed- afebrile absent leukocytosis Wound cleaned with saline and dressed with iodosorb and DSD No plan for further surgical intervention at this time Patient stable from podiatric standpoint Will f/u with Dr. Colon/Dr. Villeda after discharge for continued wound care Podiatry will continue to follow while patient in house <Rashaun Villeda - Last Filed: 05/25/18 13:45> Objective - Vital Signs/Intake and Output Vital Signs (last 24 hours): Temp Pulse Resp BP Pulse Ox 97.6 F 61 79 H 145/74 96 05/25/18 12:00 05/25/18 12:00 05/25/18 12:00 05/25/18 12:00 05/25/18 05:58 Intake and Output: 05/25/18 05/25/18 06:59 18:59 Intake Total 480 Balance 480 - Medications Medications: Current Medications Albuterol Sulfate (Albuterol 0.083% Inhal Honey (2.5 Mg/3 Ml) Ud) 2.5 mg IH [id number] PRN PRN Reason: Wheezing Last Admin: 05/21/18 03:07 Dose: 2.5 mg Aspirin (Ecotrin) 81 mg PO DAILY [facility] Last Admin: 05/25/18 09:23 Dose: 81 mg Benzocaine/Menthol (Cepacol Sore Throat) 1 nathen MT Q2H PRN PRN Reason: Sore Throat Last Admin: 05/25/18 00:30 Dose: 1 nathen Cadexomer Iodine (Iodosorb) 0 gm TOP DAILY [facility] Last Admin: 05/25/18 09:24 Dose: Not Given Carvedilol (Coreg) 3.125 mg PO BID [facility] Last Admin: 05/25/18 09:23 Dose: 3.125 mg Cyanocobalamin (Vitamin B12 100 Mcg Tab) 100 mcg PO DAILY [facility] Last Admin: 05/25/18 09:23 Dose: 100 mcg Enoxaparin Sodium (Lovenox) 30 mg SC DAILY [facility] PRN Reason: Protocol Last Admin: 05/25/18 09:21 Dose: 30 mg Famotidine (Pepcid) 20 mg PO HS [facility] Last Admin: 05/24/18 22:06 Dose: 20 mg Folic Acid (Folic Acid) 1 mg PO DAILY [facility] Last Admin: 05/25/18 09:22 Dose: 1 mg Furosemide (Lasix) 40 mg IVP BID [facility] Last Admin: 05/25/18 09:20 Dose: 40 mg Hydralazine HCl (Apresoline) 50 mg PO TID [facility] Last Admin: 05/25/18 09:22 Dose: 50 mg Insulin Human Regular (Humulin R Med) 0 units SC ACHS [facility] PRN Reason: Protocol Last Admin: 05/25/18 11:40 Dose: 7 units Labetalol HCl (Trandate) 50 mg PO Q6H PRN PRN Reason: hypertension Last Admin: 05/25/18 08:21 Dose: 50 mg Lactulose (Enulose) 10 gm PO TID [facility] Last Admin: 05/25/18 09:21 Dose: 10 gm Losartan Potassium (Cozaar) 100 mg PO DAILY [facility] Last Admin: 05/25/18 09:23 Dose: 100 mg Metolazone (Zaroxolyn) 5 mg PO DAILY [facility] Stop: 05/25/18 23:59 Last Admin: 05/25/18 09:23 Dose: 5 mg Metoprolol Tartrate (Lopressor) 50 mg PO BRKDIN [facility] Last Admin: 05/25/18 08:20 Dose: 50 mg Pantoprazole Sodium (Protonix Ec Tab) 20 mg PO 0600 [facility] Last Admin: 05/25/18 06:05 Dose: 20 mg Pioglitazone HCl (Actos) 30 mg PO DAILY [facility] Last Admin: 05/25/18 09:23 Dose: 30 mg - Labs Labs: 05/25/18 06:00 05/25/18 06:00 PT 12.5 SECONDS (9.4-12.5) 05/23/18 05:30 INR 1.09 05/23/18 05:30 APTT 27.7 Seconds (25.1-36.5) 05/17/18 18:15 Attending/Attestation - Attestation I have personally seen and examined this patient.: Yes I have fully participated in the care of the patient.: Yes I have reviewed all pertinent clinical information, including history, physical exam and plan: Yes
[2018-05-25] MEDS: Enoxaparin 30 mg Syringe SC SCH (09:21)
[2018-05-25] MEDS: metOLazone 5 MG TAB PO SCH (09:23)
[2018-05-25] MEDS: CADEXOMER IODINE 0.9% GEL 10G TOP SCH (09:24)
--- NOTE | 2018-05-25 10:53 | PN ---
Copied To: Georges Sood MD Attending MD: Georges Sood MD DATE: 05/25/2018 LOCATION: The patient is in [facility] in [place], room 265 bed 2. SUBJECTIVE: The patient admitted with a foot infection, congestive heart failure. The patient has a history of accelerated hypertension, diabetes mellitus, renal insufficiency. The patient is seen this morning. PHYSICAL EXAMINATION: GENERAL: The patient appears to be comfortable, sitting up in the bed. He is able to ambulate short distances at this time. VITAL SIGNS: The patient's pulse is 76, blood pressure 169/82, respirations 20 per minute. HEENT: Examination of the head is normocephalic. NECK: The thyroid is not enlarged. JVP is flat. LUNGS: Trachea central. Breath sounds are diminished bilaterally. HEART: Normal sinus rhythm. S1, S2 present. No murmurs. ABDOMEN: Soft. Liver and spleen not palpable. EXTREMITIES: The patient has gross edema 2+ all over his body from abdomen. The patient has edema in both legs. AUDIT PARTNER: No focal deficits are noted at this time. LABORATORY DATA: The patient had an ultrasound of the abdomen that shows possible gallbladder disease, which is chronic possibly; the patient does not have any acute symptoms related to the right upper quadrant of the abdomen. The patient's chest x-ray shows congestion, but much improvement. The patient's echocardiogram done several days ago shows evidence of pretty good normal function; in fact, his ejection fraction is greater than 50% in spite of the fact that the patient has mild congestive heart failure. The patient's chest x-ray shows congestion, improving. The patient has been seen by internet specialist, emr implementation specialist, psychotherapist counselor, and, the foot doctor prison classification counselor. The patient is also seen by radiology specialist, Dr. King. Upper endoscopy shows mild gastritis, no evidence of any ulcers or acute bleeding. The patient had a colonoscopy within the last 10 years at [facility]; we do not have the report as of yet, but we are trying to get the report. The patient's condition is improving slowly. MEDICATIONS: He is on Lasix 40 mg 2 times a day and his other medications consists of Actos 30 mg daily. The patient is on DuoNeb inhalation therapy, hydralazine 50 mg 3 times a day. The patient is on Coreg 3.125 mg b.i.d., losartan 100 mg daily. The patient is on aspirin 81 mg daily. The patient was given lactulose for constipation, folic acid 1 mg daily. The patient was covered with insulin while the patient is in the hospital. The patient also got iron infusion, 200 mg of Venofer was given to the patient. Today, the patient is on Lasix 40 mg b.i.d. and metoprolol 50 mg p.o. daily. The patient is also getting Lovenox 30 mg for prophylaxis, pantoprazole 20 mg daily, famotidine 20 mg at nighttime, these medications were introduced by Dr. King, radiology specialist. The patient is also on labetalol p.r.n. for blood pressure elevation intermittently, vitamin B12 also was given to the patient. We will continue current management and the patient's renal status seems to be moderate that the blood work is showing creatinine is around 2 and the patient's BUN is around 44. The patient's sugar is 171; iron is 39, which is slightly decreased. The patient's sodium is 141, potassium is 4.1. The patient's renal GFR is 48. We will continue current management and followup. Georges Sood MD MTDDai
--- NOTE | 2018-05-25 12:02 | CP.PCM.PN ---
Subjective - Date & Time of Evaluation Date of Evaluation: 05/24/18 Time of Evaluation: 11:35 - Subjective Subjective: No increased pain in the left foot, no fevers, no diarrhea. Objective - Vital Signs/Intake and Output Vital Signs (last 24 hours): Temp Pulse Resp BP Pulse Ox 98.1 F 62 18 131/68 96 05/24/18 11:37 05/24/18 11:37 05/24/18 11:37 05/24/18 11:37 05/24/18 06:00 Intake and Output: 05/24/18 05/24/18 06:59 18:59 Intake Total 900 Output Total 1400 Balance -500 - Medications Medications: Current Medications Albuterol Sulfate (Albuterol 0.083% Inhal Honey (2.5 Mg/3 Ml) Ud) 2.5 mg IH [id number] PRN PRN Reason: Wheezing Last Admin: 05/21/18 03:07 Dose: 2.5 mg Alprazolam (Xanax) 0.25 mg PO TID PRN; Protocol PRN Reason: Anxiety Stop: 05/25/18 10:01 Last Admin: 05/21/18 22:54 Dose: 0.25 mg Aspirin (Ecotrin) 81 mg PO DAILY [facility] Last Admin: 05/22/18 09:59 Dose: 81 mg Cadexomer Iodine (Iodosorb) 0 gm TOP DAILY [facility] Last Admin: 05/23/18 14:00 Dose: 10 gm Carvedilol (Coreg) 3.125 mg PO BID [facility] Cyanocobalamin (Vitamin B12 100 Mcg Tab) 100 mcg PO DAILY [facility] Last Admin: 05/23/18 09:32 Dose: Not Given Enoxaparin Sodium (Lovenox) 30 mg SC DAILY [facility] PRN Reason: Protocol Last Admin: 05/22/18 10:06 Dose: 30 mg Famotidine (Pepcid) 20 mg PO HS [facility] Last Admin: 05/23/18 22:07 Dose: 20 mg Folic Acid (Folic Acid) 1 mg PO DAILY [facility] Last Admin: 05/23/18 09:32 Dose: Not Given Furosemide (Lasix) 40 mg IVP BID [facility] Last Admin: 05/23/18 18:16 Dose: 40 mg Hydralazine HCl (Apresoline) 50 mg PO TID [facility] Last Admin: 05/23/18 18:16 Dose: 50 mg Insulin Human Regular (Humulin R Med) 0 units SC ACHS [facility] PRN Reason: Protocol Last Admin: 05/24/18 07:53 Dose: 7 units Labetalol HCl (Trandate) 50 mg PO Q6H PRN PRN Reason: hypertension Last Admin: 05/24/18 00:30 Dose: 50 mg Losartan Potassium (Cozaar) 100 mg PO DAILY [facility] Last Admin: 05/23/18 09:32 Dose: Not Given Metolazone (Zaroxolyn) 5 mg PO DAILY [facility] Stop: 05/25/18 23:59 Metoprolol Tartrate (Lopressor) 50 mg PO BRKDIN [facility] Last Admin: 05/24/18 07:53 Dose: 50 mg Pantoprazole Sodium (Protonix Ec Tab) 20 mg PO 0600 [facility] Last Admin: 05/24/18 05:59 Dose: 20 mg Pioglitazone HCl (Actos) 30 mg PO DAILY [facility] Last Admin: 05/23/18 09:31 Dose: Not Given - Labs Labs: 05/24/18 07:30 05/24/18 07:50 PT 12.5 SECONDS (9.4-12.5) 05/23/18 05:30 INR 1.09 05/23/18 05:30 APTT 27.7 Seconds (25.1-36.5) 05/17/18 18:15 - Constitutional Appears: Non-toxic, Chronically Ill - Head Exam Head Exam: NORMAL INSPECTION - ENT Exam ENT Exam: Mucous Membranes Moist - Respiratory Exam Respiratory Exam: Decreased Breath Sounds - Cardiovascular Exam Cardiovascular Exam: +S1, +S2 - GI/Abdominal Exam GI & Abdominal Exam: Soft. absent: Tenderness - Extremities Exam Additional comments: left foot with dressings in place Assessment and Plan - Assessment and Plan (Free Text) Plan: Assessment S/P 5th ray amputation for left 5th digit skin and skin structure infection with osteomyelitis, and also had osteomyelitis of 2nd digit S/P amputation grew MSSA and Group B Strep and was on Zyvox for about 8 weeks DM obesity with BMI 32 Plan continue to monitor off antibiotics - he has had enough antibiotics for the osteomyelitis patient should continue following up at the wound care center with Dr. Colon to catch if he develops another infection as early as possible
--- NOTE | 2018-05-25 12:58 | CP.PCM.PN ---
Subjective - Date & Time of Evaluation Date of Evaluation: 05/25/18 Time of Evaluation: 08:00 - Subjective Subjective: PGY5 GI Follow-up Note Pt seen and examine bedside Denies any abd pain Tolerating diet +BM ROS: 12 point ROS conducted, neg other than above Objective - Vital Signs/Intake and Output Vital Signs (last 24 hours): Temp Pulse Resp BP Pulse Ox 97.6 F 61 79 H 145/74 96 05/25/18 12:00 05/25/18 12:00 05/25/18 12:00 05/25/18 12:00 05/25/18 05:58 Intake and Output: 05/25/18 05/25/18 06:59 18:59 Intake Total 480 Balance 480 - Medications Medications: Current Medications Albuterol Sulfate (Albuterol 0.083% Inhal Honey (2.5 Mg/3 Ml) Ud) 2.5 mg IH [id number] PRN PRN Reason: Wheezing Last Admin: 05/21/18 03:07 Dose: 2.5 mg Aspirin (Ecotrin) 81 mg PO DAILY [facility] Last Admin: 05/25/18 09:23 Dose: 81 mg Benzocaine/Menthol (Cepacol Sore Throat) 1 nathen MT Q2H PRN PRN Reason: Sore Throat Last Admin: 05/25/18 00:30 Dose: 1 nathen Cadexomer Iodine (Iodosorb) 0 gm TOP DAILY [facility] Last Admin: 05/25/18 09:24 Dose: Not Given Carvedilol (Coreg) 3.125 mg PO BID [facility] Last Admin: 05/25/18 09:23 Dose: 3.125 mg Cyanocobalamin (Vitamin B12 100 Mcg Tab) 100 mcg PO DAILY [facility] Last Admin: 05/25/18 09:23 Dose: 100 mcg Enoxaparin Sodium (Lovenox) 30 mg SC DAILY [facility] PRN Reason: Protocol Last Admin: 05/25/18 09:21 Dose: 30 mg Famotidine (Pepcid) 20 mg PO HS [facility] Last Admin: 05/24/18 22:06 Dose: 20 mg Folic Acid (Folic Acid) 1 mg PO DAILY [facility] Last Admin: 05/25/18 09:22 Dose: 1 mg Furosemide (Lasix) 40 mg IVP BID [facility] Last Admin: 05/25/18 09:20 Dose: 40 mg Hydralazine HCl (Apresoline) 50 mg PO TID [facility] Last Admin: 05/25/18 09:22 Dose: 50 mg Insulin Human Regular (Humulin R Med) 0 units SC ACHS [facility] PRN Reason: Protocol Last Admin: 05/25/18 11:40 Dose: 7 units Labetalol HCl (Trandate) 50 mg PO Q6H PRN PRN Reason: hypertension Last Admin: 05/25/18 08:21 Dose: 50 mg Lactulose (Enulose) 10 gm PO TID [facility] Last Admin: 05/25/18 09:21 Dose: 10 gm Losartan Potassium (Cozaar) 100 mg PO DAILY [facility] Last Admin: 05/25/18 09:23 Dose: 100 mg Metolazone (Zaroxolyn) 5 mg PO DAILY [facility] Stop: 05/25/18 23:59 Last Admin: 05/25/18 09:23 Dose: 5 mg Metoprolol Tartrate (Lopressor) 50 mg PO BRKDIN [facility] Last Admin: 05/25/18 08:20 Dose: 50 mg Pantoprazole Sodium (Protonix Ec Tab) 20 mg PO 0600 [facility] Last Admin: 05/25/18 06:05 Dose: 20 mg Pioglitazone HCl (Actos) 30 mg PO DAILY [facility] Last Admin: 05/25/18 09:23 Dose: 30 mg - Labs Labs: 05/25/18 06:00 05/25/18 06:00 PT 12.5 SECONDS (9.4-12.5) 05/23/18 05:30 INR 1.09 05/23/18 05:30 APTT 27.7 Seconds (25.1-36.5) 05/17/18 18:15 - Constitutional Appears: Well, No Acute Distress - Head Exam Head Exam: ATRAUMATIC, NORMOCEPHALIC - Eye Exam Eye Exam: Normal appearance Pupil Exam: NORMAL ACCOMODATION - ENT Exam ENT Exam: Mucous Membranes Moist, Normal Exam - Neck Exam Neck Exam: Normal Inspection - Respiratory Exam Respiratory Exam: Clear to Ausculation Bilateral, NORMAL BREATHING PATTERN - GI/Abdominal Exam GI & Abdominal Exam: Soft, Normal Bowel Sounds. absent: Guarding, Rigid, Tenderness, Organomegaly - Extremities Exam Extremities Exam: Pedal Edema. absent: Joint Swelling - Neurological Exam Neurological Exam: Alert, Awake, Oriented x3 - Psychiatric Exam Psychiatric exam: Normal Affect, Normal Mood - Skin Skin Exam: Dry, Intact, Normal Color, Warm Assessment and Plan - Assessment and Plan (Free Text) Assessment: Cal Coulter is a 52 year old male with a past medical history of poorly controlled DMII with recent right 2nd and left 5th toe amputations who presented to the hospital from outpatient rehab center for anemia. S/P EGD: corbin's esophagus, gastritis +FOBT. Normocytic Anemia Barrettes esophagus Plan: refuses additional endoscopic exams pt states that he had a colonoscopy 3 years prior at [facility] and believes that it is adequate evaluation recommend colonoscopy as an oupt for further anemia, pt notes that he understands the risk of missing a malignancy or other source of bleeding -EGD biopsies pending, may need additional survelliance for barretts continue protonix 40mg daily for 3 months will D/W Dr. King
--- NOTE | 2018-05-25 23:05 | PN ---
Copied To: Jadyn Casas MD Attending MD: Jadyn Casas MD DATE: 05/25/2018 FOLLOWUP NOTE SUBJECTIVE: He is comfortable in bed, in no acute distress. Shortness of breath has improved. Hemoglobin is 8.7 gram per deciliter. Repeat iron studies showed severe iron-deficiency anemia, iron is 39, percentage saturation low at 13. No episodes of GI bleed. Renal functions have improved. Creatinine 1.8. REVIEW OF SYSTEMS: As per HPI. Rest of 12-point review of systems reviewed and negative. PHYSICAL EXAMINATION: GENERAL: Comfortable in bed, in no acute distress. VITAL SIGNS: Temperature 98.8, heart rate is 86 per minute, respiratory rate 18 per minute, blood pressure 150/70, oxygen saturation 97% on room air. HEENT: Pallor positive. NECK: No lymphadenopathy. CHEST: Air entry present and equal bilaterally. No added sounds. CARDIOVASCULAR: S1 and S2 normal. No murmur. No gallop. ABDOMEN: Soft and nontender. Slightly distended. EXTREMITIES: 1+ edema. SKIN: No petechiae. No rash. LABORATORY DATA: White count 6.8, hemoglobin 8.7, hematocrit 26.4, platelet 172. Sodium 141, potassium 4.1, creatinine 1.8, iron 39, iron saturation 13%, ferritin 159. B12 345. MEDICATIONS: DuoNeb, aspirin 81 mg daily, Coreg 3.125 mg p.o. b.i.d., vitamin B12 1 g daily, Lovenox 30 mg subcu daily, folic acid 1 mg daily, Lasix 30 mg IV b.i.d., hydralazine 50 mg p.o. t.i.d., losartan 100 mg daily, metoprolol 50 mg daily, Protonix 20 mg daily, Actos 30 mg p.o. daily. ASSESSMENT: 1. Iron-deficiency anemia. 2. Duodenitis, gastritis. 3. Chronic kidney disease. 4. Chronic obstructive pulmonary disease, sleep apnea. 5. Diabetes mellitus type 2, uncontrolled. 6. Peripheral vascular disease. PLAN: We will give one dose of IV iron 200 mg today. He has iron deficiency. Stool occult ordered. EGD showed duodenitis and gastritis. He will need colonoscopy also. He received a dose of Aranesp. We will continue IV iron as outpatient. Upon correction of iron, his hemoglobin is still low, he will need erythropoietin support to maintain hemoglobin between 10 to 11 gram per deciliter. Peripheral vascular disease, status post amputation recent. Discussed with the patient. He has to come to office in next few weeks, he said, he had injury and he has to take care of workman compensation for the foot. Thank you, Dr. Sood for allowing us to participate in Mr. Coulter's care. Jadyn Casas MD
[2018-05-26 00:14] VITALS: O2SAT 94
[2018-05-26] MEDS: Benzocaine/Menthol (Cepacol) Lozenge MT PRN ×2 (03:45→10:12)
[2018-05-26] MEDS: Pantoprazole 20 mg EC Tab PO SCH (05:22)
--- NOTE | 2018-05-26 07:45 | PN ---
Copied To: David Harvey MD Attending MD: David Harvey MD DATE: 05/26/2018 PULMONARY NOTE SUBJECTIVE: The patient appears very comfortable this morning. He is not short of breath at rest. PHYSICAL EXAMINATION VITAL SIGNS: Temperature is 98, pulse 64, respirations 18, blood pressure 172/79. Oxygen saturation on room air is 94-96%. HEENT: Normocephalic, atraumatic. No JVD. CARDIOVASCULAR: Positive S1, S2. No S3 gallop. LUNGS: Very minimal/less crackles at the bases. Otherwise clear. EXTREMITIES: Less edema is noted in the legs. No cyanosis or clubbing. Calves are nontender to palpation. The left foot is bandaged. GI: Abdomen is soft, nontender and nondistended. Bowel sounds are positive. SKIN: No acute rash. NEUROLOGIC: Limited at the present time. IMPRESSION: 1. Fluid retention with pulmonary edema-resolving. 2. Renal insufficiency. Rule out nephrotic syndrome. 3. Anemia. 4. Diabetes mellitus. 5. History of osteomyelitis. 6. Small bilateral pleural effusions. PLAN: The patient appears very comfortable this morning. He is not short of breath at rest. He does state to feeling much better overall. On physical exam, there is no significant bronchospasm. In addition, the alveolar-arterial gradient is now resolving. Oxygen saturation on room air is now 94-96%. I will continue the current nebulizer treatments-p.r.n. basis. Inputs by Renal, Cardiology and Hematology are noted. The patient remains on intravenous Lasix twice daily. Clinical status of the patient is significantly improved-compared to the initial presentation. However, the patient's overall status/prognosis does remain somewhat guarded. I will discuss the above with the attending physician. David Harvey MD [place]
--- NOTE | 2018-05-26 08:08 | PN ---
Copied To: Greer Bello MD Attending MD: Greer Bello MD DATE: 05/25/2018 SUBJECTIVE: The patient is seen lying in bed. He is awake. He is alert. He is comfortable. He reports that he is urinating a lot more. He reported that his weight was 274 pounds. He denies any chest pain. He denies any shortness of breath. PHYSICAL EXAMINATION: GENERAL: Young male, lying in bed. VITAL SIGNS: Blood pressure 145/74, heart rate 60, respiratory rate 18, temperature 97.6. HEENT: Normocephalic, atraumatic, positive pallor. NECK: Supple, no JVD. LUNGS: Bilateral equal air entry, decreased breath sounds at bases. CARDIAC: S1 and S2, regular rate and rhythm, no murmur, no rub. ABDOMEN: Obese, distended, soft, nontender, bowel sounds present. EXTREMITIES: 3+ pitting edema of the lower extremities. INTAKE AND OUTPUT: 1560/1200?? LABORATORY DATA: WBC 6.8, hemoglobin 8.7, hematocrit 26, platelets 172. Sodium 141, potassium 4.1, chloride 108, CO2 of 24, BUN 44, creatinine 1.8, glucose 171, calcium 8.6. Iron saturation 13, iron 39, ferritin 159, albumin 3.2. CURRENT MEDICATIONS: Actos, Apresoline, Coreg 3.125 b.i.d., losartan 100, Ecotrin, Enulose, folic acid, Lasix 40 IV every 12, Lopressor, Pepcid, Protonix, labetalol. ASSESSMENT AND PLAN: 1. Stable chronic kidney disease stage 3. 2. Nephrotic range proteinuria/diabetic nephropathy. 3. Anasarca. 4. Congestive heart failure/volume overload. 5. Severe anemia with low iron stores. 6. Poorly-controlled diabetes. 7. Hypertension. PLAN: 1. Venofer 200 mg IV piggyback for a total of 1 g. 2. Continue Zaroxolyn. 3. Continue IV Lasix. 4. Monitor urine output and daily weights. 5. Monitor daily labs. 6. euglycemia. Greer Bello MD
[2018-05-26] MEDS: Insulin Reg-MEDIUM-Coverage SC SCH (08:21)
--- NOTE | 2018-05-26 09:24 | CP.PCM.PN ---
<Franco Villegaschelsea - Last Filed: 05/26/18 09:22> Subjective - Date & Time of Evaluation Date of Evaluation: 05/26/18 Time of Evaluation: 09:22 - Subjective Subjective: Podiatry Progress Note for Dr. Villeda 52 y/o male seen and evaluated at bedside for left foot ulceration secondary to 5th partial ray resection (DOS 03/28/18). Patient is AAO x 3 and NAD, resting comfortably in bed. Patient states that he has been walking in a surgical shoe at all times. Patient states he will be discharged today around noon. Denies any acute overnight events. Denies any other pedal complaints at this time. Denies any recent N/V/F/C/CP/SOB/D/posterior calf pain when squeezed. Patient states he will follow up in the Podiatry clinic Objective - Vital Signs/Intake and Output Vital Signs (last 24 hours): Temp Pulse Resp BP Pulse Ox 98.0 F 69 20 172/79 H 94 L 05/26/18 06:00 05/26/18 08:21 05/26/18 06:00 05/26/18 08:21 05/26/18 06:00 Intake and Output: 05/26/18 05/26/18 06:59 18:59 Intake Total 540 Balance 540 - Medications Medications: Current Medications Albuterol Sulfate (Albuterol 0.083% Inhal Honey (2.5 Mg/3 Ml) Ud) 2.5 mg IH [id number] PRN PRN Reason: Wheezing Last Admin: 05/21/18 03:07 Dose: 2.5 mg Aspirin (Ecotrin) 81 mg PO DAILY [facility] Last Admin: 05/25/18 09:23 Dose: 81 mg Benzocaine/Menthol (Cepacol Sore Throat) 1 nathen MT Q2H PRN PRN Reason: Sore Throat Last Admin: 05/26/18 03:45 Dose: 1 nathen Cadexomer Iodine (Iodosorb) 0 gm TOP DAILY [facility] Last Admin: 05/25/18 09:24 Dose: Not Given Carvedilol (Coreg) 3.125 mg PO BID [facility] Last Admin: 05/25/18 18:24 Dose: 3.125 mg Cyanocobalamin (Vitamin B12 100 Mcg Tab) 100 mcg PO DAILY [facility] Last Admin: 05/25/18 09:23 Dose: 100 mcg Enoxaparin Sodium (Lovenox) 30 mg SC DAILY [facility] PRN Reason: Protocol Last Admin: 05/25/18 09:21 Dose: 30 mg Famotidine (Pepcid) 20 mg PO HS [facility] Last Admin: 05/25/18 22:05 Dose: 20 mg Folic Acid (Folic Acid) 1 mg PO DAILY [facility] Last Admin: 05/25/18 09:22 Dose: 1 mg Furosemide (Lasix) 40 mg IVP BID [facility] Last Admin: 05/25/18 17:40 Dose: 40 mg Hydralazine HCl (Apresoline) 50 mg PO TID [facility] Last Admin: 05/25/18 18:25 Dose: 50 mg Iron Sucrose 200 mg/ Sodium (Chloride) 110 mls @ 110 mls/hr IVPB DAILY [facility] Stop: 05/30/18 10:01 Insulin Human Regular (Humulin R Med) 0 units SC ACHS [facility] PRN Reason: Protocol Last Admin: 05/26/18 08:21 Dose: 3 units Labetalol HCl (Trandate) 50 mg PO Q6H PRN PRN Reason: hypertension Last Admin: 05/26/18 06:05 Dose: 50 mg Lactulose (Enulose) 10 gm PO TID [facility] Last Admin: 05/25/18 17:44 Dose: Not Given Losartan Potassium (Cozaar) 100 mg PO DAILY [facility] Last Admin: 05/25/18 09:23 Dose: 100 mg Metolazone (Zaroxolyn) 5 mg PO Q12 [facility] Metoprolol Tartrate (Lopressor) 50 mg PO BRKDIN [facility] Last Admin: 05/26/18 08:21 Dose: 50 mg Pantoprazole Sodium (Protonix Ec Tab) 20 mg PO 0600 [facility] Last Admin: 05/26/18 05:22 Dose: Not Given Pioglitazone HCl (Actos) 30 mg PO DAILY [facility] Last Admin: 05/25/18 09:23 Dose: 30 mg - Labs Labs: 05/25/18 06:00 05/25/18 06:00 PT 12.5 SECONDS (9.4-12.5) 05/23/18 05:30 INR 1.09 05/23/18 05:30 APTT 27.7 Seconds (25.1-36.5) 05/17/18 18:15 - Constitutional Appears: Well, Non-toxic, No Acute Distress - Head Exam Head Exam: ATRAUMATIC, NORMOCEPHALIC - Extremities Exam Additional comments: LE focused exam: VASC: DP and PT 2/4 bilaterally, CFT delayed x 8 digits, temperature gradient warm to cool from proximal to distal b/l, +1 pitting edema to b/l LE ORTHO: No tenderness with palpation to left foot surrounding ulceration, completely healed partial amputated right 2nd digit, MM is 4/5 in all four compartments: dorsiflexion, plantarflexion, eversion, and inverion NEURO: gross sensation intact, protective sensation diminished to LE b/l DERM: full thickness ulceration on dorsal aspect of left amputated 5th MPJ area. Wound base is fibrotic and granular. no serous drainage. No purulence, no malodor, no tunneling, no tracking, no erythema, no streaking, no probe to bone or tendon, no other clinical signs of infection. Wound base measures approximately 1.0 cm x 1cm x 0.2cm - Neurological Exam Neurological Exam: Alert, Awake, Oriented x3 - Psychiatric Exam Psychiatric exam: Normal Affect, Normal Mood Assessment and Plan - Assessment and Plan (Free Text) Assessment: 52 y/o male seen at bedside for left foot ulceration secondary to 5th partial ray resection (DOS 03/28/18) Plan: Patient seen and evaluated Plan discussed with attending Dr. Villeda Chart and labs were reviewed- afebrile, absent leukocytosis Wound cleaned with saline and dressed with iodosorb and DSD No plan for further surgical intervention at this time Patient stable from podiatric standpoint Will f/u with Dr. Colon/Dr. Villeda after discharge for continued wound care Podiatry will continue to follow while patient in house <Rashaun Villeda - Last Filed: 05/27/18 08:03> Objective - Vital Signs/Intake and Output Vital Signs (last 24 hours): Temp Pulse Resp BP Pulse Ox 97.1 F L 59 L 19 136/62 94 L 05/26/18 12:00 05/26/18 12:00 05/26/18 12:00 05/26/18 12:00 05/26/18 06:00 - Labs Labs: 05/25/18 06:00 05/25/18 06:00 PT 12.5 SECONDS (9.4-12.5) 05/23/18 05:30 INR 1.09 05/23/18 05:30 APTT 27.7 Seconds (25.1-36.5) 05/17/18 18:15 Attending/Attestation - Attestation I have personally seen and examined this patient.: Yes I have fully participated in the care of the patient.: Yes I have reviewed all pertinent clinical information, including history, physical exam and plan: Yes
[2018-05-26] MEDS ORDERED: metOLazone 5 MG TAB PO SCH (10:00)
[2018-05-26] MEDS: Enoxaparin 30 mg Syringe SC SCH (10:12)
[2018-05-26] MEDS: CADEXOMER IODINE 0.9% GEL 10G TOP SCH (10:13)
--- NOTE | 2018-05-26 11:58 | PN ---
Copied To: Mau Martin MD Attending MD: Mau Martin MD DATE: 05/26/[address] King, Dr. Martin is covering. The patient is sitting up in bed. He denies any abdominal pain, rectal bleeding or melena. OBJECTIVE: VITAL SIGNS: Reveal temperature of 98, blood pressure 132/67, heart rate of 57. HEENT: Reveal sclerae to be white. Conjunctivae pink. NECK: Supple. CHEST: Reveal lungs to be clear. HEART: Exam reveals regular rate and rhythm. ABDOMEN: Soft, nontender. He has a dressing over the left fourth and fifth toes covering a an ulcer. DATA: Laboratory data reveal hemoglobin of 8.7, white blood cell count 6.8, platelet count 172,000. Chemistries reveal BUN of 44, creatinine 1.8. Iron saturation is 13. Ferritin is 159. IMPRESSION: This is a 52-year-old male with left foot ulcer with poorly controlled diabetes mellitus x2 with anemia, found to have Martinez's esophagus and gastritis on recent upper endoscopy. The patient is currently refusing a colonoscopy at this time. He states that he had a colonoscopy approximately three years ago. RECOMMENDATIONS: 1. Continue PPI. 2. The patient is stable from a GI standpoint. Follow serial hematocrits. 3. The patient may benefit from iron replacement. 4. He will need followup endoscopy for surveillance in six months. Mau Martin MD
[2018-05-26 12:43] VITALS: BP 136/62; PULSE 59; RESP 19; TEMP 97.1
--- NOTE | 2018-05-26 15:44 | CP.PCM.PN ---
Subjective - Date & Time of Evaluation Date of Evaluation: 05/26/18 Time of Evaluation: 11:05 - Subjective Subjective: No fevers, not in distress, no increased pain in the foot. Objective - Vital Signs/Intake and Output Vital Signs (last 24 hours): Temp Pulse Resp BP Pulse Ox 97.6 F 61 79 H 145/74 96 05/25/18 12:00 05/25/18 12:00 05/25/18 12:00 05/25/18 12:00 05/25/18 05:58 Intake and Output: 05/25/18 05/25/18 06:59 18:59 Intake Total 480 Balance 480 - Medications Medications: Current Medications Albuterol Sulfate (Albuterol 0.083% Inhal Honey (2.5 Mg/3 Ml) Ud) 2.5 mg IH [id number] PRN PRN Reason: Wheezing Last Admin: 05/21/18 03:07 Dose: 2.5 mg Aspirin (Ecotrin) 81 mg PO DAILY [facility] Last Admin: 05/25/18 09:23 Dose: 81 mg Benzocaine/Menthol (Cepacol Sore Throat) 1 nathen MT Q2H PRN PRN Reason: Sore Throat Last Admin: 05/25/18 00:30 Dose: 1 nathen Cadexomer Iodine (Iodosorb) 0 gm TOP DAILY [facility] Last Admin: 05/25/18 09:24 Dose: Not Given Carvedilol (Coreg) 3.125 mg PO BID [facility] Last Admin: 05/25/18 09:23 Dose: 3.125 mg Cyanocobalamin (Vitamin B12 100 Mcg Tab) 100 mcg PO DAILY [facility] Last Admin: 05/25/18 09:23 Dose: 100 mcg Enoxaparin Sodium (Lovenox) 30 mg SC DAILY [facility] PRN Reason: Protocol Last Admin: 05/25/18 09:21 Dose: 30 mg Famotidine (Pepcid) 20 mg PO HS [facility] Last Admin: 05/24/18 22:06 Dose: 20 mg Folic Acid (Folic Acid) 1 mg PO DAILY [facility] Last Admin: 05/25/18 09:22 Dose: 1 mg Furosemide (Lasix) 40 mg IVP BID [facility] Last Admin: 05/25/18 09:20 Dose: 40 mg Hydralazine HCl (Apresoline) 50 mg PO TID [facility] Last Admin: 05/25/18 09:22 Dose: 50 mg Insulin Human Regular (Humulin R Med) 0 units SC ACHS [facility] PRN Reason: Protocol Last Admin: 05/25/18 11:40 Dose: 7 units Labetalol HCl (Trandate) 50 mg PO Q6H PRN PRN Reason: hypertension Last Admin: 05/25/18 08:21 Dose: 50 mg Lactulose (Enulose) 10 gm PO TID [facility] Last Admin: 05/25/18 09:21 Dose: 10 gm Losartan Potassium (Cozaar) 100 mg PO DAILY [facility] Last Admin: 05/25/18 09:23 Dose: 100 mg Metolazone (Zaroxolyn) 5 mg PO DAILY [facility] Stop: 05/25/18 23:59 Last Admin: 05/25/18 09:23 Dose: 5 mg Metoprolol Tartrate (Lopressor) 50 mg PO BRKDIN [facility] Last Admin: 05/25/18 08:20 Dose: 50 mg Pantoprazole Sodium (Protonix Ec Tab) 20 mg PO 0600 [facility] Last Admin: 05/25/18 06:05 Dose: 20 mg Pioglitazone HCl (Actos) 30 mg PO DAILY [facility] Last Admin: 05/25/18 09:23 Dose: 30 mg - Labs Labs: 05/25/18 06:00 05/25/18 06:00 PT 12.5 SECONDS (9.4-12.5) 05/23/18 05:30 INR 1.09 05/23/18 05:30 APTT 27.7 Seconds (25.1-36.5) 05/17/18 18:15 - Constitutional Appears: Non-toxic, No Acute Distress, Chronically Ill - Head Exam Head Exam: NORMAL INSPECTION - Respiratory Exam Respiratory Exam: Decreased Breath Sounds - Cardiovascular Exam Cardiovascular Exam: +S1, +S2 - GI/Abdominal Exam GI & Abdominal Exam: Soft. absent: Tenderness - Extremities Exam Additional comments: left foot with dressings in place Assessment and Plan - Assessment and Plan (Free Text) Plan: Assessment S/P 5th ray amputation for left 5th digit skin and skin structure infection with osteomyelitis, and also had osteomyelitis of 2nd digit S/P amputation grew MSSA and Group B Strep and was on Zyvox for about 8 weeks DM obesity with BMI 32 Plan continue to monitor off antibiotics - he has had enough antibiotics for the osteomyelitis patient should continue to follow up at the wound care center with Dr. Colon to catch if he develops another infection as early as possible - discussed with patient and patient understands and agrees
--- NOTE | 2018-05-26 20:43 | PN ---
Copied To: Jadyn Casas MD Attending MD: Jadyn Casas MD FOLLOWUP NOTE DATE: 05/26/2018 SUBJECTIVE: Mr. Coulter is a 52-year-old male with severe anemia, recent amputation for peripheral vascular disease toes. Denies any pain. No nausea, no vomiting. Repeat iron studies showed iron-deficiency anemia. Creatinine improved. REVIEW OF SYSTEMS: As per HPI. Rest of 12-point review of systems reviewed and negative. PHYSICAL EXAMINATION: GENERAL: Comfortable in bed, in no acute distress, obese. VITAL SIGNS: Temperature 98.6, heart rate is 80 per minute, respiratory rate 18 per minute, blood pressure 160/80, oxygen saturation 97% on room air. HEENT: Pallor positive. NECK: No lymphadenopathy. CHEST: Air entry present and equal bilateral. No added sounds. CARDIOVASCULAR: S1 and S2 normal. No murmur. No gallop. ABDOMEN: Soft and nontender. No hepatosplenomegaly. EXTREMITIES: 1+ edema. LABORATORY DATA: White count 6.8, hemoglobin 8.7, hematocrit 26.4. Sodium 141, potassium 4.1. Creatinine 1.8. Iron 39. B12 of 345. MEDICATIONS: Reviewed. ASSESSMENT: 1. Severe iron-deficiency anemia. 2. Duodenitis, gastritis. 3. Chronic kidney disease. 4. Chronic obstructive pulmonary disease. 5. Diabetes mellitus type 2. 6. Peripheral vascular disease. PLAN: He is being discharged today. He got a dose of IV iron yesterday 200 mg, he is getting another dose of IV iron 200 mg. Today, he will need continuation of IV iron as an outpatient to replete the blood iron because of chronic disease. He might have iron absorption defect due to chronic disease. He also might need erythropoietin support if hemoglobin does not improve after correction of blood iron. Followup appointment given to him in few weeks as per his request, he cannot come next week. We will continue to follow. Discussed with the patient all of the above. Jadyn Casas MD
--- NOTE | 2018-05-26 21:56 | CP.PCM.PN ---
Subjective - Date & Time of Evaluation Date of Evaluation: 05/26/18 Time of Evaluation: 08:15 - Subjective Subjective: Patient seen this morning. He is asking to go home. He does not want to go to rehab. Objective - Vital Signs/Intake and Output Vital Signs (last 24 hours): Temp Pulse Resp BP Pulse Ox 97.1 F L 59 L 19 136/62 94 L 05/26/18 12:00 05/26/18 12:00 05/26/18 12:00 05/26/18 12:00 05/26/18 06:00 - Labs Labs: 05/25/18 06:00 05/25/18 06:00 PT 12.5 SECONDS (9.4-12.5) 05/23/18 05:30 INR 1.09 05/23/18 05:30 APTT 27.7 Seconds (25.1-36.5) 05/17/18 18:15 - Constitutional Appears: No Acute Distress - Head Exam Head Exam: ATRAUMATIC, NORMOCEPHALIC - Respiratory Exam Respiratory Exam: Decreased Breath Sounds, NORMAL BREATHING PATTERN - Cardiovascular Exam Cardiovascular Exam: +S1, +S2 - GI/Abdominal Exam GI & Abdominal Exam: Soft, Normal Bowel Sounds. absent: Tenderness - Extremities Exam Extremities Exam: Pedal Edema - Neurological Exam Neurological Exam: Alert, Awake, CN II-XII Intact, Oriented x3 Assessment and Plan - Assessment and Plan (Free Text) Assessment: Anemia Acute diastolic heart failure Chronic kidney disease HTN Diabetes mellitus s/p left 5th toe amputation and right 2nd toe partial amputation Plan: Patient is asking to go home. Hemoglobin has been stable around 8.7. EGD showed gastritis and duodenitis with no acute sites of bleeding. Patient given iron infusion by script reader. will have iron infusion and LAW agent as outpatient by nephrology and hematology. Patient to followup with podiatry for wound care. Patient is off antibiotics. Will switch lasix to po. Patient to have stress test as oupatient. continue antihypertensives and actos and amaryl for diabetes.
--- NOTE | 2018-06-04 12:21 | DS ---
Copied To: Tamra Sood MD Attending MD: Tamra Sood MD BRIEF HISTORY: This is a 52-year-old male with history of hypertension, anemia, chronic kidney disease, diabetes mellitus with recent history of osteomyelitis and amputation of the left fifth toe and partial amputation of the second right toe who presented to the Emergency Room from [facility] for a drop of hemoglobin to 7.9. Patient also had edema of his lower extremities with retention of water in entire body. His weight had gone up about 20 pounds over a period of 3 to 4 weeks, in which he had been in the half-way for rehab. Patient was not ambulating very much due to his amputations. Patient's hemoglobin was 7.9, BUN 40, creatinine 1.9, potassium 5.2. HOSPITAL COURSE: He was admitted to the telemetry floor. 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 He was also seen by a activities officer. Renal ultrasound was done, which was normal. Patient was started on IV Lasix. Echocardiogram showed an ejection fraction of 60%, moderate concentric LVH, normal left ventricular function, normal LV segmental wall motion, mild tricuspid regurgitation and mild pulmonary hypertension. While in the hospital, the patient's hemoglobin dropped from 7.9 to 7.2. He received a total of 3 units of packed red blood cells. He was given IV Venofer. As per Nephrology, he will receive erythropoietin-stimulating agent as outpatient. After transfusion, his hemoglobin remained stable at around 8.7 to 8.8. He continued to diurese with IV Lasix. Zaroxolyn was added. Patient also received wound care by Podiatry. He was advised to have a stress test as an outpatient once his hemoglobin is more stable. Patient was requesting to go home. He was discharged home. DISCHARGE DIAGNOSES: [id number] renal failure, acute diastolic heart failure, gastritis, esophagitis, hypertension, diabetes, status post amputation of left fifth digit and partial amputation of right second toe. DISCHARGE MEDICATIONS: Actos 30 mg daily, hydralazine 25 mg three times a day, Cozaar 50 mg daily, aspirin 81 mg daily, Lasix 40 mg twice a day, Lopressor 50 mg twice a day. FOLLOWUP: Patient will follow up with Nephrology and Hematology for IV Venofer infusion to be given as an outpatient. Patient will follow up with Cardiology and have outpatient stress test. He will follow up with GI for possible colonoscopy as an outpatient. He has been encouraged to check his sugar and follow up with Podiatry for wound care once a week. Tamra Sood MD MTDD
== END 2018-05-26 16:31 | disposition home or self-care (01) | DRG 811 ==
LOC: ED 16:45 → ERH 19:54 → 2RNO 22:00
PROVIDERS: ADMIT Internal Medicine; ATTEND Internal Medicine
PROC: 30233N1 Transfusion of Nonautologous Red Blood Cells into Peripheral Vein, Percutaneous Approach (ICD-10-PCS; 2018-05-18)
PROC: 0DB68ZX Excision of Stomach, Via Natural or Artificial Opening Endoscopic, Diagnostic (ICD-10-PCS; 2018-05-23)
PROC: 0DB58ZX Excision of Esophagus, Via Natural or Artificial Opening Endoscopic, Diagnostic (ICD-10-PCS; 2018-05-23)
PROC: 0DB98ZX Excision of Duodenum, Via Natural or Artificial Opening Endoscopic, Diagnostic (ICD-10-PCS; principal; 2018-05-23 10:00)
DX: D50.9 Iron deficiency anemia, unspecified (principal); I50.31 Acute diastolic (congestive) heart failure; I13.0 Hypertensive heart and chronic kidney disease with heart failure and stage 1 through stage 4 chronic kidney disease, or unspecified chronic kidney disease; E11.52 Type 2 diabetes mellitus with diabetic peripheral angiopathy with gangrene; J98.11 Atelectasis; M86.9 Osteomyelitis, unspecified; N25.81 Secondary hyperparathyroidism of renal origin; N17.9 Acute kidney failure, unspecified; I42.9 Cardiomyopathy, unspecified; D63.1 Anemia in chronic kidney disease; E11.21 Type 2 diabetes mellitus with diabetic nephropathy; E11.22 Type 2 diabetes mellitus with diabetic chronic kidney disease; E11.42 Type 2 diabetes mellitus with diabetic polyneuropathy; E11.621 Type 2 diabetes mellitus with foot ulcer; E11.65 Type 2 diabetes mellitus with hyperglycemia; E11.69 Type 2 diabetes mellitus with other specified complication; E66.9 Obesity, unspecified; E78.5 Hyperlipidemia, unspecified; E87.5 Hyperkalemia; F40.240 Claustrophobia; G47.30 Sleep apnea, unspecified; I27.20 Pulmonary hypertension, unspecified; J44.9 Chronic obstructive pulmonary disease, unspecified; K22.70 Barrett's esophagus without dysplasia; K29.80 Duodenitis without bleeding; K59.00 Constipation, unspecified; L08.9 Local infection of the skin and subcutaneous tissue, unspecified; L97.529 Non-pressure chronic ulcer of other part of left foot with unspecified severity; N18.3 Chronic kidney disease, stage 3 (moderate); Z68.32 Body mass index [BMI] 32.0-32.9, adult; Z79.4 Long term (current) use of insulin; Z79.82 Long term (current) use of aspirin; Z79.899 Other long term (current) drug therapy; Z88.0 Allergy status to penicillin; Z89.412 Acquired absence of left great toe; Z89.421 Acquired absence of other right toe(s); Z89.422 Acquired absence of other left toe(s); K20.9 Esophagitis, unspecified; K29.50 Unspecified chronic gastritis without bleeding; I07.1 Rheumatic tricuspid insufficiency